=== PATIENT | female | born 1980 | race Hispanic/Latino ===

== ENCOUNTER 2021-07-25 05:12 | Emergency (ER) | payer BC, OTHER ==
[2021-07-25] MEDS ORDERED: NA CHLORIDE 0.9% 250 ML ONE (09:17)
[2021-07-25] MEDS ORDERED: CASIRIVIMAB/IMDEVIMAB 10 ML VIAL ONE (09:17)
[2021-07-25] MEDS ORDERED: ACETAMINOPHEN 500 MG TAB ONE (10:20)
[2021-07-25] MEDS ORDERED: DIPHENHYDRAMINE 50 MG/ML VIAL ONE (10:20)
--- NOTE | 2021-07-25 11:18 | EDPHYS ---
Physician Documentation [facility] Name: Bonny Overton Age: 41 yrs Sex: Female : 1980 Arrival Date: 07/25/2021 Time: 05:16 Bed 20 Private MD: ED Physician Chetan Ruiz HPI: 07/25 05:40 This 41 yrs old Female presents to ER via Ambulatory with complaints of Cough, ps1 Runny Nose, Congestion. 05:40 is known to be Covid positive. Living in the same domicile. Patient has got ps1 symptoms consistent with Covid. No hypoxia on evaluation today. Denies any leg swelling. Denies chest pain. Was reportedly seen by her PCP and was told that she had fluid behind her ears and that may be the cause of her dizziness. Symptoms have been going on for over a week. Was prescribed amoxicillin for reported otitis. Was not tested for Covid or other viral pathogens.. Historical: - Allergies: 05:29 No Known Allergies; sj1 - PMHx: 05:29 Hypertensive disorder; sj1 - PSHx: 05:29 section; Cholecystectomy; hysterectomy; sj1 - Immunization history:: Adult Immunizations up to date, Client reports having NOT received the Covid vaccine. - Social history:: Smoking status: Patient denies any tobacco usage or history of. Patient/guardian denies using alcohol, street drugs. ROS: 05:40 Eyes: Negative for injury, pain, redness, and discharge, Neck: Negative for injury, ps1 pain, and swelling, Cardiovascular: Negative for chest pain, palpitations, and edema, Abdomen/GI: Negative for abdominal pain, nausea, vomiting, diarrhea, and constipation, Skin: Negative for injury, rash, and discoloration, Neuro: Negative for headache, weakness, numbness, tingling, and seizure. 05:40 Constitutional: Positive for body aches, chills, fatigue, malaise. 05:40 ENT: Positive for ear pain, sinus congestion. 05:40 Respiratory: Positive for cough, with no reported sputum. Exam: 05:42 Constitutional: This is a well developed, well nourished patient who is awake, alert, ps1 and in no acute distress. Head/Face: Normocephalic, atraumatic. Eyes: Pupils equal round and reactive to light, extra-ocular motions intact. Lids and lashes normal. Conjunctiva and sclera are non-icteric and not injected. Chest/axilla: Normal chest wall appearance and motion. Nontender with no deformity. No lesions are appreciated. Cardiovascular: Regular rate and rhythm. No gallops, murmurs, or rubs. Normal PMI, no JVD. No pulse deficits. Respiratory: Lungs have equal breath sounds bilaterally, clear to auscultation and percussion. No rales, rhonchi or wheezes noted. No increased work of breathing, no retractions or nasal flaring. Abdomen/GI: Soft, non-tender, with normal bowel sounds. No distension or tympany. No guarding or rebound. No evidence of tenderness throughout. Skin: Warm, dry with normal turgor. Normal color with no rashes, no lesions, and no evidence of cellulitis. MS/ Extremity: Pulses equal, no cyanosis. Neurovascular intact. Full, normal range of motion. Neuro: Awake and alert, GCS 15, oriented to person, place, time, and situation. Cranial nerves II-XII grossly intact. Sensory grossly intact. Vital Signs: 05:24 BP 177 / 101; Pulse 96; Resp 18 S; Temp 98.3(TE); Pulse Ox 99% on R/A; Weight 108.86 kg [facility] (R); Height 5 ft. 2 in. (157.48 cm); Pain 2/10; 07:15 BP 162 / 81; Pulse 77; Resp 16; Pulse Ox 99% ; bp 08:30 BP 183 / 111; Pulse 80; Resp 16; Pulse Ox 100% ; bp 09:30 BP 181 / 106; Pulse 75; Resp 16; Pulse Ox 100% ; bp 10:40 BP 161 / 87; Pulse 66; Resp 17; Pulse Ox 100% ; bp 11:29 BP 142 / 88; Pulse 71; Resp 16; Pulse Ox 99% ; bp 12:27 BP 146 / 85; Pulse 75; Resp 17; Temp 98; Pulse Ox 100% ; bp 05:24 Body Mass Index 43.90 (108.86 kg, 157.48 cm) [facility] MDM: 05:28 Patient medically screened. ps1 11:16 Data reviewed: vital signs, nurses notes. Counseling: I had a detailed discussion with manan the patient and/or guardian regarding: the historical points, exam findings, and any diagnostic results supporting the discharge/admit diagnosis, lab results, radiology results, the need for outpatient follow up, to return to the emergency department if symptoms worsen or persist or if there are any questions or concerns that arise at home. 07/25 05:51 Order name: COVID-19 (Coronavirus) Document "Date of Onset" if Symptomatic cc4 07/25 05:51 Order name: Flu; Complete Time: 06:33 cc4 07/25 06:09 Order name: SARS-COV-2 RT PCR; Complete Time: 07:51 EDMS Administered Medications: 09:30 Drug: Casirivimab-Imdevimab Dose Pack 120 mg/mL-120 mg/mL (EUA) 1 application Route: bp IV; Rate: calculated rate; Site: right forearm; 12:35 Follow up: IV Status: Completed infusion; IV Intake: 250ml bp 10:00 Drug: Tylenol 1000 mg Route: PO; bp 11:31 Follow up: Response: No adverse reaction bp 10:00 Drug: Benadryl (diphenhydrAMINE) 25 mg Route: IVP; Site: right antecubital; bp 11:31 Follow up: Response: No adverse reaction; Pain is decreased bp Disposition Summary: 07/25/21 11:17 Discharge Ordered Location: Home [facility] Condition: Stable [facility] Diagnosis - Coronavirus infection, unspecified [facility] Followup: jm - With: Private Physician - When: 2 - 3 days - Reason: Recheck today's complaints, Continuance of care, Re-evaluation by your physician Discharge Instructions: - Discharge Summary Sheet [facility] - COVID-19 [facility] Forms: - Medication Reconciliation Form [facility] - Thank You Letter [facility] - Antibiotic Education [facility] - Prescription Opioid Use [facility] Signatures: Dispatcher [employer] EDMS Aldo Flores PA PA jmm Peltier, Brian, RN RN Chetan King MD MD ps1 Neida Cheng RN RN sj1 Corrections: (The following items were deleted from the chart) 05:31 05:29 Allergies: Aspirin; sj1 sj1
--- NOTE | 2021-07-25 11:18 | ER ---
Nurse's Notes [facility] Name: Bonny Overton Age: 41 yrs Sex: Female : 1980 Arrival Date: 07/25/2021 Time: 05:16 Bed 20 Private MD: Diagnosis: Coronavirus infection, unspecified Presentation: 07/25 05:24 Chief complaint: Patient states: SOB, body aches, congestion, diarrhea, headache, sj1 dizziness x 1 wk, covid + on 07/21/21. Coronavirus screen: Vaccine status: Patient reports being unvaccinated. congestion, diarrhea, fatigue, headache, muscle pain, shaking with chills, Client presents with at least one sign or symptom that may indicate coronavirus-19. Standard/surgical mask placed on the client. Provider contacted for isolation considerations. Ebola Screen: Patient negative for fever greater than or equal to 101.5 degrees Fahrenheit, and additional compatible Ebola Virus Disease symptoms Patient denies exposure to infectious person. Patient denies travel to an Ebola-affected area in the 21 days before illness onset. No symptoms or risks identified at this time. Initial Sepsis Screen: Does the patient meet any 2 criteria? No. Patient's initial sepsis screen is negative. Does the patient have a suspected source of infection? No. Patient's initial sepsis screen is negative. Risk Assessment: Do you want to hurt yourself or someone else? Patient reports no desire to harm self or others. Onset of symptoms was July 17, 2021. 05:24 Method Of Arrival: Ambulatory sj1 05:24 Acuity: [place]ST[place] 4 sj1 Triage Assessment: 05:29 General: Appears in no apparent distress. Behavior is calm, cooperative, appropriate sj1 for age. Pain: Complains of pain in gen body aches. EENT: No deficits noted. Neuro: No deficits noted. Cardiovascular: Reports chest pain. Respiratory: Reports shortness of breath. GI: Reports diarrhea. : No deficits noted. Derm: No deficits noted. Musculoskeletal: Reports body aches. Historical: - Allergies: 05:29 No Known Allergies; sj1 - PMHx: 05:29 Hypertensive disorder; sj1 - PSHx: 05:29 section; Cholecystectomy; hysterectomy; sj1 - Immunization history:: Adult Immunizations up to date, Client reports having NOT received the Covid vaccine. - Social history:: Smoking status: Patient denies any tobacco usage or history of. Patient/guardian denies using alcohol, street drugs. Screenin:32 Abuse screen: Denies threats or abuse. Denies injuries from another. Nutritional sj1 screening: No deficits noted. Tuberculosis screening: No symptoms or risk factors identified. Fall Risk None identified. Assessment: 05:32 Respiratory: Airway is patent Trachea midline Respiratory effort is even, unlabored, sj1 Respiratory pattern is regular, symmetrical. 05:55 Reassessment: No changes from previously documented assessment. General: Appears in no cc4 apparent distress. Occasional nonproductive cough noted; reports nasal congestion with "runny nose"; nasal drainage in back of throat with intermittent headache x 4 days; reports that was diagnosed with Covid earlier this week.. General: Swabbed for Covid-19 \\T\\ flu with both specimens taken to lab.. Pain: Complains of pain in head Pain currently is 3 out of 10 on a pain scale. Cardiovascular: Heart tones S1 S2. Respiratory: Airway is patent Breath sounds are clear bilaterally. GI: Abdomen is obese, Bowel sounds present X 4 quads. Reports intermittent loose stools. : No signs and/or symptoms were reported regarding the genitourinary system. EENT: Reports nasal congestion nasal discharge nasal drainage down back of throat.. Derm: No deficits noted. Skin is intact. Musculoskeletal: No deficits noted. Capillary refill < 3 seconds. 07:00 Reassessment: RECD REPORT FROM MARY RUBY. 41YO HF P/W URI S/S, KNOWN EXPOSURE TO bp COVID. COVID SWAB RESULTS PENDING. 08:55 Reassessment: No changes from previously documented assessment. Patient and/or family bp updated on plan of care and expected duration. Pain level reassessed. PER MD, PT +COVID. PT AGREES TO RECEIVE MONOCLONAL ANTIBODY REGEN-COV. Cardiovascular: Rhythm is sinus rhythm. 10:00 Reassessment: Patient appears in no apparent distress at this time. No changes from bp previously documented assessment. Patient and/or family updated on plan of care and expected duration. Pain level reassessed. 11:29 Reassessment: REGEN-COV COMPLETED. D/C ON HOLD FOR OBS TIME. bp 12:27 Reassessment: OBS PERIOD OVER, PT D/C HOME, DX WITH CORONAVIRUS. Cardiovascular: Rhythm bp is sinus rhythm. Respiratory: Breath sounds are clear. Vital Signs: 05:24 BP 177 / 101; Pulse 96; Resp 18 S; Temp 98.3(TE); Pulse Ox 99% on R/A; Weight 108.86 kg sj1 (R); Height 5 ft. 2 in. (157.48 cm); Pain 2/; 07:15 BP 162 / 81; Pulse 77; Resp 16; Pulse Ox 99% ; bp 08:30 BP 183 / 111; Pulse 80; Resp 16; Pulse Ox 100% ; bp 09:30 BP 181 / 106; Pulse 75; Resp 16; Pulse Ox 100% ; bp 10:40 BP 161 / 87; Pulse 66; Resp 17; Pulse Ox 100% ; bp 11:29 BP 142 / 88; Pulse 71; Resp 16; Pulse Ox 99% ; bp 12:27 BP 146 / 85; Pulse 75; Resp 17; Temp 98; Pulse Ox 100% ; bp 05:24 Body Mass Index 43.90 (108.86 kg, 157.48 cm) 1 ED Course: 05:16 Patient arrived in ED. bp1 05:23 Chetan Ruiz MD is Attending Physician. ps1 05:29 Triage completed. sj1 05:32 Patient has correct armband on for positive identification. sj1 05:32 Arm band placed on. sj1 05:32 No provider procedures requiring assistance completed. sj1 05:42 Mary Connor, RN is Primary Nurse. cc4 06:30 SARS-COV-2 RT PCR Sent. cc4 06:30 Flu Sent. cc4 06:30 COVID-19 (Coronavirus) Document "Date of Onset" if Symptomatic Sent. cc4 06:53 Aldo Flores PA [facility] 07:25 Primary Nurse role handed off by Mary Connor, RN bp 07:25 Beck Jauregui, FLORI is Primary Nurse. bp 12:33 IV discontinued, intact, bleeding controlled, No redness/swelling at site. Pressure bp dressing applied. Administered Medications: 09:30 Drug: Casirivimab-Imdevimab Dose Pack 120 mg/mL-120 mg/mL (EUA) 1 application Route: bp IV; Rate: calculated rate; Site: right forearm; 12:35 Follow up: IV Status: Completed infusion; IV Intake: 250ml bp 10:00 Drug: Tylenol 1000 mg Route: PO; bp 11:31 Follow up: Response: No adverse reaction bp 10:00 Drug: Benadryl (diphenhydrAMINE) 25 mg Route: IVP; Site: right antecubital; bp 11:31 Follow up: Response: No adverse reaction; Pain is decreased bp Intake: 12:35 IV: 250ml; Total: 250ml. bp Outcome: 11:17 Discharge ordered by . manan 12:34 Discharged to home ambulatory. bp 12:34 Condition: stable 12:34 Discharge instructions given to patient, Instructed on discharge instructions, follow up and referral plans. Demonstrated understanding of instructions, follow-up care. 12:37 Patient left the ED. bp Signatures: Aldo Flores PA PA jmm Peltier, Brian RN RN bp Chetan Ruiz MD MD ps1 Paniauga, Brittany bp1 Mary Connor RN RN cc4 Neida Cheng RN RN sj1 Corrections: (The following items were deleted from the chart) 05:31 05:29 Allergies: Aspirin; sj1 sj1
[2021-07-25 12:50] VITALS: BP 146/85; TEMP 98; O2SAT 100
== END 2021-07-25 12:37 | disposition home or self-care (01) ==
LOC: ER 05:12
DX: U07.1 COVID-19 (principal); I10 Essential (primary) hypertension
CPT/HCPCS: 96365; 87804 ×2; 96375; 99284; 96366; U0003; J1200; J7050

== ENCOUNTER 2021-09-02 11:59 | Emergency (ER) | payer OTHER ==
--- OUTSIDE RECORDS SUMMARY | 2021-09-02 12:07 | XMS REPORT | Continuity of Care Document ---
:1980 Author Organization [facility] t Address [address] [place] [address] [address] [place] [address] Care Team Providers Name Role Phone KYLE Attending Clinician Unavailable Tonya Barajas Attending Clinician Singer NG Attending Clinician Vahid Toussaint DO Attending Clinician Tara RUBY M Attending Clinician Unavailable Kyle FOSTER Attending Clinician Doctor Unassigned, Name Attending Clinician Unavailable Pob, Lab Main Attending Clinician Unavailable Lab, Fam Pob I Attending Clinician Unavailable Levar IRONMOLDER Attending Clinician LEVAR Attending Clinician Unavailable Nancy FOSTER Attending Clinician Mae MANZANARES Attending Clinician MAE Attending Clinician Unavailable KYLE Admitting Clinician Unavailable Kyle FOSTER Admitting Clinician Payers Payer Name Policy Type Policy Number Effective Date Expiration Date [facility] [id number] 2019 [facility] MEDICA[facility] 00:00:00 [id number] 2020 00:00:00 Problems Condition Condition Condition Status Onset Resolution Last Treating Co mments Source Name Details Category Date Date Treatment Clinician Date Abnormal Abnormal Disease Active 2019-10 Overview: Un yudi uterine uterine 1-30 Formattin ity o f bleeding bleeding 00:00: g of this Ole as (AUB) (AUB) 00 note Medical might be Branch different from the original. Added automatic ally from request for surgery [id number] Hyperchole Hyperchole Disease Active 2019-10 U nivers steremia steremia 0-15 ity of 00:00: [place] 00 Medical Branch Essential Essential Disease Active 2019-10 Uni vers hypertensi hypertensi 0-15 it y of on, benign on, benign 00:[place]: [place] [facility] Abnormal Abnormal Disease Active 2019-10 Unive rs blood blood 0-15 ity of sugar sugar 00:00: [place] 00 Medical Branch Iron Iron Disease Active 2019-10 Univers deficiency deficiency 0-15 it y of anemia, anemia, 00:00: [place] unspecifie unspecifie 00 Me dical d iron d iron Branch deficiency deficiency anemia anemia type type 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 severe 0-15 ity of obesity obesity 00:00: [place] with with 00 Medical serious serious Branch comorbidit comorbidit y and body y and body mass index mass index (BMI) of (BMI) of 45.0 to 45.0 to 49.9 in 49.9 in adult, adult, unspecifie unspecifie d obesity d obesity type type No known No known Disease Unive rs active active ity of problems problems [facility] Allergies, Adverse Reactions, Alerts Allergy Allergy Status Severity Reaction(s) Onset Inactive Treating Comm ents Source Name Type Date Date Clinician Joseph Propensi Active Swelling Univer s ty to 5-05 ity of adverse 00:00: [place] reaction 00 Medical s Branch JOSEPH DRUG Active Swelling Univers INGREDI 5-05 ity of 00:00: [place] 00 Medical Branch NO KNOWN Drug Active Univers ALLERGIE Class ity of S [facility] Social History Social Habit Start Date Stop Date Quantity Comments Source Exposure to Not sure [facility] SARS-CoV-2 [place] [facility] (event) Branch History of Cigarette Smoker Universi ty of tobacco use [facility] Tobacco use and 2020-10-29 2020-10-29 Never used Universit y of exposure 00:00:00 00:00:00 [facility] Alcohol intake 2020-10-29 2020-10-29 Ex-drinker [facility] 00:00:00 00:00:00 (finding) [facility] Sex Ass[birth year] At [birth year] Universit y of 00:00:00 00:00:00 [facility] Smoking Status Start Date Stop Date Source Former smoker 2020-10-29 00:00:00 2020-10-29 00:00:00 Universi ty of [facility] Never smoker University [facility] Medications Ordered Filled Start Stop Current Ordering Indication Dosage Frequency Signature Comments Components Source Medication Medication Date Date Medication? Clinician (SIG) Name Name NaCl 0.9% 2020- No 1000mL at 999 Uni vers (NS) bolus 03-19 mL/hr, ity of infusion 19:15: 07:14 1,000 mL, [place] 1,000 mL 00 :00 IV Medical Infusion, Branch ONCE, 1 dose, [place] 03/19/21 at 1415, STAT lisinopriL 2020- No 10mg 10 mg, Univ ers (PRINIVIL,Z 03-19 Oral, ity of ESTRIL) 19:15: 18:32 ONCE, 1 [place] tablet 10 00 :00 dose, [place] Medic al mg 03/19/21 at Branch 1415, Routine magnesium No 2g 2 g, IV Univ ers sulfate in 03-19 Piggyback, it y of water 2 19:15: 21:24 ONCE, 1 [place] gram/50 mL 00 :00 dose, [place] Medi luisa (4 %) 03/19/21 at Branch infusion 2 1415, g Routine ketorolac 2020- No 30mg 30 mg, Unive rs (TORADOL) 03-19 Slow IV ity of injection 19:15: 18:34 Push, [place] 30 mg 00 :00 ONCE, 1 Medical dose, [facility] Branch 03/19/21 at 1415, ZULEYMA
Fa culty member approving Restricted medication : Arden GREENBERG metoclopram No 10mg 10 mg, Uni vers brayden HCl 03-19 Slow IV ity of (REGLAN) 19:15: 18:36 Push, [place] injection 00 :00 ONCE, 1 Medical 10 mg dose, [place] Branch 03/19/21 at 1415, ZULEYMA diphenhydrA 2020- No 25mg 25 mg, Uni vers MINE 03-19 Slow IV ity of (BENADRYL) 19:15: 18:33 Push, [place] injection 00 :00 ONCE, 1 Medical 25 mg dose, [place] Branch 03/19/21 at 1415, STAT hydrOXYzine Yes [id number] 10mg Take 1 Univers 10 mg 5-05 tablet by ity of tablet 00:00: mouth [place] 00 every 6 Medical (six) Branch hours. methylPREDN 0 Yes [id number] Take by Univers ISolone 5-05 mouth ity of (MEDROL, 00:00: SEE-INSTRU Ole as KAVITHA,) 4 mg 00 CTIONS. Medica l tablets follow Branch package directions hydrOXYzine Yes [id number] 10mg Take 1 Univers 10 mg 5-05 tablet by ity of tablet 00:00: mouth [place] 00 every 6 Medical (six) Branch hours. methylPREDN 0 Yes [id number] Take by Univers ISolone 5-05 mouth ity of (MEDROL, 00:00: SEE-INSTRU [place] KAVITHA,) 4 mg 00 CTIONS. Medica l tablets follow Branch package directions fluconazole 2019-10 Yes TAKE ONE Un yudi 150 mg 2-07 (1) TABLET ity of tablet 00:00: BY MOUTH [place] 00 ONCE NOW Medical A Branch SINGLE DOSE. fluconazole 2019-10 Yes TAKE ONE Un y[facility] 150 mg 2-07 (1) TABLET ity of tablet 00:00: BY MOUTH [place] 00 ONCE NOW Medical A Branch SINGLE DOSE. fluconazole 2019-10 Yes TAKE ONE [facility] 150 mg 2-07 (1) TABLET ity of tablet 00:00: BY MOUTH [place] 00 ONCE NOW Medical A Branch SINGLE DOSE. norgestimat 2019-10 2020- No Take by U dominickers e-ethinyl 2-05 12-05 mouth. ity of estradiol 15:32: 00:00 [place] (ESTARYLLA 22 :00 Medical ORAL) Branch simethicone 2019-10 Yes 80mg 80 mg, Univ ers (GAS RELIEF 2-05 Oral, QID, it y of (SIMETHICON 15:15: First dose [place] E)) 00 on [facility] Medical chewable 09/13/20 at Branc h tablet 80 0915, mg Until Discontinu ed, Routine carvediloL 2019-10 Yes 6.25mg 6.25 mg, U nivers (COREG) 2-05 Oral, ity of tablet 6.25 15:00: DAILY, [place] mg 00 First dose Medical on Sat Branch 09/13/20 at 0900, Until Discontinu ed, Routine docusate 2019-10 Yes 240mg 240 mg, Unive rs calcium 2-05 Oral, ity of (SURFAK) 15:00: DAILY, [place] capsule 240 00 First dose Me dical mg on Sat Branch 09/13/20 at 0900, Until Discontinu ed, Routine ibuprofen 2019- Yes [id number] 600mg Take 1 Univers 600 mg 2-05 100 tablet by ity of tablet 00:00: mouth [place] 00 every 6 Medical (six) Branch hours as needed for Pain (scale 1-3). simethicone 2019- Yes [id number] 80mg Take 1 Univers 80 mg 2-05 100 tablet by ity of chewable 00:00: mouth [place] tablet 00 every 6 Medical (six) Branch hours as needed for Gas. docusate 2019-10 Yes [id number] 100mg Take 1 Univers 100 mg 2-05 100 capsule by ity of capsule 00:00: mouth 2 [place] 00 (two) Medical times Branch daily. ibuprofen 2019-10 Yes [id number] 600mg Take 1 Univers 600 mg 2-05 100 tablet by ity of tablet 00:00: mouth [place] 00 every 6 Medical (six) Branch hours as needed for Pain (scale 1-3). simethicone 2019- Yes [id number] 80mg Take 1 Univers 80 mg 2-05 100 tablet by ity of chewable 00:00: mouth [place] tablet 00 every 6 Medical (six) Branch hours as needed for Gas. docusate 2019-10 Yes [id number] 100mg Take 1 Univers 100 mg 2-05 100 capsule by ity of capsule 00:00: mouth 2 [place] 00 (two) Medical times Branch daily. ibuprofen 2019-10 Yes [id number] 600mg Take 1 Univers 600 mg 2-05 100 tablet by ity of tablet 00:00: mouth [place] 00 every 6 Medical (six) Branch hours as needed for Pain (scale 1-3). simethicone 2019- Yes [id number] 80mg Take 1 Univers 80 mg 2-05 100 tablet by ity of chewable 00:00: mouth [place] tablet 00 every 6 Medical (six) Branch hours as needed for Gas. docusate 2019- Yes [id number] 100mg Take 1 Univers 100 mg 2-05 100 capsule by ity of capsule 00:00: mouth 2 [place] 00 (two) Medical times Branch daily. ibuprofen 2019-10 Yes [id number] 600mg Take 1 Univers 600 mg 2-05 100 tablet by ity of tablet 00:00: mouth [place] 00 every 6 Medical (six) Branch hours as needed for Pain (scale 1-3). simethicone 2020-1 Yes [id number] 80mg Take 1 Univers 80 mg 2-05 100 tablet by ity of chewable 00:00: mouth [place] tablet 00 every 6 Medical (six) Branch hours as needed for Gas. docusate 2020-1 Yes [id number] 100mg Take 1 Univers 100 mg 2-05 100 capsule by ity of capsule 00:00: mouth 2 [place] 00 (two) Medical times Branch daily. ferrous 2020- Yes 324mg Take 324 Unive rs gluconate 2-05 mg by ity of 324 mg (38 00:00: mouth 2 [place] mg iron) 00 (two) Medical tablet times Branch daily. ibuprofen 2019- Yes [id number] 600mg Take 1 Univers 600 mg 2-05 100 tablet by ity of tablet 00:00: mouth [place] 00 every 6 Medical (six) Branch hours as needed for Pain (scale 1-3). simethicone 2020-1 Yes [id number] 80mg Take 1 Univers 80 mg 2-05 100 tablet by ity of chewable 00:00: mouth [place] tablet 00 every 6 Medical (six) Branch hours as needed for Gas. docusate 2019-1 Yes [id number] 100mg Take 1 Univers 100 mg 2-05 100 capsule by ity of capsule 00:00: mouth 2 [place] 00 (two) Medical times Branch daily. ferrous 2019-1 Yes 324mg Take 324 Unive rs gluconate 2-05 mg by ity of 324 mg (38 00:00: mouth 2 [place] mg iron) 00 (two) Medical tablet times Branch daily. ibuprofen 2019- Yes [id number] 600mg Take 1 Univers 600 mg 2-05 100 tablet by ity of tablet 00:00: mouth [place] 00 every 6 Medical (six) Branch hours as needed for Pain (scale 1-3). simethicone 2020-1 Yes [id number] 80mg Take 1 Univers 80 mg 2-05 100 tablet by ity of chewable 00:00: mouth [place] tablet 00 every 6 Medical (six) Branch hours as needed for Gas. docusate 2019- Yes [id number] 100mg Take 1 Univers 100 mg 2-05 100 capsule by ity of capsule 00:00: mouth 2 [place] 00 (two) Medical times Branch daily. ferrous 2019-10 Yes 324mg Take 324 Unive rs gluconate 2-05 mg by ity of 324 mg (38 00:00: mouth 2 [place] mg iron) 00 (two) Medical tablet times Branch daily. HYDROcodone 2019-10- No [id number] 1{tbl} Take 1 U nivers -acetaminop 11-1413 tablet by it y of hen 5-325 00:00: 05:59 mouth [place] mg tablet 00 :00 every 6 Medical (six) Branch hours as needed for Pain (scale 7-10) for up to 7 days. Indication s: acute pain HYDROcodone 2019-10- No 4647 1{tbl} Take 1 U nivers -acetaminop 2-13 tablet by it y of hen 5-325 00:00: 05:59 mouth [place] mg tablet 00 :00 every 6 Medical (six) Branch hours as needed for Pain (scale 7-10) for up to 7 days. Indication s: acute pain metoclopram 2019-10- No 10mg 10 mg, Uni vers brayden HCl 11-14 Slow IV ity of (REGLAN) 00:00: 05:29 [place], Q6H, [place] injection 00 :00 2 doses, Medica l 10 mg First dose Branch on Tue09/12/20 at 1800, Last dose on 09/13/20 at 0000, Routine ketorolac 2019-10- No 30mg 30 mg, Unive rs (TORADOL) 11-14 Slow IV ity of injection 00:00: 17:37 [place], Q6H, [place] 30 mg 00 :00 4 doses, Medical First dose Branch on Tue09/12/20 at 1800, Last dose on 09/13/20 at 1200, Routine
[place] tribunal member approving Restricted medication : FISH, BERT HYDROcodone 2019-10 Yes 2{tbl} 2 tablet, Univers -acetaminop 2-04 Oral, ity of hen (NORCO 21:53: Q6HPRN, [place] 5) 5-325 mg 24 Starting Medi luisa tablet 2 Tue Branch tablet 09/12/20 at 1553, Until Discontinu ed, Routine, Pain (scale 7-10) HYDROcodone 2020-1 Yes 1{tbl} 1 tablet, Univers -acetaminop 2-04 Oral, ity of hen (NORCO 21:53: Q6HPRN, [place] 5) 5-325 mg 09 Starting Medi luisa tablet 1 Tue Branch tablet 09/12/20 at 1553, Until Discontinu ed, Routine, Pain (scale 4-6) HYDROmorpho 2019-10 2020- No .2mg 0.2 mg, Un yudi ne -01 19- Slow IV ity of (DILAUDID) 19:52: 21:28 Push, [place] injection 59 :14 Q5MIN PRN, Medi luisa 0.2 mg 10 doses, Branch Starting Tue09/12/20 at 1352, Until Tue09/12/20 at 1528, Routine, Pain (scale 7-10), PACU
Us e approved by (Faculty): PACU USE -ANESTHESI A SERVICE-HY DROMORPHON E INJECTIONS lactated 2019-10 Yes 1000mL at 75 Univer s ringers IV 2-04 mL/hr, ity of infusion 19:30: 1,000 mL, [place] 1,000 mL 00 IV Medical Infusion, Branch CONTINUOUS , Starting Tue09/12/20 at 1330, Until Discontinu ed, Routine, PACU FENTanyl PF 2019-10 2020- No 25ug 25 mcg, Un yudi (SUBLIMAZE 11-13 Slow IV ity o f (PF)) 19:28: 19:48 Push, [place] injection 45 :00 Q5MIN PRN, Medi luisa 25 mcg 4 doses, Branch Starting Tue09/12/20 at 1328, Until Discontinu ed, Routine, Pain (scale 4-6), PACU lactated 2019-10 Yes 1000mL at 40 Univer s ringers IV 2-04 mL/hr, ity of infusion 19:15: 1,000 mL, [place] 1,000 mL 00 IV Medical Infusion, Branch CONTINUOUS , Starting Tue09/12/20 at 1315, Until Discontinu ed, Routine lactated 2019-10 2020- No 1000mL at 42 Unive rs ringers IV 2-04 12-04 mL/hr, ity of infusion 13:00: 13:25 1,000 mL, [place] 1,000 mL 00 :00 IV Medical Infusion, Branch ONCE, 1 dose, Tue09/12/20 at 0700, Routine, DSU Pre-op norgestimat 2019- Yes Take by [place] yudi e-ethinyl 2-01 mouth. ity of estradiol 22:23: [place] (ESTARYLLA 00 Medical ORAL) Branch norgestimat 2019-10 Yes Take by [place] e-ethinyl 2-01 mouth. ity of estradiol 22:23: [place] (ESTARYLLA 00 Medical ORAL) Branch norgestimat 2019-10 Yes Take by Un yudi e-ethinyl 1-24 mouth. ity of estradiol 16:21: [place] (ESTARYLLA 22 Medical ORAL) Branch norgestimat 2019-10 Yes Take by [place] e-ethinyl 1-24 mouth. ity of estradiol 16:21: [place] (ESTARYLLA 22 Medical ORAL) Branch norgestimat 2019-10 Yes Take by [place] e-ethinyl 1-24 mouth. ity of estradiol 16:21: [place] (ESTARYLLA 22 Medical ORAL) Branch norgestimat 2019-10 Yes Take by [place] e-ethinyl 1-24 mouth. ity of estradiol 16:21: [place] (ESTARYLLA 22 Medical ORAL) Branch medroxyPROG 2019-10 Yes 10mg Take 10 mg Univers ESTERone 10 1-24 by mouth 3 it y of mg tablet 00:00: (three) [place] 00 times Medical daily. Branch oxyCODONE 5 2019-10 Yes TAKE ONE Un yudi mg 1-24 (1) ity of immediate 00:00: TABLET(S) [place] release 00 BY MOUTH Medical tablet EVERY FOUR Branch HOURS NEEDED FOR PAIN FOR UP TO 5 DOSES. medroxyPROG 2019- Yes 10mg Take 10 mg Univers ESTERone 10 1-24 by mouth 3 it y of mg tablet 00:00: (three) [place] 00 times Medical daily. Branch oxyCODONE 5 2019-10 Yes TAKE ONE Un yudi mg 1-24 (1) ity of immediate 00:00: TABLET(S) [place] release 00 BY MOUTH Medical tablet EVERY FOUR Branch HOURS NEEDED FOR PAIN FOR UP TO 5 DOSES. medroxyPROG 2020- Yes 10mg Take 10 mg Univers ESTERone 10 1-24 by mouth 3 it y of mg tablet 00:00: (three) [place] 00 times Medical daily. Branch oxyCODONE 5 2019-10 Yes TAKE ONE Un yudi mg 1-24 (1) ity of immediate 00:00: TABLET(S) [place] release 00 BY MOUTH Medical tablet EVERY FOUR Branch HOURS NEEDED FOR PAIN FOR UP TO 5 DOSES. cephALEXin 2019-10 Yes TAKE ONE Uni vers 500 mg 1-20 (1) ity of capsule 00:00: [place]SULE(S) [place] 00 BY MOUTH Medical EVERY Branch TWELVE HOURS FOR 10 DAYS. cephALEXin 2019-10 Yes TAKE ONE Uni vers 500 mg 1-20 (1) ity of capsule 00:00: CAPSULE(S) [place] 00 BY MOUTH Medical EVERY Branch TWELVE HOURS FOR 10 DAYS. cephALEXin 2019-10 Yes TAKE ONE Uni vers 500 mg 1-20 (1) ity of capsule 00:00: CAPSULE(S) [place] 00 BY MOUTH Medical EVERY Branch TWELVE HOURS FOR 10 DAYS. cephALEXin 2019-10 Yes TAKE ONE Uni vers 500 mg 1-20 (1) ity of capsule 00:00: CAPSULE(S) [place] 00 BY MOUTH Medical EVERY Branch TWELVE HOURS FOR 10 DAYS. cephALEXin 2019-10 Yes TAKE ONE Uni vers 500 mg 1-20 (1) ity of capsule 00:00: CAPSULE(S) [place] 00 BY MOUTH Medical EVERY Branch TWELVE HOURS FOR 10 DAYS. cephALEXin 2019-10 Yes TAKE ONE Uni vers 500 mg 1-20 (1) ity of capsule 00:00: CAPSULE(S) [place] 00 BY MOUTH Medical EVERY Branch TWELVE HOURS FOR 10 DAYS. cephALEXin 2019-10 2020- No TAKE ONE Un yudi 500 mg 1-20 12-05 (1) ity of capsule 00:00: 00:00 CAPSULE(S) [place] 00 :00 BY MOUTH Medical EVERY Branch TWELVE HOURS FOR 10 DAYS. ferrous 2019-10 Yes [id number] 324mg Take 1 [place] yudi gluconate 1-13 tablet by ity o f 324 mg (38 00:00: mouth 2 [place] mg iron) 00 (two) Medical tablet times Branch daily. ascorbic 2019- Yes [id number] 500mg Take 1 U nivers acid, 1-13 tablet by ity of vitamin C, 00:00: mouth 2 [place] 500 mg 00 (two) Medical tablet times Branch daily. Take with iron to help with absorption of iron. ferrous 2019-10 Yes [id number] 324mg Take 1 [place] gluconate 1-13 tablet by ity o f 324 mg (38 00:00: mouth 2 [place] mg iron) 00 (two) Medical tablet times Branch daily. ascorbic 2019- Yes [id number] 500mg Take 1 U nivers acid, 1-13 tablet by ity of vitamin C, 00:00: mouth 2 [place] 500 mg 00 (two) Medical tablet times Branch daily. Take with iron to help with absorption of iron. ferrous 2019- Yes [id number] 324mg Take 1 [place] gluconate 1-13 tablet by ity o f 324 mg (38 00:00: mouth 2 [place] mg iron) 00 (two) Medical tablet times Branch daily. ascorbic 2019-10 Yes [id number] 500mg Take 1 U nivers acid, 1-13 tablet by ity of vitamin C, 00:00: mouth 2 [place] 500 mg 00 (two) Medical tablet times Branch daily. Take with iron to help with absorption of iron. ferrous 2019-10 Yes [id number] 324mg Take 1 [place]udi gluconate 1-13 tablet by ity o f 324 mg (38 00:00: mouth 2 [place] mg iron) 00 (two) Medical tablet times Branch daily. ascorbic 2019-10 Yes [id number] 500mg Take 1 U nivers acid, 1-13 tablet by ity of vitamin C, 00:00: mouth 2 [place] 500 mg 00 (two) Medical tablet times Branch daily. Take with iron to help with absorption of iron. ferrous 2019-10 Yes [id number] 324mg Take 1 [place]udi gluconate 1-13 tablet by ity o f 324 mg (38 00:00: mouth 2 [place] mg iron) 00 (two) Medical tablet times Branch daily. ascorbic 2019-10 Yes [id number] 500mg Take 1 U nivers acid, 1-13 tablet by ity of vitamin C, 00:00: mouth 2 [place] 500 mg 00 (two) Medical tablet times Branch daily. Take with iron to help with absorption of iron. ferrous 2019- Yes [id number] 324mg Take 1 [place] gluconate 1-13 tablet by ity o f 324 mg (38 00:00: mouth 2 [place] mg iron) 00 (two) Medical tablet times Branch daily. ascorbic 2019-1 Yes [id number] 500mg Take 1 U nivers acid, 1-13 tablet by ity of vitamin C, 00:00: mouth 2 [place] 500 mg 00 (two) Medical tablet times Branch daily. Take with iron to help with absorption of iron. ferrous 2019-10 Yes [id number] 324mg Take 1 [place]udi gluconate 1-13 tablet by ity o f 324 mg (38 00:00: mouth 2 [place] mg iron) 00 (two) Medical tablet times Branch daily. ascorbic 2019-10 Yes [id number] 500mg Take 1 U nivers acid, 1-13 tablet by ity of vitamin C, 00:00: mouth 2 [place] 500 mg 00 (two) Medical tablet times Branch daily. Take with iron to help with absorption of iron. ferrous 2019-10 Yes [id number] 324mg Take 1 [place] gluconate 1-13 tablet by ity o f 324 mg (38 00:00: mouth 2 [place] mg iron) 00 (two) Medical tablet times Branch daily. ascorbic 2019-10 Yes [id number] 500mg Take 1 U nivers acid, 1-13 tablet by ity of vitamin C, 00:00: mouth 2 [place] 500 mg 00 (two) Medical tablet times Branch daily. Take with iron to help with absorption of iron. ferrous 2019-10 Yes [id number] 324mg Take 1 [place] gluconate 1-13 tablet by ity o f 324 mg (38 00:00: mouth 2 [place] mg iron) 00 (two) Medical tablet times Branch daily. ascorbic 2019-10 Yes [id number] 500mg Take 1 U nivers acid, 1-13 tablet by ity of vitamin C, 00:00: mouth 2 [place] 500 mg 00 (two) Medical tablet times Branch daily. Take with iron to help with absorption of iron. ferrous 2019-10 Yes [id number] 324mg Take 1 [place] gluconate 1-13 tablet by ity o f 324 mg (38 00:00: mouth 2 [place] mg iron) 00 (two) Medical tablet times Branch daily. ascorbic 2019-10 Yes [id number] 500mg Take 1 U nivers acid, 1-13 tablet by ity of vitamin C, 00:00: mouth 2 [place] 500 mg 00 (two) Medical tablet times Branch daily. Take with iron to help with absorption of iron. ferrous 2019-10- No [id number] 324mg Take 1 U nivers gluconate 10-22 tablet by ity of 324 mg (38 00:00: 00:00 mouth 2 [place] mg iron) 00 :00 (two) Medical tablet times Branch daily. ascorbic 2019-10- No [id number] 500mg Take 1 Univers acid, 10-22 tablet by ity of vitamin C, 00:00: 00:00 mouth 2 [place] 500 mg 00 :00 (two) Medical tablet times Branch daily. Take with iron to help with absorption of iron. medroxyPROG 2019-10 Yes [id number] 10mg Take 1 Univers ESTERone 1-06 100 tablet by ity of (PROVERA) 00:00: mouth 3 [place] 10 mg 00 (three) Medical tablet times Branch daily. medroxyPROG 2019-10 Yes [id number] 10mg Take 1 Univers ESTERone 1-06 100 tablet by ity of (PROVERA) 00:00: mouth 3 [place] 10 mg 00 (three) Medical tablet times Branch daily. medroxyPROG 2019-10 Yes [id number] 10mg Take 1 Univers ESTERone 1-06 100 tablet by ity of (PROVERA) 00:00: mouth 3 [place] 10 mg 00 (three) Medical tablet times Branch daily. medroxyPROG 2019-10 Yes [id number] 10mg Take 1 Univers ESTERone 1-06 100 tablet by ity of (PROVERA) 00:00: mouth 3 [place] 10 mg 00 (three) Medical tablet times Branch daily. medroxyPROG 2019-10 Yes [id number] 10mg Take 1 Univers ESTERone 1-06 100 tablet by ity of (PROVERA) 00:00: mouth 3 [place] 10 mg 00 (three) Medical tablet times Branch daily. oxyCODONE 5 2019- Yes [id number] 5mg Take 5 mg U nivers mg TbOr 1-06 by mouth ity of 00:00: every 4 [place] 00 (four) Medical hours as Branch needed for Pain (scale 4-6) for up to 3 doses. Indication s: acute pain ibuprofen 2019-10 Yes [id number] 600mg Take 1 Univers 600 mg 1-06 100 tablet by ity of tablet 00:00: mouth [place] 00 every 6 Medical (six) Branch hours as needed for Pain (scale 4-6). medroxyPROG 2020- Yes [id number] 10mg Take 1 Univers ESTERone 1-06 100 tablet by ity of (PROVERA) 00:00: mouth 3 [place] 10 mg 00 (three) Medical tablet times Branch daily. medroxyPROG 2020- Yes [id number] 10mg Take 1 Univers ESTERone 1-06 100 tablet by ity of (PROVERA) 00:00: mouth 3 [place] 10 mg 00 (three) Medical tablet times Branch daily. ibuprofen 2019-10 Yes [id number] 600mg Take 1 Univers 600 mg 1-06 100 tablet by ity of tablet 00:00: mouth [place] 00 every 6 Medical (six) Branch hours as needed for Pain (scale 4-6). oxyCODONE 5 2019-10 Yes [id number] 5mg Take 1 Univ ers mg 1-06 tablet by ity of immediate 00:00: mouth [place] release 00 every 4 Medical tablet (four) Branch hours as needed for Pain (scale 4-6) for up to 5 doses. Indication s: acute pain medroxyPROG 2019- Yes [id number] 10mg Take 1 Univers ESTERone 1-06 100 tablet by ity of (PROVERA) 00:00: mouth 3 [place] 10 mg 00 (three) Medical tablet times Branch daily. ibuprofen 2019- Yes [id number] 600mg Take 1 Univers 600 mg 1-06 100 tablet by ity of tablet 00:00: mouth [place] 00 every 6 Medical (six) Branch hours as needed for Pain (scale 4-6). oxyCODONE 5 2019-10 Yes [id number] 5mg Take 1 Univ ers mg 1-06 tablet by ity of immediate 00:00: mouth [place] release 00 every 4 Medical tablet (four) Branch hours as needed for Pain (scale 4-6) for up to 5 doses. Indication s: acute pain medroxyPROG 2020- Yes [id number] 10mg Take 1 Univers ESTERone 1-06 100 tablet by ity of (PROVERA) 00:00: mouth 3 [place] 10 mg 00 (three) Medical tablet times Branch daily. ibuprofen 2019- Yes [id number] 600mg Take 1 Univers 600 mg 1-06 100 tablet by ity of tablet 00:00: mouth [place] 00 every 6 Medical (six) Branch hours as needed for Pain (scale 4-6). oxyCODONE 5 2019-10 Yes [id number] 5mg Take 1 Univ ers mg 1-06 tablet by ity of immediate 00:00: mouth [place] release 00 every 4 Medical tablet (four) Branch hours as needed for Pain (scale 4-6) for up to 5 doses. Indication s: acute pain medroxyPROG 2019- Yes [id number] 10mg Take 1 Univers ESTERone 1-06 100 tablet by ity of (PROVERA) 00:00: mouth 3 [place] 10 mg 00 (three) Medical tablet times Branch daily. ibuprofen 2019-10 Yes [id number] 600mg Take 1 [facility] 600 mg 1-06 100 tablet by ity of tablet 00:00: mouth [place] 00 every 6 Medical (six) Branch hours as needed for Pain (scale 4-6). oxyCODONE 5 2019-10 Yes [id number] 5mg Take 1 [facility] ers mg 1-06 tablet by ity of immediate 00:00: mouth [place] release 00 every 4 Medical tablet (four) Branch hours as needed for Pain (scale 4-6) for up to 5 doses. Indication s: acute pain medroxyPROG 2019-10 Yes [id number] 10mg Take 1 [facility] ESTERone 1-06 100 tablet by ity of (PROVERA) 00:00: mouth 3 [place] 10 mg 00 (three) Medical tablet times Branch daily. ibuprofen 2019-10 Yes [id number] 600mg Take 1 [facility] 600 mg 1-06 100 tablet by ity of tablet 00:00: mouth [place] 00 every 6 Medical (six) Branch hours as needed for Pain (scale 4-6). oxyCODONE 5 2019-10 Yes [id number] 5mg Take 1 [facility] ers mg 1-06 tablet by ity of immediate 00:00: mouth [place] release 00 every 4 Medical tablet (four) Branch hours as needed for Pain (scale 4-6) for up to 5 doses. Indication s: acute pain medroxyPROG 2019-10 Yes [id number] 10mg Take 1 [facility] ESTERone 1-06 100 tablet by ity of (PROVERA) 00:00: mouth 3 [place] 10 mg 00 (three) Medical tablet times Branch daily. ibuprofen 2019-10 Yes [id number] 600mg Take 1 [facility] 600 mg 1-06 100 tablet by ity of tablet 00:00: mouth [place] 00 every 6 Medical (six) Branch hours as needed for Pain (scale 4-6). oxyCODONE 5 2019-10 Yes [id number] 5mg Take 1 [facility] ers mg 1-06 tablet by ity of immediate 00:00: mouth [place] release 00 every 4 Medical tablet (four) Branch hours as needed for Pain (scale 4-6) for up to 5 doses. Indication s: acute pain medroxyPROG 2019- Yes [id number] 10mg Take 1 [facility] ESTERone 1-06 100 tablet by ity of (PROVERA) 00:00: mouth 3 [place] 10 mg 00 (three) Medical tablet times Branch daily. ibuprofen 2019-10 Yes [id number] 600mg Take 1 [facility] 600 mg 1-06 100 tablet by ity of tablet 00:00: mouth [place] 00 every 6 Medical (six) Branch hours as needed for Pain (scale 4-6). oxyCODONE 5 2019-10 Yes [id number] 5mg Take 1 [facility] ers mg 1-06 tablet by ity of immediate 00:00: mouth [place] release 00 every 4 Medical tablet (four) Branch hours as needed for Pain (scale 4-6) for up to 5 doses. Indication s: acute pain medroxyPROG 2019-10 Yes [id number] 10mg Take 1 [facility] ESTERone 1-06 100 tablet by ity of (PROVERA) 00:00: mouth 3 [place] 10 mg 00 (three) Medical tablet times Branch daily. ibuprofen 2019-10 Yes [id number] 600mg Take 1 [facility] 600 mg 1-06 100 tablet by ity of tablet 00:00: mouth [place] 00 every 6 Medical (six) Branch hours as needed for Pain (scale 4-6). oxyCODONE 5 2019-10 Yes [id number] 5mg Take 1 [facility] ers mg 1-06 tablet by ity of immediate 00:00: mouth [place] release 00 every 4 Medical tablet (four) Branch hours as needed for Pain (scale 4-6) for up to 5 doses. Indication s: acute pain ibuprofen 2019-10 Yes [id number] 600mg Take 1 [facility] 600 mg 1-06 100 tablet by ity of tablet 00:00: mouth [place] 00 every 6 Medical (six) Branch hours as needed for Pain (scale 4-6). ibuprofen 2019-10 Yes [id number] 600mg Take 1 [facility] 600 mg 1-06 100 tablet by ity of tablet 00:00: mouth [place] 00 every 6 Medical (six) Branch hours as needed for Pain (scale 4-6). ibuprofen 2019-10 Yes [id number] 600mg Take 1 [facility] 600 mg 1-06 100 tablet by ity of tablet 00:00: mouth [place] 00 every 6 Medical (six) Branch hours as needed for Pain (scale 4-6). ibuprofen 2019-10 Yes [id number] 600mg Take 1 [facility] 600 mg 1-06 100 tablet by ity of tablet 00:00: mouth [place] 00 every 6 Medical (six) Branch hours as needed for Pain (scale 4-6). ibuprofen 2019-10 Yes [id number] 600mg Take 1 [facility] 600 mg 1-06 100 tablet by ity of tablet 00:00: mouth [place] 00 every 6 Medical (six) Branch hours as needed for Pain (scale 4-6). ibuprofen 2019-10 Yes [id number] 600mg Take 1 [facility] 600 mg 1-06 100 tablet by ity of tablet 00:00: mouth [place] 00 every 6 Medical (six) Branch hours as needed for Pain (scale 4-6). ibuprofen 2019-10- No [id number] 600mg Take 1 [facility] 600 mg -06 12-05 100 tablet by ity of tablet 00:00: 00:00 mouth [place] 00 :00 every 6 Medical (six) Branch hours as needed for Pain (scale 4-6). medroxyPROG 2019- 2020- No [id number] 10mg Take 1 [facility] ESTERone 10-15- 100 tablet by ity o f (PROVERA) 00:00: 00:00 mouth 3 [place] 10 mg 00 :00 (three) Medical tablet times Branch daily. Take twice daily until you completely stop bleeding, then once per day medroxyPROG 2019-10 2020- No [id number] 10mg Take 1 [facility] ESTERone 10-15- 100 tablet by ity o f (PROVERA) 00:00: 00:00 mouth 3 [place] 10 mg 00 :00 (three) Medical tablet times Branch daily. Take twice daily until you completely stop bleeding, then once per day medroxyPROG 2019-10 2020- No [id number] 10mg Take 1 [facility] ESTERone 10-15- 100 tablet by ity o f (PROVERA) 00:00: 00:00 mouth 3 [place] 10 mg 00 :00 (three) Medical tablet times Branch daily. Take twice daily until you completely stop bleeding, then once per day medroxyPROG 2019-10- No [id number] 10mg Take 1 [facility] ESTERone 10-15 100 tablet by ity o f (PROVERA) 00:00: 00:00 mouth 3 [place] 10 mg 00 :00 (three) Medical tablet times Branch daily. Take twice daily until you completely stop bleeding, then once per day oxyCODONE 5 2019-10- No [id number] 5mg Take 5 mg [facility] mg TbOr 10-15 by mouth ity of 00:00: 00:00 every 4 [place] 00 :00 (four) Medical hours as Branch needed for Pain (scale 4-6) for up to 3 doses. Indication s: acute pain medroxyPROG 2019-10- No [id number] 10mg Take 1 [facility] ESTERone 10-11 100 tablet by ity o f (PROVERA) 00:00: 05:59 mouth 2 [place] 10 mg 00 :00 (two) Medical tablet times Branch daily for 60 doses. Take twice daily until you completely stop bleeding, then once per day docusate 2019-10- No [id number] 100mg Take 1 [facility] (COLACE) 10-11 100 capsule by ity of 100 mg 00:00: 05:59 mouth 2 [place] capsule 00 :00 (two) Medical times Branch daily for 30 days. This medication is used for constipati on Polyethylen 2019-10- No [id number] 1{packe Take 1 [facility] e Glycol 10-11 100 t} Packet by ity o f 3350 00:00: 05:59 mouth [place] (MIRALAX) 00 :00 every 24 Medica l 17 gram (twenty-fo Branch powder ur) hours as needed for Constipati on for up to 30 days. medroxyPROG 2019-10- No [id number] 10mg Take 1 [facility] ESTERone 10-11 100 tablet by ity o f (PROVERA) 00:00: 05:59 mouth 2 [place] 10 mg 00 :00 (two) Medical tablet times Branch daily for 60 doses. Take twice daily until you completely stop bleeding, then once per day docusate 2019-10- No [id number] 100mg Take 1 [facility] (COLACE) 1-02 12-03 100 capsule by ity of 100 mg 00:00: 05:59 mouth 2 [place] capsule 00 :00 (two) Medical times Branch daily for 30 days. This medication is used for constipati on Polyethylen 2019-10 No [id number] 1{packe Take 1 [facility] e Glycol 10-11 100 t} Packet by ity o f 3350 00:00: 05:59 mouth [place] (MIRALAX) 00 :00 every 24 Medica l 17 gram (twenty-fo Branch powder ur) hours as needed for Constipati on for up to 30 days. medroxyPROG 2019-10- No [id number] 10mg Take 1 [facility] ESTERone 10-11 100 tablet by ity o f (PROVERA) 00:00: 05:59 mouth 2 [place] 10 mg 00 :00 (two) Medical tablet times Branch daily for 60 doses. Take twice daily until you completely stop bleeding, then once per day docusate 2019-10- No [id number] 100mg Take 1 [facility] (COLACE) 10-11 100 capsule by ity of 100 mg 00:00: 05:59 mouth 2 [place] capsule 00 :00 (two) Medical times Branch daily for 30 days. This medication is used for constipati on Polyethylen 2019-10 No [id number] 1{packe Take 1 [facility] e Glycol 10-11 100 t} Packet by ity o f 3350 00:00: 05:59 mouth [place] (MIRALAX) 00 :00 every 24 Medica l 17 gram (twenty-fo Branch powder ur) hours as needed for Constipati on for up to 30 days. docusate 2019-10- No [id number] 100mg Take 1 [facility] (COLACE) 10-11 100 capsule by ity of 100 mg 00:00: 05:59 mouth 2 [place] capsule 00 :00 (two) Medical times Branch daily for 30 days. This medication is used for constipati on Polyethylen 2019-10 No [id number] 1{packe Take 1 [facility] e Glycol 10-11 100 t} Packet by ity o f 3350 00:00: 05:59 mouth [place] (MIRALAX) 00 :00 every 24 Medica l 17 gram (twenty-fo Branch powder ur) hours as needed for Constipati on for up to 30 days. docusate 2019-10- No [id number] 100mg Take 1 [facility] (COLACE) 10-11 100 capsule by ity of 100 mg 00:00: 05:59 mouth 2 [place] capsule 00 :00 (two) Medical times Branch daily for 30 days. This medication is used for constipati on Polyethylen 2019-10- No [id number] 1{packe Take 1 [facility] e Glycol 10-11 100 t} Packet by ity o f 3350 00:00: 05:59 mouth [place] (MIRALAX) 00 :00 every 24 Medica l 17 gram (twenty-fo Branch powder ur) hours as needed for Constipati on for up to 30 days. docusate 2019-10- No [id number] 100mg Take 1 [facility] (COLACE) 10-11 100 capsule by ity of 100 mg 00:00: 05:59 mouth 2 [place] capsule 00 :00 (two) Medical times Branch daily for 30 days. This medication is used for constipati on Polyethylen 2019-10- No [id number] 1{packe Take 1 [facility] e Glycol 10-11 100 t} Packet by ity o f 3350 00:00: 05:59 mouth [place] (MIRALAX) 00 :00 every 24 Medica l 17 gram (twenty-fo Branch powder ur) hours as needed for Constipati on for up to 30 days. docusate 2019-10- No [id number] 100mg Take 1 [facility] (COLACE) 10-11 100 capsule by ity of 100 mg 00:00: 05:59 mouth 2 [place] capsule 00 :00 (two) Medical times Branch daily for 30 days. This medication is used for constipati on Polyethylen 2019-10- No [id number] 1{packe Take 1 [facility] e Glycol 10-11 100 t} Packet by ity o f 3350 00:00: 05:59 mouth [place] (MIRALAX) 00 :00 every 24 Medica l 17 gram (twenty-fo Branch powder ur) hours as needed for Constipati on for up to 30 days. docusate 2019-10- No [id number] 100mg Take 1 [facility] (COLACE) 10-11 100 capsule by ity of 100 mg 00:00: 05:59 mouth 2 [place] capsule 00 :00 (two) Medical times Branch daily for 30 days. This medication is used for constipati on Polyethylen 2019-10- No [id number] 1{packe Take 1 [facility] e Glycol 10-11 100 t} Packet by ity o f 3350 00:00: 05:59 mouth [place] (MIRALAX) 00 :00 every 24 Medica l 17 gram (twenty-fo Branch powder ur) hours as needed for Constipati on for up to 30 days. docusate 2019-10- No [id number] 100mg Take 1 [facility] (COLACE) 10-11 100 capsule by ity of 100 mg 00:00: 05:59 mouth 2 [place] capsule 00 :00 (two) Medical times Branch daily for 30 days. This medication is used for constipati on Polyethylen 2019-10 No [id number] 1{packe Take 1 [facility] e Glycol 10-11 100 t} Packet by ity o f 3350 00:00: 05:59 mouth [place] (MIRALAX) 00 :00 every 24 Medica l 17 gram (twenty-fo Branch powder ur) hours as needed for Constipati on for up to 30 days. docusate 2019-10- No [id number] 100mg Take 1 [facility] (COLACE) 10-11 100 capsule by ity of 100 mg 00:00: 05:59 mouth 2 [place] capsule 00 :00 (two) Medical times Branch daily for 30 days. This medication is used for constipati on Polyethylen 2019-10- No [id number] 1{packe Take 1 [facility] e Glycol 10-11 100 t} Packet by ity o f 3350 00:00: 05:59 mouth [place] (MIRALAX) 00 :00 every 24 Medica l 17 gram (twenty-fo Branch powder ur) hours as needed for Constipati on for up to 30 days. docusate 2019-10- No [id number] 100mg Take 1 [facility] (COLACE) 10-11 100 capsule by ity of 100 mg 00:00: 05:59 mouth 2 [place] capsule 00 :00 (two) Medical times Branch daily for 30 days. This medication is used for constipati on Polyethylen 2019-10- No [id number] 1{packe Take 1 [facility] e Glycol -09-11 100 t} Packet by ity o f 3350 00:00: 05:59 mouth [place] (MIRALAX) 00 :00 every 24 Medica l 17 gram (twenty-fo Branch powder ur) hours as needed for Constipati on for up to 30 days. docusate 2019-10- No [id number] 100mg Take 1 [facility] (COLACE) 10-11 100 capsule by ity of 100 mg 00:00: 05:59 mouth 2 [place] capsule 00 :00 (two) Medical times Branch daily for 30 days. This medication is used for constipati on Polyethylen 2019-10 No [id number] 1{packe Take 1 [facility] e Glycol 10-11 100 t} Packet by ity o f 3350 00:00: 05:59 mouth [place] (MIRALAX) 00 :00 every 24 Medica l 17 gram (twenty-fo Branch powder ur) hours as needed for Constipati on for up to 30 days. docusate 2019-10- No [id number] 100mg Take 1 [facility] (COLACE) 10-11 100 capsule by ity of 100 mg 00:00: 05:59 mouth 2 [place] capsule 00 :00 (two) Medical times Branch daily for 30 days. This medication is used for constipati on Polyethylen 2019-10- No [id number] 1{packe Take 1 [facility] e Glycol 10-11 100 t} Packet by ity o f 3350 00:00: 05:59 mouth [place] (MIRALAX) 00 :00 every 24 Medica l 17 gram (twenty-fo Branch powder ur) hours as needed for Constipati on for up to 30 days. docusate 2019-10- No [id number] 100mg Take 1 [facility] (COLACE) 10-11 100 capsule by ity of 100 mg 00:00: 05:59 mouth 2 [place] capsule 00 :00 (two) Medical times Branch daily for 30 days. This medication is used for constipati on Polyethylen 2019-10- No [id number] 1{packe Take 1 [facility] e Glycol 10-11 100 t} Packet by ity o f 3350 00:00: 05:59 mouth [place] (MIRALAX) 00 :00 every 24 Medica l 17 gram (twenty-fo Branch powder ur) hours as needed for Constipati on for up to 30 days. docusate 2019-10- No [id number] 100mg Take 1 [facility] (COLACE) 10-11 100 capsule by ity of 100 mg 00:00: 05:59 mouth 2 [place] capsule 00 :00 (two) Medical times Branch daily for 30 days. This medication is used for constipati on Polyethylen 2019-10 No [id number] 1{packe Take 1 [facility] e Glycol 10-11 100 t} Packet by ity o f 3350 00:00: 05:59 mouth [place] (MIRALAX) 00 :00 every 24 Medica l 17 gram (twenty-fo Branch powder ur) hours as needed for Constipati on for up to 30 days. docusate 2019-10- No [id number] 100mg Take 1 [facility] (COLACE) 10-11 100 capsule by ity of 100 mg 00:00: 05:59 mouth 2 [place] capsule 00 :00 (two) Medical times Branch daily for 30 days. This medication is used for constipati on Polyethylen 2019-10 No [id number] 1{packe Take 1 [facility] e Glycol 10-11 100 t} Packet by ity o f 3350 00:00: 05:59 mouth [place] (MIRALAX) 00 :00 every 24 Medica l 17 gram (twenty-fo Branch powder ur) hours as needed for Constipati on for up to 30 days. docusate 2019-10- No [id number] 100mg Take 1 [facility] (COLACE) 10-11 100 capsule by ity of 100 mg 00:00: 05:59 mouth 2 [place] capsule 00 :00 (two) Medical times Branch daily for 30 days. This medication is used for constipati on Polyethylen 2019-10- No [id number] 1{packe Take 1 [facility] e Glycol 10-11 100 t} Packet by ity o f 3350 00:00: 05:59 mouth [place] (MIRALAX) 00 :00 every 24 Medica l 17 gram (twenty-fo Branch powder ur) hours as needed for Constipati on for up to 30 days. docusate 2019-10- No [id number] 100mg Take 1 [facility] (COLACE) 10-11 100 capsule by ity of 100 mg 00:00: 05:59 mouth 2 [place] capsule 00 :00 (two) Medical times Branch daily for 30 days. This medication is used for constipati on Polyethylen 2019-10 No [id number] 1{packe Take 1 [facility] e Glycol 10-11 100 t} Packet by ity o f 3350 00:00: 05:59 mouth [place] (MIRALAX) 00 :00 every 24 Medica l 17 gram (twenty-fo Branch powder ur) hours as needed for Constipati on for up to 30 days. docusate 2019-10- No [id number] 100mg Take 1 [facility] (COLACE) 10-11 100 capsule by ity of 100 mg 00:00: 05:59 mouth 2 [place] capsule 00 :00 (two) Medical times Branch daily for 30 days. This medication is used for constipati on Polyethylen 2019-10- No [id number] 1{packe Take 1 [facility] e Glycol 10-11 100 t} Packet by ity o f 3350 00:00: 05:59 mouth [place] (MIRALAX) 00 :00 every 24 Medica l 17 gram (twenty-fo Branch powder ur) hours as needed for Constipati on for up to 30 days. docusate 2019-10- No [id number] 100mg Take 1 [facility] (COLACE) 10-11 100 capsule by ity of 100 mg 00:00: 05:59 mouth 2 [place] capsule 00 :00 (two) Medical times Branch daily for 30 days. This medication is used for constipati on Polyethylen 2019-10- No [id number] 1{packe Take 1 [facility] e Glycol 10-11 100 t} Packet by ity o f 3350 00:00: 05:59 mouth [place] (MIRALAX) 00 :00 every 24 Medica l 17 gram (twenty-fo Branch powder ur) hours as needed for Constipati on for up to 30 days. docusate 2019-10- No [id number] 100mg Take 1 [facility] (COLACE) 10-11 100 capsule by ity of 100 mg 00:00: 05:59 mouth 2 [place] capsule 00 :00 (two) Medical times Branch daily for 30 days. This medication is used for constipati on Polyethylen 2019-10- No [id number] 1{packe Take 1 [facility] e Glycol 10-11 100 t} Packet by ity o f 3350 00:00: 05:59 mouth [place] (MIRALAX) 00 :00 every 24 Medica l 17 gram (twenty-fo Branch powder ur) hours as needed for Constipati on for up to 30 days. docusate 2019-10- No [id number] 100mg Take 1 [facility] (COLACE) 10-11 100 capsule by ity of 100 mg 00:00: 05:59 mouth 2 [place] capsule 00 :00 (two) Medical times Branch daily for 30 days. This medication is used for constipati on Polyethylen 2019-10 No [id number] 1{packe Take 1 [facility] e Glycol 10-11 100 t} Packet by ity o f 3350 00:00: 05:59 mouth [place] (MIRALAX) 00 :00 every 24 Medica l 17 gram (twenty-fo Branch powder ur) hours as needed for Constipati on for up to 30 days. docusate 2019-10- No [id number] 100mg Take 1 [facility] (COLACE) 10-11 100 capsule by ity of 100 mg 00:00: 05:59 mouth 2 [place] capsule 00 :00 (two) Medical times Branch daily for 30 days. This medication is used for constipati on Polyethylen 2019-10 No [id number] 1{packe Take 1 [facility] e Glycol 10-11 100 t} Packet by ity o f 3350 00:00: 05:59 mouth [place] (MIRALAX) 00 :00 every 24 Medica l 17 gram (twenty-fo Branch powder ur) hours as needed for Constipati on for up to 30 days. docusate 2019-10- No [id number] 100mg Take 1 [facility] (COLACE) 10-11 100 capsule by ity of 100 mg 00:00: 05:59 mouth 2 [place] capsule 00 :00 (two) Medical times Branch daily for 30 days. This medication is used for constipati on Polyethylen 2019-10 No [id number] 1{packe Take 1 [facility] e Glycol 10-11 100 t} Packet by [employer] o f 3350 00:00: 05:59 mouth [place] (MIRALAX) 00 :00 every 24 Medica l 17 gram (twenty-fo Branch powder ur) hours as needed for Constipati on for up to 30 days. medroxyPROG 2019-10- No [id number] 10mg Take 1 [facility] ESTERone 10-11 100 tablet by ity o f (PROVERA) 00:00: 00:00 mouth 2 [place] 10 mg 00 :00 (two) Medical tablet times Branch daily for 60 doses. Take twice daily until you completely stop bleeding, then once per day medroxyPROG 2019-10- No [id number] 10mg Take 1 [facility] ESTERone 10-11 100 tablet by ity o f (PROVERA) 00:00: 00:00 mouth 2 [place] 10 mg 00 :00 (two) Medical tablet times Branch daily for 60 doses. Take twice daily until you completely stop bleeding, then once per day medroxyPROG 2019-10- No [id number] 10mg Take 1 [facility] ESTERone 10-11 100 tablet by ity o f (PROVERA) 00:00: 00:00 mouth 2 [place] 10 mg 00 :00 (two) Medical tablet times Branch daily for 60 doses. Take twice daily until you completely stop bleeding, then once per day medroxyPROG 2019-10- No [id number] 10mg Take 1 [facility] ESTERone 10-11 100 tablet by ity o f (PROVERA) 00:00: 00:00 mouth 2 [place] 10 mg 00 :00 (two) Medical tablet times Branch daily for 60 doses. Take twice daily until you completely stop bleeding, then once per day miSOPROStoL 2019-10- No [id number] 200ug Take 1 [facility] 200 mcg 0-16 10-18 tablet by ity of tablet 00:00: 04:59 mouth 2 [place] 00 :00 (two) Medical times Branch daily for 1 day. miSOPROStoL 2019-10- No [id number] 200ug Take 1 [facility] 200 mcg 0-16 10-18 tablet by ity of tablet 00:00: 04:59 mouth 2 [place] 00 :00 (two) Medical times Branch daily for 1 day. ferrous 2020-1 Yes 324mg Take 324 Unive rs gluconate 0-15 mg by ity of 324 mg (38 00:00: mouth [place] mg iron) 00 daily. Medical tablet Branch ferrous 2020- Yes 324mg Take 324 Unive rs gluconate 0-15 mg by ity of 324 mg (38 00:00: mouth [place] mg iron) 00 daily. Medical tablet Branch ferrous 2020- Yes 324mg Take 324 Unive rs gluconate 0-15 mg by ity of 324 mg (38 00:00: mouth [place] mg iron) 00 daily. Medical tablet Branch ferrous 2020- Yes 324mg Take 324 Unive rs gluconate 0-15 mg by ity of 324 mg (38 00:00: mouth [place] mg iron) 00 daily. Medical tablet Branch ferrous 2020- Yes 324mg Take 324 Unive rs gluconate 0-15 mg by ity of 324 mg (38 00:00: mouth [place] mg iron) 00 daily. Medical tablet Branch ferrous 2020- Yes 324mg Take 324 Unive rs gluconate 0-15 mg by ity of 324 mg (38 00:00: mouth [place] mg iron) 00 daily. Medical tablet Branch ferrous 2020 Yes 324mg Take 324 Unive rs gluconate 0-15 mg by ity of 324 mg (38 00:00: mouth [place] mg iron) 00 daily. Medical tablet Branch ferrous 2020- Yes 324mg Take 324 Unive rs gluconate 0-15 mg by ity of 324 mg (38 00:00: mouth [place] mg iron) 00 daily. Medical tablet Branch ferrous 2020- Yes 324mg Take 324 Unive rs gluconate 0-15 mg by ity of 324 mg (38 00:00: mouth [place] mg iron) 00 daily. Medical tablet Branch ferrous 2020- Yes 324mg Take 324 Unive rs gluconate 0-15 mg by ity of 324 mg (38 00:00: mouth [place] mg iron) 00 daily. Medical tablet Branch ferrous 2020-1 Yes 324mg Take 324 Unive rs gluconate 0-15 mg by ity of 324 mg (38 00:00: mouth [place] mg iron) 00 daily. Medical tablet Branch ferrous 2020- Yes 324mg Take 324 Unive rs gluconate 0-15 mg by ity of 324 mg (38 00:00: mouth [place] mg iron) 00 daily. Medical tablet Branch ferrous 2020- Yes 324mg Take 324 Unive rs gluconate 0-15 mg by ity of 324 mg (38 00:00: mouth [place] mg iron) 00 daily. Medical tablet Branch ferrous 2019-10 2020- No 324mg Take 324 Univ ers gluconate 0-15 11-13 mg by ity of 324 mg (38 00:00: 00:00 mouth [place] mg iron) 00 :00 daily. Medical tablet Branch carvediloL 2019-10 Yes 6.25mg Take 6.25 Univers 6.25 mg 0-08 mg by ity of tablet 00:00: mouth 2 [place] 00 (two) Medical times Branch daily. loratadine 2019-10 Yes 10mg Take 10 mg U nivers 10 mg 0-08 by mouth ity of tablet 00:00: daily. [place] [facility] Branch fluticasone 2019-10 Yes INSTILL Uni vers propionate 0-08 ONE (1) ity of 50 00:00: SPRAY(S) [place] mcg/actuati 00 INTO EACH Med ical on nasal NOSTRIL Branch spray TWICE A DAY. lamoTRIgine 2019-10 Yes TAKE ONE Un yudi 25 mg 0-08 (1) ity of tablet 00:00: TABLET(S) 00 BY MOUTH Medical ONCE A DAY Branch FOR 14 DAYS, THEN TAKE TWO (2) TABLETS FOR 14 DAYS, THEN FOUR (4) TABLETS FOR 14 DAYS. carvediloL 2019-10 Yes 6.25mg Take 6.25 Univers 6.25 mg 0-08 mg by ity of tablet 00:00: mouth 2 (two) Medical times Branch daily. loratadine 2019-10 Yes 10mg Take 10 mg U nivers 10 mg 0-08 by mouth ity of tablet 00:00: daily. [place] [facility] fluticasone 2019-10 Yes INSTILL Uni vers propionate 0-08 ONE (1) ity of 50 00:00: SPRAY(S) [place] mcg/actuati 00 INTO EACH Med ical on nasal NOSTRIL Branch spray TWICE A DAY. lamoTRIgine 2019-10 Yes TAKE ONE Un [facility] 25 mg 0-08 (1) ity of tablet 00:00: TABLET(S) [place] 00 BY MOUTH Medical ONCE A DAY Branch FOR 14 DAYS, THEN TAKE TWO (2) TABLETS FOR 14 DAYS, THEN FOUR (4) TABLETS FOR 14 DAYS. carvediloL 2019-10 Yes 6.25mg Take 6.25 Univers 6.25 mg 0-08 mg by ity of tablet 00:00: mouth 2 [place] (two) Medical times [place] daily. loratadine 2020- Yes 10mg Take 10 mg U nivers 10 mg 0-08 by mouth ity of tablet 00:00: daily. [address] fluticasone 2019- Yes INSTILL Uni vers propionate 0-08 ONE (1) ity of 50 00:00: SPRAY(S) [place] mcg/actuati 00 INTO EACH Med ical on nasal NOSTRIL Branch spray TWICE A DAY. lamoTRIgine 2019-10 Yes TAKE ONE Un [place] 25 mg 0-08 (1) ity of tablet 00:00: TABLET(S) BY MOUTH Medical ONCE A DAY Branch FOR 14 DAYS, THEN TAKE TWO (2) TABLETS FOR 14 DAYS, THEN FOUR (4) TABLETS FOR 14 DAYS. carvediloL 2019- Yes 6.25mg Take 6.25 Univers 6.25 mg 0-08 mg by ity of tablet 00:00: mouth 2 [place] ([facility]) Medical times [place] daily. loratadine 2019- Yes 10mg Take 10 mg U nivers 10 mg 0-08 by mouth ity of tablet 00:00: daily. [address] fluticasone 2019-10 Yes INSTILL Uni vers propionate 0-08 ONE (1) ity of 50 00:00: SPRAY(S) [place] mcg/actuati 00 INTO EACH Med ical on nasal NOSTRIL Branch spray TWICE A DAY. lamoTRIgine 2019-10 Yes TAKE ONE Un [facility]udi 25 mg 0-08 (1) ity of tablet 00:00: TABLET(S) [place] 00 BY MOUTH Medical ONCE A DAY Branch FOR 14 DAYS, THEN TAKE TWO (2) TABLETS FOR 14 DAYS, THEN FOUR (4) TABLETS FOR 14 DAYS. carvediloL 2019- Yes 6.25mg Take 6.25 Univers 6.25 mg 0-08 mg by ity of tablet 00:00: mouth 2 [place] (two) Medical times [place] daily. loratadine 2019- Yes 10mg Take 10 mg U nivers 10 mg 0-08 by mouth ity of tablet 00:00: daily. [address] [address] fluticasone 2019- Yes INSTILL [facility] vers propionate 0-08 ONE (1) ity of 50 00:00: SPRAY(S) [place] mcg/actuati 00 INTO EACH Med ical on nasal NOSTRIL Branch spray TWICE A DAY. lamoTRIgine 2020- Yes TAKE ONE Un y[place] 25 mg 0-08 (1) ity of tablet 00:00: TABLET(S) [place] 00 BY MOUTH Medical ONCE A DAY Branch FOR 14 DAYS, THEN TAKE TWO (2) TABLETS FOR 14 DAYS, THEN FOUR (4) TABLETS FOR 14 DAYS. carvediloL 2020- Yes 6.25mg Take 6.25 [facility] 6.25 mg 0-08 mg by ity of tablet 00:00: mouth 2 [place] 00 (two) Medical times Branch daily. loratadine 2020- Yes 10mg Take 10 mg U nivers 10 mg 0-08 by mouth ity of tablet 00:00: daily. [address] fluticasone 2020- Yes INSTILL Uni vers propionate 0-08 ONE (1) ity of 50 00:00: SPRAY(S) [place] mcg/actuati 00 INTO EACH Med ical on nasal NOSTRIL Branch spray TWICE A DAY. lamoTRIgine 2019- Yes TAKE ONE [place] 25 mg 0-08 (1) ity of tablet 00:00: TABLET(S) [place] 00 BY MOUTH Medical ONCE A DAY Branch FOR 14 DAYS, THEN TAKE TWO (2) TABLETS FOR 14 DAYS, THEN FOUR (4) TABLETS FOR 14 DAYS. carvediloL 2020- Yes 6.25mg Take 6.25 [facility] 6.25 mg 0-08 mg by ity of tablet 00:00: mouth 2 00 (two) Medical times Branch daily. loratadine 2020- Yes 10mg Take 10 mg U nivers 10 mg 0-08 by mouth ity of tablet 00:00: daily. [address] fluticasone 2019- Yes INSTILL Uni vers propionate 0-08 ONE (1) ity of 50 00:00: SPRAY(S) [place] mcg/actuati 00 INTO EACH Med ical on nasal NOSTRIL Branch spray TWICE A DAY. lamoTRIgine 2020- Yes TAKE ONE [place] 25 mg 0-08 (1) ity of tablet 00:00: TABLET(S) [place] 00 BY MOUTH Medical ONCE A DAY Branch FOR 14 DAYS, THEN TAKE TWO (2) TABLETS FOR 14 DAYS, THEN FOUR (4) TABLETS FOR 14 DAYS. carvediloL 2020- Yes 6.25mg Take 6.25 [facility] 6.25 mg 0-08 mg by ity of tablet 00:00: mouth 2 [place] (two) Medical times [place] daily. loratadine 2020- Yes 10mg Take 10 mg U nivers 10 mg 0-08 by mouth ity of tablet 00:00: daily. [address] fluticasone 2019- Yes INSTILL [facility] vers propionate 0-08 ONE (1) ity of 50 00:00: SPRAY(S) [place] mcg/actuati 00 INTO EACH Med ical on nasal NOSTRIL Branch spray TWICE A DAY. lamoTRIgine 2019- Yes TAKE ONE [place] 25 mg 0-08 (1) ity of tablet 00:00: TABLET(S) 00 BY MOUTH Medical ONCE A DAY Branch FOR 14 DAYS, THEN TAKE TWO (2) TABLETS FOR 14 DAYS, THEN FOUR (4) TABLETS FOR 14 DAYS. carvediloL 2019- Yes 6.25mg Take 6.25 [facility] 6.25 mg 0-08 mg by ity of tablet 00:00: mouth 2 [place] ([facility]) Medical times [place] daily. loratadine 2019- Yes 10mg Take 10 mg U nivers 10 mg 0-08 by mouth ity of tablet 00:00: daily. [address] fluticasone 2019- Yes INSTILL Uni vers propionate 0-08 ONE (1) ity of 50 00:00: SPRAY(S) [place] mcg/actuati 00 INTO EACH Med ical on nasal NOSTRIL Branch spray TWICE A DAY. lamoTRIgine 2019- Yes TAKE ONE [place] 25 mg 0-08 (1) ity of tablet 00:00: TABLET(S) [place] 00 BY MOUTH Medical ONCE A DAY Branch FOR 14 DAYS, THEN TAKE TWO (2) TABLETS FOR 14 DAYS, THEN FOUR (4) TABLETS FOR 14 DAYS. carvediloL 2019- Yes 6.25mg Take 6.25 [facility] 6.25 mg 0-08 mg by ity of tablet 00:00: mouth 2 [place] [address] (two) Medical times [place] daily. loratadine 2020- Yes 10mg Take 10 mg U nivers 10 mg 0-08 by mouth ity of tablet 00:00: daily. [address] fluticasone 2019-1 Yes INSTILL [facility] vers propionate 0-08 ONE (1) ity of 50 00:00: SPRAY(S) [place] mcg/actuati 00 INTO EACH Med ical on nasal NOSTRIL Branch spray TWICE A DAY. lamoTRIgine 2020- Yes TAKE ONE [place] 25 mg 0-08 (1) ity of tablet 00:00: TABLET(S) [place] 00 BY MOUTH Medical ONCE A DAY Branch FOR 14 DAYS, THEN TAKE TWO (2) TABLETS FOR 14 DAYS, THEN FOUR (4) TABLETS FOR 14 DAYS. carvediloL 2020- Yes 6.25mg Take 6.25 [facility] 6.25 mg 0-08 mg by ity of tablet 00:00: mouth 2 [place] 00 (two) Medical times Branch daily. loratadine 2020- Yes 10mg Take 10 mg U nivers 10 mg 0-08 by mouth ity of tablet 00:00: daily. [address] fluticasone 2019- Yes INSTILL [facility] vers propionate 0-08 ONE (1) ity of 50 00:00: SPRAY(S) [place] mcg/actuati 00 INTO EACH Med ical on nasal NOSTRIL Branch spray TWICE A DAY. lamoTRIgine 2019- Yes TAKE ONE [place] 25 mg 0-08 (1) ity of tablet 00:00: TABLET(S) [place] 00 BY MOUTH Medical ONCE A DAY Branch FOR 14 DAYS, THEN TAKE TWO (2) TABLETS FOR 14 DAYS, THEN FOUR (4) TABLETS FOR 14 DAYS. carvediloL 2019- Yes 6.25mg Take 6.25 [facility] 6.25 mg 0-08 mg by ity of tablet 00:00: mouth 2 [place] (two) Medical times Branch daily. loratadine 2020- Yes 10mg Take 10 mg U nivers 10 mg 0-08 by mouth ity of tablet 00:00: daily. [address] Branch fluticasone 2019- Yes INSTILL Uni vers propionate 0-08 ONE (1) ity of 50 00:00: SPRAY(S) [place] mcg/actuati 00 INTO EACH Med ical on nasal NOSTRIL Branch spray TWICE A DAY. lamoTRIgine 2019- Yes TAKE ONE [place] 25 mg 0-08 (1) ity of tablet 00:00: TABLET(S) [place] 00 BY MOUTH Medical ONCE A DAY Branch FOR 14 DAYS, THEN TAKE TWO (2) TABLETS FOR 14 DAYS, THEN FOUR (4) TABLETS FOR 14 DAYS. carvediloL 2020- Yes 6.25mg Take 6.25 [facility] 6.25 mg 0-08 mg by ity of tablet 00:00: mouth 2 [place] (two) Medical times Branch daily. loratadine 2020- Yes 10mg Take 10 mg U nivers 10 mg 0-08 by mouth ity of tablet 00:00: daily. [address] fluticasone 2020- Yes INSTILL Uni vers propionate 0-08 ONE (1) ity of 50 00:00: SPRAY(S) [place] mcg/actuati 00 INTO EACH Med ical on nasal NOSTRIL Branch spray TWICE A DAY. lamoTRIgine 2019- Yes TAKE ONE [place] 25 mg 0-08 (1) ity of tablet 00:00: TABLET(S) [place] 00 BY MOUTH Medical ONCE A DAY Branch FOR 14 DAYS, THEN TAKE TWO (2) TABLETS FOR 14 DAYS, THEN FOUR (4) TABLETS FOR 14 DAYS. carvediloL 2019- Yes 6.25mg Take 6.25 [facility] 6.25 mg 0-08 mg by ity of tablet 00:00: mouth 2 [place] (two) Medical times [place] daily. loratadine 2020- Yes 10mg Take 10 mg U nivers 10 mg 0-08 by mouth ity of tablet 00:00: daily. [address] fluticasone 2019- Yes INSTILL Uni vers propionate 0-08 ONE (1) ity of 50 00:00: SPRAY(S) [place] mcg/actuati 00 INTO EACH Med ical on nasal NOSTRIL Branch spray TWICE A DAY. lamoTRIgine 2019- Yes TAKE ONE [place] 25 mg 0-08 (1) ity of tablet 00:00: TABLET(S) [place] 00 BY MOUTH Medical ONCE A DAY Branch FOR 14 DAYS, THEN TAKE TWO (2) TABLETS FOR 14 DAYS, THEN FOUR (4) TABLETS FOR 14 DAYS. carvediloL 2020- Yes 6.25mg Take 6.25 [facility] 6.25 mg 0-08 mg by ity of tablet 00:00: mouth 2 [place] (two) Medical times Branch daily. loratadine 2020- Yes 10mg Take 10 mg U nivers 10 mg 0-08 by mouth ity of tablet 00:00: daily. [address] fluticasone 2020- Yes INSTILL Uni vers propionate 0-08 ONE (1) ity of 50 00:00: SPRAY(S) [place] mcg/actuati 00 INTO EACH Med ical on nasal NOSTRIL Branch spray TWICE A DAY. lamoTRIgine 2020- Yes TAKE ONE [place] 25 mg 0-08 (1) ity of tablet 00:00: TABLET(S) [place] 00 BY MOUTH Medical ONCE A DAY Branch FOR 14 DAYS, THEN TAKE TWO (2) TABLETS FOR 14 DAYS, THEN FOUR (4) TABLETS FOR 14 DAYS. carvediloL 2020- Yes 6.25mg Take 6.25 [facility] 6.25 mg 0-08 mg by ity of tablet 00:00: mouth 2 (two) Medical times Branch daily. loratadine 2020- Yes 10mg Take 10 mg U nivers 10 mg 0-08 by mouth ity of tablet 00:00: daily. [address] fluticasone 2019- Yes INSTILL [facility] vers propionate 0-08 ONE (1) ity of 50 00:00: SPRAY(S) [place] mcg/actuati 00 INTO EACH Med ical on nasal NOSTRIL Branch spray TWICE A DAY. lamoTRIgine 2019- Yes TAKE ONE [place] 25 mg 0-08 (1) ity of tablet 00:00: TABLET(S) BY MOUTH Medical ONCE A DAY Branch FOR 14 DAYS, THEN TAKE TWO (2) TABLETS FOR 14 DAYS, THEN FOUR (4) TABLETS FOR 14 DAYS. carvediloL 2020- Yes 6.25mg Take 6.25 Univers 6.25 mg 0-08 mg by ity of tablet 00:00: mouth 2 (two) Medical times Branch daily. loratadine 2020- Yes 10mg Take 10 mg U nivers 10 mg 0-08 by mouth ity of tablet 00:00: daily. [address] fluticasone 2019- Yes INSTILL Uni vers propionate 0-08 ONE (1) ity of 50 00:00: SPRAY(S) [place] mcg/actuati 00 INTO EACH Med ical on nasal NOSTRIL Branch spray TWICE A DAY. lamoTRIgine 2019- Yes TAKE ONE [place] 25 mg 0-08 (1) ity of tablet 00:00: TABLET(S) [place] 00 BY MOUTH Medical ONCE A DAY Branch FOR 14 DAYS, THEN TAKE TWO (2) TABLETS FOR 14 DAYS, THEN FOUR (4) TABLETS FOR 14 DAYS. carvediloL 2020- Yes 6.25mg Take 6.25 Univers 6.25 mg 0-08 mg by ity of tablet 00:00: mouth 2 [place] 00 (two) Medical times Branch daily. loratadine 2019- Yes 10mg Take 10 mg U nivers 10 mg 0-08 by mouth ity of tablet 00:00: daily. [address] Branch fluticasone 2019- Yes INSTILL Uni vers propionate 0-08 ONE (1) ity of 50 00:00: SPRAY(S) [place] mcg/actuati 00 INTO EACH Med ical on nasal NOSTRIL Branch spray TWICE A DAY. lamoTRIgine 2019- Yes TAKE ONE [place] 25 mg 0-08 (1) ity of tablet 00:00: TABLET(S) [place] 00 BY MOUTH Medical ONCE A DAY Branch FOR 14 DAYS, THEN TAKE TWO (2) TABLETS FOR 14 DAYS, THEN FOUR (4) TABLETS FOR 14 DAYS. carvediloL 2019- Yes 6.25mg Take 6.25 [facility] 6.25 mg 0-08 mg by ity of tablet 00:00: mouth 2 [place] (two) Medical times Branch daily. loratadine 2019- Yes 10mg Take 10 mg U nivers 10 mg 0-08 by mouth ity of tablet 00:00: daily. [address] fluticasone 2019- Yes INSTILL Uni vers propionate 0-08 ONE (1) ity of 50 00:00: SPRAY(S) [place] mcg/actuati 00 INTO EACH Med ical on nasal NOSTRIL Branch spray TWICE A DAY. lamoTRIgine 2019- Yes TAKE ONE [place] 25 mg 0-08 (1) ity of tablet 00:00: TABLET(S) [place] 00 BY MOUTH Medical ONCE A DAY Branch FOR 14 DAYS, THEN TAKE TWO (2) TABLETS FOR 14 DAYS, THEN FOUR (4) TABLETS FOR 14 DAYS. carvediloL 2019- Yes 6.25mg Take 6.25 Univers 6.25 mg 0-08 mg by ity of tablet 00:00: mouth 2 [place] 00 (two) Medical times Branch daily. loratadine 2020- Yes 10mg Take 10 mg U nivers 10 mg 0-08 by mouth ity of tablet 00:00: daily. [address] fluticasone 2020- Yes INSTILL Uni vers propionate 0-08 ONE (1) ity of 50 00:00: SPRAY(S) [place] mcg/actuati 00 INTO EACH Med ical on nasal NOSTRIL Branch spray TWICE A DAY. lamoTRIgine 2019- Yes TAKE ONE [place] 25 mg 0-08 (1) ity of tablet 00:00: TABLET(S) [place] 00 BY MOUTH Medical ONCE A DAY Branch FOR 14 DAYS, THEN TAKE TWO (2) TABLETS FOR 14 DAYS, THEN FOUR (4) TABLETS FOR 14 DAYS. carvediloL 2019- Yes 6.25mg Take 6.25 Univers 6.25 mg 0-08 mg by ity of tablet 00:00: mouth 2 [place] (two) Medical times Branch daily. loratadine 2019- Yes 10mg Take 10 mg U nivers 10 mg 0-08 by mouth ity of tablet 00:00: daily. [address] fluticasone 2019- Yes INSTILL Uni vers propionate 0-08 ONE (1) ity of 50 00:00: SPRAY(S) [place] mcg/actuati 00 INTO EACH Med ical on nasal NOSTRIL Branch spray TWICE A DAY. lamoTRIgine 2019- Yes TAKE ONE [place] 25 mg 0-08 (1) ity of tablet 00:00: TABLET(S) [place] 00 BY MOUTH Medical ONCE A DAY Branch FOR 14 DAYS, THEN TAKE TWO (2) TABLETS FOR 14 DAYS, THEN FOUR (4) TABLETS FOR 14 DAYS. carvediloL 2019- Yes 6.25mg Take 6.25 Univers 6.25 mg 0-08 mg by ity of tablet 00:00: mouth 2 [place] 00 (two) Medical times Branch daily. loratadine 2020- Yes 10mg Take 10 mg U nivers 10 mg 0-08 by mouth ity of tablet 00:00: daily. [address] fluticasone 2019- Yes INSTILL Uni vers propionate 0-08 ONE (1) ity of 50 00:00: SPRAY(S) [place] mcg/actuati 00 INTO EACH Med ical on nasal NOSTRIL Branch spray TWICE A DAY. lamoTRIgine 2019- Yes TAKE ONE [place] 25 mg 0-08 (1) ity of tablet 00:00: TABLET(S) [place] 00 BY MOUTH Medical ONCE A DAY Branch FOR 14 DAYS, THEN TAKE TWO (2) TABLETS FOR 14 DAYS, THEN FOUR (4) TABLETS FOR 14 DAYS. carvediloL 2020-1 Yes 6.25mg Take 6.25 Univers 6.25 mg 0-08 mg by ity of tablet 00:00: mouth 2 (two) Medical times Branch daily. loratadine 2020-1 Yes 10mg Take 10 mg U nivers 10 mg 0-08 by mouth ity of tablet 00:00: daily. [address] Branch fluticasone 2020- Yes INSTILL Uni vers propionate 0-08 ONE (1) ity of 50 00:00: SPRAY(S) [place] mcg/actuati 00 INTO EACH Med ical on nasal NOSTRIL Branch spray TWICE A DAY. lamoTRIgine 2020- Yes TAKE ONE [place] 25 mg 0-08 (1) ity of tablet 00:00: TABLET(S) [place] 00 BY MOUTH Medical ONCE A DAY Branch FOR 14 DAYS, THEN TAKE TWO (2) TABLETS FOR 14 DAYS, THEN FOUR (4) TABLETS FOR 14 DAYS. carvediloL 2020-1 Yes 6.25mg Take 6.25 Univers 6.25 mg 0-08 mg by ity of tablet 00:00: mouth 2 [place] (two) Medical times [place] daily. loratadine 2020-1 Yes 10mg Take 10 mg U nivers 10 mg 0-08 by mouth ity of tablet 00:00: daily. [address] fluticasone 2020- Yes INSTILL Uni vers propionate 0-08 ONE (1) ity of 50 00:00: SPRAY(S) [place] mcg/actuati 00 INTO EACH Med ical on nasal NOSTRIL Branch spray TWICE A DAY. lamoTRIgine 2020- Yes TAKE ONE [place] 25 mg 0-08 (1) ity of tablet 00:00: TABLET(S) [place] 00 BY MOUTH Medical ONCE A DAY Branch FOR 14 DAYS, THEN TAKE TWO (2) TABLETS FOR 14 DAYS, THEN FOUR (4) TABLETS FOR 14 DAYS. carvediloL 2020-1 Yes 6.25mg Take 6.25 Univers 6.25 mg 0-08 mg by ity of tablet 00:00: mouth 2 [place] (two) Medical times Branch daily. loratadine 2020-1 Yes 10mg Take 10 mg U nivers 10 mg 0-08 by mouth ity of tablet 00:00: daily. [address] fluticasone 2020- Yes INSTILL Uni vers propionate 0-08 ONE (1) ity of 50 00:00: SPRAY(S) [place] mcg/actuati 00 INTO EACH Med ical on nasal NOSTRIL Branch spray TWICE A DAY. lamoTRIgine 2019-10 Yes TAKE ONE [place] 25 mg 0-08 (1) ity of tablet 00:00: TABLET(S) [place] 00 BY MOUTH Medical ONCE A DAY Branch FOR 14 DAYS, THEN TAKE TWO (2) TABLETS FOR 14 DAYS, THEN FOUR (4) TABLETS FOR 14 DAYS. carvediloL 2019- Yes 6.25mg Take 6.25 Univers 6.25 mg 0-08 mg by ity of tablet 00:00: mouth 2 [place] (two) Medical times [place] daily. loratadine 2019- Yes 10mg Take 10 mg U nivers 10 mg 0-08 by mouth ity of tablet 00:00: daily. [address] fluticasone 2019- Yes INSTILL Uni vers propionate 0-08 ONE (1) ity of 50 00:00: SPRAY(S) [place] mcg/actuati 00 INTO EACH Med ical on nasal NOSTRIL Branch spray TWICE A DAY. lamoTRIgine 2019-10 Yes TAKE ONE [place] 25 mg 0-08 (1) ity of tablet 00:00: TABLET(S) [place] 00 BY MOUTH Medical ONCE A DAY Branch FOR 14 DAYS, THEN TAKE TWO (2) TABLETS FOR 14 DAYS, THEN FOUR (4) TABLETS FOR 14 DAYS. carvediloL 2019- Yes 6.25mg Take 6.25 Univers 6.25 mg 0-08 mg by ity of tablet 00:00: mouth 2 (two) Medical times Branch daily. loratadine 2019- Yes 10mg Take 10 mg U nivers 10 mg 0-08 by mouth ity of tablet 00:00: daily. [address] fluticasone 2019- Yes INSTILL Uni vers propionate 0-08 ONE (1) ity of 50 00:00: SPRAY(S) [place] mcg/actuati 00 INTO EACH Med ical on nasal NOSTRIL Branch spray TWICE A DAY. lamoTRIgine 2019- Yes TAKE ONE [place] 25 mg 0-08 (1) ity of tablet 00:00: TABLET(S) [place] 00 BY MOUTH Medical ONCE A DAY Branch FOR 14 DAYS, THEN TAKE TWO (2) TABLETS FOR 14 DAYS, THEN FOUR (4) TABLETS FOR 14 DAYS. carvediloL 2020- Yes 6.25mg Take 6.25 Univers 6.25 mg 0-08 mg by ity of tablet 00:00: mouth 2 (two) Medical times Branch daily. loratadine 2020- Yes 10mg Take 10 mg U nivers 10 mg 0-08 by mouth ity of tablet 00:00: daily. [address] fluticasone 2019- Yes INSTILL Uni vers propionate 0-08 ONE (1) ity of 50 00:00: SPRAY(S) [place] mcg/actuati 00 INTO EACH Med ical on nasal NOSTRIL Branch spray TWICE A DAY. lamoTRIgine 2020- Yes TAKE ONE [place] 25 mg 0-08 (1) ity of tablet 00:00: TABLET(S) BY MOUTH Medical ONCE A DAY Branch FOR 14 DAYS, THEN TAKE TWO (2) TABLETS FOR 14 DAYS, THEN FOUR (4) TABLETS FOR 14 DAYS. carvediloL 2020- Yes 6.25mg Take 6.25 Univers 6.25 mg 0-08 mg by ity of tablet 00:00: mouth 2 (two) Medical times Branch daily. loratadine 2020- Yes 10mg Take 10 mg U nivers 10 mg 0-08 by mouth ity of tablet 00:00: daily. [address] fluticasone 2020- Yes INSTILL Uni vers propionate 0-08 ONE (1) ity of 50 00:00: SPRAY(S) [place] mcg/actuati 00 INTO EACH Med ical on nasal NOSTRIL Branch spray TWICE A DAY. lamoTRIgine 2020- Yes TAKE ONE [place] 25 mg 0-08 (1) ity of tablet 00:00: TABLET(S) 00 BY MOUTH Medical ONCE A DAY Branch FOR 14 DAYS, THEN TAKE TWO (2) TABLETS FOR 14 DAYS, THEN FOUR (4) TABLETS FOR 14 DAYS. carvediloL 2020- Yes 6.25mg Take 6.25 Univers 6.25 mg 0-08 mg by ity of tablet 00:00: mouth 2 [place] 00 (two) Medical times Branch daily. loratadine 2020- Yes 10mg Take 10 mg U nivers 10 mg 0-08 by mouth ity of tablet 00:00: daily. Medical Branch fluticasone 2020- Yes INSTILL Uni vers propionate 0-08 ONE (1) ity of 50 00:00: SPRAY(S) [place] mcg/actuati 00 INTO EACH Med ical on nasal NOSTRIL Branch spray TWICE A DAY. carvediloL 2020- Yes 6.25mg Take 6.25 [facility] 6.25 mg 0-08 mg by ity of tablet 00:00: mouth 2 [place] (two) Medical times Branch daily. loratadine 2020- Yes 10mg Take 10 mg U nivers 10 mg 0-08 by mouth ity of tablet 00:00: daily. [place] [facility] fluticasone 2019- Yes INSTILL Uni vers propionate 0-08 ONE (1) ity of 50 00:00: SPRAY(S) [place] mcg/actuati 00 INTO EACH Med ical on nasal NOSTRIL Branch spray TWICE A DAY. carvediloL 2020- Yes 6.25mg Take 6.25 [facility] 6.25 mg 0-08 mg by ity of tablet 00:00: mouth 2 [place] (two) Medical times Branch daily. loratadine 2020- Yes 10mg Take 10 mg U nivers 10 mg 0-08 by mouth ity of tablet 00:00: daily. [place] [facility] fluticasone 2020- Yes INSTILL Uni vers propionate 0-08 ONE (1) ity of 50 00:00: SPRAY(S) [place] mcg/actuati 00 INTO EACH Med ical on nasal NOSTRIL Branch spray TWICE A DAY. carvediloL 2020- Yes 6.25mg Take 6.25 [facility] 6.25 mg 0-08 mg by ity of tablet 00:00: mouth 2 [place] (two) Medical times Branch daily. loratadine 2020- Yes 10mg Take 10 mg U nivers 10 mg 0-08 by mouth ity of tablet 00:00: daily. [place] [address] Medical Branch fluticasone 2020- Yes INSTILL Uni vers propionate 0-08 ONE (1) ity of 50 00:00: SPRAY(S) [place] mcg/actuati 00 INTO EACH Med ical on nasal NOSTRIL Branch spray TWICE A DAY. carvediloL 2020- Yes 6.25mg Take 6.25 Univers 6.25 mg 0-08 mg by ity of tablet 00:00: mouth 2 [place] (two) Medical times Branch daily. loratadine 2019- Yes 10mg Take 10 mg U nivers 10 mg 0-08 by mouth ity of tablet 00:00: daily. [place] [facility] Branch fluticasone 2019- Yes INSTILL Uni vers propionate 0-08 ONE (1) ity of 50 00:00: SPRAY(S) [place] mcg/actuati 00 INTO EACH Med ical on nasal NOSTRIL Branch spray TWICE A DAY. carvediloL 2019- Yes 6.25mg Take 6.25 [facility] 6.25 mg 0-08 mg by ity of tablet 00:00: mouth 2 [place] (two) Medical times [place] daily. loratadine 2019- Yes 10mg Take 10 mg U nivers 10 mg 0-08 by mouth ity of tablet 00:00: daily. [place] [facility] Branch fluticasone 2019- Yes INSTILL Uni vers propionate 0-08 ONE (1) ity of 50 00:00: SPRAY(S) [place] mcg/actuati 00 INTO EACH Med ical on nasal NOSTRIL Branch spray TWICE A DAY. carvediloL 2019- Yes 6.25mg Take 6.25 [facility] 6.25 mg 0-08 mg by ity of tablet 00:00: mouth 2 [place] (two) Medical times [place] daily. loratadine 2019- Yes 10mg Take 10 mg U nivers 10 mg 0-08 by mouth ity of tablet 00:00: daily. [place] [facility] fluticasone 2019- Yes INSTILL Uni vers propionate 0-08 ONE (1) ity of 50 00:00: SPRAY(S) [place] mcg/actuati 00 INTO EACH Med ical on nasal NOSTRIL Branch spray TWICE A DAY. lamoTRIgine 2019- Yes TAKE ONE [place] 25 mg 0-08 (1) ity of tablet 00:00: TABLET(S) [place] 00 BY MOUTH Medical ONCE A DAY Branch FOR 14 DAYS, THEN TAKE TWO (2) TABLETS FOR 14 DAYS, THEN FOUR (4) TABLETS FOR 14 DAYS. lamoTRIgine 2019-10 2020- No TAKE ONE U nivers 25 mg 0-08 12- (1) ity of tablet 00:00: 00:00 TABLET(S) [place] 00 :00 BY MOUTH Medical ONCE A DAY Branch FOR 14 DAYS, THEN TAKE TWO (2) TABLETS FOR 14 DAYS, THEN FOUR (4) TABLETS FOR 14 DAYS. ketorolac 2019- No 30mg 30 mg, Unive rs (TORADOL) 07-05 Intramuscu ity of injection 21:45: 21:20 [place], ONCE, [place] 30 mg 00 :00 1 dose, Medical Sat Branch 07/05/20 at 1645, Routine
[place] tribunal member approving Restricted medication : CHUCKIE KARLA diphenhydrA 2019- No 25mg 25 mg, Uni vers MINE 07-05 Oral, ity of (BENADRYL) 21:45: 21:19 ONCE, 1 [place] tablet 25 00 :00 dose, Sat Medic al mg 07/05/20 at Branch 1645, ZULEYMA butalbital- 2020- No 2{tbl} 2 tablet, Univers acetaminoph 07-05 Oral, ity of en-caff 20:45: 21:19 ONCE, 1 [place] (ESGIC) 00 :00 dose, Sat Medical 50-325-40 07/05/20 at Bran ch mg tablet 2 1545, tablet Routine butalbital- Yes [id number] 1{tbl} Take 1 [facility] acetaminoph 9-26 tablet by ity of en-caff 00:00: mouth [place] 50-325-40 00 every 4 Medical mg tablet (four) Branch hours as needed for Pain (scale 7-10). butalbital- Yes [id number] 1{tbl} Take 1 [facility] acetaminoph 9-26 tablet by ity of en-caff 00:00: mouth [place] 50-325-40 00 every 4 Medical mg tablet (four) Branch hours as needed for Pain (scale 7-10). butalbital- Yes [id number] 1{tbl} Take 1 [facility] acetaminoph 9-26 tablet by ity of en-caff 00:00: mouth [place] 50-325-40 00 every 4 Medical mg tablet (four) Branch hours as needed for Pain (scale 7-10). butalbital- 2020-0 Yes [id number] 1{tbl} Take 1 [facility] acetaminoph 9-26 tablet by ity of en-caff 00:00: mouth [place] 50-325-40 00 every 4 Medical mg tablet (four) Branch hours as needed for Pain (scale 7-10). butalbital- 2020-0 Yes [id number] 1{tbl} Take 1 [facility] acetaminoph 9-26 tablet by ity of en-caff 00:00: mouth [place] 50-325-40 00 every 4 Medical mg tablet (four) Branch hours as needed for Pain (scale 7-10). butalbital- 2020-0 Yes [id number] 1{tbl} Take 1 [facility] acetaminoph 9-26 tablet by ity of en-caff 00:00: mouth [place] 50-325-40 00 every 4 Medical mg tablet (four) Branch hours as needed for Pain (scale 7-10). butalbital- 2020-0 Yes [id number] 1{tbl} Take 1 [facility] acetaminoph 9-26 tablet by ity of en-caff 00:00: mouth [place] 50-325-40 00 every 4 Medical mg tablet (four) Branch hours as needed for Pain (scale 7-10). butalbital- 2020-0 Yes [id number] 1{tbl} Take 1 [facility] acetaminoph 9-26 tablet by ity of en-caff 00:00: mouth [place] 50-325-40 00 every 4 Medical mg tablet (four) Branch hours as needed for Pain (scale 7-10). butalbital- 2020-0 Yes [id number] 1{tbl} Take 1 [facility] acetaminoph 9-26 tablet by ity of en-caff 00:00: mouth [place] 50-325-40 00 every 4 Medical mg tablet (four) Branch hours as needed for Pain (scale 7-10). butalbital- 2020-0 Yes [id number] 1{tbl} Take 1 [facility] acetaminoph 9-26 tablet by ity of en-caff 00:00: mouth [place] 50-325-40 00 every 4 Medical mg tablet (four) Branch hours as needed for Pain (scale 7-10). butalbital- 2020-0 Yes [id number] 1{tbl} Take 1 Univers acetaminoph 9-26 tablet by ity of en-caff 00:00: mouth [place] 50-325-40 00 every 4 Medical mg tablet (four) Branch hours as needed for Pain (scale 7-10). butalbital- 2020- Yes [id number] 1{tbl} Take 1 [facility] acetaminoph 9-26 tablet by ity of en-caff 00:00: mouth [place] 50-325-40 00 every 4 Medical mg tablet (four) Branch hours as needed for Pain (scale 7-10). butalbital- 2019- Yes [id number] 1{tbl} Take 1 [facility] acetaminoph 9-26 tablet by ity of en-caff 00:00: mouth [place] 50-325-40 00 every 4 Medical mg tablet (four) Branch hours as needed for Pain (scale 7-10). butalbital- 2019- Yes [id number] 1{tbl} Take 1 [facility] acetaminoph 9-26 tablet by ity of en-caff 00:00: mouth [place] 50-325-40 00 every 4 Medical mg tablet (four) Branch hours as needed for Pain (scale 7-10). butalbital- 2019- Yes [id number] 1{tbl} Take 1 [facility] acetaminoph 9-26 tablet by ity of en-caff 00:00: mouth [place] 50-325-40 00 every 4 Medical mg tablet (four) Branch hours as needed for Pain (scale 7-10). butalbital- 2019- Yes [id number] 1{tbl} Take 1 [facility] acetaminoph 9-26 tablet by ity of en-caff 00:00: mouth [place] 50-325-40 00 every 4 Medical mg tablet (four) Branch hours as needed for Pain (scale 7-10). butalbital- 2020- Yes [id number] 1{tbl} Take 1 [facility] acetaminoph 9-26 tablet by ity of en-caff 00:00: mouth [place] 50-325-40 00 every 4 Medical mg tablet (four) Branch hours as needed for Pain (scale 7-10). butalbital- 2019- Yes [id number] 1{tbl} Take 1 [facility] acetaminoph 9-26 tablet by ity of en-caff 00:00: mouth [place] 50-325-40 00 every 4 Medical mg tablet (four) Branch hours as needed for Pain (scale 7-10). butalbital- 2020-0 Yes [id number] 1{tbl} Take 1 [facility] acetaminoph 9-26 tablet by ity of en-caff 00:00: mouth [place] 50-325-40 00 every 4 Medical mg tablet (four) Branch hours as needed for Pain (scale 7-10). butalbital- 2020-0 Yes [id number] 1{tbl} Take 1 [facility] acetaminoph 9-26 tablet by ity of en-caff 00:00: mouth [place] 50-325-40 00 every 4 Medical mg tablet (four) Branch hours as needed for Pain (scale 7-10). butalbital- 2020-0 Yes [id number] 1{tbl} Take 1 [facility] acetaminoph 9-26 tablet by ity of en-caff 00:00: mouth [place] 50-325-40 00 every 4 Medical mg tablet (four) Branch hours as needed for Pain (scale 7-10). butalbital- 2020-0 Yes [id number] 1{tbl} Take 1 Univers acetaminoph 9-26 tablet by ity of en-caff 00:00: mouth [place] 50-325-40 00 every 4 Medical mg tablet (four) Branch hours as needed for Pain (scale 7-10). butalbital- 2020-0 Yes [id number] 1{tbl} Take 1 Univers acetaminoph 9-26 tablet by ity of en-caff 00:00: mouth [place] 50-325-40 00 every 4 Medical mg tablet (four) Branch hours as needed for Pain (scale 7-10). butalbital- 2020-0 Yes [id number] 1{tbl} Take 1 Univers acetaminoph 9-26 tablet by ity of en-caff 00:00: mouth [place] 50-325-40 00 every 4 Medical mg tablet (four) Branch hours as needed for Pain (scale 7-10). butalbital- 2020-0 Yes [id number] 1{tbl} Take 1 Univers acetaminoph 9-26 tablet by ity of en-caff 00:00: mouth [place] 50-325-40 00 every 4 Medical mg tablet (four) Branch hours as needed for Pain (scale 7-10). butalbital- 2020-0 Yes [id number] 1{tbl} Take 1 Univers acetaminoph 9-26 tablet by ity of en-caff 00:00: mouth [place] 50-325-40 00 every 4 Medical mg tablet (four) Branch hours as needed for Pain (scale 7-10). butalbital- 2020-0 Yes [id number] 1{tbl} Take 1 Univers acetaminoph 9-26 tablet by ity of en-caff 00:00: mouth [place] 50-325-40 00 every 4 Medical mg tablet (four) Branch hours as needed for Pain (scale 7-10). butalbital- 2020-0 Yes [id number] 1{tbl} Take 1 Univers acetaminoph 9-26 tablet by ity of en-caff 00:00: mouth [place] 50-325-40 00 every 4 Medical mg tablet (four) Branch hours as needed for Pain (scale 7-10). butalbital- 2020-0 Yes [id number] 1{tbl} Take 1 Univers acetaminoph 9-26 tablet by ity of en-caff 00:00: mouth [place] 50-325-40 00 every 4 Medical mg tablet (four) Branch hours as needed for Pain (scale 7-10). butalbital- 2020-0 Yes [id number] 1{tbl} Take 1 Univers acetaminoph 9-26 tablet by ity of en-caff 00:00: mouth [place] 50-325-40 00 every 4 Medical mg tablet (four) Branch hours as needed for Pain (scale 7-10). butalbital- 2020-0 Yes [id number] 1{tbl} Take 1 Univers acetaminoph 9-26 tablet by ity of en-caff 00:00: mouth [place] 50-325-40 00 every 4 Medical mg tablet (four) Branch hours as needed for Pain (scale 7-10). butalbital- 2020-0 Yes [id number] 1{tbl} Take 1 Univers acetaminoph 9-26 tablet by ity of en-caff 00:00: mouth [place] 50-325-40 00 every 4 Medical mg tablet (four) Branch hours as needed for Pain (scale 7-10). butalbital- 2020-0 Yes [id number] 1{tbl} Take 1 Univers acetaminoph 9-26 tablet by ity of en-caff 00:00: mouth [place] 50-325-40 00 every 4 Medical mg tablet (four) Branch hours as needed for Pain (scale 7-10). butalbital- 2020-0 Yes [id number] 1{tbl} Take 1 Univers acetaminoph 9-26 tablet by ity of en-caff 00:00: mouth [place] 50-325-40 00 every 4 Medical mg tablet (four) Branch hours as needed for Pain (scale 7-10). butalbital- 2020-0 Yes [id number] 1{tbl} Take 1 Univers acetaminoph 9-26 tablet by ity of en-caff 00:00: mouth [place] 50-325-40 00 every 4 Medical mg tablet (four) Branch hours as needed for Pain (scale 7-10). butalbital- 2020-0 Yes [id number] 1{tbl} Take 1 Univers acetaminoph 9-26 tablet by ity of en-caff 00:00: mouth [place] 50-325-40 00 every 4 Medical mg tablet (four) Branch hours as needed for Pain (scale 7-10). butalbital- 2020-0 Yes [id number] 1{tbl} Take 1 Univers acetaminoph 9-26 tablet by ity of en-caff 00:00: mouth [place] 50-325-40 00 every 4 Medical mg tablet (four) Branch hours as needed for Pain (scale 7-10). butalbital- 2020-0 Yes [id number] 1{tbl} Take 1 Univers acetaminoph 9-26 tablet by ity of en-caff 00:00: mouth [place] 50-325-40 00 every 4 Medical mg tablet (four) Branch hours as needed for Pain (scale 7-10). butalbital- 2020-0 Yes [id number] 1{tbl} Take 1 Univers acetaminoph 9-26 tablet by ity of en-caff 00:00: mouth [place] 50-325-40 00 every 4 Medical mg tablet (four) Branch hours as needed for Pain (scale 7-10). butalbital- 2020-0 Yes [id number] 1{tbl} Take 1 Univers acetaminoph 9-26 tablet by ityoli of en-caf 00:00: mouth [place] 50-325-40 00 every 4 Medical mg tablet (four) Branch hours as needed for Pain (scale 7-10). Vital Signs Vital Name Observation Time Observation Value Comments Source Systolic blood 2021-03-19 20:00:00 138 mm[Hg] Univer sity of pressure [facility] Diastolic blood 2021-03-19 20:00:00 80 mm[Hg] Unive rsity of [facility] Heart rate 2021-03-19 20:00:00 72 /min Universi ty of [facility] Respiratory rate 2021-03-19 20:00:00 19 /min Univ ersity of [facility] Oxygen saturation in 2021-03-19 20:00:00 98 /min University of Arterial blood by [place] [facility] [place] luisa Pulse oximetry Branch Body temperature 2021-03-19 17:15:00 37.11 Mely Univ ersity of [facility] Body weight 2021-03-19 17:15:[address] [facility] BMI 2021-03-19 17:15:00 44.92 kg/m2 Universi ty [facility] Systolic blood 2021-02-12 00:55:00 173 mm[Hg] Univer sity of [facility] Diastolic blood 2021-02-12 00:55:00 82 mm[Hg] Unive rsity of [facility] Heart rate 2021-02-12 00:55:00 75 /min Universi ty of [facility] Respiratory rate 2021-02-12 00:55:00 18 /min Univ ersity of [place] [facility] Oxygen saturation in 2021-02-12 00:55:00 100 /min University of Arterial blood by [facility] luisa Pulse oximetry Branch Body temperature 2021-02-12 00:30:45 37.06 Mely Univ ersity of [facility] Body height 2021-02-11 23:35:00 152.4 cm Universi ty of [place] [facility] Body weight 2021-02-11 23:35:00 106.595 kg Universi ty of [facility] BMI 2021-02-11 23:35:00 45.90 kg/m2 Universi ty [facility] Systolic blood 2020-09-13 17:36:00 108 mm[Hg] Univer sity of pressure [place] [facility] Diastolic blood 2020-09-13 17:36:00 62 mm[Hg] Unive rsity of pressure [facility] Body temperature 2020-09-13 17:36:00 36.94 Mely Univ ersity of [facility] Respiratory rate 2020-09-13 17:36:00 18 /min Univ ersity of [facility] Heart rate 2020-09-13 15:02:00 74 /min Universi ty of [facility] Oxygen saturation in 2020-09-13 10:00:00 98 /min University Arterial blood by [facility] Pulse oximetry Branch Body height 2020-09-10 19:37:00 152.4 cm Universi ty of [facility] Body weight 2020-09-10 19:37:00 106.6 kg Universi ty of [place] [facility] BMI 2020-09-10 19:37:00 45.90 kg/m2 Universi ty of [facility] Systolic blood 2020-08-15 15:53:00 144 mm[Hg] Univer sity of pressure [facility] Diastolic blood 2020-08-15 15:53:00 84 mm[Hg] Unive rsity of pressure [facility] Heart rate 2020-08-15 15:47:00 70 /min Universi ty of [facility] Body temperature 2020-08-15 15:47:00 37.11 Mely Univ ersity of [facility] Respiratory rate 2020-08-15 15:47:00 20 /min Univ ersity of [facility] Body height 2020-08-15 15:47:00 152.4 cm Universi ty of [place] [facility] Body weight 2020-08-15 15:47:00 105.008 kg Universi ty of [place] [facility] BMI 2020-08-15 15:47:00 45.21 kg/m2 Universi ty [facility] [place] [facility] Systolic blood 2020-07-25 18:24:00 164 mm[Hg] Univer sity of pressure [facility] Branch Diastolic blood 2020-07-25 18:24:00 86 mm[Hg] Unive rsity of pressure [facility] Body height 2020-07-25 18:21:00 152.4 cm Universi ty of [place] [facility] Body weight 2020-07-25 18:21:00 105.688 kg Universi ty of [place] [facility] BMI 2020-07-25 18:21:00 45.50 kg/m2 Universi ty [facility] Heart rate 2020-07-25 18:21:00 76 [facility] Body temperature 2020-07-25 18:21:00 37.06 Mely [facility] Res[facility] rate 2020-07-25 18:21:00 20 /min [facility] Body temperature 2020-07-05 20:24:00 36.72 Mely [facility] Systolic blood 2020-07-05 20:21:00 159 mm[Hg] Univer sity of pressure [facility] Diastolic blood 2020-07-05 20:21:00 100 mm[Hg] [facility] Heart rate 2020-07-05 20:21:00 76 /min [facility] Respiratory rate 2020-07-05 20:21:00 18 /min [facility] Body height 2020-07-05 20:21:00 152.4 cm [facility] Body weight 2020-07-05 20:21:00 104.327 kg [facility] BMI 2020-07-05 20:21:00 44.92 kg/m2 [facility] Oxygen saturation in 2020-07-05 20:21:00 100 /min [facility] Arterial blood by [facility] Pulse oximetry Branch Procedures Procedure Date / Time Performing Clinician Source Performed URINALYSIS 2021-03-19 19:50:00 Arden Greenberg [facility] TROPONIN I 2021-03-19 18:21:00 Arden Greenberg [facility] COMP. METABOLIC PANEL 2021-03-19 18:21:00 Arden Greenberg [facility] ([id number]) [facility] CBC WITH DIFF 2021-03-19 18:21:00 Arden Greenberg [facility] NOTICE OF PRIVACY 2021-03-19 16:59:38 Doctor Unassigned, [facility] PRACTICES [facility] CONSENT/REFUSAL FOR 2021-03-19 16:59:21 Doctor Unassigned, [facility] DIAGNOSIS AND TREATMENT [facility] [facility] NOTICE OF PRIVACY 2021-02-11 23:27:37 Doctor Unasskellie, [facility] PRACTICES [facility] CONSENT/REFUSAL FOR 2021-02-11 23:26:02 Doctor Jordana, [facility] DIAGNOSIS AND TREATMENT [facility] BASIC METABOLIC PANEL 2020-09-13 09:48:00 Bert Wright [facility] (NA, K, CL, CO2, GLUCOSE, Medica l Branch BUN, CREATININE, CA) CBC WITH DIFF 2020-09-13 09:48:00 Kyle [facility] HB ABO GROUPING 2020-09-12 13:09:00 Kyle [facility] POCT TEST 2020-09-12 12:35:00 Olvin Tello [facility] Medical Barrett DAY SURGERY - ADC 2020-09-12 06:01:00 Doctor Jordana [facility] INSURANCE CORRESPONDENCE 2020-09-10 06:01:00 Doctor Jordana, [facility] CONSENT/REFUSAL FOR 2020-09-08 19:49:10 Doctor Jordana, [facility] DIAGNOSIS AND TREATMENT [facility] ASSIGNMENT OF BENEFITS 2020-09-08 19:48:57 Doctor Unasskellie, [facility] CONSENT/REFUSAL FOR 2020-09-08 19:48:11 Doctor Jordana, [facility] DIAGNOSIS AND TREATMENT [facility] ASSIGNMENT OF BENEFITS 2020-09-08 19:47:57 Doctor [facility] DISCLOSURE AND CONSENT 2020-09-02 06:01:00 Doctor [facility], [facility] MEDICAL & SURGICAL [place] [facility]ED[facility] - HYSTEY BI ULTRASOUND BREAST 2020-08-29 21:09:13 Bert Wright [facility] LIMITED RIGHT Medical Branch BI DIAGNOSTIC 2020-08-29 20:32:18 Kyle [facility] TOMOSYNTHESIS RIGHT Medical Bran ch DISCLOSURE AND CONSENT, 2020-08-15 06:01:00 [facility] [facility] PROCEDURES POCT TEST 2020-08-15 00:00:00 Bert Wright [facility] Medical Branch ASSIGNMENT OF BENEFITS 2020-08-11 20:05:02 Doctor Unasskellie [facility] US PELVIS COMPLETE WITH 2020-08-08 16:22:02 Bert Wright [facility] TRANSVAGINAL Medical Barrett EXTERNAL PROVIDER RECORDS 2020-08-06 05:01:00 Doctor Jordana [facility] POCT TEST 2020-07-25 00:00:00 [facility] REFERRAL- 2020-07-22 05:01:00 Doctor Jordana [facility] REQUEST/RESPONSE [facility] NOTICE OF PRIVACY 2020-07-05 20:13:18 Doctor Jordana [facility] PRACTICES [facility] Encounters Start End Encounter Admission Attending Care Care Encounter Source Date/Time Date/Time Type Type Clinicians Facility Department ID 2021-08-10 Emergency [facility] [id number] Univers 00:25:[address] [facility] 2021-08-09 Emergency [facility] [id number] Univers 17:23:[address] [facility] 2021-08-08 Outpatient R KYLEARRONN [facility] LEONEL [id number] Univers 08:34:29 ity of [facility] 2021-09-21 2021-09-21 Outpatient Warner WRIGHT BERT [facility] [id number] Univers 09:00:00 09:00:00 [id number] ity of [facility] 2021-09-21 2021-09-21 Outpatient Warner KYLE BERT [facility] [id number] Univers 09:00:00 09:00:[address] [facility] 2021-03-19 2021-03-19 Emergency Melody, Arden [facility] 1.2.840.114 [id number] Univers 12:16:00 16:23:00 Tonya Lakhani [id number] i ty of [place] [id number] [facility] [id number] [facility] 084 Branch 2021-02-11 2021-02-11 Emergency , [facility] [id number] Univers 18:40:00 19:58:00 Chetan Lakhani [id number] i ty of [place] [id number] [facility] [id number] [facility] 084 Branch 2020-12-25 2020-12-25 Patient Norbert [facility] [id number] Univers 00:00:00 00:00:00 Outreach Sander PRIMARY [id number] i ty of [facility] [id number] [facility] [id number] [place] dical 388 Branch 2020-12-16 2020-12-16 Outpatient BERT WRIGHT [facility] [id number] Univers 11:00:00 11:00:[id number] [facility] 2020-12-16 2020-12-16 Outpatient R BERT WRIGHT [facility] [id number] Univers 00:00:00 00:00:[address] [facility] 2020-10-29 2020-10-29 Outpatient R BERT WRIGHT [facility] [id number] Univers 15:30:00 15:30:[id number] [facility] 2020-10-29 2020-10-29 Outpatient R BERT WRIGHT [facility] [id number] Univers 15:30:00 15:30:[address] [facility] 2020-10-13 2020-10-13 Outpatient R BERT WRIGHT [facility] [id number] Univers 15:30:00 15:30:[id number] [facility] 2020-10-13 2020-10-13 Outpatient R BERT WRIGHT [facility] [id number] Univers 15:30:00 15:30:[address] [facility] 2020-09-29 2020-09-29 Outpatient R BERT WRIGHT [facility] [id number] Univers 15:00:00 15:00:[id number] [facility] 2020-09-29 2020-09-29 Outpatient R BERT WRIGHT [facility] [id number] Univers 15:00:00 15:00:[address] [facility] 2020-09-18 2020-09-18 Nurse Megan Pacheco 1.2.840.114 [id number] Univers 00:00:00 00:00:00 Triage HARSHA [id number] it y of HOSPITAL [id number] Ole as [id number] [facility] 019 Barrett 2020-09-12 2020-09-13 Hospital Bert Wright [facility] 1.2.840.114 [id number] Univers 06:45:00 13:10:00 Encounter aKr [id number] ity [id number] [id number] [facility] 083 Barrett 2020-09-12 2020-09-12 Orders Doctor VANESA 1.2.840.114 [id number] Univers 00:00:00 00:00:00 Only Unassigned, HARSHA [id number] ity of [place] [facility] [id number] Ole as [id number] [address] 2020-09-11 2020-09-11 Outpatient R [facility] [id number] Univers 10:30:00 10:30:[id number] 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 Erik, Katt Lab Main [facility] 1.2.8 40.114 [id number] Univers 10:03:06 10:18:06 Visit Bert Wright [id number] ity [id number] [facility] [id number] [place] dical [address] 2020-09-10 2020-09-10 Outpatient R [facility] [id number] Univers 10:00:00 10:00:00 ity of [facility] 2020-09-10 2020-09-10 Outpatient R BERT WRIGHT [facility] [id number] Univers 10:00:00 10:00:00 ity of [facility] 2020-09-10 2020-09-10 Orders Doctor VANESA 1.2.840.114 [id number] Univers 00:00:00 00:00:00 Only Unassigned, HARSHA [id number] ity of [place] [facility] [id number] Ole as [phone] [address] 2020-09-09 2020-09-09 Outpatient R BERT WRIGHT [facility] [id number] Univers 15:30:00 15:30:00 ity of [facility] 2020-09-08 2020-09-08 Laboratory Lab, Adc Fam Pob I [facility] 1.2. 840.114 [id number] Univers 13:17:01 13:42:36 Only Nikki Cristobal [id number] ity of [place] 4.2.7.2.686 Ole as Profmoizio [phone] [facility] 044 Barrett Office [address] One 2020-09-08 2020-09-08 Outpatient R [facility] [id number] Univers 13:20:00 13:20:00 ity of [facility] 2020-09-08 2020-09-08 Outpatient R LEVAR [facility] [id number] Univers 13:20:00 13:20:00 NIKKI ity of [facility] 2020-09-08 2020-09-08 Letter Doctor VANESA 1.2.840.114 [id number] Univers 00:00:00 00:00:00 (Out) Unassigned, HARSHA [id number] ity of [place] [facility] 4.2.7.2.686 Ole as [id number] [facility] 044 Barrett 2020-09-02 2020-09-02 Outpatient BERT WRIGHT [facility] [id number] Univers 10:00:00 10:00:00 [id number] ity of [facility] 2020-09-02 2020-09-02 Outpatient R BERT WRIGHT [facility] [id number] Univers 10:00:00 10:00:00 ity of [facility] 2020-09-02 2020-09-02 Orders Doctor VANESA 1.2.840.114 [id number] Univers 00:00:00 00:00:00 Only Unassigned, HARSHA [id number] ity of [place] [facility] 4.2.7.2.686 Ole as [id number] [facility] 009 Barrett 2020-08-31 2020-08-31 Case Bert Wright [facility] 1.2.840.114 [id number] Univers 00:00:00 00:00:00 Management [place] [id number] ity [place]2.[place] [phone] [place] trevor [address] 2020-08-29 2020-08-29 Hospital Bert Wright [facility] 1.2.840.114 [id number] Univers 14:02:56 23:59:00 Encounter SPECIALTY [id number] ity of [id number] [id number] [place] trevor EVANS 800 [facility] 2020-08-29 2020-08-29 Outpatient R BERT WRIGHT [facility] [id number] Univers 14:30:00 14:30:00 ity of [facility] 2020-08-29 2020-08-29 [facility] Bert Wright [facility] 1.2.840.114 [id number] Univers 14:01:51 14:01:51 Encounter SPECIALTY [id number] ity of [id number] [phone] [place] trevor EVANS [address] [place] [address] 2020-08-29 2020-08-29 Outpatient R BERT WRIGHT [facility] [id number] Univers 00:00:00 00:00:00 ity of [facility] 2020-08-22 2020-08-22 [place] Bert Wright [facility] 1.2.840.114 [id number] Univers 00:00:00 00:00:00 [place] 350.1.13.10 i ty [place] 4[place].2.[place] [phone] [address] 2020-08-20 2020-08-20 Telephone Bert Wright [facility] 1.2.840.114 [id number] Univers 00:00:00 00:00:00 [place] 350.1.13.10 i ty of [place] 4[place]2.7.2.[place] [phone] [address] 2020-08-15 2020-08-15 Office Bert Wright [facility] 1.2.840.114 [id number] Univers 09:25:49 10:17:03 Visit [place] 350.1.13.10 i ty of [place] 4[place]2.7.2.[place] [phone] [place] dical nal 134 [facility] 2020-08-15 2020-08-15 Outpatient R BERT WRIGHT [facility] [id number] Univers 09:30:00 09:30:00 ity of [facility] 2020-08-15 2020-08-15 Outpatient R BERT WRIGHT [facility] [id number] Univers 09:30:00 09:30:00 ity of [facility] 2020-08-15 2020-08-15 Telephone Nancy [facility] 1.2.840.114 [id number] Univers 00:00:00 00:00:00 Stefania Lakhani [id number] ity of [id number] [phone] [facility] [facility] 134 [facility] 2020-08-15 2020-08-15 Telephone Bert Wright [facility] 1.2.840.114 [id number] Univers 00:00:00 00:00:00 Kar 350.1.13.10 i ty of [place] 4[place].2.[place] [phone] [place] [facility] 134 [facility] 2020-08-15 2020-08-15 Orders Doctor VANESA 1.2.840.114 [id number] Univers 00:00:00 00:00:00 Only Unassigned, HARSHA 350.1.13.10 ity of [place] [facility] 4.2.7.2.686 Ole as [phone] [address] 2020-08-11 2020-08-11 Police Patrol Lieutenant Katt [place] Lab Main [facility] 1.2.8 40.114 [id number] Univers 14:09:38 14:24:38 Visit Bert [place] 350.1.13.10 ity [place].2.[place] [phone] [facility] 353 [facility] 2020-08-11 2020-08-11 Outpatient R [facility] [id number] Univers 13:45:00 13:45:[address] [facility] 2020-08-11 2020-08-11 Outpatient R BERT WRIGHT [facility] [id number] Univers 13:45:00 13:45:00 ity of [facility] 2020-08-11 2020-08-11 Telephone Bert Wright [facility] 1.2.840.114 [id number] Univers 00:00:00 00:00:00 [place] 350.1.13.10 i ty of [place] 4[place]2.7.2.[place] [phone] [place] dical nal 134 [facility] 2020-08-11 2020-08-11 Orders Doctor VANESA 1.2.840.114 [id number] Univers 00:00:00 00:00:00 Only Unassigned, HARSHA 350.1.13.10 ity of [place] [facility] 4.2.7.2.686 Ole as [phone] [facility] 009 Barrett 2020-08-08 2020-08-08 Hospital Bert Wright [facility] 1.2.840.114 [id number] Univers 10:00:00 23:59:00 Encounter [place] [id number] ity of [place] 4[place].2.[place] [id number] [facility] 806 Barrett 2020-08-08 2020-08-08 Outpatient R BERT WRIGHT [facility] [id number] Univers 00:00:00 00:00:00 [id number] ity of [facility] 2020-08-08 2020-08-08 Outpatient R BERT WRIGHT [facility] [id number] Univers 00:00:00 00:00:00 ity of [facility] 2020-08-08 2020-08-08 Case Bert Wright [facility] 1.2.840.114 [id number] Univers 00:00:00 00:00:00 Management [place] [id number] ity of [place] 4[place]7.2.[place] [id number] [facility] 083 Barrett 2020-08-07 2020-08-07 [facility] Bert Wright [facility] 1.2.840.114 [id number] Univers 12:25:11 23:59:00 Encounter [place] [id number] ity of [place] 4[place]2.7.2.[place] [id number] [facility] 800 Branch 2020-08-07 2020-08-07 Outpatient R BERT WRIGHT [facility] [id number] Univers 12:40:00 12:40:00 ity of [facility] 2020-08-07 2020-08-07 Outpatient R BERT WRIGHT [facility] [id number] Univers 00:00:00 00:00:00 [id number] ity of [facility] 2020-08-06 2020-08-06 Orders Doctor VANESA 1.2.840.114 [id number] Univers 00:00:00 00:00:00 Only Unassigned, HARSHA 350.1.13.10 ity of [place] [facility] 4.2.7.2.686 Ole as [phone] [facility] [address] 2020-08-01 2020-08-01 Outpatient R BERT WRIGHT [facility] [id number] Univers 10:30:00 10:30:00 [id number] ity of [facility] 2020-08-01 2020-08-01 Outpatient R [facility]ERT [facility] [id number] Univers 10:30:00 10:30:00 ity of [facility] 2020-07-25 2020-07-25 Office Bert Wright [facility] 1.2.840.114 [id number] Univers 13:06:08 13:52:32 Visit [place] [id number] i [place] [phone] [place] [address] [place] [address] 2020-07-25 2020-07-25 Outpatient R BERT [facility]IGHT [facility] [id number] Univers 13:00:00 13:00:00 [id number] ity of [facility] 2020-07-25 2020-07-25 Outpatient R BERT [facility]IGHT [facility] [id number] Univers 13:00:00 13:00:00 ity of [facility] 2020-07-25 2020-07-25 Telephone Bert Wright [facility] 1.2.840.114 [id number] Univers 00:00:00 00:00:00 [place] [id number] [place] [phone] [place] [address] [place] [address] 2020-07-23 2020-07-23 Outpatient R BERT [facility]IGHT [facility] [id number] Univers 13:30:00 13:30:00 [id number] ity of [facility] 2020-07-23 2020-07-23 Outpatient R [facility] [id number] Univers 13:30:00 13:30:00 ity of [facility] 2020-07-22 2020-07-22 Orders Doctor VANESA 1.2.840.114 [id number] Univers 00:00:00 00:00:00 Only Unassigned, HARSHA 350.1.13.10 ity of [place] [facility] 4.2.7.2.686 Ole as [phone] [facility] [address] 2020-07-14 2020-07-14 Outpatient R [facility]AR [facility] [id number] Univers 09:00:00 09:00:[address] [facility] 2020-07-14 2020-07-14 Laboratory Lab, Adc Fam Pob I [facility] 1.2. 840.114 [id number] Univers 08:38:49 08:58:49 Only Nikik Cristobal [facility] [id number] ity of [place] 4.2.7.2.686 [place] Profess[place] [phone] [place] dical [address] Office Building One 2020-07-14 2020-07-14 Letter Doctor VANESA 1.2.840.114 [id number] Univers 00:00:00 00:00:00 (Out) Unassigned, HARSHA 350.1.13.10 ity of [place] [facility] 4.2.7.2.686 Ole as [phone] [facility] [address] 2020-07-05 2020-07-05 [facility] 1.2.840.114 [id number] Univers 15:24:00 17:07:00 Mahad Lakhani 350.1.13.10 i [place] [phone] [facility] [address] 2020-07-05 2020-07-05 [facility] [id number] Univers 15:24:00 15:24:[address] [facility] Results Test Description Test Time Test Comments Results Result Comments Source URINALYSIS 2021-03-19 20:29:51 Test Item Value Reference Range Interpretation Comme nts APPEARANCE (test code = Hazy Clear A 3369948898) COLOR (test code = 9427307984) Yellow Yellow PH (test code = 7777266718) 4.8-8.0 SP GRAVITY (test code = 1.003-1.030 1699250911) GLU U QUAL (test code = Normal Normal 7530611686) BLOOD (test code = 2455454488) Negative Negative KETONES (test code = 1675364184) Negative Negative PROTEIN (test code = 2887-8) Negative Negative UROBILIN (test code = Normal Normal 5197803028) BILIRUBIN (test code = Negative Negative 0483972402) NITRITE (test code = 9454906036) Negative Negative LEUK LON (test code = Negative Negative 7773157518) RBC/HPF (test code = 9861889571) See_Comment [Automated message] The system which ge nerated this result transmit adolfo reference range: 0 - 3 HP F. The reference range was not used to interpret th is result as normal/abnormal . WBC/HPF (test code = 9544686598) <1 See_Comment [Automated message] The system which ge nerated this result transmit adolfo reference range: 0 - 5 HP F. The reference range was not used to interpret th is result as normal/abnormal . BACTERIA (test code = Negative Negative 2072498888) MUCOUS (test code = 4588687184) Slight Negative LPF A SQ EPITH (test code = HPF 3882539561) Lab Interpretation (test code = Abnormal 81811-1) [id number] 19:15:54 Test Item Value Reference Range Interpretation Comments TROPONIN I (test 0.000 ng/mL See_Comment [Automated code = 0801073948) message] The system which generated this result transmitted reference range : <=0.034. The reference range was not used to interpret this result as normal/abnormal . GLEN (test code = Equal or Less than GLEN) 0.034 ng/ml---Normal ?Note: Cardiac troponin begins to rise 3-4 hours after the onset of ischemia. Repeat in 4-6 hours if the sample was drawn within 3-4 hours of the onset of the symptom and found normal. Between 0.035 and 0.120 ng/mL--- Borderline. Questionable myocardial injury or necrosis ? ?Note: Serial measurement may be necessary to confirm or exclude the diagnosis of myocardial injury or necrosis; Clinical correlation (symptoms, EKGs, imaging studies, and others) required; Repeat in 4-6 hours if clinically indicated. ? Equal or Higher than 0.121 ng/mL---Abnormal. Myocardial Injury or Necrosis Likely ? Biotin has been reported to cause a negative bias, interpret results relative to patient's use of biotin. ? Lab Interpretation Normal (test code = 04011-6) [facility] METABOLIC PANEL (74532)2021-03-19 19:04:49 Test Item Value Reference Range Interpretation Comments NA (test code = 138 mmol/L 135-145 5861296577) K (test code = 3.8 mmol/L 3.5-5.0 2304104978) CL (test code = 103 mmol/L 98-108 1347509257) CO2 TOTAL (test code = 27 mmol/L 23-31 5134614220) AGAP (test code = 2-16 2273834373) BUN (test code = 15 mg/dL 7-23 0246191976) GLUCOSE (test code = 139 mg/dL 70-110 H 2984151884) CREATININE (test code = 0.45 mg/dL 0.50-1.04 L 4911484714) TOTAL BILI (test code = 0.4 mg/dL 0.1-1.1 2061069243) CALCIUM (test code = 9.3 mg/dL 8.6-10.6 0273604236) T PROTEIN (test code = 8.3 g/dL 6.3-8.2 H 3865118666) ALBUMIN (test code = 4.4 g/dL 3.5-5.0 5950396851) ALK PHOS (test code = 129 U/L 34-122 H 2409241785) ALTv (test code = 75 U/L 5-35 H 1742-6) AST(SGOT) (test code = 71 U/L 13-40 H 4700659690) eGFR (test code = mL/min/1.73m2 5138140433) GLEN (test code = GLEN) Association of Glomerular Filtration Rate (GFR) and Staging of Kidney Disease* + --+ --+ ------+| GFR (mL/min/1.73 m2) ?| With Kidney Damage ?| ?Without Kidney Damage+ --------+ --------+ +| ?>90 ?| ?Stage one ?| ? Normal ?+ ---+ ---+ -------+| ?60-89 ?| ?Stage two ?| ? Decreased GFR ? + --+ --+ ------+| ?30-59 ?| ?Stage three ?| ? Stage three ? + --+ --+ ------+| ?15-29 ?| ?Stage four ? | ? Stage four ?+ ---+ ---+ -------+| ?<15 (or dialysis) ? ?| ?Stage five ? | ? Stage five ?+ ---+ ---+ -------+ *Each stage assumes the associated GFR level has been in effect for at least three months. ?Stages 1 to 5, with or without kidney disease, indicate chronic kidney disease. Notes: Determination of stages one and two (with eGFR >59mL/min/1.73 m2) requires estimation of kidney damage for at least three months as defined by structural or functional abnormalities of the kidney, manifested by either:Pathological abnormalities or Markers of kidney damage (including abnormalities in the composition of the blood or urine or abnormalities in imaging tests). Lab Interpretation Abnormal (test code = 87289-1) [facility] WITH [id number] 18:56:45 Test Item Value Reference Range Interpretation Comments WBC (test code = See_Comment [Automated 1217-2) message] The sy stem which generated this result transmitted reference range : 4.30 - 11.10 10*3/?L. The reference range was not used to interpret this result as normal/abnormal . RBC (test code = See_Comment [Automated 100-8) message] The sy stem which generated this result transmitted reference range : 3.93 - 5.25 10*6/?L. The reference range was not used to interpret this result as normal/abnormal . HGB (test code = 10.4 g/dL 11.6-15.0 L 718-7) HCT (test code = 35.3 % 35.7-45.2 L 4544-3) MCV (test code = 70.3 fL 80.6-95.5 L 787-2) MCH (test code = 20.7 pg 25.9-32.8 L 785-6) MCHC (test code = 29.5 g/dL 31.6-35.1 L 786-4) RDW-SD (test code = 44.1 fL 39.0-49.9 31476-5) RDW-CV (test code = 17.6 % 12.0-15.5 H 788-0) PLT (test code = See_Comment H [Automated 777-3) message] The sy stem which generated this result transmitted reference range : 166 - 358 10*3/ ?L. The reference r adela was not used to interpret this result as normal/abnormal . MPV (test code = 10.1 fL 9.5-12.9 06218-0) NRBC/100 WBC (test See_Comment [Automat ed code = 7001052509) message] The system which generated this result transmitted reference range : 0.0 - 10.0 /100 WBCs. The refer ence range was not u sed to interpret th is result as normal/abnormal . NRBC x10^3 (test code <0.01 See_Comment [Auto mated = 5199792019) message] The s ystem which generated this result transmitted reference range : 10*3/?L. The reference range was not used to interpret this result as normal/abnormal . GRAN MAT (NEUT) % 73.8 % (test code = 770-8) IMM GRAN % (test code 0.50 % = 0678929291) LYMPH % (test code = 18.9 % 736-9) MONO % (test code = 4.6 % 5905-5) EOS % (test code = 1.6 % 713-8) BASO % (test code = 0.6 % 706-2) GRAN MAT x10^3(ANC) 6.56 10*3/uL 1.88-7.09 (test code = 2457014842) IMM GRAN x10^3 (test 0.04 10*3/uL 0.00-0.06 code = 1515566941) LYMPH x10^3 (test code 1.68 10*3/uL 1.32-3.29 = 731-0) MONO x10^3 (test code 0.41 10*3/uL 0.33-0.92 = 742-7) EOS x10^3 (test code = 0.14 10*3/uL 0.03-0.39 711-2) BASO x10^3 (test code 0.05 10*3/uL 0.01-0.07 = 704-7) Lab Interpretation Abnormal (test code = 34943-4) [facility] Metabolic Panel (NA, K, CL, CO2, Glucose, BUN, Creatinine, CA)2020-09-13 10:46:00 Test Item Value Reference Range Interpretation Comments NA (test code = 137 mmol/L 135-145 1100485889) K (test code = 3.6 mmol/L 3.5-5 9227957126) CL (test code = 106 mmol/L 98-108 6921030299) CO2 TOTAL (test code = 25 mmol/L 23-31 2848086927) AGAP (test code = 2-16 9848357172) BUN (test code = 18 mg/dL 7-23 1710621535) GLUCOSE (test code = 130 mg/dL 70-110 H 2277527744) CREATININE (test code = 0.84 mg/dL 0.5-1.04 8834673293) CALCIUM (test code = 8.5 mg/dL 8.6-10.6 L 6112712499) eGFR Calculation mL/min/1.73m2 (Non-) (test code = 5208025596) eGFR Calculation mL/min/1.73m2 () (test code = 4543231497) GLEN (test code = GLEN) Association of Glomerular Filtration Rate (GFR) and Staging of Kidney Disease* + --+ --+ ------+| GFR (mL/min/1.73 m2) ?| With Kidney Damage ?| ?Without Kidney Damage+ --------+ --------+ +| ?>90 ?| ?Stage one ?| ? Normal ?+ ---+ ---+ -------+| ?60-89 ?| ?Stage two ?| ? Decreased GFR ? + --+ --+ ------+| ?30-59 ?| ?Stage three ?| ? Stage three ? + --+ --+ ------+| ?15-29 ?| ?Stage four ? | ? Stage four ?+ ---+ ---+ -------+| ?<15 (or dialysis) ? ?| ?Stage five ? | ? Stage five ?+ ---+ ---+ -------+ *Each stage assumes the associated GFR level has been in effect for at least three months. ?Stages 1 to 5, with or without kidney disease, indicate chronic kidney disease. Notes: Determination of stages one and two (with eGFR >59mL/min/1.73 m2) requires estimation of kidney damage for at least three months as defined by structural or functional abnormalities of the kidney, manifested by either:Pathological abnormalities or Markers of kidney damage (including abnormalities in the composition of the blood or urine or abnormalities in imaging tests). Lab Interpretation Abnormal (test code = 78313-5) [facility] with [id number] 10:24:00 Test Item Value Reference Range Interpretation Comments WBC (test code = See_Comment [Automated 3590-2) message] The sy stem which generated this result transmitted reference range : 4.30 - 11.10 10*3/?L. The reference range was not used to interpret this result as normal/abnormal . RBC (test code = See_Comment L [Automated 799-8) message] The sy stem which generated this result transmitted reference range : 3.93 - 5.25 10*6/?L. The reference range was not used to interpret this result as normal/abnormal . HGB (test code = 7.6 g/dL 11.6-15 L 718-7) HCT (test code = 25.8 % 35.7-45.2 L 4544-3) MCV (test code = 76.1 fL 80.6-95.5 L 787-2) MCH (test code = 22.4 pg 25.9-32.8 L 785-6) MCHC (test code = 29.5 g/dL 31.6-35.1 L 786-4) RDW-SD (test code = 55.9 fL 39-49.9 H 85774-3) RDW-CV (test code = 20.4 % 12-15.5 H 788-0) PLT (test code = See_Comment [Automated 777-3) message] The sy stem which generated this result transmitted reference range : 166 - 358 10*3/ ?L. The reference r adela was not used to interpret this result as normal/abnormal . MPV (test code = 9.8 fL 9.5-12.9 78883-2) NRBC/100 WBC (test See_Comment [Automat ed code = 7511109376) message] The system which generated this result transmitted reference range : 0.0 - 10.0 /100 WBCs. The refer ence range was not u sed to interpret th is result as normal/abnormal . NRBC x10^3 (test code <0.01 See_Comment [Auto mated = 0575524275) message] The s ystem which generated this result transmitted reference range : 10*3/?L. The reference range was not used to interpret this result as normal/abnormal . GRAN MAT (NEUT) % 70.4 % (test code = 770-8) IMM GRAN % (test code 0.20 % = 5612202082) LYMPH % (test code = 20.9 % 736-9) MONO % (test code = 7.8 % 5905-5) EOS % (test code = 0.4 % 713-8) BASO % (test code = 0.3 % 706-2) GRAN MAT x10^3(ANC) 6.35 10*3/uL 1.88-7.09 (test code = 6848669990) IMM GRAN x10^3 (test <0.03 0-0.06 code = 9870767598) LYMPH x10^3 (test code 1.89 10*3/uL 1.32-3.29 = 731-0) MONO x10^3 (test code 0.70 10*3/uL 0.33-0.92 = 742-7) EOS x10^3 (test code = 0.04 10*3/uL 0.03-0.39 711-2) BASO x10^3 (test code 0.03 10*3/uL 0.01-0.07 = 704-7) Lab Interpretation Abnormal (test code = 27771-0) [facility] - The Type and Screen expires at midnight on the 3rd day after it was drawn. A current Type and Screen is required when RBCs are requested. For all other blood products, a Type and Scre en performed during the current hospitalizati...2020-09-12 13:57:33 Test Item Value Reference Range Interpretation Comments ABO & RH (test code O Positive Performe d at [facility] = 20) Laboratory Serv [facility] [place] [address] Free: [phone] A No. [id number] IAT (test code = Negative Performed a t [facility] 1185) Laboratory Serv [facility] [place], [place] [address]Toll Free: [phone] A No. [id number] [facility] [id number] 12:35:00 Test Item Value Reference Range Interpretation Comments POCT PREG (test code = 1605) Negative On board controls acceptable with Yes C Line (test code = 3574) POCT PREG LOT # (test code = 3575) [id number] POCT PREG TEST DATE (test 2021-08-09 code = 3576) Lab Interpretation (test code = Normal 25005-3) [facility] BRE[facility] [id number] 23:49:55Examination:BI DIAGNOSTIC TOMOSYNTHESIS RIGHTBI ULTRASOUND BREAST LIMITED RIGHT History:Patient is 40 year old and is seen for: ?Abnormal mammogram. ? Comparisons: 08/07/2020 BI SCREENING MAMMOGRAM BILATERAL Findings:BI DIAGNOSTIC TOMOSYNTHESIS RIGHTThe right breast is almost entirely fatty. There is a mass seen in the right breast at 9 o'clock in the middle depth, 7 cm from the nipple. This is best seen on RSCC 15 of 57, RSMLO 18 of 65, and RLM 46 of 82. BI ULTRASOUND BREAST LIMITED RIGHTTargeted right breast ultrasound was performed. There is a 7 mm x 3 mm x 7 mm mass seen in the right breast at9 o'clock in the middle depth, 7 cm from the nipple. This is favored to correlate with the mammographic findings. Normal-appearing axillary lymph nodes are identified. Impression: Right: There is a 7 mm mass in the right breast at 9:00, middle depth, 7 cm from the nipple, and this is favored to correlate with the mammographic findings best seen on RSCC 15 of 57, RSMLO 18 of 65, and RLM 46 of 82. ? Short interval follow-up mammogram and ultrasound is recommended to document stability. BI-RADS 3. Recommendation:Short interval follow-up ultrasound 6 months - RightShort interval follow-up 3D mammogram 6 months - Right ? BI-RADS Category: Right 3 - [facility] [id number] 23:49:54Examination: DIAGNOSTIC TOMOSYNTHESIS RIGHTBI ULTRASOUND BREAST LIMITED RIGHT History:Patient is 40 year old and is seen for: ?Abnormal mammogram. ? Comparisons: 08/07/2020 BI SCREENING MAMMOGRAM BILATERAL Findings:BI DIAGNOSTIC TOMOSYNTHESIS RIGHTThe right breast is almost entirely fatty. There is a mass seen in the right breast at 9 o'clock in the middle depth, 7 cm from the nipple. This is best seen on RSCC 15 of 57, RSMLO 18 of 65, and RLM 46 of 82. BI ULTRASOUND BREAST LIMITED RIGHTTargeted right breast ultrasound was performed. There is a 7 mm x 3 mm x 7 mm mass seen in the right breast at9 o'clock in the middle depth, 7 cm from the nipple. This is favored to correlate with the mammographic findings. Normal- appearing axillary lymph nodes are identified. Impression: Right: There is a 7 mm mass in the right breast at 9:00, middle depth, 7 cm from the nipple, and this is favored to correlate with the mammographic findings best seen on RSCC 15 of 57, RSMLO 18 of 65, and RLM 46 of 82. ? Short interval follow-up mammogram and ultrasound is recommended to document stability. BI-RADS 3. Recom mendation:Short interval follow-up ultrasound 6 months - RightShort interval follow-up 3D mammogram 6 months - Right ? BI-RADS Category: Right 3 - Probably [facility]PO[facility] [id number] 15:51:00 Test Item Value Reference Range Interpretation Comments POCT PREG (test code = 1605) Negative On board controls acceptable with C Yes Line (test code = 3574) POCT PREG LOT # (test code = 3575) POCT PREG TEST DATE (test code = 3576) [facility] [id number] 15:51:00 Test Item Value Reference Range Interpretation Comments POCT PREG (test code = 1605) Negative On board controls acceptable with C Yes Line (test code = 3574) POCT PREG LOT # (test code = 3575) POCT PREG TEST DATE (test code = 3576) [facility] [id number] 15:51:00 Test Item Value Reference Range Interpretation Comments POCT PREG (test code = 1605) Negative On board controls acceptable with C Yes Line (test code = 3574) POCT PREG LOT # (test code = 3575) POCT PREG TEST DATE (test code = 3576) [facility] [id number] 15:51:00 Test Item Value Reference Range Interpretation Comments POCT PREG (test code = 1605) Negative On board controls acceptable with C Yes Line (test code = 3574) POCT PREG LOT # (test code = 3575) POCT PREG TEST DATE (test code = 3576) [facility]US PELVIS COMPLETE WITH [id number] 18:39:20 No discernible abnormality to explain patient's symptoms. Limited evaluation of endometrium due toshadowing. Measured endometrialthickness is within normal limits for patient's age. Mullerian duct anomalycannot be completely excluded. Consider MRI pelvis to further characterizeif clinically warranted. Hypoattenuating appearance of the uterine body endometrial cavity mayrepresent blood products. Right ovarian cyst. PELVIC ULTRASOUND (TRANSVAGINAL AND LIMITED TRANSABDOMINAL) TECHNIQUE: Transvaginal and limited transabdominal sonography of the pelviswas performed ?with 3-D reconstructions of the uterus in the coronal plane. INDICATION: evaluate for uterine anomaly COMPARISON: Not available FINDINGS: Anteflexed uterus measures 9.8 x 4.8 x 5.5 cm and contains lower uterinesegment scar.Endometrial echo complex measures 0.8 cm but isdifficult to measure due to shadowing. Small amount of hyperattenuatingmaterial within the lower uterine segment endometrial cavity probablyrepresents blood products given reported bleeding. Cervix contains multiplenabothian cysts. Ovaries are normal in size and configuration. The right ovary measures 1.7x 2.0 x 3.0 cm and contains a 1.1 cm cyst. The left ovary measures 2.0 x1.2 x 1.5 cm. Subjectively, there is normal vascular flow to both ovaries on colorDoppler. There is no evidence of intraperitoneal fluid. [facility], Radiant Results Inft User - 08/08/2020 1:40 PM CDTPELVIC ULTRASOUND (TRANSVAGINAL AND LIMITED TRANSABDOMINAL)TECHNIQUE: Transvaginal andlimited transabdominal sonography of the pelviswas performed with 3-D reconstructions of the uterusin the coronal plane.INDICATION: evaluate for uterine anomaly COMPARISON: Not availableFINDINGS:Anteflexed uterus measures 9.8 x 4.8 x 5.5 cm and contains lower uterinesegment scar. Endometrial echo complex measures 0.8 cm but isdifficult to measure due to shadowing. Small amount of hyperattenuatingmaterial within the lower uterine segment endometrial cavity probablyrepresents blood products given reported bleeding. Cervix contains multiplenabothian cysts.Ovaries are normal in size and configuration. The right ovary measures 1.7x 2.0 x 3.0 cm and contains a 1.1 cm cyst. The left ovary areli ures 2.0 x1.2 x 1.5 cm.Subjectively, there is normal vascular flow to both ovaries on colorDoppler.There is no evidence of intraperitoneal fluid.IMPRESSIONNo discernible abnormality to explain patient's symptoms. Limited evaluation of endometrium due to shadowing. Measured endometrialthickness is within normal limits for patient's age. Mullerian duct anomalycannot be completely excluded. Consider MRIpelvis to further characterizeif clinically warranted.Hypoattenuating appearance of the uterine bodyendometrial cavity mayrepresent blood products. Right ovarian cyst. [facility] [id number] 18:24:00 Test Item Value Reference Range Interpretation Comments POCT PREG (test code = 1605) Negative On board controls acceptable with C Yes Line (test code = 3574) POCT PREG LOT # (test code = 3575) POCT PREG TEST DATE (test code = 3576) [facility] [id number] 18:24:00 Test Item Value Reference Range Interpretation Comments POCT PREG (test code = 1605) Negative On board controls acceptable with C Yes Line (test code = 3574) POCT PREG LOT # (test code = 3575) POCT PREG TEST DATE (test code = 3576) [facility]"
[2021-09-02] MEDS ORDERED: DIPHENHYDRAMINE 50 MG/ML VIAL ONE (12:32)
[2021-09-02] MEDS ORDERED: METOCLOPRAMIDE 10 MG/2mL INJ ONE (12:32)
[2021-09-02] MEDS ORDERED: NA CHLORIDE 0.9% 500 ML ONE (12:32)
--- NOTE | 2021-09-02 13:59 | ER ---
Nurse's Notes [facility] Name: Bonny Overton Age: 41 yrs Sex: Female : 1980 Arrival Date: 09/02/2021 Time: 12:03 Bed 18 Private MD: Diagnosis: Migraine, unspecified, not intractable, without status migrainosus Presentation: 09/02 12:08 Chief complaint: Patient states: Migraine and nausea X 2 days. Coronavirus screen: At ld1 this time, the client does not indicate any symptoms associated with coronavirus-19. Ebola Screen: No symptoms or risks identified at this time. Initial Sepsis Screen: Does the patient meet any 2 criteria? No. Patient's initial sepsis screen is negative. Does the patient have a suspected source of infection? No. Patient's initial sepsis screen is negative. Risk Assessment: Do you want to hurt yourself or someone else? Patient reports no desire to harm self or others. Onset of symptoms was September 02, 2021. 12:08 Method Of Arrival: Ambulatory ld1 12:08 Acuity: ARISTIDES 4 ld1 Triage Assessment: 12:09 Headache History: The patient has had previous headaches and this one is similar to ld1 previous episodes. General: Appears in no apparent distress. comfortable, Behavior is calm, cooperative, appropriate for age. Pain: Complains of pain in top of head and forehead Pain does not radiate. Pain currently is 8 out of 10 on a pain scale. at worst was 10 out of 10 on a pain scale. Quality of pain is described as pressure, throbbing, Pain began 2-3 days ago. Is continuous, Also complains of nausea. EENT: No signs and/or symptoms were reported regarding the EENT system. Neuro: Level of Consciousness is awake, alert, obeys commands, Oriented to person, place, time, situation, Appropriate for age. Cardiovascular: Capillary refill < 3 seconds Patient's skin is warm and dry. Respiratory: Airway is patent Respiratory effort is even, unlabored, Respiratory pattern is regular, symmetrical. GI: Abdomen is round non-distended. : No signs and/or symptoms were reported regarding the genitourinary system. Derm: Reports feeling hot, not sure if it is due to the nausea or headache. Musculoskeletal: No signs and/or symptoms reported regarding the musculoskeletal system. MANAGER JAVA: 12:09 LMP N/A - Hysterectomy ld1 Historical: - Allergies: 12:09 No Known Allergies; ld1 - Home Meds: 12:09 carvedilol Oral [Active]; loratadine Oral [Active]; ld1 - PMHx: 12:09 diabetes mellitus; Hypertensive disorder; ld1 - PSHx: 12:09 section; Cholecystectomy; hysterectomy; ld1 - Immunization history:: Adult Immunizations up to date, Client reports having NOT received the Covid vaccine. - Social history:: Smoking status: Patient denies any tobacco usage or history of. Patient/guardian denies using alcohol, street drugs. Screenin:00 Abuse screen: Denies threats or abuse. Denies injuries from another. Nutritional sl2 screening: No deficits noted. Tuberculosis screening: No symptoms or risk factors identified. Fall Risk None identified. No secondary diagnosis (0 pts). IV access (20 points). Ambulatory Aid- None/Bed Rest/Nurse Assist (0 pts). Gait- Normal/Bed Rest/Wheelchair (0 pts) Mental Status- Overestimates/Forgets Limitations (15 pts.). Total Moralez Fall Scale indicates No Risk (0-24 pts). Assessment: 12:15 General: Appears uncomfortable, obese, well groomed, well developed, Reports headache. sl2 12:15 Pain: Complains of pain in face and forehead and top of head Pain does not radiate. sl2 Pain currently is 9 out of 10 on a pain scale. at worst was 10 out of 10 on a pain scale. level that patient reports is acceptable is 2 out of 10 on a pain scale. Quality of pain is described as aching. Neuro: No deficits noted. Level of Consciousness is awake, alert, obeys commands, Oriented to person, place, time, situation, Appropriate for age Plaster Mixer are equal bilaterally Moves all extremities. Full function Gait is steady, Speech is normal, Facial symmetry appears normal, Reports Denies weakness blurred vision difficulty swallowing, numbness. Neuro: Reports headache photophobia in face and forehead and top of head. Cardiovascular: No deficits noted. Respiratory: No deficits noted. Reports. GI: No deficits noted. No signs and/or symptoms were reported involving the gastrointestinal system. : No deficits noted. No signs and/or symptoms were reported regarding the genitourinary system. EENT: No deficits noted. No signs and/or symptoms were reported regarding the EENT system. Derm: No deficits noted. No signs and/or symptoms reported regarding the dermatologic system. Musculoskeletal: No deficits noted. Reports pain in face and forehead and top of head. 13:30 Pain: Pain currently is 3 out of 10 on a pain scale. at worst was 10 out of 10 on a sl2 pain scale. level that patient reports is acceptable is 3 out of 10 on a pain scale. 13:58 Reassessment: Patient verbalized decreased head-ache, now 3 of 10, denies nausea, sl2 dizziness or other untoward symptoms. Patient sitting upright in bed, encouraged to lay down and get some rest. Vital Signs: 12:08 BP 135 / 85; Pulse 76; Resp 18; Temp 97.9(O); Pulse Ox 97% on R/A; Weight 111.13 kg; ld1 Height 5 ft. 0 in. (152.40 cm); Pain 8/10; 12:30 BP 124 / 60; Pulse 66; Resp 18; Temp 97.8; Pulse Ox 100% on R/A; sl2 13:04 BP 121 / 61; Pulse 68; Resp 18; Pulse Ox 99% ; sl2 12:08 Body Mass Index 47.85 (111.13 kg, 152.40 cm) ld1 ED Course: 12:03 Patient arrived in ED. mr 12:09 Triage completed. ld1 12:09 Arm band placed on right wrist. ld1 12:13 Aldo Flores PA is PHCP. [facility] 12:13 Otoniel Monsalve MD is Attending Physician. [facility] 12:22 Inserted saline lock: 20 gauge in right antecubital area, using aseptic technique. ld1 Blood collected. 12:29 Rosemary James, FLORI is Primary Nurse. sl2 13:00 Patient has correct armband on for positive identification. Bed in low position. Call sl2 light in reach. Side rails up X 1. 13:00 No provider procedures requiring assistance completed. sl2 14:24 IV discontinued, Pressure dressing applied. 5 Administered Medications: 12:34 Drug: NS 0.9% 500 ml Route: IV; Rate: bolus; Site: right antecubital; sl2 13:58 Follow up: Response: No adverse reaction; IV Status: Completed infusion; IV Intake: sl2 500ml 12:34 Drug: diphenhydrAMINE 25 mg Route: IVP; Site: right antecubital; sl2 13:57 Follow up: Response: No adverse reaction; Pain is decreased sl2 12:50 Drug: Reglan (metoCLOPramide) 20 mg Route: IVP; Site: right antecubital; sl2 13:58 Follow up: Response: No adverse reaction; Pain is decreased sl2 Intake: 13:58 IV: 500ml; Total: 500ml. sl2 Outcome: 13:58 Discharge ordered by MD. hinkle 14:40 Patient left the ED. ll1 Signatures: Aldo Flores PA PA jmm Rivera, Mary Yennifer Lynn 5 Kathy Fried RN RN ll1 Joselin Muro RN RN ld1 Rosemary James RN RN sl2
--- NOTE | 2021-09-02 13:59 | EDPHYS ---
Physician Documentation [facility] Name: Bonny Overton Age: 41 yrs Sex: Female : 1980 Arrival Date: 09/02/2021 Time: 12:03 Bed 18 Private MD: ED Physician Otoniel Monsalve HPI: 09/02 12:23 This 41 yrs old Female presents to ER via Ambulatory with complaints of jmm Headache, Nausea. 12:23 Onset: The symptoms/episode began/occurred gradually, 2 day(s) ago. Associated signs jmm and symptoms: Pertinent positives: nausea, Photophobia. Severity of symptoms: At its worst the pain was severe, "similar to past headaches". Headache History: The patient has had previous headaches and this one is similar to previous episodes. The symptoms are alleviated by nothing. the symptoms are aggravated by nothing. The patient has experienced similar episodes in the past, several times. 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 - Social history:: Smoking status: Patient denies any tobacco usage or history of. Patient/guardian denies using alcohol, street drugs. ROS: 12:23 Constitutional: Negative for fever, chills, and weight loss, Cardiovascular: Negative jmm for chest pain, palpitations, and edema, Respiratory: Negative for shortness of breath, cough, wheezing, and pleuritic chest pain. 12:23 Neuro: Positive for headache. 12:23 All other systems are negative. Exam: 12:23 Constitutional: This is a well developed, well nourished patient who is awake, alert, jmm and in no acute distress. Head/Face: atraumatic. Eyes: EOMI, no conjunctival erythema appreciated ENT: Moist Mucus Membranes Neck: Trachea midline, Supple Chest/axilla: Normal chest wall appearance and motion. Cardiovascular: Regular rate and rhythm. No edema appreciated Respiratory: Normal respirations, no respiratory distress appreciated Abdomen/GI: Non distended, soft Back: Normal ROM Skin: General appearance color normal MS/ Extremity: Moves all extremities, no obvious deformities appreciated, no edema noted to the lower extremities Neuro: Awake and alert, normal gait Psych: Behavior is normal, Mood is normal, Patient is cooperative and pleasant Vital Signs: 12:08 BP 135 / 85; Pulse 76; Resp 18; Temp 97.9(O); Pulse Ox 97% on R/A; Weight 111.13 kg; ld1 Height 5 ft. 0 in. (152.40 cm); Pain 8/10; 12:30 BP 124 / 60; Pulse 66; Resp 18; Temp 97.8; Pulse Ox 100% on R/A; sl2 13:04 BP 121 / 61; Pulse 68; Resp 18; Pulse Ox 99% ; sl2 12:08 Body Mass Index 47.85 (111.13 kg, 152.40 cm) ld1 MDM: 12:23 Patient medically screened. [facility] 13:57 Data reviewed: vital signs, nurses notes. Counseling: I had a detailed discussion with manan the patient and/or guardian regarding: the historical points, exam findings, and any diagnostic results supporting the discharge/admit diagnosis, the need for outpatient follow up, to return to the emergency department if symptoms worsen or persist or if there are any questions or concerns that arise at home. 09/02 12:25 Order name: Saline Lock; Complete Time: 12:50 [facility] Administered Medications: 12:34 Drug: NS 0.9% 500 ml Route: IV; Rate: bolus; Site: right antecubital; sl2 13:58 Follow up: Response: No adverse reaction; IV Status: Completed infusion; IV Intake: sl2 500ml 12:34 Drug: diphenhydrAMINE 25 mg Route: IVP; Site: right antecubital; sl2 13:57 Follow up: Response: No adverse reaction; Pain is decreased sl2 12:50 Drug: Reglan (metoCLOPramide) 20 mg Route: IVP; Site: right antecubital; sl2 13:58 Follow up: Response: No adverse reaction; Pain is decreased sl2 Disposition: 17:33 Co-signature as Attending Physician, Otoniel Monsalve MD I agree with the assessment and rn plan of care. Attestation: The patient's history, exam findings, diagnostics, and a summary of any interventions or procedures was reviewed in detail with Aldo HANNA. Disposition Summary: 09/02/21 13:58 Discharge Ordered Location: Home [facility] Condition: Stable jmm Diagnosis - Migraine, unspecified, not intractable, without status migrainosus jmm Followup: jmm - With: Private Physician - When: 2 - 3 days - Reason: Recheck today's complaints, Continuance of care, Re-evaluation by your physician Discharge Instructions: - Discharge Summary Sheet jm - Migraine Headache jm Forms: - Medication Reconciliation Form [facility] - Thank You Letter jmm - Antibiotic Education jmm - Prescription Opioid Use jm Signatures: Aldo Flores PA PA jm Otoniel Monsalve MD MD rn Dibbern, Lauren RN RN ld1 Rosemary James RN RN sl2
[2021-09-02 15:10] VITALS: TEMP 97.8
[2021-09-02 15:12] VITALS: BP 121/61; O2SAT 99
== END 2021-09-02 14:40 | disposition home or self-care (01) ==
LOC: ER 11:59
DX: G43.009 Migraine without aura, not intractable, without status migrainosus (principal); I10 Essential (primary) hypertension; E11.9 Type 2 diabetes mellitus without complications
CPT/HCPCS: 96361; 96375; 96374; 99283; J2765; J1200; J7040

== ENCOUNTER 2021-12-12 21:53 | Emergency (ER) | payer OTHER ==
--- OUTSIDE RECORDS SUMMARY | 2021-12-12 21:59 | XMS REPORT | Continuity of Care Document ---
:1980 Author Organization [facility] t Address [address] [place] [address] Care Team Providers Name Role Phone Agnes MAC Primary Care Physician Unavailable KYLE Attending Clinician Unavailable Shana HUFFMAN Attending Clinician Unavailable Leni Barajas Attending Clinician Singer NG Attending Clinician Vahid Toussaint DO Attending Clinician Tara RN, M Attending Clinician Unavailable Kyle FOSTER Attending Clinician Doctor Unassigned, Name Attending Clinician Unavailable Pob, Lab Main Attending Clinician Unavailable Lab, Fam Pob I Attending Clinician Unavailable Levar MANZANARES Attending Clinician LEVAR Attending Clinician Unavailable Nancy FOSTER Attending Clinician Mae MANZANARES Attending Clinician MAE Attending Clinician Unavailable KYLE Admitting Clinician Unavailable Kyle FOSTER Admitting Clinician Payers Payer Name Policy Type Policy Number Effective Date Expiration Date [facility] [id number] 2019 CHOICE MEDICAID 00:00:00 [employer]ET[employer] O [id number] 2020 00:00:00 Problems Condition Condition Condition Status Onset Resolution Last Treating Co mments Source Name Details Category Date Date Treatment Clinician Date Abnormal Abnormal Disease Active 2019-10 Overview: Un yudi uterine uterine 30 Formattin ity o f bleeding bleeding 00:00: g of this Ole as (AUB) (AUB) 00 note Medical might be Branch different from the original. Added automatic ally from request for surgery [id number] Hyperchole Hyperchole Disease Active 2019-10 U nivers [...] rs active active ity of problems problems [facility] [place] [facility] Allergies, Adverse Reactions, Alerts Allergy Allergy Status Severity Reaction(s) Onset Inactive Treating Comm ents Source Name Type Date Date Clinician Hatley Propensi Active Swelling Univer s ty to 5-05 ity of adverse 00:00: [place] reaction 00 Medical s Branch JOSEPH DRUG Active Swelling Univers INGREDI 5-05 ity of 00:00: [place] 00 Medical Branch NO KNOWN Drug Active Univers ALLERGIE Class ity of S [facility] Social History Social Habit Start Date Stop Date Quantity Comments Source Exposure to Not sure [facility] SARS-CoV-2 [facility] (event) Branch History of Cigarette Smoker Universi ty of tobacco use [facility] Alcohol intake 2020-10-29 2020-10-29 Ex-drinker [facility] 00:00:00 00:00:00 (finding) [facility] Tobacco use and 2020-07-23 2020-07-23 Never used Universit y of exposure 00:00:00 00:00:00 [facility] Sex Ass[birth year] At [birth year] Universit y of 00:00:00 00:00:00 [facility] Smoking Status Start Date Stop Date Source Former smoker 2020-07-23 00:00:00 2020-07-23 00:00:00 [facility] Never smoker [facility] Medications Ordered Filled Start Stop Current Ordering Indication Dosage Frequency Signature Comments Components Source Medication Medication Date Date Medication? Clinician (SIG) Name Name NaCl 0.9% 2020- No 1000mL at 999 Uni vers (NS) bolus 03-19 mL/hr, ity of infusion 19:15: 07:14 1,000 mL, [place] as 1,000 mL 00 :00 IV Medical Infusion, [place] ONCE, 1 dose, [place] 03/19/21 at 1415, STAT lisinopriL 2020- No 10mg 10 mg, Univ ers (PRINIVIL,Z 03-19 Oral, ity of ESTRIL) 19:15: 18:32 ONCE, 1 [place] tablet 10 00 :00 dose, [place] Medic al mg 03/19/21 at Branch 1415, Routine magnesium 2020- No 2g 2 g, IV Univ ers sulfate in 03-19 Piggyback, it y of water 2 19:15: 21:24 ONCE, 1 [place] gram/50 mL 00 :00 dose, [place] Medi luisa (4 %) 03/19/21 at [place] infusion 2 1415, g Routine ketorolac 2020- No 30mg 30 mg, Unive rs (TORADOL) 03-19 Slow IV ity of injection 19:15: 18:34 Push, [place] 30 mg 00 :00 ONCE, 1 Medical dose, [facility] Branch 03/19/21 at 1415, ZULEYMA
Fa culty member approving Restricted medication : Arden GREENBERG LENI metoclopram 2020- No 10mg 10 mg, Uni vers brayden HCl 03-19 Slow IV ity of (REGLAN) 19:15: 18:36 Push, [place] injection 00 :00 ONCE, 1 Medical 10 mg dose, [facility] Branch 03/19/21 at 1415, ZULEYMA diphenhydrA 2020- No 25mg 25 mg, Uni vers MINE 03-19 Slow IV ity of (BENADRYL) 19:15: 18:33 Push, [place] injection 00 :00 ONCE, 1 Medical 25 mg dose, [place] Branch 03/19/21 at 1415, STAT hydrOXYzine 1-0 Yes [id number] 10mg Take 1 Univers 10 mg 5-05 tablet by ity of tablet 00:00: mouth [place] 00 every 6 Medical (six) Branch hours. methylPREDN 2021-0 Yes [id number] Take by Univers ISolone 5-05 mouth ity of (MEDROL, 00:00: SEE-INSTRU Ole as KAVITHA,) 4 mg 00 CTIONS. Medica l tablets follow Branch package directions hydrOXYzine 2020-0 Yes [id number] 10mg Take 1 Univers 10 mg 5-05 tablet by ity of tablet 00:00: mouth [place] 00 every 6 Medical (six) Branch hours. methylPREDN 2021-0 Yes [id number] Take by Univers ISolone 5-05 mouth ity of (MEDROL, 00:00: SEE-INSTRU [place] KAVITHA,) 4 mg 00 CTIONS. Medica l tablets follow Branch package directions hydrOXYzine 2020-0 Yes [id number] 10mg Take 1 Univers 10 mg 5-05 tablet by ity of tablet 00:00: mouth [place] 00 every 6 Medical (six) Branch hours. methylPREDN 2021-0 Yes [id number] Take by Univers ISolone 5-05 mouth ity of (MEDROL, 00:00: SEE-INSTRU [place] KAVITHA,) 4 mg 00 CTIONS. Medica l tablets follow Branch package directions fluconazole 2019- Yes TAKE ONE Un yudi 150 mg 2-07 (1) TABLET ity of tablet 00:00: BY MOUTH [place] 00 ONCE NOW Medical A Branch SINGLE DOSE. fluconazole 2020- Yes TAKE ONE Un yudi 150 mg 2-07 (1) TABLET ity of tablet 00:00: BY MOUTH [place] 00 ONCE NOW Medical A Branch SINGLE DOSE. fluconazole 2020-1 Yes TAKE ONE Un yudi 150 mg 2-07 (1) TABLET ity of tablet 00:00: BY MOUTH [place] 00 ONCE NOW Medical A Branch SINGLE DOSE. fluconazole 2019- Yes TAKE ONE Un yudi 150 mg 2-07 (1) TABLET ity of tablet 00:00: BY MOUTH [place] 00 ONCE NOW Medical A Branch SINGLE DOSE. norgestimat 2019- 2020- No Take by U nivers e-ethinyl 2-05 12-05 mouth. ity of estradiol 15:32: 00:00 [place] (ESTARYLLA 22 :00 Medical ORAL) Branch simethicone 2019-10 Yes 80mg 80 mg, Univ ers (GAS RELIEF 2-05 Oral, QID, it y of (SIMETHICON 15:15: First dose [place] E)) 00 on [facility] Medical chewable 09/13/20 at [facility] h tablet 80 0915, mg Until Discontinu ed, Routine carvediloL 2019-10 Yes 6.25mg 6.25 mg, U nivers (COREG) 2-05 Oral, ity of tablet 6.25 15:00: DAILY, [place] mg 00 First dose Medical on [facility] Branch 09/13/20 at 0900, Until Discontinu ed, Routine docusate 2019-10 Yes 240mg 240 mg, Unive rs calcium 2-05 Oral, ity of (SURFAK) 15:00: DAILY, [place] capsule 240 00 First dose Me dical mg on [facility] Branch 09/13/20 at 0900, Until Discontinu ed, Routine ibuprofen 2019-10 Yes [id number] 600mg Take 1 Univers 600 mg 2-05 100 tablet by ity of tablet 00:00: mouth [place] 00 every 6 Medical (six) Branch hours as needed for Pain (scale 1-3). simethicone 2019-10 Yes [id number] 80mg Take 1 Univers 80 mg 2-05 100 tablet by ity of chewable 00:00: mouth [place] tablet 00 every 6 Medical (six) Branch hours as needed for Gas. docusate 2019-10 Yes [id number] 100mg Take 1 Univers 100 mg 2-05 100 capsule by ity of capsule 00:00: mouth 2 [place] 00 (two) Medical times Branch daily. ibuprofen 2019-10 Yes [id number] 600mg Take 1 Univers 600 mg 2-05 100 tablet by ity of tablet 00:00: mouth [place] 00 every 6 Medical (six) Branch hours as needed for Pain (scale 1-3). simethicone 2019-10 Yes [id number] 80mg Take 1 Univers 80 mg 2-05 100 tablet by ity of chewable 00:00: mouth [place] tablet 00 every 6 Medical (six) Branch hours as needed for Gas. docusate 2019-10 Yes [id number] 100mg Take 1 Univers 100 mg 2-05 100 capsule by ity of capsule 00:00: mouth 2 [place] 00 (two) Medical times Branch daily. ibuprofen 2019- Yes [id number] 600mg Take 1 Univers 600 mg 2-05 100 tablet by ity of tablet 00:00: mouth [place] 00 every 6 Medical (six) Branch hours as needed for Pain (scale 1-3). simethicone 2020-1 Yes [id number] 80mg Take 1 Univers 80 mg 2-05 100 tablet by ity of chewable 00:00: mouth [place] tablet 00 every 6 Medical (six) Branch hours as needed for Gas. docusate 2019- Yes [id number] 100mg Take 1 Univers 100 mg 2-05 100 capsule by ity of capsule 00:00: mouth 2 [place] 00 (two) Medical times Branch daily. ibuprofen 2019- Yes [id number] 600mg Take 1 Univers 600 mg 2-05 100 tablet by ity of tablet 00:00: mouth [place] 00 every 6 Medical (six) Branch hours as needed for Pain (scale 1-3). simethicone 2019-1 Yes [id number] 80mg Take 1 Univers 80 mg 2-05 100 tablet by ity of chewable 00:00: mouth [place] tablet 00 every 6 Medical (six) Branch hours as needed for Gas. docusate 2019-1 Yes [id number] 100mg Take 1 Univers 100 mg 2-05 100 capsule by ity of capsule 00:00: mouth 2 [place] 00 (two) Medical times Branch daily. ferrous 2019- Yes 324mg Take 324 Unive rs gluconate 2-05 mg by ity of 324 mg (38 00:00: mouth 2 [place] mg iron) 00 (two) Medical tablet times Branch daily. ibuprofen 2019- Yes [id number] 600mg Take 1 Univers 600 mg 2-05 100 tablet by ity of tablet 00:00: mouth [place] 00 every 6 Medical (six) Branch hours as needed for Pain (scale 1-3). simethicone 2020-1 Yes [id number] 80mg Take 1 Univers 80 mg 2-05 100 tablet by ity of chewable 00:00: mouth [place] tablet 00 every 6 Medical (six) Branch hours as needed for Gas. docusate 2019-1 Yes [id number] 100mg Take 1 Univers 100 mg 2-05 100 capsule by ity of capsule 00:00: mouth 2 [place] 00 (two) Medical times Branch daily. ferrous 2019-10 Yes 324mg Take 324 Unive rs gluconate 2-05 mg by ity of 324 mg (38 00:00: mouth 2 [place] mg iron) 00 (two) Medical tablet times Branch daily. ibuprofen 2019-10 Yes [id number] 600mg Take 1 Univers 600 mg 2-05 100 tablet by ity of tablet 00:00: mouth [place] 00 every 6 Medical (six) Branch hours as needed for Pain (scale 1-3). simethicone 2019-10 Yes [id number] 80mg Take 1 Univers 80 mg 2-05 100 tablet by ity of chewable 00:00: mouth [place] tablet 00 every 6 Medical (six) Branch hours as needed for Gas. docusate 2019-10 Yes [id number] 100mg Take 1 Univers 100 mg 2-05 100 capsule by ity of capsule 00:00: mouth 2 [place] 00 (two) Medical times Branch daily. ferrous 2019-10 Yes 324mg Take 324 Unive rs gluconate 2-05 mg by ity of 324 mg (38 00:00: mouth 2 [place] mg iron) 00 (two) Medical tablet times Branch daily. ibuprofen 2019-10 Yes [id number] 600mg Take 1 Univers 600 mg 2-05 100 tablet by ity of tablet 00:00: mouth [place] 00 every 6 Medical (six) Branch hours as needed for Pain (scale 1-3). simethicone 2019-10 Yes [id number] 80mg Take 1 Univers 80 mg 2-05 100 tablet by ity of chewable 00:00: mouth [place] tablet 00 every 6 Medical (six) Branch hours as needed for Gas. docusate 2019-10 Yes [id number] 100mg Take 1 Univers 100 mg 2-05 100 capsule by ity of capsule 00:00: mouth 2 [place] 00 (two) Medical times Branch daily. ferrous 2019-10 Yes 324mg Take 324 Unive rs gluconate 2-05 mg by ity of 324 mg (38 00:00: mouth 2 [place] mg iron) 00 (two) Medical tablet times Branch daily. HYDROcodone 2019-10 2020- No [id number] 1{tbl} Take 1 U nivers -acetaminop 2-05 12-13 tablet by it y of hen 5-325 00:00: 05:59 mouth [place] mg tablet 00 :00 every 6 Medical (six) Branch hours as needed for Pain (scale 7-10) for up to 7 days. Indication s: acute pain HYDROcodone 2019-10 2020- No [id number] 1{tbl} Take 1 U nivers -acetaminop 11-14 tablet by it y of hen 5-325 [...] on Tue09/12/20 at 1800, Last dose on Tue09/13/20 at 1200, Routine
membership sales manager approving Restricted medication : BERT WRIGHT HYDROcodone 2019-10 Yes 2{tbl} 2 tablet, Univers -acetaminop 2-04 Oral, ity of hen (NORCO 21:53: Q6HPRN, [place] 5) 5-325 mg 24 Starting Medi luisa tablet 2 Fri Branch tablet 09/12/20 at 1553, Until Discontinu ed, Routine, Pain (scale 7-10) HYDROcodone 2019-10 Yes 1{tbl} 1 tablet, Univers -acetaminop 2-04 Oral, ity of hen (NORCO 21:53: Q6HPRN, [place] 5) 5-325 mg 09 Starting Medi luisa tablet 1 Fri Branch tablet 09/12/20 at 1553, Until Discontinu ed, Routine, Pain (scale 4-6) HYDROmorpho 2019-10- No .2mg 0.2 mg, Un yudi ne 11-13 Slow IV ity of (DILAUDID) 19:52: 21:28 [...] No 25ug 25 mcg, Un yudi (SUBLIMAZE 2- 12-04 Slow IV ity o f (PF)) 19:28: [...] Tue09/12/20 at 0700, Routine, [facility] Pre-op norgestimat 2019-10 Yes Take by Un yudi e-ethinyl 2-01 mouth. ity of estradiol 22:23: [place] (ESTARYLLA 00 Medical ORAL) Branch norgestimat 2019-10 Yes Take by Un yudi e-ethinyl 2-01 mouth. ity of estradiol 22:23: [place] (ESTARYLLA 00 Medical ORAL) Branch norgestimat 2019-10 Yes Take by Un yudi e-ethinyl 1-24 mouth. ity of estradiol 16:21: [place] (ESTARYLLA 22 Medical ORAL) Branch norgestimat 2019- Yes Take by Un yudi e-ethinyl 1-24 mouth. ity of estradiol 16:21: [place] (ESTARYLLA 22 Medical ORAL) Branch norgestimat 2019-10 Yes Take by Un yudi e-ethinyl 1-24 mouth. ity of estradiol 16:21: [place] (ESTARYLLA 22 Medical ORAL) Branch norgestimat 2019-10 Yes Take by Un yudi e-ethinyl 1-24 mouth. ity of estradiol 16:21: [place] (ESTARYLLA 22 Medical ORAL) Branch medroxyPROG 2019-10 Yes 10mg Take 10 mg Univers ESTERone 10 1-24 by mouth 3 it y of mg tablet 00:00: (three) [place] 00 times Medical daily. Branch oxyCODONE 5 2019-10 Yes TAKE ONE Un yudi mg 1-24 (1) ity of immediate 00:00: TABLET(S) [place] release 00 BY MOUTH Medical tablet EVERY FOUR Branch HOURS NEEDED FOR PAIN FOR UP TO 5 DOSES. medroxyPROG 2019-10 Yes 10mg Take 10 mg Univers ESTERone 10 1-24 by mouth 3 it y of mg tablet 00:00: (three) [place] 00 times Medical daily. Branch oxyCODONE 5 [...] it y of mg tablet 00:00: (three) [place] 00 times Medical daily. Branch oxyCODONE 5 [...] Branch TWELVE HOURS FOR 10 DAYS. ferrous 2019- Yes [id number] 324mg Take 1 Un yudi gluconate 1-13 tablet by ity o f 324 mg (38 00:00: mouth 2 [place] mg iron) 00 (two) Medical tablet times Branch daily. ascorbic 2019- Yes [id number] 500mg Take 1 U nivers acid, 1-13 tablet by ity of vitamin C, 00:00: mouth 2 [place] 500 mg 00 (two) Medical tablet times Branch daily. Take with iron to help with absorption of iron. ferrous 2019- Yes [id number] 324mg Take 1 Un yudi gluconate 1-13 tablet by ity o f 324 mg (38 00:00: mouth 2 [place] mg iron) 00 (two) Medical tablet times Branch daily. ascorbic 2019-10 Yes [id number] 500mg Take 1 U nivers acid, 1-13 tablet by ity of vitamin C, 00:00: mouth 2 [place] 500 mg 00 (two) Medical tablet times Branch daily. Take with iron to help with absorption of iron. ferrous 2019-10 Yes [id number] 324mg Take 1 Un yudi gluconate 1-13 tablet by ity o f 324 mg (38 00:00: mouth 2 [place] mg iron) 00 (two) Medical tablet times Branch daily. ascorbic 2019-10 Yes [id number] 500mg Take 1 U nivers acid, 1-13 tablet by ity of vitamin C, 00:00: mouth 2 [place] 500 mg 00 (two) Medical tablet times Branch daily. Take with iron to help with absorption of iron. ferrous 2019-10 Yes [id number] 324mg Take 1 Un yudi gluconate 1-13 tablet by ity o f 324 mg (38 00:00: mouth 2 [place] mg iron) 00 (two) Medical tablet times Branch daily. ascorbic 2019-10 Yes [id number] 500mg Take 1 U nivers acid, 1-13 tablet by ity of vitamin C, 00:00: mouth 2 [place] 500 mg 00 (two) Medical tablet times Branch daily. Take with iron to help with absorption of iron. ferrous 2019-10 Yes [id number] 324mg Take 1 Un yudi gluconate 1-13 tablet by ity o f 324 mg (38 00:00: mouth 2 [place] mg iron) 00 (two) Medical tablet times Branch daily. ascorbic 2019-10 Yes [id number] 500mg Take 1 U nivers acid, 1-13 tablet by ity of vitamin C, 00:00: mouth 2 [place] 500 mg 00 (two) Medical tablet times Branch daily. Take with iron to help with absorption of iron. ferrous 2019- Yes [id number] 324mg Take 1 Un yudi gluconate 1-13 tablet by ity o f 324 mg (38 00:00: mouth 2 [place] mg iron) 00 (two) Medical tablet times Branch daily. ascorbic 2019- Yes [id number] 500mg Take 1 U nivers acid, 1-13 tablet by ity of vitamin C, 00:00: mouth 2 [place] 500 mg 00 (two) Medical tablet times Branch daily. Take with iron to help with absorption of iron. ferrous 2019-10 Yes [id number] 324mg Take 1 Un yudi gluconate 1-13 tablet by ity o f 324 mg (38 00:00: mouth 2 [place] mg iron) 00 (two) Medical tablet times Branch daily. ascorbic 2019-10 Yes [id number] 500mg Take 1 U nivers acid, 1-13 tablet by ity of vitamin C, 00:00: mouth 2 [place] 500 mg 00 (two) Medical tablet times Branch daily. Take with iron to help with absorption of iron. ferrous 2019-10 Yes [id number] 324mg Take 1 Un yudi gluconate 1-13 tablet by ity o f 324 mg (38 00:00: mouth 2 [place] mg iron) 00 (two) Medical tablet times Branch daily. ascorbic 2019-10 Yes [id number] 500mg Take 1 U nivers acid, 1-13 tablet by ity of vitamin C, 00:00: mouth 2 [place] 500 mg 00 (two) Medical tablet times Branch daily. Take with iron to help with absorption of iron. ferrous 2019-10 Yes [id number] 324mg Take 1 Un yudi gluconate 1-13 tablet by ity o f 324 mg (38 00:00: mouth 2 [place] mg iron) 00 (two) Medical tablet times Branch daily. ascorbic 2019-10 Yes [id number] 500mg Take 1 U nivers acid, 1-13 tablet by ity of vitamin C, 00:00: mouth 2 [place] 500 mg 00 (two) Medical tablet times Branch daily. Take with iron to help with absorption of iron. ferrous 2019-10 Yes [id number] 324mg Take 1 Un yudi gluconate 1-13 tablet by ity o f 324 mg (38 00:00: mouth 2 [place] mg iron) 00 (two) Medical tablet times Branch daily. ascorbic 2019-10 Yes [id number] 500mg Take 1 U nivers acid, 1-13 tablet by ity of vitamin C, 00:00: mouth 2 [place] 500 mg 00 (two) Medical tablet times Branch daily. Take with iron to help with absorption of iron. ferrous 2019-10- No [id number] 324mg Take 1 U nivers gluconate 10-22 tablet by ity of 324 mg (38 00:00: 00:00 mouth 2 [place] mg iron) 00 :00 (two) Medical tablet times Branch daily. ascorbic 2019-10- No [id number] 500mg Take 1 Univers acid, 10-22 tablet by ity of vitamin C, 00:00: 00:00 mouth 2 [place] 500 mg 00 :00 (two) Medical tablet times Branch daily. Take with iron to help with absorption of iron. medroxyPROG 2019-10 Yes [id number] 10mg Take 1 Univers ESTERone 1-06 100 tablet by ity of (PROVERA) 00:00: mouth 3 [place] 10 mg 00 (three) Medical tablet times Branch daily. medroxyPROG 2019-10 Yes [id number] 10mg Take 1 Univers ESTERone 1-06 100 tablet by ity of (PROVERA) 00:00: mouth 3 [place] 10 mg 00 (three) Medical tablet times Branch daily. medroxyPROG 2019-10 Yes [id number] 10mg Take 1 Univers ESTERone 1-06 100 tablet by ity of (PROVERA) 00:00: mouth 3 [place] 10 mg 00 (three) Medical tablet times Branch daily. medroxyPROG 2019-10 Yes [id number] 10mg Take 1 Univers ESTERone 1-06 100 tablet by ity of (PROVERA) 00:00: mouth 3 [place] 10 mg 00 (three) Medical tablet times Branch daily. medroxyPROG 2019-10 Yes [id number] 10mg Take 1 Univers ESTERone 1-06 100 tablet by ity of (PROVERA) 00:00: mouth 3 [place] 10 mg 00 (three) Medical tablet times Branch daily. oxyCODONE 5 2019-10 Yes [id number] 5mg Take 5 mg U nivers mg TbOr -06 by mouth ity of 00:00: every 4 [place] 00 (four) Medical hours as Branch needed for Pain (scale 4-6) for up to 3 doses. Indication s: acute pain ibuprofen 2019-10 Yes [id number] 600mg Take 1 Univers 600 mg 1-06 100 tablet by ity of tablet 00:00: mouth [place] 00 every 6 Medical (six) Branch hours as needed for Pain (scale 4-6). medroxyPROG 2019-10 Yes [id number] 10mg Take 1 Univers ESTERone 1-06 100 tablet by ity of (PROVERA) 00:00: mouth 3 [place] 10 mg 00 (three) Medical tablet times Branch daily. medroxyPROG 2020-1 Yes [id number] 10mg Take 1 Univers ESTERone 1-06 100 tablet by ity of (PROVERA) 00:00: mouth 3 [place] 10 mg 00 (three) Medical tablet times Branch daily. ibuprofen 2020- Yes [id number] 600mg Take 1 Univers 600 mg 1-06 100 tablet by ity of tablet 00:00: mouth [place] 00 every 6 Medical (six) Branch hours as needed for Pain (scale 4-6). oxyCODONE 5 2019- Yes [id number] 5mg Take 1 Univ ers mg 1-06 tablet by ity of immediate 00:00: mouth [place] release 00 every 4 Medical tablet (four) Branch hours as needed for Pain (scale 4-6) for up to 5 doses. Indication s: acute pain medroxyPROG 2020- Yes [id number] 10mg Take 1 Univers ESTERone 1-06 100 tablet by ity of (PROVERA) 00:00: mouth 3 [place] 10 mg 00 (three) Medical tablet times Branch daily. ibuprofen 2019- Yes [id number] 600mg Take 1 Univers 600 mg 1-06 100 tablet by ity of tablet 00:00: mouth [place] 00 every 6 Medical (six) Branch hours as needed for Pain (scale 4-6). oxyCODONE 5 2019- Yes [id number] 5mg Take 1 Univ ers mg 1-06 tablet by ity of immediate 00:00: mouth [place] release 00 every 4 Medical tablet (four) Branch hours as needed for Pain (scale 4-6) for up to 5 doses. Indication s: acute pain medroxyPROG 2020- Yes [id number] 10mg Take 1 Univers ESTERone 1-06 100 tablet by ity of (PROVERA) 00:00: mouth 3 [place] 10 mg 00 (three) Medical tablet times Branch daily. ibuprofen 2020- Yes [id number] 600mg Take 1 Univers 600 mg 1-06 100 tablet by ity of tablet 00:00: mouth [place] 00 every 6 Medical (six) Branch hours as needed for Pain (scale 4-6). oxyCODONE 5 2019- Yes [id number] 5mg Take 1 Univ ers mg 1-06 tablet by ity of immediate 00:00: mouth [place] release 00 every 4 Medical tablet (four) Branch hours as needed for Pain (scale 4-6) for up to 5 doses. Indication s: acute pain medroxyPROG 2020- Yes [id number] 10mg Take 1 Univers ESTERone 1-06 100 tablet by ity of (PROVERA) 00:00: mouth 3 [place] 10 mg 00 (three) Medical tablet times Branch daily. ibuprofen 2019-10 Yes [id number] 600mg Take 1 Univers 600 mg 1-06 [...] Indication s: acute pain medroxyPROG 2019-10 Yes [id number] 10mg Take 1 Univers ESTERone 1-06 100 tablet by ity of (PROVERA) 00:00: mouth 3 [place] 10 mg 00 (three) Medical tablet times Branch daily. ibuprofen 2019-10 Yes [id number] 600mg Take 1 Univers 600 mg 1-06 [...] Indication s: acute pain medroxyPROG 2019- Yes [id number] 10mg Take 1 Univers ESTERone 1-06 100 tablet by ity of (PROVERA) 00:00: mouth 3 [place] 10 mg 00 (three) Medical tablet times Branch daily. ibuprofen 2019- Yes [id number] 600mg Take 1 Univers 600 mg 1-06 100 tablet by ity of tablet 00:00: mouth [place] 00 every 6 Medical (six) Branch hours as needed for Pain (scale 4-6). oxyCODONE 5 2020-1 Yes [id number] 5mg Take 1 Univ ers mg 1-06 tablet by ity of immediate 00:00: mouth [place] release 00 every 4 Medical tablet (four) Branch hours as needed for Pain (scale 4-6) for up to 5 doses. Indication s: acute pain medroxyPROG 2020- Yes [id number] 10mg Take 1 Univers ESTERone 1-06 100 tablet by ity of (PROVERA) 00:00: mouth 3 [place] 10 mg 00 (three) Medical tablet times Branch daily. ibuprofen 2019- Yes [id number] 600mg Take 1 Univers 600 mg 1-06 100 tablet by ity of tablet 00:00: mouth [place] 00 every 6 Medical (six) Branch hours as needed for Pain (scale 4-6). oxyCODONE 5 2019- Yes [id number] 5mg Take 1 Univ ers mg 1-06 tablet by ity of immediate 00:00: mouth [place] release 00 every 4 Medical tablet (four) Branch hours as needed for Pain (scale 4-6) for up to 5 doses. Indication s: acute pain medroxyPROG 2019- Yes [id number] 10mg Take 1 Univers ESTERone 1-06 100 tablet by ity of (PROVERA) 00:00: mouth 3 [place] 10 mg 00 (three) Medical tablet times Branch daily. ibuprofen 2019-10 Yes [id number] 600mg Take 1 Univers 600 mg 1-06 100 tablet by ity of tablet 00:00: mouth [place] 00 every 6 Medical (six) Branch hours as needed for Pain (scale 4-6). oxyCODONE 5 2019- Yes [id number] 5mg Take 1 Univ ers mg 1-06 tablet by ity of immediate 00:00: mouth [place] release 00 every 4 Medical tablet (four) Branch hours as needed for Pain (scale 4-6) for up to 5 doses. Indication s: acute pain ibuprofen 2019- Yes [id number] 600mg Take 1 Univers 600 mg 1-06 100 tablet by ity of tablet 00:00: mouth [place] 00 every 6 Medical (six) Branch hours as needed for Pain (scale 4-6). ibuprofen 2019- Yes [id number] 600mg Take 1 Univers 600 mg 1-06 100 tablet by ity of tablet 00:00: mouth [place] 00 every 6 Medical (six) Branch hours as needed for Pain (scale 4-6). ibuprofen 2019- Yes [id number] 600mg Take 1 Univers 600 mg 1-06 100 tablet by ity of tablet 00:00: mouth [place] 00 every 6 Medical (six) Branch hours as needed for Pain (scale 4-6). ibuprofen 2019-10 Yes [id number] 600mg Take 1 Univers 600 mg 1-06 100 tablet by [facility] of tablet 00:00: mouth [place] 00 every 6 Medical (six) Branch hours as needed for Pain (scale 4-6). ibuprofen 2019-10 Yes [id number] 600mg Take 1 [facility] 600 mg 1-06 100 tablet by it[facility] of tablet 00:00: mouth [place] 00 every 6 Medical (six) Branch hours as needed for Pain (scale 4-6). ibuprofen 2019-10 Yes [id number] 600mg Take 1 [facility] 600 mg 1-06 100 tablet by ity of tablet 00:00: mouth [place] 00 every 6 Medical (six) Branch hours as needed for Pain (scale 4-6). ibuprofen 2019-10- No [id number] 600mg Take 1 [facility] 600 mg 1-06 12-05 100 tablet by ity of tablet 00:00: 00:00 mouth [place] 00 :00 every 6 Medical (six) Branch hours as needed for Pain (scale 4-6). medroxyPROG 2019-10- No [id number] 10mg Take 1 [facility] ESTERone 10-15- 100 tablet by ity o f (PROVERA) 00:00: 00:00 mouth 3 [place] 10 mg 00 :00 (three) Medical tablet times Branch daily. Take twice daily until you completely stop bleeding, then once per day medroxyPROG 2019-10- No [id number] 10mg Take 1 [facility] ESTERone 10-15- 100 tablet by ity o f (PROVERA) 00:00: 00:00 mouth 3 [place] 10 mg 00 :00 (three) Medical tablet times Branch daily. Take twice daily until you completely stop bleeding, then once per day medroxyPROG 2019-10- No [id number] 10mg Take 1 [facility] ESTERone 10-15- 100 tablet by ity o f (PROVERA) 00:00: 00:00 mouth 3 [place] 10 mg 00 :00 (three) Medical tablet times Branch daily. Take twice daily until you completely stop bleeding, then once per day medroxyPROG 2019-10- No [id number] 10mg Take 1 [facility] ESTERone 10-15 100 [...] Indication s: acute pain medroxyPROG 2019-10- No [id number] 10mg Take 1 [facility] ESTERone 10-11 100 tablet by ity o f (PROVERA) 00:00: 05:59 mouth 2 [place] 10 mg 00 :00 (two) Medical tablet times Branch daily for 60 doses. Take twice daily until you completely stop bleeding, then once per day docusate 2019-10- No [id number] 100mg Take 1 [facility] (COLACE) 10-11 100 capsule by ity of 100 mg 00:00: 05:59 mouth 2 [place] capsule 00 :00 (two) Medical times Branch daily for 30 days. This medication is used for constipati on Polyethylen 2019-10- No [id number] 1{packe Take 1 [facility] e Glycol 10-11 100 t} Packet by ity o f 3350 00:00: 05:59 mouth [place] (MIRALAX) 00 :00 every 24 Medica l 17 gram (twenty-fo Branch powder ur) hours as needed for Constipati on for up to 30 days. medroxyPROG 2019-10- No [id number] 10mg Take 1 [facility] ESTERone 10-11 100 tablet by ity o f (PROVERA) 00:00: 05:59 mouth 2 [place] 10 mg 00 :00 (two) Medical tablet times Branch daily for 60 doses. Take twice daily until you completely stop bleeding, then once per day docusate 2019-10- No [id number] 100mg Take 1 [facility] (COLACE) 10-11 100 capsule by ity of 100 mg 00:00: 05:59 mouth 2 [place] capsule 00 :00 (two) Medical times Branch daily for 30 days. This medication is used for constipati on Polyethylen 2019-10- No [id number] 1{packe Take 1 [facility] e Glycol 10-11 100 t} Packet by ity o f 3350 00:00: 05:59 mouth [place] (MIRALAX) 00 :00 every 24 Medica l 17 gram (twenty-fo Branch powder ur) hours as needed for Constipati on for up to 30 days. medroxyPROG 2019-10- No [id number] 10mg Take 1 [facility] ESTERone 10-11 100 tablet by ity o f (PROVERA) 00:00: 05:59 mouth 2 [place] 10 mg 00 :00 (two) Medical tablet times Branch daily for 60 doses. Take twice daily until you completely stop bleeding, then once per day docusate 2019-10- No [id number] 100mg Take 1 [facility] (COLACE) 10-11 100 capsule by ity of 100 mg 00:00: 05:59 mouth 2 [place] capsule 00 :00 (two) Medical times Branch daily for 30 days. This medication is used for constipati on Polyethylen 2019-10 No [id number] 1{packe Take 1 [facility] e Glycol 10-11 100 t} Packet by ity o f 3350 00:00: 05:59 mouth [place] (MIRALAX) 00 :00 every 24 Medica l 17 gram (twenty-fo Branch powder ur) hours as needed for Constipati on for up to 30 days. docusate 2019-10- No [id number] 100mg Take 1 [facility] (COLACE) 10-11 100 capsule by ity of 100 mg 00:00: 05:59 mouth 2 [place] capsule 00 :00 (two) Medical times Branch daily for 30 days. This medication is used for constipati on Polyethylen 2019-10- No [id number] 1{packe Take 1 [facility] e Glycol 10-11 100 t} Packet by ity o f 3350 00:00: 05:59 mouth [place] (MIRALAX) 00 :00 every 24 Medica l 17 gram (twenty-fo Branch powder ur) hours as needed for Constipati on for up to 30 days. docusate 2019-10 No [id number] 100mg Take 1 [facility] (COLACE) 10-11 100 capsule by ity of 100 mg 00:00: 05:59 mouth 2 [place] capsule 00 :00 (two) Medical times Branch daily for 30 days. This medication is used for constipati on Polyethylen 2019-10 No [id number] 1{packe Take 1 [facility] e Glycol 10-11 100 t} Packet by ity o f 3350 00:00: 05:59 mouth [place] (MIRALAX) 00 :00 every 24 Medica l 17 gram (twenty-fo Branch powder ur) hours as needed for Constipati on for up to 30 days. docusate 2019-10- No [id number] 100mg Take 1 [facility] (COLACE) 10-11 100 capsule by ity of 100 mg 00:00: 05:59 mouth 2 [place] capsule 00 :00 (two) Medical times Branch daily for 30 days. This medication is used for constipati on Polyethylen 2019-10- No [id number] 1{packe Take 1 [facility] e Glycol 10-11 100 t} Packet by ity o f 3350 00:00: 05:59 mouth [place] (MIRALAX) 00 :00 every 24 Medica l 17 gram (twenty-fo Branch powder ur) hours as needed for Constipati on for up to 30 days. docusate 2019-10- No [id number] 100mg Take 1 [facility] (COLACE) 10-11 100 capsule by ity of 100 mg 00:00: 05:59 mouth 2 [place] capsule 00 :00 (two) Medical times Branch daily for 30 days. This medication is used for constipati on Polyethylen 2019-10- No [id number] 1{packe Take 1 [facility] e Glycol 10-11 100 t} Packet by ity o f 3350 00:00: 05:59 mouth [place] (MIRALAX) 00 :00 every 24 Medica l 17 gram (twenty-fo Branch powder ur) hours as needed for Constipati on for up to 30 days. docusate 2019-10- No [id number] 100mg Take 1 [facility] (COLACE) 10-11 100 capsule by ity of 100 mg 00:00: 05:59 mouth 2 [place] capsule 00 :00 (two) Medical times Branch daily for 30 days. This medication is used for constipati on Polyethylen 2019-10- No [id number] 1{packe Take 1 [facility] e Glycol 10-11 100 t} Packet by ity o f 3350 00:00: 05:59 mouth [place] (MIRALAX) 00 :00 every 24 Medica l 17 gram (twenty-fo Branch powder ur) hours as needed for Constipati on for up to 30 days. docusate 2019-10- No [id number] 100mg Take 1 [facility] (COLACE) 10-11 100 capsule by ity of 100 mg 00:00: 05:59 mouth 2 [place] capsule 00 :00 (two) Medical times Branch daily for 30 days. This medication is used for constipati on Polyethylen 2019-10 No [id number] 1{packe Take 1 [facility] e Glycol 10-11 100 t} Packet by ity o f 3350 00:00: 05:59 mouth [place] (MIRALAX) 00 :00 every 24 Medica l 17 gram (twenty-fo Branch powder ur) hours as needed for Constipati on for up to 30 days. docusate 2019-10- No [id number] 100mg Take 1 [facility] (COLACE) 10-11 100 capsule by ity of 100 mg 00:00: 05:59 mouth 2 [place] capsule 00 :00 (two) Medical times Branch daily for 30 days. This medication is used for constipati on Polyethylen 2019-10- No [id number] 1{packe Take 1 [facility] e Glycol 10-11 100 t} Packet by ity o f 3350 00:00: 05:59 mouth [place] (MIRALAX) 00 :00 every 24 Medica l 17 gram (twenty-fo Branch powder ur) hours as needed for Constipati on for up to 30 days. docusate 2019-10- No [id number] 100mg Take 1 [facility] (COLACE) 10-11 100 capsule by ity of 100 mg 00:00: 05:59 mouth 2 [place] capsule 00 :00 (two) Medical times Branch daily for 30 days. This medication is used for constipati on Polyethylen 2019-10 No [id number] 1{packe Take 1 [facility] e Glycol 10-11 100 t} Packet by ity o f 3350 00:00: 05:59 mouth [place] (MIRALAX) 00 :00 every 24 Medica l 17 gram (twenty-fo Branch powder ur) hours as needed for Constipati on for up to 30 days. docusate 2019-10- No [id number] 100mg Take 1 [facility] (COLACE) 10-11 100 capsule by ity of 100 mg 00:00: 05:59 mouth 2 [place] capsule 00 :00 (two) Medical times Branch daily for 30 days. This medication is used for constipati on Polyethylen 2019-10- No [id number] 1{packe Take 1 [facility] e Glycol 10-11 100 t} Packet by ity o f 3350 00:00: 05:59 mouth [place] (MIRALAX) 00 :00 every 24 Medica l 17 gram (twenty-fo Branch powder ur) hours as needed for Constipati on for up to 30 days. docusate 2019-10- No [id number] 100mg Take 1 [facility] (COLACE) 10-11 100 capsule by ity of 100 mg 00:00: 05:59 mouth 2 [place] capsule 00 :00 (two) Medical times Branch daily for 30 days. This medication is used for constipati on Polyethylen 2019-10- No [id number] 1{packe Take 1 [facility] e Glycol 10-11 100 t} Packet by ity o f 3350 00:00: 05:59 mouth [place] (MIRALAX) 00 :00 every 24 Medica l 17 gram (twenty-fo Branch powder ur) hours as needed for Constipati on for up to 30 days. docusate 2019-10- No [id number] 100mg Take 1 [facility] (COLACE) 10-11 100 capsule by ity of 100 mg 00:00: 05:59 mouth 2 [place] capsule 00 :00 (two) Medical times Branch daily for 30 days. This medication is used for constipati on Polyethylen 2019-10- No [id number] 1{packe Take 1 [facility] e Glycol 10-11 100 t} Packet by ity o f 3350 00:00: 05:59 mouth [place] (MIRALAX) 00 :00 every 24 Medica l 17 gram (twenty-fo Branch powder ur) hours as needed for Constipati on for up to 30 days. docusate 2019-10- No [id number] 100mg Take 1 [facility] (COLACE) 10-11 100 capsule by ity of 100 mg 00:00: 05:59 mouth 2 [place] capsule 00 :00 (two) Medical times Branch daily for 30 days. This medication is used for constipati on Polyethylen 2019-10- No [id number] 1{packe Take 1 [facility] e Glycol 10-11 100 t} Packet by ity o f 3350 00:00: 05:59 mouth [place] (MIRALAX) 00 :00 every 24 Medica l 17 gram (twenty-fo Branch powder ur) hours as needed for Constipati on for up to 30 days. docusate 2019-10- No [id number] 100mg Take 1 [facility] (COLACE) 10-11 100 capsule by ity of 100 mg 00:00: 05:59 mouth 2 [place] capsule 00 :00 (two) Medical times Branch daily for 30 days. This medication is used for constipati on Polyethylen 2019-10- No [id number] 1{packe Take 1 [facility] e Glycol 10-11 100 t} Packet by ity o f 3350 00:00: 05:59 mouth [place] (MIRALAX) 00 :00 every 24 Medica l 17 gram (twenty-fo Branch powder ur) hours as needed for Constipati on for up to 30 days. docusate 2019-10- No [id number] 100mg Take 1 [facility] (COLACE) 10-11 100 capsule by ity of 100 mg 00:00: 05:59 mouth 2 [place] capsule 00 :00 (two) Medical times Branch daily for 30 days. This medication is used for constipati on Polyethylen 2019-10- No [id number] 1{packe Take 1 [facility] e Glycol 10-11 100 t} Packet by ity o f 3350 00:00: 05:59 mouth [place] (MIRALAX) 00 :00 every 24 Medica l 17 gram (twenty-fo Branch powder ur) hours as needed for Constipati on for up to 30 days. docusate 2019-10- No [id number] 100mg Take 1 [facility] (COLACE) 10-11 100 capsule by ity of 100 mg 00:00: 05:59 mouth 2 [place] capsule 00 :00 (two) Medical times Branch daily for 30 days. This medication is used for constipati on Polyethylen 2019-10- No [id number] 1{packe Take 1 [facility] e Glycol 10-11 100 t} Packet by ity o f 3350 00:00: 05:59 mouth [place] (MIRALAX) 00 :00 every 24 Medica l 17 gram (twenty-fo Branch powder ur) hours as needed for Constipati on for up to 30 days. docusate 2019-10- No [id number] 100mg Take 1 [facility] (COLACE) 10-11 100 capsule by ity of 100 mg 00:00: 05:59 mouth 2 [place] capsule 00 :00 (two) Medical times Branch daily for 30 days. This medication is used for constipati on Polyethylen 2019-10- No [id number] 1{packe Take 1 [facility] e Glycol 10-11 100 t} Packet by ity o f 3350 00:00: 05:59 mouth [place] (MIRALAX) 00 :00 every 24 Medica l 17 gram (twenty-fo Branch powder ur) hours as needed for Constipati on for up to 30 days. docusate 2019-10- No [id number] 100mg Take 1 [facility] (COLACE) 10-11 100 capsule by ity of 100 mg 00:00: 05:59 mouth 2 [place] capsule 00 :00 (two) Medical times Branch daily for 30 days. This medication is used for constipati on Polyethylen 2019-10- No [id number] 1{packe Take 1 [facility] e Glycol 10-11 100 t} Packet by ity o f 3350 00:00: 05:59 mouth [place] (MIRALAX) 00 :00 every 24 Medica l 17 gram (twenty-fo Branch powder ur) hours as needed for Constipati on for up to 30 days. docusate 2019-10- No [id number] 100mg Take 1 [facility] (COLACE) 10-11 100 capsule by ity of 100 mg 00:00: 05:59 mouth 2 [place] capsule 00 :00 (two) Medical times Branch daily for 30 days. This medication is used for constipati on Polyethylen 2019-10- No [id number] 1{packe Take 1 [facility] e Glycol 10-11 100 t} Packet by ity o f 3350 00:00: 05:59 mouth [place] (MIRALAX) 00 :00 every 24 Medica l 17 gram (twenty-fo Branch powder ur) hours as needed for Constipati on for up to 30 days. docusate 2019-10- No [id number] 100mg Take 1 [facility] (COLACE) 10-11 100 capsule by ity of 100 mg 00:00: 05:59 mouth 2 [place] capsule 00 :00 (two) Medical times Branch daily for 30 days. This medication is used for constipati on Polyethylen 2019-10- No [id number] 1{packe Take 1 [facility] e Glycol 10-11 100 t} Packet by ity o f 3350 00:00: 05:59 mouth [place] (MIRALAX) 00 :00 every 24 Medica l 17 gram (twenty-fo Branch powder ur) hours as needed for Constipati on for up to 30 days. docusate 2019-10- No [id number] 100mg Take 1 [facility] (COLACE) 10-11 100 capsule by ity of 100 mg 00:00: 05:59 mouth 2 [place] capsule 00 :00 (two) Medical times Branch daily for 30 days. This medication is used for constipati on Polyethylen 2019-10- No [id number] 1{packe Take 1 [facility] e Glycol 10-11 100 t} Packet by ity o f 3350 00:00: 05:59 mouth [place] (MIRALAX) 00 :00 every 24 Medica l 17 gram (twenty-fo Branch powder ur) hours as needed for Constipati on for up to 30 days. docusate 2019-10- No [id number] 100mg Take 1 [facility] (COLACE) 10-11 100 capsule by ity of 100 mg 00:00: 05:59 mouth 2 [place] capsule 00 :00 (two) Medical times Branch daily for 30 days. This medication is used for constipati on Polyethylen 2019-10- No [id number] 1{packe Take 1 [facility] e Glycol 10-11 100 t} Packet by [employer] 3350 00:00: 05:59 mouth [place] (MIRALAX) 00 :00 every 24 Medica l 17 gram (twenty-fo Branch powder ur) hours as needed for Constipati on for up to 30 days. medroxyPROG 2019-10- No [id number] 10mg Take 1 [facility] ESTERone 10-11 100 tablet by ity o f (PROVERA) 00:00: 00:00 mouth 2 [place] 10 mg 00 :00 (two) Medical tablet times Branch daily for 60 doses. Take twice daily until you completely stop bleeding, then once per day medroxyPROG 2019-10- No [id number] 10mg Take 1 [facility] ESTERone 10-11 100 tablet by ity o f (PROVERA) 00:00: 00:00 mouth 2 [place] 10 mg 00 :00 (two) Medical tablet times Branch daily for 60 doses. Take twice daily until you completely stop bleeding, then once per day medroxyPROG 2019-10- No [id number] 10mg Take 1 [facility] ESTERone 10-11 100 tablet by ity o f (PROVERA) 00:00: 00:00 mouth 2 [place] 10 mg 00 :00 (two) Medical tablet times Branch daily for 60 doses. Take twice daily until you completely stop bleeding, then once per day medroxyPROG 2019-10- No [id number] 10mg Take 1 [facility] ESTERone 10-11 100 tablet by ity o f (PROVERA) 00:00: 00:00 mouth 2 [place] 10 mg 00 :00 (two) Medical tablet times Branch daily for 60 doses. Take twice daily until you completely stop bleeding, then once per day miSOPROStoL 2019-10- No [id number] 200ug Take 1 [facility] 200 mcg 0-16 10-18 tablet by ity of tablet 00:00: 04:59 mouth 2 [place] 00 :00 (two) Medical times Branch daily for 1 day. miSOPROStoL 2019-10- No [id number] 200ug Take 1 [facility] 200 mcg 0-16 10-18 tablet by ity of tablet 00:00: 04:59 mouth 2 [place] 00 :00 (two) Medical times Branch daily for 1 day. ferrous 2019-10 Yes 324mg Take 324 Unive [...] 00 daily. Medical tablet Branch ferrous 2019-10 Yes 324mg Take 324 Unive [...] by mouth ity of tablet 00:00: daily. [place] [facility] fluticasone 2019-10 Yes INSTILL Uni vers [...] by mouth ity of tablet 00:00: daily. [place] [facility] fluticasone 2019-10 Yes INSTILL Uni vers [...] by ity of tablet 00:00: mouth 2 [place] (two) Medical times Branch daily. loratadine 2020- Yes 10mg Take 10 mg U nivers 10 mg 0-08 by mouth ity of tablet 00:00: daily. [address] Branch fluticasone 2020- Yes INSTILL Uni [...] by ity of tablet 00:00: mouth 2 [place] (two) Medical times [place] daily. loratadine 2020- Yes 10mg Take 10 mg U nivers 10 mg 0-08 by mouth ity of tablet 00:00: daily. [address] Branch fluticasone 2020- Yes INSTILL Uni [...] by ity of tablet 00:00: mouth 2 [place] (two) Medical times Branch daily. loratadine 2020-1 Yes 10mg Take 10 mg U nivers 10 mg 0-08 by mouth ity of tablet 00:00: daily. [address] fluticasone 2020- Yes INSTILL Uni vers [...] by mouth ity of tablet 00:00: daily. [address] fluticasone 2019- Yes INSTILL Uni vers [...] by mouth ity of tablet 00:00: daily. [address] fluticasone 2020- Yes INSTILL Uni vers [...] by ity of tablet 00:00: mouth 2 [place] (two) Medical times [place] daily. loratadine 2019- Yes 10mg Take 10 mg U nivers 10 mg 0-08 by mouth ity of tablet 00:00: daily. [address] fluticasone 2019- Yes INSTILL Uni vers [...] by ity of tablet 00:00: mouth 2 [place] ([facility]) Medical times [place] daily. loratadine 2019- Yes 10mg Take 10 mg U nivers 10 mg 0-08 by mouth ity of tablet 00:00: daily. [address] fluticasone 2019- Yes INSTILL Uni vers [...] by ity of tablet 00:00: mouth 2 [place] [id number] (two) Medical times [place] daily. loratadine 2019- Yes 10mg Take 10 mg U nivers 10 mg 0-08 by mouth ity of tablet 00:00: daily. [address] fluticasone 2019- Yes INSTILL Uni vers [...] by mouth ity of tablet 00:00: daily. [place] [facility] fluticasone 2020- Yes INSTILL Uni [...] by mouth ity of tablet 00:00: daily. [place] [facility] Branch fluticasone 2020- Yes INSTILL Uni vers [...] by ity of tablet 00:00: mouth 2 [place] (two) Medical times Branch daily. loratadine 2020- Yes 10mg Take 10 mg U nivers 10 mg 0-08 by mouth ity of tablet 00:00: daily. [address] fluticasone 2020- Yes INSTILL Uni vers [...] by ity of tablet 00:00: mouth 2 [place] (two) Medical times [place] daily. loratadine 2019- Yes 10mg Take 10 mg U nivers 10 mg 0-08 by mouth ity of tablet 00:00: daily. [address] fluticasone 2019- Yes INSTILL Uni vers [...] by ity of tablet 00:00: mouth 2 [place] (two) Medical times [place] daily. loratadine 2020- Yes 10mg Take 10 mg U nivers 10 mg 0-08 by mouth ity of tablet 00:00: daily. [address] fluticasone 2020- Yes INSTILL Uni vers [...] by mouth ity of tablet 00:00: daily. [address] fluticasone 2020- Yes INSTILL Uni vers [...] by mouth ity of tablet 00:00: daily. [address] fluticasone 2019- Yes INSTILL Uni vers [...] by mouth ity of tablet 00:00: daily. [address] fluticasone 2019- Yes INSTILL Uni vers [...] by ity of tablet 00:00: mouth 2 [place] (two) Medical times Branch daily. loratadine 2019- Yes 10mg Take 10 mg U nivers 10 mg 0-08 by mouth ity of tablet 00:00: daily. [address] fluticasone 2019- Yes INSTILL Uni vers [...] by mouth ity of tablet 00:00: daily. [address] fluticasone 2020- Yes INSTILL Uni vers [...] by ity of tablet 00:00: mouth 2 [place] (two) Medical times Branch daily. loratadine 2020- Yes 10mg Take 10 mg U nivers 10 mg 0-08 by mouth ity of tablet 00:00: daily. [address] fluticasone 2019- Yes INSTILL Uni vers [...] by mouth ity of tablet 00:00: daily. [address] fluticasone 2019- Yes INSTILL Uni vers [...] by ity of tablet 00:00: mouth 2 [place] 00 (two) Medical times Branch daily. loratadine 2020- Yes 10mg Take 10 mg U nivers 10 mg 0-08 by mouth ity of tablet 00:00: daily. [address] Branch fluticasone 2020- Yes INSTILL Uni [...] by ity of tablet 00:00: mouth 2 [place] ([facility]) Medical times [place] daily. loratadine 2020- Yes 10mg Take 10 mg U nivers 10 mg 0-08 by mouth ity of tablet 00:00: daily. [address] fluticasone 2020- Yes INSTILL Uni vers [...] by ity of tablet 00:00: mouth 2 [place] (two) Medical times Branch daily. loratadine 2020- Yes 10mg Take 10 mg U nivers 10 mg 0-08 by mouth ity of tablet 00:00: daily. [place] [facility] fluticasone 2019- Yes INSTILL Uni vers propionate [...] by mouth ity of tablet 00:00: daily. [address] fluticasone 2019-10 Yes INSTILL Uni vers [...] by mouth ity of tablet 00:00: daily. [address] fluticasone 2019-10 Yes INSTILL Uni vers [...] by mouth ity of tablet 00:00: daily. [address] Branch fluticasone 2020- Yes INSTILL Uni [...] by ity of tablet 00:00: mouth 2 ([facility]) Medical times [place] daily. loratadine 2020- Yes 10mg Take 10 mg U nivers 10 mg 0-08 by mouth ity of tablet 00:00: daily. [address] fluticasone 2020- Yes INSTILL Uni vers [...] by ity of tablet 00:00: mouth 2 [place] (two) Medical times Branch daily. loratadine 2020- Yes 10mg Take 10 mg U nivers 10 mg 0-08 by mouth ity of tablet 00:00: daily. Medical Branch fluticasone 2019- Yes INSTILL Uni vers propionate 0-08 ONE (1) ity of 50 00:00: SPRAY(S) [place] mcg/actuati 00 INTO EACH Med ical on nasal NOSTRIL Branch spray TWICE A DAY. carvediloL 2019- Yes 6.25mg Take 6.25 Univers 6.25 mg 0-08 mg by ity of tablet 00:00: mouth 2 [place] (two) Medical times Branch daily. loratadine 2020- Yes 10mg Take 10 mg U nivers 10 mg 0-08 by mouth ity of tablet 00:00: daily. Medical Branch fluticasone 2019- Yes INSTILL Uni [...] by mouth ity of tablet 00:00: daily. [place] [facility] fluticasone 2020- Yes INSTILL Uni [...] by ity of tablet 00:00: mouth 2 [place] (two) Medical times [place] daily. loratadine 2020- Yes 10mg Take 10 mg U nivers 10 mg 0-08 by mouth ity of tablet 00:00: daily. [place] [facility] fluticasone 2019- Yes INSTILL Uni vers propionate 0-08 ONE (1) ity of 50 00:00: SPRAY(S) [place] mcg/actuati 00 INTO EACH Med ical on nasal NOSTRIL Branch spray TWICE A DAY. carvediloL 2020- Yes 6.25mg Take 6.25 Univers 6.25 mg 0-08 mg by ity of tablet 00:00: mouth 2 [place] (two) Medical times [place] daily. loratadine 2020- Yes 10mg Take 10 mg U nivers 10 mg 0-08 by mouth ity of tablet 00:00: daily. [place] [facility] fluticasone 2019- Yes INSTILL Uni vers propionate 0-08 ONE (1) ity of 50 00:00: SPRAY(S) [place] mcg/actuati 00 INTO EACH Med ical on nasal NOSTRIL Branch spray TWICE A DAY. carvediloL 2020- Yes 6.25mg Take 6.25 Univers 6.25 mg 0-08 mg by ity of tablet 00:00: mouth 2 [place] (two) Medical times [place] daily. loratadine 2020- Yes 10mg Take 10 mg U nivers 10 mg 0-08 by mouth ity of tablet 00:00: daily. [place] [facility] fluticasone 2020- Yes INSTILL Uni [...] FOUR (4) TABLETS FOR 14 DAYS. lamoTRIgine 2019-10- No TAKE ONE U nivers 25 mg 0-08 12-05 (1) ity of tablet 00:00: 00:00 TABLET(S) [...] Medical Sat Branch 07/05/20 at 1645, Routine
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 butalbital- Yes [id number] 1{tbl} Take 1 [facility] acetaminoph 9-26 tablet by ity of en-caff 00:00: mouth [place] 50-325-40 00 every 4 Medical mg tablet (four) Branch hours as needed for Pain (scale 7-10). butalbital- 2020-0 Yes [id number] 1{tbl} Take 1 [facility] acetaminoph 9-26 tablet by ity of en-caff 00:00: mouth [place] 50-325-40 00 every 4 Medical mg tablet (four) Branch hours as needed for Pain (scale 7-10). butalbital- 2020-0 Yes [id number] 1{tbl} Take 1 [facility] acetaminoph 9-26 tablet by ity of en-caff 00:00: mouth [place] 50-325-40 00 every 4 Medical mg tablet (four) Branch hours as needed for Pain (scale 7-10). butalbital- 2019-0 Yes [id number] 1{tbl} Take 1 [facility] acetaminoph 9-26 tablet by ity of en-caff 00:00: mouth [place] 50-325-40 00 every 4 Medical mg tablet (four) Branch hours as needed for Pain (scale 7-10). butalbital- 2019-0 Yes [id number] 1{tbl} Take 1 [facility] acetaminoph 9-26 tablet by ity of en-caff 00:00: mouth [place] 50-325-40 00 every 4 Medical mg tablet (four) Branch hours as needed for Pain (scale 7-10). butalbital- 2019-0 Yes [id number] 1{tbl} Take 1 [facility] acetaminoph 9-26 tablet by ity of en-caff 00:00: mouth [place] 50-325-40 00 every 4 Medical mg tablet (four) Branch hours as needed for Pain (scale 7-10). butalbital- 2020-0 Yes [id number] 1{tbl} Take 1 Univers acetaminoph 9-26 tablet by ity of en-caff 00:00: mouth [place] 50-325-40 00 every 4 Medical mg tablet (four) Branch hours as needed for Pain (scale 7-10). butalbital- 2020-0 Yes [id number] 1{tbl} Take 1 Univers acetaminoph 9-26 tablet by ity of en-caff 00:00: mouth [place] 50-325-40 00 every 4 Medical mg tablet (four) Branch hours as needed for Pain (scale 7-10). butalbital- 2020-0 Yes [id number] 1{tbl} Take 1 Univers acetaminoph 9-26 tablet by ity of en-caff 00:00: mouth [place] 50-325-40 00 every 4 Medical mg tablet (four) Branch hours as needed for Pain (scale 7-10). butalbital- 2020-0 Yes [id number] 1{tbl} Take 1 Univers acetaminoph 9-26 tablet by ity of en-caff 00:00: mouth [place] 50-325-40 00 every 4 Medical mg tablet (four) Branch hours as needed for Pain (scale 7-10). butalbital- 2020-0 Yes [id number] 1{tbl} Take 1 Univers acetaminoph 9-26 tablet by ity of en-caff 00:00: mouth [place] 50-325-40 00 every 4 Medical mg tablet (four) Branch hours as needed for Pain (scale 7-10). butalbital- 2020-0 Yes [id number] 1{tbl} Take 1 Univers acetaminoph 9-26 tablet by ity of en-caff 00:00: mouth [place] 50-325-40 00 every 4 Medical mg tablet (four) Branch hours as needed for Pain (scale 7-10). butalbital- 2020-0 Yes [id number] 1{tbl} Take 1 Univers acetaminoph 9-26 tablet by ity of en-caff 00:00: mouth [place] 50-325-40 00 every 4 Medical mg tablet (four) Branch hours as needed for Pain (scale 7-10). butalbital- 2020-0 Yes [id number] 1{tbl} Take 1 Univers acetaminoph 9-26 tablet by ity of en-caff 00:00: mouth [place] 50-325-40 00 every 4 Medical mg tablet (four) Branch hours as needed for Pain (scale 7-10). butalbital- 2020-0 Yes [id number] 1{tbl} Take 1 Univers acetaminoph 9-26 tablet by ity of en-caff 00:00: mouth [place] 50-325-40 00 every 4 Medical mg tablet (four) Branch hours as needed for Pain (scale 7-10). butalbital- 2020-0 Yes [id number] 1{tbl} Take 1 Univers acetaminoph 9-26 tablet by ity of en-caff 00:00: mouth [place] 50-325-40 00 every 4 Medical mg tablet (four) Branch hours as needed for Pain (scale 7-10). butalbital- 2020-0 Yes [id number] 1{tbl} Take 1 Univers acetaminoph 9-26 tablet by ity of en-caff 00:00: mouth [place] 50-325-40 00 every 4 Medical mg tablet (four) Branch hours as needed for Pain (scale 7-10). butalbital- 2020-0 Yes [id number] 1{tbl} Take 1 Univers acetaminoph 9-26 tablet by ity of en-caff 00:00: mouth [place] 50-325-40 00 every 4 Medical mg tablet (four) Branch hours as needed for Pain (scale 7-10). butalbital- 2020-0 Yes [id number] 1{tbl} Take 1 Univers acetaminoph 9-26 tablet by ity of en-caff 00:00: mouth [place] 50-325-40 00 every 4 Medical mg tablet (four) Branch hours as needed for Pain (scale 7-10). butalbital- 2020-0 Yes [id number] 1{tbl} Take 1 Univers acetaminoph 9-26 tablet by ity of en-caff 00:00: mouth [place] 50-325-40 00 every 4 Medical mg tablet (four) Branch hours as needed for Pain (scale 7-10). butalbital- 2020-0 Yes [id number] 1{tbl} Take 1 Univers acetaminoph 9-26 tablet by ity of en-caff 00:00: mouth [place] 50-325-40 00 every 4 Medical mg tablet (four) Branch hours as needed for Pain (scale 7-10). butalbital- 2020-0 Yes [id number] 1{tbl} Take 1 Univers acetaminoph 9-26 tablet by ity of en-caff 00:00: mouth [place] 50-325-40 00 every 4 Medical mg tablet (four) Branch hours as needed for Pain (scale 7-10). butalbital- 2020-0 Yes [id number] 1{tbl} Take 1 Univers acetaminoph 9-26 tablet by ity of en-caff 00:00: mouth [place] 50-325-40 00 every 4 Medical mg tablet (four) Branch hours as needed for Pain (scale 7-10). butalbital- 2020-0 Yes [id number] 1{tbl} Take 1 Univers acetaminoph 9-26 tablet by ity of en-caff 00:00: mouth [place] 50-325-40 00 every 4 Medical mg tablet (four) Branch hours as needed for Pain (scale 7-10). butalbital- 2020-0 Yes [id number] 1{tbl} Take 1 Univers acetaminoph 9-26 tablet by ity of en-caff 00:00: mouth [place] 50-325-40 00 every 4 Medical mg tablet (four) Branch hours as needed for Pain (scale 7-10). butalbital- 2020-0 Yes [id number] 1{tbl} Take 1 Univers acetaminoph 9-26 tablet by ity of en-caff 00:00: mouth [place] 50-325-40 00 every 4 Medical mg tablet (four) Branch hours as needed for Pain (scale 7-10). butalbital- 2020-0 Yes [id number] 1{tbl} Take 1 Univers acetaminoph 9-26 tablet by ity of en-caff 00:00: mouth [place] 50-325-40 00 every 4 Medical mg tablet (four) Branch hours as needed for Pain (scale 7-10). butalbital- 2020-0 Yes [id number] 1{tbl} Take 1 Univers acetaminoph 9-26 tablet by ity of en-caff 00:00: mouth [place] 50-325-40 00 every 4 Medical mg tablet (four) Branch hours as needed for Pain (scale 7-10). butalbital- 2020-0 Yes [id number] 1{tbl} Take 1 Univers acetaminoph 9-26 tablet by ity of en-caff 00:00: mouth [place] 50-325-40 00 every 4 Medical mg tablet (four) Branch hours as needed for Pain (scale 7-10). butalbital- 2020-0 Yes [id number] 1{tbl} Take 1 Univers acetaminoph 9-26 tablet by ity of en-caff 00:00: mouth [place] 50-325-40 00 every 4 Medical mg tablet (four) Branch hours as needed for Pain (scale 7-10). butalbital- 2020-0 Yes [id number] 1{tbl} Take 1 Univers acetaminoph 9-26 tablet by ity of en-caff 00:00: mouth [place] 50-325-40 00 every 4 Medical mg tablet (four) Branch hours as needed for Pain (scale 7-10). butalbital- 2020-0 Yes [id number] 1{tbl} Take 1 Univers acetaminoph 9-26 tablet by ity of en-caff 00:00: mouth [place] 50-325-40 00 every 4 Medical mg tablet (four) Branch hours as needed for Pain (scale 7-10). butalbital- 2019-0 Yes [id number] 1{tbl} Take 1 Univers acetaminoph 9-26 tablet by ity of en-caff 00:00: mouth [place] 50-325-40 00 every 4 Medical mg tablet (four) Branch hours as needed for Pain (scale 7-10). butalbital- 2019-0 Yes [id number] 1{tbl} Take 1 Univers acetaminoph 9-26 tablet by ity of en-caff 00:00: mouth [place] 50-325-40 00 every 4 Medical mg tablet (four) Branch hours as needed for Pain (scale 7-10). butalbital- 2019-0 Yes [id number] 1{tbl} Take 1 Univers acetaminoph 9-26 tablet by ity of en-caff 00:00: mouth [place] 50-325-40 00 every 4 Medical mg tablet (four) Branch hours as needed for Pain (scale 7-10). butalbital- 2020-0 Yes [id number] 1{tbl} Take 1 Univers acetaminoph 9-26 tablet by ity of en-caff 00:00: mouth [place] 50-325-40 00 every 4 Medical mg tablet (four) Branch hours as needed for Pain (scale 7-10). butalbital- 2019-0 Yes [id number] 1{tbl} Take 1 Univers acetaminoph 9-26 tablet by ity of en-caff 00:00: mouth [place] 50-325-40 00 every 4 Medical mg tablet (four) Branch hours as needed for Pain (scale 7-10). butalbital- 2019-0 Yes [id number] 1{tbl} Take 1 Univers acetaminoph 9-26 tablet by ity of en-caff 00:00: mouth [place] 50-325-40 00 every 4 Medical mg tablet (four) Branch hours as needed for Pain (scale 7-10). butalbital- 2019-0 Yes [id number] 1{tbl} Take 1 Univers acetaminoph 9-26 tablet by ity of en-caff 00:00: mouth [place] 50-325-40 00 every 4 Medical mg tablet (four) Branch hours as needed for Pain (scale 7-10). butalbital- 2019- Yes [id number] 1{tbl} Take 1 Univers acetaminoph 9-26 tablet by ity of en-caff 00:00: mouth [place] 50-325-40 00 every 4 Medical mg tablet (four) Branch hours as needed for Pain (scale 7-10). Vital Signs Vital Name Observation Time Observation Value Comments Source Systolic blood 2021-03-19 20:00:00 138 mm[Hg] [facility] [place] Diastolic blood 2021-03-19 20:00:00 80 mm[Hg] [facility] Heart rate 2021-03-19 20:00:00 72 /min [facility] Respiratory rate 2021-03-19 20:00:00 19 /min [facility] Oxygen saturation in 2021-03-19 20:00:00 98 /min [facility] Arterial blood by [facility] Pulse oximetry Branch Body temperature 2021-03-19 17:15:00 37.11 Mely [facility] Body weight 2021-03-19 17:15:00 104.327 kg [facility] BMI 2021-03-19 17:15:00 44.92 kg/m2 [facility] Systolic blood 2021-02-12 00:55:00 173 mm[Hg] [facility] [place] Diastolic blood 2021-02-12 00:55:00 82 mm[Hg] Unive rsity of [facility] [place] [facility] Heart rate 2021-02-12 00:55:00 75 /min [facility] [place] [facility] Respiratory rate 2021-02-12 00:55:00 18 /min Univ ersity [facility] [place] [facility] Oxygen saturation in 2021-02-12 00:55:00 100 /min University of Arterial blood by [place] [facility] Pulse oximetry Branch Body temperature 2021-02-12 00:30:45 37.06 Mely Univ ers[facility] [place] [facility] Body height 2021-02-11 23:35:00 152.4 cm [facility] [place] [facility] Body weight 2021-02-11 23:35:00 106.595 kg [facility] [place] [facility] BMI 2021-02-11 23:35:00 45.90 kg/m2 [facility] [place] [facility] Systolic blood 2020-09-13 17:36:00 108 mm[Hg] Univer sity of [facility] [place] [facility] Diastolic blood 2020-09-13 17:36:00 62 mm[Hg] Unive rsity of [facility] [place] [facility] Body temperature 2020-09-13 17:36:00 36.94 Mely Univ [facility] [place] [facility] Respiratory rate 2020-09-13 17:36:00 18 /min Univ ersity [facility] [place] [facility] Heart rate 2020-09-13 15:02:00 74 /min [facility] [place] [facility] Oxygen saturation in 2020-09-13 10:00:00 98 /min University of Arterial blood by [facility] luisa Pulse oximetry Branch Body height 2020-09-10 19:37:00 152.4 cm [facility] [place] [facility] Body weight 2020-09-10 19:37:00 106.6 kg [facility] [place] [facility] BMI 2020-09-10 19:37:00 45.90 kg/m2 [facility] [place] [facility] Systolic blood 2020-08-15 15:53:00 144 mm[Hg] Univer sity of [facility] [place] [facility] Diastolic blood 2020-08-15 15:53:00 84 mm[Hg] Unive rsity of [facility] [place] [facility] Heart rate 2020-08-15 15:47:00 70 /min [facility] [place] [facility] Body temperature 2020-08-15 15:47:00 37.11 Mely Univ ersity [facility] [place] [facility] Respiratory rate 2020-08-15 15:47:00 20 /min Univ ersity of [facility] Body height 2020-08-15 15:47:00 152.4 cm [facility] [place] [facility] [place] Body weight 2020-08-15 15:47:00 105.008 kg [facility] [place] [facility] BMI 2020-08-15 15:47:00 45.21 kg/m2 Universi ty of [facility] Systolic blood 2020-07-25 18:24:00 164 mm[Hg] Univer sity of [facility] [place] [facility] Diastolic blood 2020-07-25 18:24:00 86 mm[Hg] Unive rsity of pressure [facility] Body height 2020-07-25 18:21:00 152.4 cm Universi ty of [facility] Body weight 2020-07-25 18:21:00 105.688 kg Universi ty of [facility] BMI 2020-07-25 18:21:00 45.50 kg/m2 Universi ty of [facility] Heart rate 2020-07-25 18:21:00 76 /min Universi ty of [facility] Body temperature 2020-07-25 18:21:00 37.06 Mely Univ ersity of [facility] Respiratory rate 2020-07-25 18:21:00 20 /min Univ ersity of [facility] Body temperature 2020-07-05 20:24:00 36.72 Mely Univ ersity of [facility] Systolic blood 2020-07-05 20:21:00 159 mm[Hg] Univer sity of pressure [facility] Diastolic blood 2020-07-05 20:21:00 100 mm[Hg] Unive rsity of pressure [facility] Heart rate 2020-07-05 20:21:00 76 /min Universi ty of [facility] Branch Respiratory rate 2020-07-05 20:21:00 18 /min Univ ersity of [facility] Body height 2020-07-05 20:21:00 152.4 cm Universi ty of [facility] Body weight 2020-07-05 20:21:00 104.327 kg [facility] [place] [facility] BMI 2020-07-05 20:21:00 44.92 kg/m2 Universi ty of [facility] Oxygen saturation in 2020-07-05 20:21:00 100 /min [facility] Arterial blood by [facility] Pulse oximetry Branch Procedures Procedure Date / Time Performing Clinician Source Performed URINALYSIS 2021-03-19 19:50:[address] [facility] TROPONIN I 2021-03-19 18:21:[address] [facility] COMP. METABOLIC PANEL 2021-03-19 18:21:00 Arden Greenberg [facility] ([id number]) Medical Branch CBC WITH DIFF 2021-03-19 18:21:00 Arden Greenberg [facility] NOTICE OF PRIVACY 2021-03-19 16:59:38 Doctor Jordana, [facility] PRACTICES [facility] [place] CONSENT/REFUSAL FOR 2021-03-19 16:59:21 Doctor Silveira [facility] DIAGNOSIS AND TREATMENT [facility] [place] NOTICE OF PRIVACY 2021-02-11 23:27:37 Doctor Jordana [facility] PRACTICES [facility] [place] CONSENT/REFUSAL FOR 2021-02-11 23:26:02 Doctor Silveira [facility] DIAGNOSIS AND TREATMENT [facility] BASIC METABOLIC PANEL 2020-09-13 09:48:00 [facility] (NA, K, CL, CO2, GLUCOSE, Medica l Branch BUN, CREATININE, CA) CBC WITH DIFF 2020-09-13 09:48:00 [facility] HB ABO GROUPING 2020-09-12 13:09:00 [facility] POCT TEST 2020-09-12 12:35:00 Olvin Tello [facility] DAY SURGERY - ADC 2020-09-12 06:01:00 Doctor Jordana [facility] Name Medical [place] INSURANCE CORRESPONDENCE 2020-09-10 06:01:00 Doctor Silveira [facility] Name Medical Branch CONSENT/REFUSAL FOR 2020-09-08 19:49:10 Doctor Silveira [facility] DIAGNOSIS AND TREATMENT [facility] [place] ASSIGNMENT OF BENEFITS 2020-09-08 19:48:57 Doctor Silveira [facility] Name Medical Branch CONSENT/REFUSAL FOR 2020-09-08 19:48:11 [facility]AT[facility] [place] [facility] ASSIGNMENT OF BENEFITS 2020-09-08 19:47:57 [facility] [place] [facility] DISCLOSURE AND CONSENT 2020-09-02 06:01:00 Doctor [facility]ass[facility], [facility] [place] [facility] PROCEDURES - HYSTEY BI ULTRASOUND BREAST 2020-08-29 21:09:[address] [facility] LIMITED RIGHT Medical Branch BI DIAGNOSTIC 2020-08-29 20:32:18 Bert Wright [place] TOMOSYNTHESIS RIGHT Medical Bran ch DISCLOSURE AND CONSENT, 2020-08-15 06:01:00 Doctor Unasskellie, [facility]ICAL [place] [facility] PROCEDURES POCT TEST 2020-08-15 00:00:00 Bert Wright [facility] [place] ASSIGNMENT OF BENEFITS 2020-08-11 20:05:02 Doctor Unassigned, Un [facility] [facility] US PELVIS COMPLETE WITH 2020-08-08 16:22:02 Bert Wright [facility] TRANSVAGINAL Medical [place] EXTERNAL PROVIDER RECORDS 2020-08-06 05:01:00 Doctor Jordana [facility] [facility] POCT TEST 2020-07-25 00:00:00 Bert Wright [facility] [place] REFERRAL- 2020-07-22 05:01:00 Doctor Jordana, [facility] REQUEST/RESPONSE [facility] NOTICE OF PRIVACY 2020-07-05 20:13:18 Doctor Jordana, [facility] PRACTICES [place] [facility] Encounters Start End Encounter Admission Attending Care Care Encounter Source Date/Time Date/Time Type Type Clinicians Facility Department ID 2021-08-10 Emergency [facility] [id number] Univers 00:25:39 [facility] [place] [facility] [place] 2021-08-09 Emergency [facility] [id number] Univers 17:23:52 [facility] [place] [facility] 2021-08-08 Outpatient R BERT WRIGHT [facility] LEONEL [id number] Univers 08:34:29 ity [facility] [place] 2021-09-21 2021-09-21 Outpatient R BERT WRIGHT [facility] [id number] Univers 09:00:00 09:00:00 [id number] [facility] 2021-09-21 2021-09-21 Outpatient R BERT WRIGHT [facility] [id number] Univers 09:00:00 09:00:00 ity [facility] 2021-09-15 2021-09-15 Pre Visit CARLOS EDUARDO [place] [id number] Univers 00:00:00 00:00:00 Outreach Teresa CALLAWAY [id number] [id number] [phone] [address] 2021-03-19 2021-03-19 Emergency Arden Greenberg [facility] [id number] Univers 12:16:00 16:23:00 Leni Kar [id number] i [id number] [id number] [address] 2021-02-11 2021-02-11 Emergency [facility] [id number] Univers 18:40:00 19:58:00 Chetan [place] [id number] i ty [id number] [phone] [address] 2020-12-25 2020-12-25 Patient Norbert [facility] [id number] Univers 00:00:00 00:00:00 Outreach Sander SIMPSON [id number] i ty of [place] [facility] [id number] [facility] [phone] N[place] dical [address] [place] 2020-12-16 2020-12-16 Outpatient ARRON WRIGHTN [facility] [id number] Univers 11:00:00 11:00:00 [id number] [facility] 2020-12-16 2020-12-16 Outpatient R BERT WRIGHT [facility] [id number] Univers 00:00:00 [facility]:00[facility] 2020-10-29 2020-10-29 Outpatient R BERT WRIGHT [facility] [id number] Univers 15:30:00 15:30:00 [id number] ity of [facility] 2020-10-29 2020-10-29 Outpatient R BERT WRIGHT [facility] [id number] Univers 15:30:00 15:30:00 ity of [facility] 2020-10-13 2020-10-13 Outpatient R BERT WRIGHT [facility] [id number] Univers 15:30:00 15:30:00 ity of [facility] 2020-10-13 2020-10-13 Outpatient R BERT WRIGHT [facility] [id number] Univers 15:30:00 15:30:00 ity of [facility] 2020-09-29 2020-09-29 Outpatient R BERT WRIGHT [facility] [id number] Univers 15:00:00 15:00:00 [id number] ity of [facility] 2020-09-29 2020-09-29 Outpatient R BERT WRIGHT [facility] [id number] Univers 15:00:00 15:00:00 ity of [facility] 2020-09-18 2020-09-18 Nurse Megan Pacheco [id number] Univers 00:00:00 00:00:00 Triage HARSHA [id number] it y of [facility] [id number] [place] [phone] [facility] 019 Branch 2020-09-12 2020-09-13 Hospital Bert Wright [facility] [id number] Univers 06:45:00 13:10:00 Encounter [place] [id number] ity of [place] [id number] [facility] [phone] [facility] 083 Branch 2020-09-12 2020-09-12 Orders Doctor VANESA 1.2.840.114 [id number] Univers 00:00:00 00:00:00 Only Unassigned, HARSHA [id number] ity of [place] [facility] [id number] Ole as [phone] [facility] 009 Branch 2020-09-11 2020-09-11 Outpatient R [facility] [id number] Univers 10:30:00 10:30:00 [id number] ity [facility] 2020-09-10 2020-09-10 Business Services Manager Erik, Adc Lab Main [facility] [id number] Univers 10:03:06 10:18:06 Visit Bert Wright [id number] [id number] Profess[place] [phone] N[place] dical nal [address] [place] [address] 2020-09-10 2020-09-10 Outpatient R [facility] [id number] Univers 10:00:00 10:00:00 ity of [facility] 2020-09-10 2020-09-10 Outpatient R BERT WRIGHT [facility] [id number] Univers 10:00:00 10:00:00 ity of [facility] 2020-09-10 2020-09-10 Orders Doctor ALEXIS [id number] Univers 00:00:00 00:00:00 Only Unassigned, HARSHA [id number] ity of [facility] [id number] [place] [phone] [address] 2020-09-09 2020-09-09 Outpatient R BERT WRIGHT [facility] [id number] Univers 15:30:00 15:30:00 ity [facility] 2020-09-08 2020-09-08 Laboratory Lab, Adc Fam Pob I [facility] 1.2. [id number] Univers 13:17:01 13:42:36 Only Nikki Cristobal [id number] ity [facility] [id number] [place] Professio [phone] N[place] dical nal [address] [place] [address] 2020-09-08 2020-09-08 Outpatient R [facility] [id number] Univers 13:20:00 13:20:00 ity [facility] 2020-09-08 2020-09-08 Outpatient R LEVAR [facility] [id number] Univers 13:20:00 13:20:00 NIKKI ity [facility] 2020-09-08 2020-09-08 Letter Doctor ALEXIS 1.2.840.114 [id number] Univers 00:00:00 00:00:00 (Out) Unassigned, HARSHA [id number] [place]y [place] [facility] [id number] [place] as [phone] [facility] 044 [place] 2020-09-02 2020-09-02 Outpatient BERT WRIGHT [facility] [id number] Univers 10:00:00 10:00:00 [id number] ity of [facility] 2020-09-02 2020-09-02 Outpatient R BERT WRIGHT [facility] [id number] Univers 10:00:00 10:00:00 ity of [facility] 2020-09-02 2020-09-02 Orders Doctor VANESA 1.2.840.114 [id number] Univers 00:00:00 00:00:00 Only Unassigned, HARSHA [id number] ity of [place] [facility] [id number] Ole as [phone] [facility] 009 [place] 2020-08-31 2020-08-31 Case Bert Wright [facility] 1.2.840.114 [id number] Univers 00:00:00 00:00:00 Management [place] [id number] [id number] [phone] Nj dicburt nal [address] [place] [address] 2020-08-29 2020-08-29 [facility] Bert Wright [facility] [id number] Univers 14:02:56 23:59:00 Encounter SPECIALTY [id number] ity [id number] AT [phone] Nj dical VICTORY 800 [facility] 2020-08-29 2020-08-29 Outpatient R BERT WRIGHT [facility] [id number] Univers 14:30:00 14:30:00 ity of [facility] 2020-08-29 2020-08-29 [facility] Bert Wright [facility] 1.2.840.114 [id number] Univers 14:01:51 14:01:51 Encounter SPECIALTY [id number] ity [id number] [phone] Nj dical [address] 2020-08-29 2020-08-29 Outpatient R BERT WRIGHT [facility] [id number] Univers 00:00:00 00:00:00 ity of [facility] 2020-08-22 2020-08-22 Telephone Bert Wright [facility] 1.2.840.114 [id number] Univers 00:00:00 00:00:00 [place] [id number] i [id number] [phone] [address] 2020-08-20 2020-08-20 Telephone Bert Wright [facility] 1.2.840.114 [id number] Univers 00:00:00 00:00:00 [place] [id number] [id number] [phone] [address] 2020-08-15 2020-08-15 Office Bert Wright [facility] 1.2.840.114 [id number] Univers 09:25:49 10:17:03 Visit [place] [id number] i ty [id number] [phone] [address] 2020-08-15 2020-08-15 Outpatient R BERT WRIGHT [facility] [id number] Univers 09:30:00 09:30:00 ity of [facility] 2020-08-15 2020-08-15 Outpatient R BERT WRIGHT [facility] [id number] Univers 09:30:00 09:30:00 ity of [facility] 2020-08-15 2020-08-15 Telephone Nancy [facility] 1.2.840.114 [id number] Univers 00:00:00 00:00:00 Stefania Lakhani 350.1.13.10 [place] [phone] [address] 2020-08-15 2020-08-15 Telephone Bert Wright [facility] 1.2.840.114 [id number] Univers 00:00:00 00:00:00 [place] 350.1.13.10 [place] [phone] [facility] [address] [facility] 2020-08-15 2020-08-15 Orders Doctor VANESA 1.2.840.114 [id number] Univers 00:00:00 00:00:00 Only Unassigned, HARSHA 350.1.13.10 ity of [place] [facility] 4.2.7.2.686 [place] as [phone] [address] 2020-08-11 2020-08-11 Business Services Manager Erik, Adc Lab Main [facility] 1.2.8 40.114 [id number] Univers 14:09:38 14:24:38 Visit Bert Wright Kar 350.1.13.10 [place] [phone] [facility] [address] [facility] 2020-08-11 2020-08-11 Outpatient R [facility] [id number] Univers 13:45:00 13:45:00 ity [facility] 2020-08-11 2020-08-11 Outpatient R BERT WRIGHT [facility] [id number] Univers 13:45:00 13:45:00 ity [facility] 2020-08-11 2020-08-11 Telephone Bert Wright [facility] 1.2.840.114 [id number] Univers 00:00:00 00:00:00 [place] 350.1.13.10 [place] [phone] [facility] 134 [facility] 2020-08-11 2020-08-11 Orders Doctor ALEXIS 1.2.840.114 [id number] Univers 00:00:00 00:00:00 Only Unassigned, HARSHA 350.1.13.10 ity of [place] [facility] 4.2.7.2.686 [place] as [phone] [address] 2020-08-08 2020-08-08 Hospital Bert Wright [facility] 1.2.840.114 [id number] Univers 10:00:00 23:59:00 Encounter Kar 350.1.13.10 ity of [place] 4.2.7.2.686 [facility] [phone] [facility] [address] [place] 2020-08-08 2020-08-08 Outpatient R BERT WRIGHT [facility] [id number] Univers 00:00:00 00:00:00 ity of [facility] 2020-08-08 2020-08-08 Outpatient R BERT WRIGHT [facility] [id number] Univers 00:00:00 00:00:00 ity of [facility] 2020-08-08 2020-08-08 Case Bert Wright [facility] 1.2.840.114 [id number] Univers 00:00:00 00:00:00 Management Kar 350.1.13.10 ity of [place] 4.2.7.2.686 [facility] [phone] [facility] [address] [place] 2020-08-07 2020-08-07 Hospital Bret Wright [facility] 1.2.840.114 [id number] Univers 12:25:11 23:59:00 Encounter Kar 350.1.13.10 ity of [place] 4.2.7.2.686 [facility] [phone] [facility] 800 [place] 2020-08-07 2020-08-07 Outpatient R BERT WRIGHT [facility] [id number] Univers 12:40:00 12:40:00 ity of [facility] 2020-08-07 2020-08-07 Outpatient R BERT WRIGHT [facility] [id number] Univers 00:00:00 00:00:00 [id number] ity of [facility] 2020-08-06 2020-08-06 Orders Doctor ALEXIS 1.2.840.114 [id number] Univers 00:00:00 00:00:00 Only Unassigned, HARSHA 350.1.13.10 ity of [place] [facility] 4.2.7.2.686 [facility] [phone] [facility] [address] [place] 2020-08-01 2020-08-01 Outpatient R BERT WRIGHT [facility] [id number] Univers 10:30:00 10:30:00 [id number] ity of [facility] 2020-08-01 2020-08-01 Outpatient R BERT WRIGHT [facility] [id number] Univers 10:30:00 10:30:00 ity of [facility] 2020-07-25 2020-07-25 Office Bert Wright [facility] 1.2.840.114 [id number] Univers 13:06:08 13:52:32 Visit [place] 350.1.13.10 [place] [phone] N[place] dical nal [address] [facility] 2020-07-25 2020-07-25 Outpatient R BERT WRIGHT [facility] [id number] Univers 13:00:00 13:00:00 [id number] ity of [facility] 2020-07-25 2020-07-25 Outpatient R BERT WRIGHT [facility] [id number] Univers 13:00:00 13:00:00 ity of [facility] 2020-07-25 2020-07-25 Telephone Bert Wright [facility] 1.2.840.114 [id number] Univers 00:00:00 00:00:00 [place] 350.1.13.10 [place] [phone] N[place] dical nal [address] [facility] 2020-07-23 2020-07-23 Outpatient R BERT WRIGHT [facility] [id number] Univers 13:30:00 13:30:00 [id number] ity of [facility] 2020-07-23 2020-07-23 Outpatient R BERT WRIGHT [facility] [id number] Univers 13:30:00 13:30:00 ity of [facility] 2020-07-22 2020-07-22 Orders Doctor ALEXIS 1.2.840.114 [id number] Univers 00:00:00 00:00:00 Only Unassigned, HARSHA 350.1.13.10 ity of [place] [facility] 4.2.7.2.686 [place] [phone] [address] 2020-07-14 2020-07-14 Outpatient R LEVAR [facility] [id number] Univers 09:00:00 09:00:00 NIKKI henderson [facility] 2020-07-14 2020-07-14 Laboratory Lab, Adc Fam Pob I [facility] 1.2. 840.114 [id number] Univers 08:38:49 08:58:49 Only Nikki Cristobal 350.1.13.10 ity of [place] 4.2.7.2.686 [place] Profess[place] [phone] Nj dical [address] Office [facility] 2020-07-14 2020-07-14 Letter Doctor VANESA 1.2.840.114 [id number] Univers 00:00:00 00:00:00 (Out) Unassigned, HARSHA 350.1.13.10 ity of [place] [facility] 4.2.7.2.686 [place] [phone] [address] 2020-07-05 2020-07-05 Emergency [facility] 1.2.840.114 [id number] Univers 15:24:00 17:07:00 Mahad Lakhani 350.1.13.10 [place] [phone] [place] [address] [place] 2020-07-05 2020-07-05 Emergency X [facility] ERT [id number] Univers 15:24:00 15:24:00 MAHAD ityoli [facility] Results Test Description Test Time Test Comments Results Result Comments Source URINALYSIS 2021-03-19 20:29:51 Test Item Value Reference Range Interpretation Comme nts APPEARANCE (test code = Hazy Clear A 2248437230) COLOR (test code = 5479753036) Yellow Yellow PH (test code = 7891336797) 4.8-8.0 SP GRAVITY (test code = 1.003-1.030 9617920951) GLU U QUAL (test code = Normal Normal 6014212993) BLOOD (test code = 8958570197) Negative Negative KETONES (test code = 4618721859) Negative Negative PROTEIN (test code = 2887-8) Negative Negative UROBILIN (test code = Normal Normal 6167712213) BILIRUBIN (test code = Negative Negative 2928766306) NITRITE (test code = 9201822304) Negative Negative LEUK LON (test code = Negative Negative 3251847720) RBC/HPF (test code = 7111734902) See_Comment [Automated message] The system which ge nerated this result transmit adolfo reference range: 0 - 3 HP F. The reference range was not used to interpret th is result as normal/abnormal . WBC/HPF (test code = 0545714449) <1 See_Comment [Automated message] The system which ge nerated this result transmit adolfo reference range: 0 - 5 HP F. The reference range was not used to interpret th is result as normal/abnormal . BACTERIA (test code = Negative Negative 6182594744) MUCOUS (test code = 6432910300) Slight Negative LPF A SQ EPITH (test code = HPF 4757035051) Lab Interpretation (test code = Abnormal 59672-5) [id number]15:54 Test Item Value Reference Range Interpretation Comments TROPONIN I (test 0.000 ng/mL See_Comment [Automated code = 7903267198) message] The system which generated this result [...] ? Lab Interpretation Normal (test code = 81071-2) [facility] (25771)2021-03-19 19:04:49 Test Item Value Reference Range Interpretation Comments NA (test code = 138 mmol/L 135-145 0842728923) K (test code = 3.8 mmol/L 3.5-5.0 3348044426) CL (test code = 103 mmol/L 98-108 7017341602) CO2 TOTAL (test code = 27 mmol/L 23-31 4835897891) AGAP (test code = 2-16 4715387710) BUN (test code = 15 mg/dL 7-23 3404158234) GLUCOSE (test code = 139 mg/dL 70-110 H 0450477654) CREATININE (test code = 0.45 mg/dL 0.50-1.04 L 6005582555) TOTAL BILI (test code = 0.4 mg/dL 0.1-1.1 3086664667) CALCIUM (test code = 9.3 mg/dL 8.6-10.6 7138984231) T PROTEIN (test code = 8.3 g/dL 6.3-8.2 H 2457906271) ALBUMIN (test code = 4.4 g/dL 3.5-5.0 2119395963) ALK PHOS (test code = 129 U/L 34-122 H 0274590106) ALTv (test code = 75 U/L 5-35 H 1742-6) AST(SGOT) (test code = 71 U/L 13-40 H 4066976343) eGFR (test code = mL/min/1.73m2 6005845912) GLEN (test code = GLEN) Association of [...] tests). Lab Interpretation Abnormal (test code = 05859-3) [facility] WITH [id number] 18:56:45 Test Item Value Reference Range Interpretation Comments WBC (test code = See_Comment [Automated 6690-2) message] The sy stem which generated this result transmitted reference range : 4.30 - 11.10 10*3/?L. The reference range was not used to interpret this result as normal/abnormal . RBC (test code = See_Comment [Automated 789-8) message] The sy stem which generated this [...] RDW-SD (test code = 44.1 fL 39.0-49.9 66701-3) RDW-CV (test code = 17.6 % 12.0-15.5 H 788-0) PLT (test code = See_Comment H [Automated 777-3) message] The sy stem which generated this result transmitted reference range : 166 - 358 10*3/ ?L. The reference r adela was not used to interpret this result as normal/abnormal . MPV (test code = 10.1 fL 9.5-12.9 96140-6) NRBC/100 WBC (test See_Comment [Automat ed code = 7493907728) message] The system which generated this result transmitted reference range : 0.0 - 10.0 /100 WBCs. The refer ence range was not u sed to interpret th is result as normal/abnormal . NRBC x10^3 (test code <0.01 See_Comment [Auto mated = 6162175105) message] The s ystem which generated this result transmitted reference range : 10*3/?L. The reference range was not used to interpret this result as normal/abnormal . GRAN MAT (NEUT) % 73.8 % (test code = 770-8) IMM GRAN % (test code 0.50 % = 7222396082) LYMPH % (test code = 18.9 % 736-9) MONO % (test code = 4.6 % 5905-5) EOS % (test code = 1.6 % 713-8) BASO % (test code = 0.6 % 706-2) GRAN MAT x10^3(ANC) 6.56 10*3/uL 1.88-7.09 (test code = 2074900426) IMM GRAN x10^3 (test 0.04 10*3/uL 0.00-0.06 code = 1719729585) LYMPH x10^3 (test code 1.68 10*3/uL 1.32-3.29 = 731-0) MONO x10^3 (test code 0.41 10*3/uL 0.33-0.92 = 742-7) EOS x10^3 (test code = 0.14 10*3/uL 0.03-0.39 711-2) BASO x10^3 (test code 0.05 10*3/uL 0.01-0.07 = 704-7) Lab Interpretation Abnormal (test code = 76795-6) [facility] Metabolic Panel (NA, K, CL, CO2, Glucose, BUN, Creatinine, CA)2020-09-13 10:46:00 Test Item Value Reference Range Interpretation Comments NA (test code = 137 mmol/L 135-145 3433941578) K (test code = 3.6 mmol/L 3.5-5 1426102290) CL (test code = 106 mmol/L 98-108 9407314047) CO2 TOTAL (test code = 25 mmol/L 23-31 7164883390) AGAP (test code = 2-16 0260071324) BUN (test code = 18 mg/dL 7-23 2060761335) GLUCOSE (test code = 130 mg/dL 70-110 H 6234647375) CREATININE (test code = 0.84 mg/dL 0.5-1.04 2910433153) CALCIUM (test code = 8.5 mg/dL 8.6-10.6 L 4928503604) eGFR Calculation mL/min/1.73m2 (Non-) (test code = 8195541585) eGFR Calculation mL/min/1.73m2 () (test code = 1463852383) GLEN (test code = GLEN) Association of [...] tests). Lab Interpretation Abnormal (test code = 80181-4) [facility] with [id number] 10:24:00 Test Item Value Reference Range Interpretation Comments WBC (test code = See_Comment [Automated 6690-2) message] The sy stem which generated this result transmitted reference range : 4.30 - 11.10 10*3/?L. The reference range was not used to interpret this result as normal/abnormal . RBC (test code = See_Comment L [Automated 789-8) message] The sy stem which generated this [...] (test code = 55.9 fL 39-49.9 H 98947-1) RDW-CV (test code = 20.4 % 12-15.5 H 788-0) PLT (test code = See_Comment [Automated 777-3) message] The sy stem which generated this result transmitted reference range : 166 - 358 10*3/ ?L. The reference r adela was not used to interpret this result as normal/abnormal . MPV (test code = 9.8 fL 9.5-12.9 83832-7) NRBC/100 WBC (test See_Comment [Automat ed code = 3761627599) message] The system which generated this result transmitted reference range : 0.0 - 10.0 /100 WBCs. The refer ence range was not u sed to interpret th is result as normal/abnormal . NRBC x10^3 (test code <0.01 See_Comment [Auto mated = 5713520916) message] The s ystem which generated this result transmitted reference range : 10*3/?L. The reference range was not used to interpret this result as normal/abnormal . GRAN MAT (NEUT) % 70.4 % (test code = 770-8) IMM GRAN % (test code 0.20 % = 9762885491) LYMPH % (test code = 20.9 % 736-9) MONO % (test code = 7.8 % 5905-5) EOS % (test code = 0.4 % 713-8) BASO % (test code = 0.3 % 706-2) GRAN MAT x10^3(ANC) 6.35 10*3/uL 1.88-7.09 (test code = 2627264578) IMM GRAN x10^3 (test <0.03 0-0.06 code = 1771028103) LYMPH x10^3 (test code 1.89 10*3/uL 1.32-3.29 = 731-0) MONO x10^3 (test code 0.70 10*3/uL 0.33-0.92 = 742-7) EOS x10^3 (test code = 0.04 10*3/uL 0.03-0.39 711-2) BASO x10^3 (test code 0.03 10*3/uL 0.01-0.07 = 704-7) Lab Interpretation Abnormal (test code = 97470-6) [facility] The Type and Screen expires at midnight on the 3rd day after it was drawn. A current Type and Screen is required when RBCs are requested. For all other blood products, a Type and Scre en performed during the current hospitalizati...2020-09-12 13:57:33 Test Item Value Reference Range Interpretation Comments ABO & RH (test code O Positive Performe d at [facility] = 20) Laboratory [facility] [address] [place] [phone] Free: [phone] A No. [id number] IAT (test code = Negative Performed a t [facility] 1185) Laboratory [facility] [address] [place], [place] [id number] Free: [phone] A No. [id number] [facility] [id number] 12:35:00 Test Item Value Reference Range Interpretation Comments POCT PREG (test code = 1605) Negative On board controls acceptable with Yes C Line (test code = 3574) POCT PREG LOT # (test code = 3575) [id number] POCT PREG TEST DATE (test 2021-08-09 code = 3576) Lab Interpretation (test code = Normal 61415-7) [facility] ULTRASOUND BREAST LIMITED [id number] 23:49:55Examination:BI DIAGNOSTIC TOMOSYNTHESIS RIGHTBI ULTRASOUND BREAST LIMITED [...] ? BI-RADS Category: Right 3 - [facility]ES[facility] [id number] 23:49:54Examination:BI [facility]ESIS [facility] RIGHT History:Patient is 40 [...] ? BI-RADS Category: Right 3 - [facility] [id number] 15:51:00 Test Item Value Reference Range Interpretation Comments POCT PREG (test code = 1605) Negative On board controls acceptable with C Yes Line (test code = 3574) POCT PREG LOT # (test code = 3575) POCT PREG TEST DATE (test code = 3576) [facility] [id number] 15:51:00 Test Item Value Reference Range Interpretation Comments POCT PREG (test code = 1605) Negative On board controls acceptable with C Yes Line (test code = 3574) POCT PREG LOT # (test code = 3575) POCT PREG TEST DATE (test code = 3576) [facility] [id number] 15:51:00 Test Item Value Reference Range Interpretation Comments POCT PREG (test code = 1605) Negative On board controls acceptable with C Yes Line (test code = 3574) POCT PREG LOT # (test code = 3575) POCT PREG TEST DATE (test code = 3576) [facility] [id number] 15:51:00 Test Item Value Reference Range Interpretation Comments POCT PREG (test code = 1605) Negative On board controls acceptable with C Yes Line (test code = 3574) POCT PREG LOT # (test code = 3575) POCT PREG TEST DATE (test code = 3576) [facility] PELVIS COMPLETE WITH [id number] 18:39:20 No discernible abnormality to explain patient's [...] cavity mayrepresent blood products. Right ovarian cyst. [facility] [id number] 18:24:00 Test Item Value Reference Range Interpretation Comments POCT PREG (test code = 1605) Negative On board controls acceptable with C Yes Line (test code = 3574) POCT PREG LOT # (test code = 3575) POCT PREG TEST DATE (test code = 3576) [facility] [id number] 18:24:00 Test Item Value Reference Range Interpretation Comments POCT PREG (test code = 1605) Negative On board controls acceptable with C Yes Line (test code = 3574) POCT PREG LOT # (test code = 3575) POCT PREG TEST DATE (test code = 3576) [facility]"
--- NOTE | 2021-12-12 22:42 | EDPHYS ---
Physician Documentation [facility] Name: Bonny Overton Age: 41 yrs Sex: Female : 1980 Arrival Date: 12/12/2021 Time: 21:56 Bed 7 Private MD: Mahnaz Velasquez ED Physician Eduardo Alejandro HPI: 12/12 22:38 This 41 yrs old Female presents to ER via Ambulatory with complaints of pm1 Swollen lymph noded. 22:38 The patient or guardian complains of pain, tenderness. The symptoms are located Swollen pm1 lymph node on the right side of neck behind right ear. Onset: The symptoms/episode began/occurred Present for many years and recently more painful. Context: The neck injury/problem resulted from from unknown cause. Associated signs and symptoms: Pertinent positives: headache, Pertinent negatives: fever, ear pain. The pain does not radiate. Modifying factors: The symptoms are alleviated by nothing. the symptoms are aggravated by nothing. Severity of symptoms: in the emergency department the symptoms are actually worse. The patient has experienced similar episodes in the past, chronically. The patient has not recently seen a physician, the patient's primary care provider is Dr. Velasquez. has been seen for this many times by PCP and was told that it is nothing to worry about. has taken multiple antibiotics in the past for it without any improvment. 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 - Social history:: Smoking status: Patient denies any tobacco usage or history of. ROS: 22:38 Constitutional: Negative for fever, chills, and weight loss, Cardiovascular: Negative pm1 for chest pain, palpitations, and edema, Respiratory: Negative for shortness of breath, cough, wheezing, and pleuritic chest pain, MS/Extremity: Negative for injury and deformity, Skin: Negative for injury, rash, and discoloration. 22:38 Neck: Positive for swollen nodes, tenderness, of the right base of the skull. 22:38 All other systems are negative. Exam: 22:38 Constitutional: This is a well developed, well nourished patient who is awake, alert, pm1 and in no acute distress. Head/Face: Normocephalic, atraumatic. 22:38 Skin: Warm, dry with normal turgor. Normal color with no rashes, no lesions, and no evidence of cellulitis. MS/ Extremity: Pulses equal, no cyanosis. Neurovascular intact. Full, normal range of motion. 22:38 Neck: Lymph nodes: lymphadenopathy is appreciated, posterior cervical nodes, right side. 22:38 Cardiovascular: Exam negative for acute changes, Rate: normal, Rhythm: regular, Pulses: no pulse deficits are appreciated, Heart sounds: normal. 22:38 Respiratory: Exam negative for acute changes, respiratory distress, shortness of breath. 22:38 Neuro: Exam negative for Orientation: is normal, Mentation: is normal, Motor: is normal, moves all fours. Vital Signs: 22:18 BP 176 / 107; Pulse 77; Resp 18; Temp 98.9(O); Pulse Ox 100% on R/A; Weight 108.86 kg lp1 (R); Height 5 ft. 0 in. (152.40 cm); Pain 3/10; 22:18 Body Mass Index 46.87 (108.86 kg, 152.40 cm) lp1 MDM: 22:38 Data reviewed: vital signs. Data interpreted: Pulse oximetry: on room air is 100 %. pm1 Interpretation: normal. 22:38 Refusal of service: The patient/guardian displays adequate decision making capability pm1 and despite a detailed discussion of alternatives, benefits, risks, and consequences refuses: antibiotic therapy and pain medications for her lymphadenitis. Patient reports that she has been on multiple antibiotics in the past for this and they have not been helpful. Offered her pain medications and she refused because she does not like narcotics. Recommended that she address her dental issue and then get a biopsy of the lymph node if there is no improvement or worsening of it after her dental issue is resolved. 22:41 Patient medically screened. pm1 Administered Medications: No medications were administered Disposition: 12/13 01:33 Co-signature as Attending Physician, Eduardo Alejandro MD. [email or web address] Disposition Summary: 12/12/21 22:41 Discharge Ordered Location: Home pm1 Problem: chronic pm1 Symptoms: are unchanged pm1 Condition: Stable pm1 Diagnosis - Acute lymphadenitis, unspecified pm1 Followup: pm1 - With: Emergency Department - When: As needed - Reason: Worsening of condition Followup: pm1 - With: Private Physician - When: 2 - 3 days - Reason: Recheck today's complaints, Continuance of care, Re-evaluation by your physician Discharge Instructions: - Discharge Summary Sheet pm1 - Lymphadenopathy pm1 Forms: - Medication Reconciliation Form pm1 - Thank You Letter pm1 - Antibiotic Education pm1 - Prescription Opioid Use pm1 Signatures: Teodora Marshall RN RN lp1 Aamury Sandhu NP MANAGER ASSURANCE pm1 Eduardo Alejandro MD MD [email or web address]
--- NOTE | 2021-12-12 22:42 | ER ---
Nurse's Notes [facility] Name: Bonny Overton Age: 41 yrs Sex: Female : 1980 Arrival Date: 12/12/2021 Time: 21:56 Bed 7 Private MD: Mahnaz Velasquez Diagnosis: Acute lymphadenitis, unspecified Presentation: 12/12 22:18 Chief complaint: Patient states: "I have had this knot behind my ear for a while but it lp1 has become painful the last couple days and I have had a headache today"; Reports pain behind right ear and tenderness of palpation behind right ear. Coronavirus screen: Vaccine status: Patient reports being unvaccinated. At this time, the client does not indicate any symptoms associated with coronavirus-19. Ebola Screen: No symptoms or risks identified at this time. Initial Sepsis Screen: Does the patient meet any 2 criteria? No. Patient's initial sepsis screen is negative. Does the patient have a suspected source of infection? No. Patient's initial sepsis screen is negative. Risk Assessment: Do you want to hurt yourself or someone else? Patient reports no desire to harm self or others. Onset of symptoms was December 12, 2021. 22:18 Method Of Arrival: Ambulatory lp1 22:18 Acuity: ARISTIDES 3 lp1 Triage Assessment: 22:53 Headache History: The patient has had previous headaches and this one is similar to ll3 previous episodes. General: Appears. General: Appears uncomfortable, Behavior is calm, cooperative. Pain: Complains of pain in H/A Pain currently is 6 out of 10 on a pain scale. Pain began 1 day ago. Also complains of no other associated symptoms. Neuro: Level of Consciousness is awake, alert, obeys commands, Oriented to person, place, time, situation, Reports headache. Cardiovascular: Patient's skin is warm and dry. Respiratory: Respiratory effort is even, unlabored, Respiratory pattern is regular, symmetrical. Derm: Skin is pink, warm \\T\\ dry. 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 - Social history:: Smoking status: Patient denies any tobacco usage or history of. Screenin:56 Abuse screen: Denies threats or abuse. Nutritional screening: No deficits noted. ll3 Tuberculosis screening: No symptoms or risk factors identified. Fall Risk None identified. Assessment: 22:55 General: sEE TRIAGE ASSESSMENT. Pain: Complains of pain in H/A, side of neck. ll3 Vital Signs: 22:18 BP 176 / 107; Pulse 77; Resp 18; Temp 98.9(O); Pulse Ox 100% on R/A; Weight 108.86 kg lp1 (R); Height 5 ft. 0 in. (152.40 cm); Pain 3/10; 22:18 Body Mass Index 46.87 (108.86 kg, 152.40 cm) lp1 ED Course: 21:56 Patient arrived in ED. es 21:57 Mahnaz Velasquez is Private Physician. es 22:05 Amaury Sandhu NP is PHCP. pm1 22:05 Eduardo Alejandro MD is Attending Physician. pm1 22:19 Triage completed. lp1 22:19 Arm band placed on. lp1 22:56 Patient has correct armband on for positive identification. Bed in low position. Call ll3 light in reach. Side rails up X 1. 22:56 No provider procedures requiring assistance completed. Patient did not have IV access ll3 during this emergency room visit. Administered Medications: No medications were administered Outcome: 22:41 Discharge ordered by MD. pm1 22:56 Discharged to home ambulatory. ll3 22:56 Condition: stable 22:56 Discharge instructions given to patient, Instructed on discharge instructions, follow up and referral plans. Demonstrated understanding of instructions, follow-up care. 22:56 Patient left the ED. ll3 Signatures: Dilia Rico Laura, RN RN lp1 Amaury Snadhu NP [employer] pm1 Isabel Jerome RN RN ll3
[2021-12-12 23:07] VITALS: BP 176/107; TEMP 98.9; O2SAT 100
== END 2021-12-12 22:56 | disposition home or self-care (01) ==
LOC: ER 21:53
DX: L04.9 Acute lymphadenitis, unspecified (principal)
CPT/HCPCS: 99281

== ENCOUNTER 2022-02-13 23:41 | Emergency (ER) | payer OTHER ==
--- OUTSIDE RECORDS SUMMARY | 2022-02-13 23:47 | XMS REPORT | Continuity of Care Document ---
:1980 Author Organization [facility] t Address [address] [place] [address] Care Team Providers Name Role Phone Agnes MAC Primary Care Physician Unavailable KYLE Attending Clinician Unavailable Shana HUFFMAN Attending Clinician Unavailable Tonya Barajas Attending Clinician Singer NG Attending Clinician Vahid Toussaint DO Attending Clinician Tara RUBY, M Attending Clinician Unavailable Kyle FOSTER Attending [...] Type Policy Number Effective Date Expiration Date [facility] [id number] 2019 CHOICE MEDICAID 00:00:00 AETNA O [id number] 2020 00:00:00 Problems Condition Condition Condition Status Onset Resolution Last Treating Co mments Source Name Details Category Date Date Treatment Clinician Date Abnormal Abnormal Disease Active 2019-10 Overview: 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 Added automatic ally from request for surgery [id number] Hyperchole Hyperchole Disease Active 2019-10 N PI:183 steremia steremia 0-15 638151 1 00:00: 00 Essential Essential Disease Active 2019-10 NPI :183 hypertensi hypertensi 0-15 13 08409 on, benign on, benign 00:00: 00 Abnormal Abnormal Disease Active 2019-10 NPI:1 83 blood blood 0-15 [id number] sugar sugar 00:00: 00 Iron Iron Disease Active 2019-10 NPI:183 deficiency deficiency 0-15 13 38004 anemia, anemia, 00:00: unspecifie unspecifie 00 d iron d iron deficiency deficiency anemia anemia type type Class 3 Class 3 Disease Active 2019-10 NPI:183 severe severe 0-15 [id number] obesity obesity 00:00: with with 00 serious serious comorbidit comorbidit y and body y and body mass index mass index (BMI) of (BMI) of 45.0 to 45.0 to 49.9 in 49.9 in adult, adult, unspecifie unspecifie d obesity d obesity type type No known No known Disease NPI:1 83 active active [id number] problems problems Allergies, Adverse Reactions, Alerts Allergy Allergy Status Severity Reaction(s) Onset Inactive Treating Comm ents Source Name Type Date Date Clinician Claude Propensi Active Swelling NPI:18 3 ty to 02-11 [id number] adverse 00:00: reaction 00 s JOSEPH DRUG Active Swelling NPI:183 INGREDI 5-05 [id number] 00:00: 00 NO KNOWN Drug Active NPI:183 ALLERGIE Class [id number] S Social History Social Habit Start Date Stop Date Quantity Comments Source Exposure to Not sure NPI:[id number] 1 SARS-CoV-2 (event) History of Cigarette Smoker NPI:1831 [id number] tobacco use Alcohol intake 2020-10-29 2020-10-29 Ex-drinker NPI:[id number] 00:00:00 00:00:00 (finding) Tobacco use and 2020-07-23 2020-07-23 Never used NPI:[id number] exposure 00:00:00 00:00:00 Sex [birth year] At [birth year] NPI:[id number] 00:00:00 00:00:00 Smoking Status Start Date Stop Date Source Former smoker 2020-07-23 00:00:00 2020-07-23 00:00:00 NPI:1831 [id number] Never smoker Medications Ordered Filled Start Stop Current Ordering Indication Dosage Frequency Signature Comments Components Source Medication Medication Date Date Medication? Clinician (SIG) Name Name NaCl 0.9% 2020- No 1000mL at 999 NPI :183 (NS) bolus 03-19 mL/hr, [id number] 1 infusion 19:15: 07:14 1,000 mL, 1,000 mL 00 :00 IV Infusion, ONCE, 1 dose, Carrol 03/19/21 at 1415, STAT lisinopriL 2020- No 10mg 10 mg, NPI: 183 (PRINIVIL,Z 03-19 Oral, [id number] 1 ESTRIL) 19:15: 18:32 ONCE, 1 tablet 10 00 :00 dose, Carrol mg 03/19/21 at 1415, Routine magnesium 2020- No 2g 2 g, IV NPI: 183 sulfate in 03-19 Piggyback, 13 94433 water 2 19:15: 21:24 ONCE, 1 gram/50 mL 00 :00 dose, Carrol (4 %) 03/19/21 at infusion 2 1415, g Routine ketorolac 2020- No 30mg 30 mg, NPI:1 83 (TORADOL) 03-19 Slow IV [id number] 1 injection 19:15: 18:34 Push, 30 mg 00 :00 ONCE, 1 dose, Carrol 03/19/21 at 1415, ZULEYMA
Fa culty member approving Restricted medication : Arden GREENBERG metoclopram 2020- No 10mg 10 mg, NPI :183 brayden HCl 03-19 Slow IV [id number] (REGLAN) 19:15: 18:36 Push, injection 00 :00 ONCE, 1 10 mg dose, Carrol 03/19/21 at 1415, ZULEYMA diphenhydrA 2020- No 25mg 25 mg, NPI :183 MINE 03-19 Slow IV [id number] (BENADRYL) 19:15: 18:33 Push, injection 00 :00 ONCE, 1 25 mg dose, [facility] 03/19/21 at 1415, STAT hydrOXYzine 2021-0 Yes [id number] 10mg Take 1 NPI:183 10 mg 5-05 tablet by [id number] tablet 00:00: mouth 00 every 6 (six) hours. methylPREDN 2021-0 Yes [id number] Take by NPI:183 ISolone 5-05 mouth [id number] (MEDROL, 00:00: SEE-INSTRU KAVITHA,) 4 mg 00 CTIONS. tablets follow package directions hydrOXYzine 2021-0 Yes [id number] 10mg Take 1 NPI:183 10 mg 5-05 tablet by [id number] tablet 00:00: mouth 00 every 6 (six) hours. methylPREDN 2021-0 Yes [id number] Take by NPI:183 ISolone 5-05 mouth [id number] (MEDROL, 00:00: SEE-INSTRU KAVITHA,) 4 mg 00 CTIONS. tablets follow package directions hydrOXYzine 2021-0 Yes [id number] 10mg Take 1 NPI:183 10 mg 5-05 tablet by [id number] tablet 00:00: mouth 00 every 6 (six) hours. methylPREDN 2021-0 Yes [id number] Take by NPI:183 ISolone 5-05 mouth [id number] (MEDROL, 00:00: SEE-INSTRU KAVITHA,) 4 mg 00 CTIONS. tablets follow package directions fluconazole 2019-10 Yes TAKE ONE BEVERAGE SERVER I:183 150 mg 2-07 (1) TABLET [id number] tablet 00:00: BY MOUTH 00 ONCE NOW A SINGLE DOSE. fluconazole 2019-10 Yes TAKE ONE BEVERAGE SERVER I:183 150 mg 2-07 (1) TABLET [id number] tablet 00:00: BY MOUTH 00 ONCE NOW A SINGLE DOSE. fluconazole 2019- Yes TAKE ONE BEVERAGE SERVER I:183 150 mg 2-07 (1) TABLET [id number] tablet 00:00: BY MOUTH 00 ONCE NOW A SINGLE DOSE. fluconazole 2019- Yes TAKE ONE BEVERAGE SERVER I:183 150 mg 2-07 (1) TABLET [id number] tablet 00:00: BY MOUTH 00 ONCE NOW A SINGLE DOSE. norgestimat 2019-10 2020- No Take by N PI:183 e-ethinyl 2-05 12-05 mouth. [id number] estradiol 15:32: 00:00 (ESTARYLLA 22 :00 ORAL) simethicone 2019-10 Yes 80mg 80 mg, NPI: 183 (GAS RELIEF 2-05 Oral, QID, 13 96094 (SIMETHICON 15:15: First dose E)) 00 on Sat chewable 09/13/20 at tablet 80 0915, mg Until Discontinu ed, Routine carvediloL 2019-10 Yes 6.25mg 6.25 mg, N PI:183 (COREG) 2-05 Oral, [id number] tablet 6.25 15:00: DAILY, mg 00 First dose on 09/13/20 at 0900, Until Discontinu ed, Routine docusate 2019-10 Yes 240mg 240 mg, NPI:1 83 calcium 2-05 Oral, [id number] (SURFAK) 15:00: DAILY, capsule 240 00 First dose mg on 09/13/20 at 0900, Until Discontinu ed, Routine ibuprofen 2019-10 Yes [id number] 600mg Take 1 NPI:183 600 mg 2-05 100 tablet by [id number] tablet 00:00: mouth 00 every 6 (six) hours as needed for Pain (scale 1-3). simethicone 2019-10 Yes [id number] 80mg Take 1 NPI:183 80 mg 2-05 100 tablet by [id number] chewable 00:00: mouth tablet 00 every 6 (six) hours as needed for Gas. docusate 2019-10 Yes [id number] 100mg Take 1 NPI:183 100 mg 2-05 100 capsule by [id number] capsule 00:00: mouth 2 00 (two) times daily. ibuprofen 2019-10 Yes [id number] 600mg Take 1 NPI:183 600 mg 2-05 100 tablet by [id number] tablet 00:00: mouth 00 every 6 (six) hours as needed for Pain (scale 1-3). simethicone 2019-10 Yes [id number] 80mg Take 1 NPI:183 80 mg 2-05 100 tablet by [id number] chewable 00:00: mouth tablet 00 every 6 (six) hours as needed for Gas. docusate 2019-10 Yes [id number] 100mg Take 1 NPI:183 100 mg 2-05 100 capsule by [id number] capsule 00:00: mouth 2 00 (two) times daily. ibuprofen 2019-10 Yes [id number] 600mg Take 1 NPI:183 600 mg 2-05 100 tablet by [id number] tablet 00:00: mouth 00 every 6 (six) hours as needed for Pain (scale 1-3). simethicone 2020- Yes [id number] 80mg Take 1 NPI:183 80 mg 2-05 100 tablet by [id number] chewable 00:00: mouth tablet 00 every 6 (six) hours as needed for Gas. docusate 2019-10 Yes [id number] 100mg Take 1 NPI:183 100 mg 2-05 100 capsule by [id number] capsule 00:00: mouth 2 00 (two) times daily. ibuprofen 2019-10 Yes [id number] 600mg Take 1 NPI:183 600 mg 2-05 100 tablet by [id number] tablet 00:00: mouth 00 every 6 (six) hours as needed for Pain (scale 1-3). simethicone 2019-10 Yes [id number] 80mg Take 1 NPI:183 80 mg 2-05 100 tablet by [id number] chewable 00:00: mouth tablet 00 every 6 (six) hours as needed for Gas. docusate 2019-10 Yes [id number] 100mg Take 1 NPI:183 100 mg 2-05 100 capsule by [id number] capsule 00:00: mouth 2 00 (two) times daily. ferrous 2019-10 Yes 324mg Take 324 NPI:1 83 gluconate 2-05 mg by [id number] 324 mg (38 00:00: mouth 2 mg iron) 00 (two) tablet times daily. ibuprofen 2019-10 Yes [id number] 600mg Take 1 NPI:183 600 mg 2-05 100 tablet by [id number] tablet 00:00: mouth 00 every 6 (six) hours as needed for Pain (scale 1-3). simethicone 2019-10 Yes [id number] 80mg Take 1 NPI:183 80 mg 2-05 100 tablet by [id number] chewable 00:00: mouth tablet 00 every 6 (six) hours as needed for Gas. docusate 2019-10 Yes [id number] 100mg Take 1 NPI:183 100 mg 2-05 100 capsule by [id number] capsule 00:00: mouth 2 00 (two) times daily. ferrous 2019-10 Yes 324mg Take 324 NPI:1 83 gluconate 2-05 mg by [id number] 324 mg (38 00:00: mouth 2 mg iron) 00 (two) tablet times daily. ibuprofen 2019-10 Yes [id number] 600mg Take 1 NPI:183 600 mg 2-05 100 tablet by [id number] tablet 00:00: mouth 00 every 6 (six) hours as needed for Pain (scale 1-3). simethicone 2019-10 Yes [id number] 80mg Take 1 NPI:183 80 mg 2-05 100 tablet by [id number] chewable 00:00: mouth tablet 00 every 6 (six) hours as needed for Gas. docusate 2019-10 Yes [id number] 100mg Take 1 NPI:183 100 mg 2-05 100 capsule by [id number] capsule 00:00: mouth 2 00 (two) times daily. ferrous 2019-10 Yes 324mg Take 324 NPI:1 83 gluconate 2-05 mg by [id number] 324 mg (38 00:00: mouth 2 mg iron) 00 (two) tablet times daily. ibuprofen 2019-10 Yes [id number] 600mg Take 1 NPI:183 600 mg 2-05 100 tablet by [id number] tablet 00:00: mouth 00 every 6 (six) hours as needed for Pain (scale 1-3). simethicone 2019-10 Yes [id number] 80mg Take 1 NPI:183 80 mg 2-05 100 tablet by [id number] chewable 00:00: mouth tablet 00 every 6 (six) hours as needed for Gas. docusate 2019-10 Yes [id number] 100mg Take 1 NPI:183 100 mg 2-05 100 capsule by [id number] capsule 00:00: mouth 2 00 (two) times daily. ferrous 2019-10 Yes 324mg Take 324 NPI:1 83 gluconate 2-05 mg by [id number] 324 mg (38 00:00: mouth 2 mg iron) 00 (two) tablet times daily. HYDROcodone 2019-10 2020- No 4647 1{tbl} Take 1 N PI:183 -acetaminop 2-05 12-13 tablet by 13 [id number] hen 5-325 00:00: 05:59 mouth mg tablet 00 :00 every 6 (six) hours as needed for Pain (scale 7-10) for up to 7 days. Indication s: acute pain HYDROcodone 2019-10- No 4647 1{tbl} Take 1 N PI:183 -acetaminop 11-14 tablet by 13 [id number] hen 5-325 00:00: 05:59 mouth mg tablet 00 :00 every 6 (six) hours as needed for Pain (scale 7-10) for up to 7 days. Indication s: acute pain metoclopram 2019-10- No 10mg 10 mg, NPI :183 brayden HCl 11-14 Slow IV [id number] (REGLAN) 00:00: 05:29 Push, Q6H, injection 00 :00 2 doses, 10 mg First dose on Tue09/12/20 at 1800, Last dose on 09/13/20 at 0000, Routine ketorolac 2019-10- No 30mg 30 mg, NPI:1 83 (TORADOL) 11-14 Slow IV [id number] 1 injection 00:00: 17:37 Push, Q6H, 30 mg 00 :00 4 doses, First dose on Tue09/12/20 at 1800, Last dose on Tue09/13/20 at 1200, Routine
member services representative approving Restricted medication : ARRON WRIGHTN HYDROcodone 2019-10 Yes 2{tbl} 2 tablet, NPI:183 -acetaminop 2-04 Oral, [id number] hen (NORCO 21:53: Q6HPRN, 5) 5-325 mg 24 Starting tablet 2 Fri tablet 09/12/20 at 1553, Until Discontinu ed, Routine, Pain (scale 7-10) HYDROcodone 2019-10 Yes 1{tbl} 1 tablet, NPI:183 -acetaminop 2-04 Oral, [id number] hen (NORCO 21:53: Q6HPRN, 5) 5-325 mg 09 Starting tablet 1 Fri tablet 09/12/20 at 1553, Until Discontinu ed, Routine, Pain (scale 4-6) HYDROmorpho 2019-10 2020- No .2mg 0.2 mg, BEVERAGE SERVER I:183 ne -09-12 Slow IV [id number] (DILAUDID) 19:52: 21:28 Push, injection 59 :14 Q5MIN PRN, 0.2 mg 10 doses, Starting Tue09/12/20 at 1352, Until Tue09/12/20 at 1528, Routine, Pain (scale 7-10), PACU
Us e approved by (Faculty): PACU USE -ANESTHESI A SERVICE-HY DROMORPHON E INJECTIONS lactated 2019-10 Yes 1000mL at 75 NPI:18 3 ringers IV 2-04 mL/hr, [id number] infusion 19:30: 1,000 mL, 1,000 mL 00 IV Infusion, CONTINUOUS , Starting Tue09/12/20 at 1330, Until Discontinu ed, Routine, PACU FENTanyl PF 2019-10 2020- No 25ug 25 mcg, BEVERAGE SERVER I:183 (SUBLIMAZE 2-04 12-[place] [id number] 81 (PF)) 19:28: 19:48 Push, injection 45 :00 Q5MIN PRN, 25 mcg 4 doses, Starting Tue09/12/20 at 1328, Until Discontinu ed, Routine, Pain (scale 4-6), PACU lactated 2019-10 Yes 1000mL at 40 NPI:18 3 ringers IV 2-04 mL/hr, [id number] infusion 19:15: 1,000 mL, 1,000 mL 00 IV Infusion, CONTINUOUS , Starting Tue09/12/20 at 1315, Until Discontinu ed, Routine lactated 2019-10 2020- No 1000mL at 42 NPI:1 83 ringers IV 2-04 12-04 mL/hr, [id number] 1 infusion 13:00: 13:25 1,000 mL, 1,000 mL 00 :00 IV Infusion, ONCE, 1 dose, Tue09/12/20 at 0700, Routine, DSU Pre-op norgestimat 2019- Yes Take by BEVERAGE SERVER I:183 e-ethinyl 2-01 mouth. [id number] estradiol 22:23: (ESTARYLLA 00 ORAL) norgestimat 2019- Yes Take by BEVERAGE SERVER I:183 e-ethinyl 2-01 mouth. [id number] estradiol 22:23: (ESTARYLLA 00 ORAL) norgestimat 2019- Yes Take by BEVERAGE SERVER I:183 e-ethinyl 1-24 mouth. [id number] estradiol 16:21: (ESTARYLLA 22 ORAL) norgestimat 2019- Yes Take by BEVERAGE SERVER I:183 e-ethinyl 1-24 mouth. [id number] estradiol 16:21: (ESTARYLLA 22 ORAL) norgestimat 2020- Yes Take by BEVERAGE SERVER I:183 e-ethinyl 1-24 mouth. [id number] estradiol 16:21: (ESTARYLLA 22 ORAL) norgestimat 2019- Yes Take by BEVERAGE SERVER I:183 e-ethinyl 1-24 mouth. [id number] estradiol 16:21: (ESTARYLLA 22 ORAL) medroxyPROG 2020- Yes 10mg Take 10 mg NPI:183 ESTERone 10 1-24 by mouth 3 13 00194 mg tablet 00:00: (three) 00 times daily. oxyCODONE 5 2019-10 Yes TAKE ONE BEVERAGE SERVER I:183 mg 1-24 (1) [id number] immediate 00:00: TABLET(S) release 00 BY MOUTH tablet EVERY FOUR HOURS NEEDED FOR PAIN FOR UP TO 5 DOSES. medroxyPROG 2019-10 Yes 10mg Take 10 mg NPI:183 ESTERone 10 1-24 by mouth 3 13 56663 mg tablet 00:00: (three) 00 times daily. oxyCODONE 5 2019-10 Yes TAKE ONE BEVERAGE SERVER I:183 mg 1-24 (1) [id number] immediate 00:00: TABLET(S) release 00 BY MOUTH tablet EVERY FOUR HOURS NEEDED FOR PAIN FOR UP TO 5 DOSES. medroxyPROG 2019-10 Yes 10mg Take 10 mg NPI:183 ESTERone 10 1-24 by mouth 3 13 23129 mg tablet 00:00: (three) 00 times daily. oxyCODONE 5 2019-10 Yes TAKE ONE BEVERAGE SERVER I:183 mg 1-24 (1) [id number] immediate 00:00: TABLET(S) release 00 BY MOUTH tablet EVERY FOUR HOURS NEEDED FOR PAIN FOR UP TO 5 DOSES. medroxyPROG 2019-10 Yes 10mg Take 10 mg NPI:183 ESTERone 10 1-24 by mouth 3 13 [id number] mg tablet 00:00: (three) 00 times daily. oxyCODONE 5 2019-10 Yes TAKE ONE BEVERAGE SERVER I:183 mg 1-24 (1) [id number] immediate 00:00: TABLET(S) release 00 BY MOUTH tablet EVERY FOUR HOURS NEEDED FOR PAIN FOR UP TO 5 DOSES. cephALEXin 2019-10 Yes TAKE ONE NPI :183 500 mg 1-20 (1) [id number] capsule 00:00: CAPSULE(S) 00 BY MOUTH EVERY TWELVE HOURS FOR 10 DAYS. cephALEXin 2019-10 Yes TAKE ONE NPI :183 500 mg 1-20 (1) [id number] capsule 00:00: CAPSULE(S) 00 BY MOUTH EVERY TWELVE HOURS FOR 10 DAYS. cephALEXin 2019- Yes TAKE ONE NPI :183 500 mg 1-20 (1) [id number] capsule 00:00: CAPSULE(S) 00 BY MOUTH EVERY TWELVE HOURS FOR 10 DAYS. cephALEXin 2019- Yes TAKE ONE NPI :183 500 mg 1-20 (1) [id number] capsule 00:00: CAPSULE(S) 00 BY MOUTH EVERY TWELVE HOURS FOR 10 DAYS. cephALEXin 2019- Yes TAKE ONE NPI :183 500 mg 1-20 (1) [id number] capsule 00:00: CAPSULE(S) 00 BY MOUTH EVERY TWELVE HOURS FOR 10 DAYS. cephALEXin 2019-10 Yes TAKE ONE NPI :183 500 mg 1-20 (1) [id number] capsule 00:00: CAPSULE(S) 00 BY MOUTH EVERY TWELVE HOURS FOR 10 DAYS. cephALEXin 2019-10 2020- No TAKE ONE BEVERAGE SERVER I:183 500 mg 1-20 12-05 (1) [id number] capsule 00:00: 00:00 CAPSULE(S) 00 :00 BY MOUTH EVERY TWELVE HOURS FOR 10 DAYS. ferrous 2019- Yes [id number] 324mg Take 1 BEVERAGE SERVER I:183 gluconate 1-13 tablet [place] [id number] 81 324 mg (38 00:00: mouth 2 mg iron) 00 (two) tablet times daily. ascorbic 2019- Yes [id number] 500mg Take 1 N PI:183 acid, 1-13 tablet by [id number] vitamin C, 00:00: mouth 2 500 mg 00 (two) tablet times daily. Take with iron to help with absorption of iron. ferrous 2019- Yes [id number] 324mg Take 1 BEVERAGE SERVER I:183 gluconate 1-13 tablet by 16947 81 324 mg (38 00:00: mouth 2 mg iron) 00 (two) tablet times daily. ascorbic 2020- Yes [id number] 500mg Take 1 N PI:183 acid, 1-13 tablet by [id number] vitamin C, 00:00: mouth 2 500 mg 00 (two) tablet times daily. Take with iron to help with absorption of iron. ferrous 2020- Yes [id number] 324mg Take 1 BEVERAGE SERVER I:183 gluconate 1-13 tablet by 69983 81 324 mg (38 00:00: mouth 2 mg iron) 00 (two) tablet times daily. ascorbic 2020-1 Yes [id number] 500mg Take 1 N PI:183 acid, 1-13 tablet by [id number] vitamin C, 00:00: mouth 2 500 mg 00 (two) tablet times daily. Take with iron to help with absorption of iron. ferrous 2020- Yes [id number] 324mg Take 1 BEVERAGE SERVER I:183 gluconate 1-13 tablet by 49481 81 324 mg (38 00:00: mouth 2 mg iron) 00 (two) tablet times daily. ascorbic 2020 Yes [id number] 500mg Take 1 N PI:183 acid, 1-13 tablet by [id number] vitamin C, 00:00: mouth 2 500 mg 00 (two) tablet times daily. Take with iron to help with absorption of iron. ferrous 2020 Yes [id number] 324mg Take 1 BEVERAGE SERVER I:183 gluconate 1-13 tablet [place] 33460 81 324 mg (38 00:00: mouth 2 mg iron) 00 (two) tablet times daily. ascorbic 2019-10 Yes [id number] 500mg Take 1 N PI:183 acid, 1-13 tablet by [id number] vitamin C, 00:00: mouth 2 500 mg 00 (two) tablet times daily. Take with iron to help with absorption of iron. ferrous 2020- Yes [id number] 324mg Take 1 BEVERAGE SERVER I:183 gluconate 1-13 tablet by 92596 81 324 mg (38 00:00: mouth 2 mg iron) 00 (two) tablet times daily. ascorbic 2020 Yes [id number] 500mg Take 1 N PI:183 acid, 1-13 tablet by [id number] vitamin C, 00:00: mouth 2 500 mg 00 (two) tablet times daily. Take with iron to help with absorption of iron. ferrous 2020- Yes [id number] 324mg Take 1 BEVERAGE SERVER I:183 gluconate 1-13 tablet by 33081 81 324 mg (38 00:00: mouth 2 mg iron) 00 (two) tablet times daily. ascorbic 2020- Yes [id number] 500mg Take 1 N PI:183 acid, 1-13 tablet by [id number] vitamin C, 00:00: mouth 2 500 mg 00 (two) tablet times daily. Take with iron to help with absorption of iron. ferrous 2020- Yes [id number] 324mg Take 1 BEVERAGE SERVER I:183 gluconate 1-13 [place] 48602 81 324 mg (38 00:00: mouth 2 mg iron) 00 (two) tablet times daily. ascorbic 2019- Yes [id number] 500mg Take 1 N PI:183 acid, 1-13 tablet by [id number] vitamin C, 00:00: mouth 2 500 mg 00 (two) tablet times daily. Take with iron to help with absorption of iron. ferrous 2019- Yes [id number] 324mg Take 1 BEVERAGE SERVER I:183 gluconate 1-13 tablet by 89932 81 324 mg (38 00:00: mouth 2 mg iron) 00 (two) tablet times daily. ascorbic 2019-10 Yes [id number] 500mg Take 1 N PI:183 acid, 1-13 tablet by [id number] vitamin C, 00:00: mouth 2 500 mg 00 (two) tablet times daily. Take with iron to help with absorption of iron. ferrous 2019-10 Yes [id number] 324mg Take 1 BEVERAGE SERVER I:183 gluconate 1-13 tablet [place] 05181 81 324 mg (38 00:00: mouth 2 mg iron) 00 (two) tablet times daily. ascorbic 2019-10 Yes [id number] 500mg Take 1 N PI:183 acid, 1-13 tablet by [id number] vitamin C, 00:00: mouth 2 500 mg 00 (two) tablet times daily. Take with iron to help with absorption of iron. ferrous 2019-10 2020- No [id number] 324mg Take 1 N PI:183 gluconate 1-13 12-05 tablet by [id number] 324 mg (38 00:00: 00:00 mouth 2 mg iron) 00 :00 (two) tablet times daily. ascorbic 2019-10 2020- No [id number] 500mg Take 1 NPI:183 acid, 1-13 12-05 tablet by [id number] vitamin C, 00:00: 00:00 mouth 2 500 mg 00 :00 (two) tablet times daily. Take with iron to help with absorption of iron. medroxyPROG 2020- Yes [id number] 10mg Take 1 NPI:183 ESTERone 1-06 100 tablet by [id number] 1 (PROVERA) 00:00: mouth 3 10 mg 00 (three) tablet times daily. medroxyPROG 2020- Yes [id number] 10mg Take 1 NPI:183 ESTERone 1-06 100 tablet by 875060 1 (PROVERA) 00:00: mouth 3 10 mg 00 (three) tablet times daily. medroxyPROG 2020- Yes [id number] 10mg Take 1 NPI:183 ESTERone 1-06 100 tablet by 852269 1 (PROVERA) 00:00: mouth 3 10 mg 00 (three) tablet times daily. medroxyPROG 2020- Yes [id number] 10mg Take 1 NPI:183 ESTERone 1-06 100 tablet by [id number] 1 (PROVERA) 00:00: mouth 3 10 mg 00 (three) tablet times daily. medroxyPROG 2020 Yes [id number] 10mg Take 1 NPI:183 ESTERone 1-06 100 tablet by [id number] 1 (PROVERA) 00:00: mouth 3 10 mg 00 (three) tablet times daily. oxyCODONE 5 2019-10 Yes [id number] 5mg Take 5 mg N PI:183 mg TbOr 1-06 by mouth [id number] 00:00: every 4 00 (four) hours as needed for Pain (scale 4-6) for up to 3 doses. Indication s: acute pain ibuprofen 2019-10 Yes [id number] 600mg Take 1 NPI:183 600 mg 1-06 100 tablet by [id number] tablet 00:00: mouth 00 every 6 (six) hours as needed for Pain (scale 4-6). medroxyPROG 2020- Yes [id number] 10mg Take 1 NPI:183 ESTERone 1-06 100 tablet by [id number] 1 (PROVERA) 00:00: mouth 3 10 mg 00 (three) tablet times daily. medroxyPROG 2019-10 Yes [id number] 10mg Take 1 NPI:183 ESTERone 1-06 100 tablet by [id number] 1 (PROVERA) 00:00: mouth 3 10 mg 00 (three) tablet times daily. ibuprofen 2019-10 Yes [id number] 600mg Take 1 NPI:183 600 mg 1-06 100 tablet by [id number] tablet 00:00: mouth 00 every 6 (six) hours as needed for Pain (scale 4-6). oxyCODONE 5 2019-10 Yes [id number] 5mg Take 1 NPI: 183 mg 1-06 tablet by [id number] immediate 00:00: mouth release 00 every 4 tablet (four) hours as needed for Pain (scale 4-6) for up to 5 doses. Indication s: acute pain medroxyPROG 2019- Yes [id number] 10mg Take 1 NPI:183 ESTERone 1-06 100 tablet by [id number] 1 (PROVERA) 00:00: mouth 3 10 mg 00 (three) tablet times daily. ibuprofen 2019-10 Yes [id number] 600mg Take 1 NPI:183 600 mg 1-06 100 tablet by [id number] tablet 00:00: mouth 00 every 6 (six) hours as needed for Pain (scale 4-6). oxyCODONE 5 2019-10 Yes 4647 5mg Take 1 NPI: 183 mg 1-06 tablet by [id number] immediate 00:00: mouth release 00 every 4 tablet (four) hours as needed for Pain (scale 4-6) for up to 5 doses. Indication s: acute pain medroxyPROG 2019-10 Yes [id number] 10mg Take 1 NPI:183 ESTERone 1-06 100 tablet by [id number] 1 (PROVERA) 00:00: mouth 3 10 mg 00 (three) tablet times daily. ibuprofen 2019-10 Yes [id number] 600mg Take 1 NPI:183 600 mg 1-06 100 tablet by [id number] tablet 00:00: mouth 00 every 6 (six) hours as needed for Pain (scale 4-6). oxyCODONE 5 2019-10 Yes 4647 5mg Take 1 NPI: 183 mg 1-06 tablet by [id number] immediate 00:00: mouth release 00 every 4 tablet (four) hours as needed for Pain (scale 4-6) for up to 5 doses. Indication s: acute pain medroxyPROG 2019-10 Yes [id number] 10mg Take 1 NPI:183 ESTERone 1-06 100 tablet by [id number] 1 (PROVERA) 00:00: mouth 3 10 mg 00 (three) tablet times daily. ibuprofen 2019-10 Yes [id number] 600mg Take 1 NPI:183 600 mg 1-06 100 tablet by [id number] tablet 00:00: mouth 00 every 6 (six) hours as needed for Pain (scale 4-6). oxyCODONE 5 2019-10 Yes 4647 5mg Take 1 NPI: 183 mg 1-06 tablet by [id number] immediate 00:00: mouth release 00 every 4 tablet (four) hours as needed for Pain (scale 4-6) for up to 5 doses. Indication s: acute pain medroxyPROG 2019- Yes [id number] 10mg Take 1 NPI:183 ESTERone 1-06 100 tablet by [id number] 1 (PROVERA) 00:00: mouth 3 10 mg 00 (three) tablet times daily. ibuprofen 2019-10 Yes [id number] 600mg Take 1 NPI:183 600 mg 1-06 100 tablet by [id number] tablet 00:00: mouth 00 every 6 (six) hours as needed for Pain (scale 4-6). oxyCODONE 5 2019-10 Yes 4647 5mg Take 1 NPI: 183 mg 1-06 tablet by [id number] immediate 00:00: mouth release 00 every 4 tablet (four) hours as needed for Pain (scale 4-6) for up to 5 doses. Indication s: acute pain medroxyPROG 2019-10 Yes [id number] 10mg Take 1 NPI:183 ESTERone 1-06 100 tablet by [id number] 1 (PROVERA) 00:00: mouth 3 10 mg 00 (three) tablet times daily. ibuprofen 2019-10 Yes [id number] 600mg Take 1 NPI:183 600 mg 1-06 100 tablet by [id number] tablet 00:00: mouth 00 every 6 (six) hours as needed for Pain (scale 4-6). oxyCODONE 5 2019-10 Yes [id number] 5mg Take 1 NPI: 183 mg 1-06 tablet by [id number] immediate 00:00: mouth release 00 every 4 tablet (four) hours as needed for Pain (scale 4-6) for up to 5 doses. Indication s: acute pain medroxyPROG 2019-10 Yes [id number] 10mg Take 1 NPI:183 ESTERone 1-06 100 tablet by [id number] 1 (PROVERA) 00:00: mouth 3 10 mg 00 (three) tablet times daily. ibuprofen 2019-10 Yes [id number] 600mg Take 1 NPI:183 600 mg 1-06 100 tablet by [id number] tablet 00:00: mouth 00 every 6 (six) hours as needed for Pain (scale 4-6). oxyCODONE 5 2019-10 Yes [id number] 5mg Take 1 NPI: 183 mg 1-06 tablet by [id number] immediate 00:00: mouth release 00 every 4 tablet (four) hours as needed for Pain (scale 4-6) for up to 5 doses. Indication s: acute pain medroxyPROG 2019-10 Yes [id number] 10mg Take 1 NPI:183 ESTERone 1-06 100 tablet by [id number] (PROVERA) 00:00: mouth 3 10 mg 00 (three) tablet times daily. ibuprofen 2019-10 Yes [id number] 600mg Take 1 NPI:183 600 mg 1-06 100 tablet by [id number] tablet 00:00: mouth 00 every 6 (six) hours as needed for Pain (scale 4-6). oxyCODONE 5 2019-10 Yes [id number] 5mg Take 1 NPI: 183 mg 1-06 tablet by [id number] immediate 00:00: mouth release 00 every 4 tablet (four) hours as needed for Pain (scale 4-6) for up to 5 doses. Indication s: acute pain ibuprofen 2019-10 Yes [id number] 600mg Take 1 NPI:183 600 mg 1-06 100 tablet by [id number] tablet 00:00: mouth 00 every 6 (six) hours as needed for Pain (scale 4-6). ibuprofen 2019-10 Yes [id number] 600mg Take 1 NPI:183 600 mg 1-06 100 tablet by [id number] tablet 00:00: mouth 00 every 6 (six) hours as needed for Pain (scale 4-6). ibuprofen 2019-10 Yes [id number] 600mg Take 1 NPI:183 600 mg 1-06 100 tablet by [id number] tablet 00:00: mouth 00 every 6 (six) hours as needed for Pain (scale 4-6). ibuprofen 2019-10 Yes [id number] 600mg Take 1 NPI:183 600 mg 1-06 100 tablet by [id number] tablet 00:00: mouth 00 every 6 (six) hours as needed for Pain (scale 4-6). ibuprofen 2019-10 Yes [id number] 600mg Take 1 NPI:183 600 mg 1-06 100 tablet by [id number] tablet 00:00: mouth 00 every 6 (six) hours as needed for Pain (scale 4-6). ibuprofen 2019-10 Yes [id number] 600mg Take 1 NPI:183 600 mg 1-06 100 tablet by [id number] tablet 00:00: mouth 00 every 6 (six) hours as needed for Pain (scale 4-6). ibuprofen 2019-10 2020- No [id number] 600mg Take 1 NPI:183 600 mg 10-15 100 tablet by [id number] tablet 00:00: 00:00 mouth 00 :00 every 6 (six) hours as needed for Pain (scale 4-6). medroxyPROG 2019-10- No [id number] 10mg Take 1 NPI:183 ESTERone 10-15 [place] [id number] 81 (PROVERA) 00:00: 00:00 mouth 3 10 mg 00 :00 (three) tablet times daily. Take twice daily until you completely stop bleeding, then once per day medroxyPROG 2019-10- No [id number] 10mg Take 1 NPI:183 ESTERone 10-15 100 [place] [id number] (PROVERA) 00:00: 00:00 mouth 3 10 mg 00 :00 (three) tablet times daily. Take twice daily until you completely stop bleeding, then once per day medroxyPROG 2019-10- No [id number] 10mg Take 1 NPI:183 ESTERone 10-15 100 [place] [id number] 81 (PROVERA) 00:00: 00:00 mouth 3 10 mg 00 :00 (three) tablet times daily. Take twice daily until you completely stop bleeding, then once per day medroxyPROG 2019-10- No [id number] 10mg Take 1 NPI:183 ESTERone 10-15 100 [place] [id number] 81 (PROVERA) 00:00: 00:00 mouth 3 10 mg 00 :00 (three) tablet times daily. Take twice daily until you completely stop bleeding, then once per day oxyCODONE 5 2019-10- No [id number] 5mg Take 5 mg NPI:183 mg TbOr 10-15 by mouth [id number] 00:00: 00:00 every 4 00 :00 (four) hours as needed for Pain (scale 4-6) for up to 3 doses. Indication s: acute pain medroxyPROG 2019-10- No [id number] 10mg Take 1 NPI:183 ESTERone 10-11 100 tablet by [id number] (PROVERA) 00:00: 05:59 mouth 2 10 mg 00 :00 (two) tablet times daily for 60 doses. Take twice daily until you completely stop bleeding, then once per day docusate 2019-10- No [id number] 100mg Take 1 NPI:183 (COLACE) 10-11 100 capsule by [id number] 100 mg 00:00: 05:59 mouth 2 capsule 00 :00 (two) times daily for 30 days. This medication is used for constipati on Polyethylen 2019-10 No [id number] 1{packe Take 1 NPI:183 e Glycol 10-11 100 t} [place] [id number] 00:00: 05:59 mouth (MIRALAX) 00 :00 every 24 17 gram (twenty-fo powder ur) hours as needed for Constipati on for up to 30 days. medroxyPROG 2019-10- No [id number] 10mg Take 1 NPI:183 ESTERone 10-11 100 [place] [id number] 81 (PROVERA) 00:00: 05:59 mouth 2 10 mg 00 :00 (two) tablet times daily for 60 doses. Take twice daily until you completely stop bleeding, then once per day docusate 2019-10- No [id number] 100mg Take 1 NPI:183 (COLACE) 10-11 100 capsule by [id number] 100 mg 00:00: 05:59 mouth 2 capsule 00 :00 (two) times daily for 30 days. This medication is used for constipati on Polyethylen 2019-10 No [id number] 1{packe Take 1 NPI:183 e Glycol 10-11 100 t} [place] [id number] 00:00: 05:59 mouth (MIRALAX) 00 :00 every 24 17 gram (twenty-fo powder ur) hours as needed for Constipati on for up to 30 days. medroxyPROG 2019-10- No [id number] 10mg Take 1 NPI:183 ESTERone 10-11 100 [place] [id number] 81 (PROVERA) 00:00: 05:59 mouth 2 10 mg 00 :00 (two) tablet times daily for 60 doses. Take twice daily until you completely stop bleeding, then once per day docusate 2019-10- No [id number] 100mg Take 1 NPI:183 (COLACE) 10-11 100 capsule by [id number] 100 mg 00:00: 05:59 mouth 2 capsule 00 :00 (two) times daily for 30 days. This medication is used for constipati on Polyethylen 2019-10- No [id number] 1{packe Take 1 NPI:183 e Glycol 10-11 100 t} [place] [id number] 00:00: 05:59 mouth (MIRALAX) 00 :00 every 24 17 gram (twenty-fo powder ur) hours as needed for Constipati on for up to 30 days. docusate 2019-10- No [id number] 100mg Take 1 NPI:183 (COLACE) 10-11 100 capsule by [id number] 100 mg 00:00: 05:59 mouth 2 capsule 00 :00 (two) times daily for 30 days. This medication is used for constipati on Polyethylen 2019-10 No [id number] 1{packe Take 1 NPI:183 e Glycol 10-11 100 t} [place] [id number] 00:00: 05:59 mouth (MIRALAX) 00 :00 every 24 17 gram (twenty-fo powder ur) hours as needed for Constipati on for up to 30 days. docusate 2019-10- No [id number] 100mg Take 1 NPI:183 (COLACE) 10-11 100 capsule by [id number] 100 mg 00:00: 05:59 mouth 2 capsule 00 :00 (two) times daily for 30 days. This medication is used for constipati on Polyethylen 2019-10- No [id number] 1{packe Take 1 NPI:183 e Glycol 10-11 100 t} Packet [place] [id number] 00:00: 05:59 mouth (MIRALAX) 00 :00 every 24 17 gram (twenty-fo powder ur) hours as needed for Constipati on for up to 30 days. docusate 2019-10- No [id number] 100mg Take 1 NPI:183 (COLACE) 10-11 100 capsule by [id number] 100 mg 00:00: 05:59 mouth 2 capsule 00 :00 (two) times daily for 30 days. This medication is used for constipati on Polyethylen 2019-10 No [id number] 1{packe Take 1 NPI:183 e Glycol 10-11 100 t} Packet by [id number] 00:00: 05:59 mouth (MIRALAX) 00 :00 every 24 17 gram (twenty-fo powder ur) hours as needed for Constipati on for up to 30 days. docusate 2019-10- No [id number] 100mg Take 1 NPI:183 (COLACE) 10-11 100 capsule by [id number] 100 mg 00:00: 05:59 mouth 2 capsule 00 :00 (two) times daily for 30 days. This medication is used for constipati on Polyethylen 2019-10 No [id number] 1{packe Take 1 NPI:183 e Glycol 10-11 100 t} [place] [id number] 00:00: 05:59 mouth (MIRALAX) 00 :00 every 24 17 gram (twenty-fo powder ur) hours as needed for Constipati on for up to 30 days. docusate 2019-10- No [id number] 100mg Take 1 NPI:183 (COLACE) 10-11 100 capsule by [id number] 100 mg 00:00: 05:59 mouth 2 capsule 00 :00 (two) times daily for 30 days. This medication is used for constipati on Polyethylen 2019-10 No [id number] 1{packe Take 1 NPI:183 e Glycol 10-11 100 t} [place] [id number] 00:00: 05:59 mouth (MIRALAX) 00 :00 every 24 17 gram (twenty-fo powder ur) hours as needed for Constipati on for up to 30 days. docusate 2019-10- No [id number] 100mg Take 1 NPI:183 (COLACE) 10-11 100 capsule by [id number] 100 mg 00:00: 05:59 mouth 2 capsule 00 :00 (two) times daily for 30 days. This medication is used for constipati on Polyethylen 2019-10 No [id number] 1{packe Take 1 NPI:183 e Glycol 10-11 100 t} Packet [place] [id number] 00:00: 05:59 mouth (MIRALAX) 00 :00 every 24 17 gram (twenty-fo powder ur) hours as needed for Constipati on for up to 30 days. docusate 2019-10- No [id number] 100mg Take 1 NPI:183 (COLACE) 10-11 100 capsule by [id number] 100 mg 00:00: 05:59 mouth 2 capsule 00 :00 (two) times daily for 30 days. This medication is used for constipati on Polyethylen 2019-10 No [id number] 1{packe Take 1 NPI:183 e Glycol 10-11 100 t} Packet [place] [id number] 00:00: 05:59 mouth (MIRALAX) 00 :00 every 24 17 gram (twenty-fo powder ur) hours as needed for Constipati on for up to 30 days. docusate 2019-10- No [id number] 100mg Take 1 NPI:183 (COLACE) 10-11 100 capsule by [id number] 100 mg 00:00: 05:59 mouth 2 capsule 00 :00 (two) times daily for 30 days. This medication is used for constipati on Polyethylen 2019-10 No [id number] 1{packe Take 1 NPI:183 e Glycol 10-11 100 t} [place] [id number] 00:00: 05:59 mouth (MIRALAX) 00 :00 every 24 17 gram (twenty-fo powder ur) hours as needed for Constipati on for up to 30 days. docusate 2019-10- No [id number] 100mg Take 1 NPI:183 (COLACE) 10-11 100 capsule by [id number] 100 mg 00:00: 05:59 mouth 2 capsule 00 :00 (two) times daily for 30 days. This medication is used for constipati on Polyethylen 2019-10 No [id number] 1{packe Take 1 NPI:183 e Glycol 10-11 100 t} Packet [place] [id number] 00:00: 05:59 mouth (MIRALAX) 00 :00 every 24 17 gram (twenty-fo powder ur) hours as needed for Constipati on for up to 30 days. docusate 2019-10- No [id number] 100mg Take 1 NPI:183 (COLACE) 10-11 100 capsule by [id number] 100 mg 00:00: 05:59 mouth 2 capsule 00 :00 (two) times daily for 30 days. This medication is used for constipati on Polyethylen 2019-10- No [id number] 1{packe Take 1 NPI:183 e Glycol 10-11 100 t} Packet by [id number] 00:00: 05:59 mouth (MIRALAX) 00 :00 every 24 17 gram (twenty-fo powder ur) hours as needed for Constipati on for up to 30 days. docusate 2019-10- No [id number] 100mg Take 1 NPI:183 (COLACE) 10-11 100 capsule by [id number] 100 mg 00:00: 05:59 mouth 2 capsule 00 :00 (two) times daily for 30 days. This medication is used for constipati on Polyethylen 2019-10 No [id number] 1{packe Take 1 NPI:183 e Glycol 10-11 100 t} [place] [id number] 00:00: 05:59 mouth (MIRALAX) 00 :00 every 24 17 gram (twenty-fo powder ur) hours as needed for Constipati on for up to 30 days. docusate 2019-10- No [id number] 100mg Take 1 NPI:183 (COLACE) 10-11 100 capsule by [id number] 100 mg 00:00: 05:59 mouth 2 capsule 00 :00 (two) times daily for 30 days. This medication is used for constipati on Polyethylen 2019-10 No [id number] 1{packe Take 1 NPI:183 e Glycol 10-11 100 t} Packet by [id number] 00:00: 05:59 mouth (MIRALAX) 00 :00 every 24 17 gram (twenty-fo powder ur) hours as needed for Constipati on for up to 30 days. docusate 2019-10- No [id number] 100mg Take 1 NPI:183 (COLACE) 10-11 100 capsule by [id number] 100 mg 00:00: 05:59 mouth 2 capsule 00 :00 (two) times daily for 30 days. This medication is used for constipati on Polyethylen 2019-10 No [id number] 1{packe Take 1 NPI:183 e Glycol 10-11 100 t} [place] [id number] 00:00: 05:59 mouth (MIRALAX) 00 :00 every 24 17 gram (twenty-fo powder ur) hours as needed for Constipati on for up to 30 days. docusate 2019-10- No [id number] 100mg Take 1 NPI:183 (COLACE) 10-11 100 capsule by [id number] 100 mg 00:00: 05:59 mouth 2 capsule 00 :00 (two) times daily for 30 days. This medication is used for constipati on Polyethylen 2019-10 No [id number] 1{packe Take 1 NPI:183 e Glycol 10-11 100 t} Packet by [id number] 00:00: 05:59 mouth (MIRALAX) 00 :00 every 24 17 gram (twenty-fo powder ur) hours as needed for Constipati on for up to 30 days. docusate 2019-10- No [id number] 100mg Take 1 NPI:183 (COLACE) 10-11 100 capsule by [id number] 100 mg 00:00: 05:59 mouth 2 capsule 00 :00 (two) times daily for 30 days. This medication is used for constipati on Polyethylen 2019-10 No [id number] 1{packe Take 1 NPI:183 e Glycol 10-11 100 t} [place] [id number] 00:00: 05:59 mouth (MIRALAX) 00 :00 every 24 17 gram (twenty-fo powder ur) hours as needed for Constipati on for up to 30 days. docusate 2019-10- No [id number] 100mg Take 1 NPI:183 (COLACE) 10-11 100 capsule by [id number] 100 mg 00:00: 05:59 mouth 2 capsule 00 :00 (two) times daily for 30 days. This medication is used for constipati on Polyethylen 2019-10 No [id number] 1{packe Take 1 NPI:183 e Glycol 10-11 100 t} Packet by [id number] 00:00: 05:59 mouth (MIRALAX) 00 :00 every 24 17 gram (twenty-fo powder ur) hours as needed for Constipati on for up to 30 days. docusate 2019-10- No [id number] 100mg Take 1 NPI:183 (COLACE) 10-11 100 capsule by [id number] 100 mg 00:00: 05:59 mouth 2 capsule 00 :00 (two) times daily for 30 days. This medication is used for constipati on Polyethylen 2019-10- No [id number] 1{packe Take 1 NPI:183 e Glycol 10-11 100 t} [place] [id number] 00:00: 05:59 mouth (MIRALAX) 00 :00 every 24 17 gram (twenty-fo powder ur) hours as needed for Constipati on for up to 30 days. docusate 2019-10- No [id number] 100mg Take 1 NPI:183 (COLACE) 10-11 100 capsule by [id number] 100 mg 00:00: 05:59 mouth 2 capsule 00 :00 (two) times daily for 30 days. This medication is used for constipati on Polyethylen 2019-10- No [id number] 1{packe Take 1 NPI:183 e Glycol 10-11 100 t} [place] [id number] 00:00: 05:59 mouth (MIRALAX) 00 :00 every 24 17 gram (twenty-fo powder ur) hours as needed for Constipati on for up to 30 days. docusate 2019-10- No [id number] 100mg Take 1 NPI:183 (COLACE) 10-11 100 capsule by [id number] 100 mg 00:00: 05:59 mouth 2 capsule 00 :00 (two) times daily for 30 days. This medication is used for constipati on Polyethylen 2019-10- No [id number] 1{packe Take 1 NPI:183 e Glycol 10-11 100 t} [place] [id number] 00:00: 05:59 mouth (MIRALAX) 00 :00 every 24 17 gram (twenty-fo powder ur) hours as needed for Constipati on for up to 30 days. docusate 2019-10- No [id number] 100mg Take 1 NPI:183 (COLACE) 10-11 100 capsule by [id number] 100 mg 00:00: 05:59 mouth 2 capsule 00 :00 (two) times daily for 30 days. This medication is used for constipati on Polyethylen 2019-10- No [id number] 1{packe Take 1 NPI:183 e Glycol 10-11 100 t} [place] [id number] 00:00: 05:59 mouth (MIRALAX) 00 :00 every 24 17 gram (twenty-fo powder ur) hours as needed for Constipati on for up to 30 days. docusate 2019-10- No [id number] 100mg Take 1 NPI:183 (COLACE) 10-11 100 capsule by [id number] 100 mg 00:00: 05:59 mouth 2 capsule 00 :00 (two) times daily for 30 days. This medication is used for constipati on Polyethylen 2019-10 No [id number] 1{packe Take 1 NPI:183 e Glycol 10-11 100 t} [place] [id number] 00:00: 05:59 mouth (MIRALAX) 00 :00 every 24 17 gram (twenty-fo powder ur) hours as needed for Constipati on for up to 30 days. medroxyPROG 2019-10- No [id number] 10mg Take 1 NPI:183 ESTERone 10-11 [place] [id number] (PROVERA) 00:00: 00:00 mouth 2 10 mg 00 :00 (two) tablet times daily for 60 doses. Take twice daily until you completely stop bleeding, then once per day medroxyPROG 2019-10- No [id number] 10mg Take 1 NPI:183 ESTERone 10-11 100 [place] [id number] 81 (PROVERA) 00:00: 00:00 mouth 2 10 mg 00 :00 (two) tablet times daily for 60 doses. Take twice daily until you completely stop bleeding, then once per day medroxyPROG 2019-10- No [id number] 10mg Take 1 NPI:183 ESTERone 10-11 100 [place] [id number] 81 (PROVERA) 00:00: 00:00 mouth 2 10 mg 00 :00 (two) tablet times daily for 60 doses. Take twice daily until you completely stop bleeding, then once per day medroxyPROG 2019-10- No [id number] 10mg Take 1 NPI:183 ESTERone 10-11 [place] [id number] 81 (PROVERA) 00:00: 00:00 mouth 2 10 mg 00 :00 (two) tablet times daily for 60 doses. Take twice daily until you completely stop bleeding, then once per day miSOPROStoL 2019-10- No [id number] 200ug Take 1 NPI:183 200 mcg 0-16 10-18 tablet by [id number] tablet 00:00: 04:59 mouth 2 00 :00 (two) times daily for 1 day. miSOPROStoL 2019-10- No [id number] 200ug Take 1 NPI:183 200 mcg 0-16 10-18 tablet by [id number] tablet 00:00: 04:59 mouth 2 00 :00 (two) times daily for 1 day. ferrous 2019-10 Yes 324mg Take 324 NPI:1 83 gluconate 0-15 mg by [id number] 324 mg (38 00:00: mouth mg iron) 00 daily. tablet ferrous 2019-10 Yes 324mg Take 324 NPI:1 83 gluconate 0-15 mg by [id number] 324 mg (38 00:00: mouth mg iron) 00 daily. tablet ferrous 2019-10 Yes 324mg Take 324 NPI:1 83 gluconate 0-15 mg by [id number] 324 mg (38 00:00: mouth mg iron) 00 daily. tablet ferrous 2019-10 Yes 324mg Take 324 NPI:1 83 gluconate 0-15 mg by [id number] 324 mg (38 00:00: mouth mg iron) 00 daily. tablet ferrous 2019-10 Yes 324mg Take 324 NPI:1 83 gluconate 0-15 mg by [id number] 324 mg (38 00:00: mouth mg iron) 00 daily. tablet ferrous 2019-10 Yes 324mg Take 324 NPI:1 83 gluconate 0-15 mg by [id number] 324 mg (38 00:00: mouth mg iron) 00 daily. tablet ferrous 2019-10 Yes 324mg Take 324 NPI:1 83 gluconate 0-15 mg by [id number] 324 mg (38 00:00: mouth mg iron) 00 daily. tablet ferrous 2019-10 Yes 324mg Take 324 NPI:1 83 gluconate 0-15 mg by [id number] 324 mg (38 00:00: mouth mg iron) 00 daily. tablet ferrous 2019-10 Yes 324mg Take 324 NPI:1 83 gluconate 0-15 mg by [id number] 324 mg (38 00:00: mouth mg iron) 00 daily. tablet ferrous 2020 Yes 324mg Take 324 NPI:1 83 gluconate 0-15 mg by [id number] 324 mg (38 00:00: mouth mg iron) 00 daily. tablet ferrous 2019-10 Yes 324mg Take 324 NPI:1 83 gluconate 0-15 mg by [id number] 324 mg (38 00:00: mouth mg iron) 00 daily. tablet ferrous 2019-10 Yes 324mg Take 324 NPI:1 83 gluconate 0-15 mg by [id number] 324 mg (38 00:00: mouth mg iron) 00 daily. tablet ferrous 2019-10 Yes 324mg Take 324 NPI:1 83 gluconate 0-15 mg by [id number] 324 mg (38 00:00: mouth mg iron) 00 daily. tablet ferrous 2019-10 2020- No 324mg Take 324 NPI: 183 gluconate 0-15 11-13 mg by [id number] 324 mg (38 00:00: 00:00 mouth mg iron) 00 :00 daily. tablet carvediloL 2019-10 Yes 6.25mg Take 6.25 NPI:183 6.25 mg 0-08 mg by [id number] tablet 00:00: mouth 2 00 (two) times daily. loratadine 2019-10 Yes 10mg Take 10 mg N PI:183 10 mg 0-08 by mouth [id number] tablet 00:00: daily. 00 fluticasone 2019-10 Yes INSTILL NPI :183 propionate 0-08 ONE (1) [id number] 1 50 00:00: SPRAY(S) mcg/actuati 00 INTO EACH on nasal NOSTRIL spray TWICE A DAY. lamoTRIgine 2019-10 Yes TAKE ONE BEVERAGE SERVER I:183 25 mg 0-08 (1) [id number] tablet 00:00: TABLET(S) 00 BY MOUTH ONCE A DAY FOR 14 DAYS, THEN TAKE TWO (2) TABLETS FOR 14 DAYS, THEN FOUR (4) TABLETS FOR 14 DAYS. carvediloL 2019-10 Yes 6.25mg Take 6.25 NPI:183 6.25 mg 0-08 mg by [id number] tablet 00:00: mouth 2 00 (two) times daily. loratadine 2019-10 Yes 10mg Take 10 mg N PI:183 10 mg 0-08 by mouth [id number] tablet 00:00: daily. 00 fluticasone 2019-10 Yes INSTILL NPI :183 propionate 0-08 ONE (1) [id number] 1 50 00:00: SPRAY(S) mcg/actuati 00 INTO EACH on nasal NOSTRIL spray TWICE A DAY. lamoTRIgine 2019-10 Yes TAKE ONE BEVERAGE SERVER I:183 25 mg 0-08 (1) [id number] tablet 00:00: TABLET(S) 00 BY MOUTH ONCE A DAY FOR 14 DAYS, THEN TAKE TWO (2) TABLETS FOR 14 DAYS, THEN FOUR (4) TABLETS FOR 14 DAYS. carvediloL 2019-10 Yes 6.25mg Take 6.25 NPI:183 6.25 mg 0-08 mg by [id number] tablet 00:00: mouth 2 00 (two) times daily. loratadine 2019-10 Yes 10mg Take 10 mg N PI:183 10 mg 0-08 by mouth [id number] tablet 00:00: daily. 00 fluticasone 2019-10 Yes INSTILL NPI :183 propionate 0-08 ONE (1) [id number] 1 50 00:00: SPRAY(S) mcg/actuati 00 INTO EACH on nasal NOSTRIL spray TWICE A DAY. lamoTRIgine 2019-10 Yes TAKE ONE BEVERAGE SERVER I:183 25 mg 0-08 (1) [id number] tablet 00:00: TABLET(S) 00 BY MOUTH ONCE A DAY FOR 14 DAYS, THEN TAKE TWO (2) TABLETS FOR 14 DAYS, THEN FOUR (4) TABLETS FOR 14 DAYS. carvediloL 2019-10 Yes 6.25mg Take 6.25 NPI:183 6.25 mg 0-08 mg by [id number] tablet 00:00: mouth 2 00 (two) times daily. loratadine 2019-10 Yes 10mg Take 10 mg N PI:183 10 mg 0-08 by mouth [id number] tablet 00:00: daily. 00 fluticasone 2019- Yes INSTILL NPI :183 propionate 0-08 ONE (1) [id number] 1 50 00:00: SPRAY(S) mcg/actuati 00 INTO EACH on nasal NOSTRIL spray TWICE A DAY. lamoTRIgine 2019-10 Yes TAKE ONE BEVERAGE SERVER I:183 25 mg 0-08 (1) [id number] tablet 00:00: TABLET(S) 00 BY MOUTH ONCE A DAY FOR 14 DAYS, THEN TAKE TWO (2) TABLETS FOR 14 DAYS, THEN FOUR (4) TABLETS FOR 14 DAYS. carvediloL 2019- Yes 6.25mg Take 6.25 NPI:183 6.25 mg 0-08 mg by [id number] tablet 00:00: mouth 2 00 (two) times daily. loratadine 2019- Yes 10mg Take 10 mg N PI:183 10 mg 0-08 by mouth [id number] tablet 00:00: daily. 00 fluticasone 2019- Yes INSTILL NPI :183 propionate 0-08 ONE (1) [id number] 1 50 00:00: SPRAY(S) mcg/actuati 00 INTO EACH on nasal NOSTRIL spray TWICE A DAY. lamoTRIgine 2019-10 Yes TAKE ONE BEVERAGE SERVER I:183 25 mg 0-08 (1) [id number] tablet 00:00: TABLET(S) 00 BY MOUTH ONCE A DAY FOR 14 DAYS, THEN TAKE TWO (2) TABLETS FOR 14 DAYS, THEN FOUR (4) TABLETS FOR 14 DAYS. carvediloL 2019-10 Yes 6.25mg Take 6.25 NPI:183 6.25 mg 0-08 mg by [id number] tablet 00:00: mouth 2 00 (two) times daily. loratadine 2019-10 Yes 10mg Take 10 mg N PI:183 10 mg 0-08 by mouth [id number] tablet 00:00: daily. 00 fluticasone 2019- Yes INSTILL NPI :183 propionate 0-08 ONE (1) [id number] 1 50 00:00: SPRAY(S) mcg/actuati 00 INTO EACH on nasal NOSTRIL spray TWICE A DAY. lamoTRIgine 2019-10 Yes TAKE ONE BEVERAGE SERVER I:183 25 mg 0-08 (1) [id number] tablet 00:00: TABLET(S) 00 BY MOUTH ONCE A DAY FOR 14 DAYS, THEN TAKE TWO (2) TABLETS FOR 14 DAYS, THEN FOUR (4) TABLETS FOR 14 DAYS. carvediloL 2019- Yes 6.25mg Take 6.25 NPI:183 6.25 mg 0-08 mg by [id number] tablet 00:00: mouth 2 00 (two) times daily. loratadine 2019- Yes 10mg Take 10 mg N PI:183 10 mg 0-08 by mouth [id number] tablet 00:00: daily. 00 fluticasone 2019- Yes INSTILL NPI :183 propionate 0-08 ONE (1) [id number] 1 50 00:00: SPRAY(S) mcg/actuati 00 INTO EACH on nasal NOSTRIL spray TWICE A DAY. lamoTRIgine 2019-10 Yes TAKE ONE BEVERAGE SERVER I:183 25 mg 0-08 (1) [id number] tablet 00:00: TABLET(S) 00 BY MOUTH ONCE A DAY FOR 14 DAYS, THEN TAKE TWO (2) TABLETS FOR 14 DAYS, THEN FOUR (4) TABLETS FOR 14 DAYS. carvediloL 2019- Yes 6.25mg Take 6.25 NPI:183 6.25 mg 0-08 mg by [id number] tablet 00:00: mouth 2 00 (two) times daily. loratadine 2019-10 Yes 10mg Take 10 mg N PI:183 10 mg 0-08 by mouth [id number] tablet 00:00: daily. 00 fluticasone 2019- Yes INSTILL NPI :183 propionate 0-08 ONE (1) [id number] 1 50 00:00: SPRAY(S) mcg/actuati 00 INTO EACH on nasal NOSTRIL spray TWICE A DAY. lamoTRIgine 2019-10 Yes TAKE ONE BEVERAGE SERVER I:183 25 mg 0-08 (1) [id number] tablet 00:00: TABLET(S) 00 BY MOUTH ONCE A DAY FOR 14 DAYS, THEN TAKE TWO (2) TABLETS FOR 14 DAYS, THEN FOUR (4) TABLETS FOR 14 DAYS. carvediloL 2019- Yes 6.25mg Take 6.25 NPI:183 6.25 mg 0-08 mg by [id number] tablet 00:00: mouth 2 00 (two) times daily. loratadine 2019-10 Yes 10mg Take 10 mg N PI:183 10 mg 0-08 by mouth [id number] tablet 00:00: daily. 00 fluticasone 2019- Yes INSTILL NPI :183 propionate 0-08 ONE (1) [id number] 1 50 00:00: SPRAY(S) mcg/actuati 00 INTO EACH on nasal NOSTRIL spray TWICE A DAY. lamoTRIgine 2019-10 Yes TAKE ONE BEVERAGE SERVER I:183 25 mg 0-08 (1) [id number] tablet 00:00: TABLET(S) 00 BY MOUTH ONCE A DAY FOR 14 DAYS, THEN TAKE TWO (2) TABLETS FOR 14 DAYS, THEN FOUR (4) TABLETS FOR 14 DAYS. carvediloL 2020- Yes 6.25mg Take 6.25 NPI:183 6.25 mg 0-08 mg by [id number] tablet 00:00: mouth 2 00 (two) times daily. loratadine 2019- Yes 10mg Take 10 mg N PI:183 10 mg 0-08 by mouth [id number] tablet 00:00: daily. 00 fluticasone 2019- Yes INSTILL NPI :183 propionate 0-08 ONE (1) [id number] 1 50 00:00: SPRAY(S) mcg/actuati 00 INTO EACH on nasal NOSTRIL spray TWICE A DAY. lamoTRIgine 2019- Yes TAKE ONE BEVERAGE SERVER I:183 25 mg 0-08 (1) [id number] tablet 00:00: TABLET(S) 00 BY MOUTH ONCE A DAY FOR 14 DAYS, THEN TAKE TWO (2) TABLETS FOR 14 DAYS, THEN FOUR (4) TABLETS FOR 14 DAYS. carvediloL 2019- Yes 6.25mg Take 6.25 NPI:183 6.25 mg 0-08 mg by [id number] tablet 00:00: mouth 2 00 (two) times daily. loratadine 2019- Yes 10mg Take 10 mg N PI:183 10 mg 0-08 by mouth [id number] tablet 00:00: daily. 00 fluticasone 2019- Yes INSTILL NPI :183 propionate 0-08 ONE (1) [id number] 1 50 00:00: SPRAY(S) mcg/actuati 00 INTO EACH on nasal NOSTRIL spray TWICE A DAY. lamoTRIgine 2019- Yes TAKE ONE BEVERAGE SERVER I:183 25 mg 0-08 (1) [id number] tablet 00:00: TABLET(S) 00 BY MOUTH ONCE A DAY FOR 14 DAYS, THEN TAKE TWO (2) TABLETS FOR 14 DAYS, THEN FOUR (4) TABLETS FOR 14 DAYS. carvediloL 2020- Yes 6.25mg Take 6.25 NPI:183 6.25 mg 0-08 mg by [id number] tablet 00:00: mouth 2 00 (two) times daily. loratadine 2019- Yes 10mg Take 10 mg N PI:183 10 mg 0-08 by mouth [id number] tablet 00:00: daily. 00 fluticasone 2019- Yes INSTILL NPI :183 propionate 0-08 ONE (1) [id number] 1 50 00:00: SPRAY(S) mcg/actuati 00 INTO EACH on nasal NOSTRIL spray TWICE A DAY. 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 carvediloL 2020- Yes 6.25mg Take 6.25 NPI:183 6.25 mg 0-08 mg by [id number] tablet 00:00: mouth 2 00 (two) times daily. loratadine 2019- Yes 10mg Take 10 mg N PI:183 10 mg 0-08 by mouth [id number] tablet 00:00: daily. 00 fluticasone 2019- Yes INSTILL NPI :183 propionate 0-08 ONE (1) [id number] 1 50 00:00: SPRAY(S) mcg/actuati 00 INTO EACH on nasal NOSTRIL spray TWICE A DAY. lamoTRIgine 2019-10 Yes TAKE ONE BEVERAGE SERVER I:183 25 mg 0-08 (1) [id number] tablet 00:00: TABLET(S) 00 BY MOUTH ONCE A DAY FOR 14 DAYS, THEN TAKE TWO (2) TABLETS FOR 14 DAYS, THEN FOUR (4) TABLETS FOR 14 DAYS. carvediloL 2019- Yes 6.25mg Take 6.25 NPI:183 6.25 mg 0-08 mg by [id number] tablet 00:00: mouth 2 00 (two) times daily. loratadine 2019- Yes 10mg Take 10 mg N PI:183 10 mg 0-08 by mouth [id number] tablet 00:00: daily. 00 fluticasone 2019- Yes INSTILL NPI :183 propionate 0-08 ONE (1) [id number] 1 50 00:00: SPRAY(S) mcg/actuati 00 INTO EACH on nasal NOSTRIL spray TWICE A DAY. lamoTRIgine 2019- Yes TAKE ONE BEVERAGE SERVER I:183 25 mg 0-08 (1) [id number] tablet 00:00: TABLET(S) 00 BY MOUTH ONCE A DAY FOR 14 DAYS, THEN TAKE TWO (2) TABLETS FOR 14 DAYS, THEN FOUR (4) TABLETS FOR 14 DAYS. carvediloL 2020- Yes 6.25mg Take 6.25 NPI:183 6.25 mg 0-08 mg by [id number] tablet 00:00: mouth 2 00 (two) times daily. loratadine 2019- Yes 10mg Take 10 mg N PI:183 10 mg 0-08 by mouth [id number] tablet 00:00: daily. 00 fluticasone 2019- Yes INSTILL NPI :183 propionate 0-08 ONE (1) [id number] 1 50 00:00: SPRAY(S) mcg/actuati 00 INTO EACH on nasal NOSTRIL spray TWICE A DAY. lamoTRIgine 2019-10 Yes TAKE ONE BEVERAGE SERVER I:183 25 mg 0-08 (1) [id number] tablet 00:00: TABLET(S) 00 BY MOUTH ONCE A DAY FOR 14 DAYS, THEN TAKE TWO (2) TABLETS FOR 14 DAYS, THEN FOUR (4) TABLETS FOR 14 DAYS. carvediloL 2019- Yes 6.25mg Take 6.25 NPI:183 6.25 mg 0-08 mg by [id number] tablet 00:00: mouth 2 00 (two) times daily. loratadine 2019- Yes 10mg Take 10 mg N PI:183 10 mg 0-08 by mouth [id number] tablet 00:00: daily. 00 fluticasone 2019- Yes INSTILL NPI :183 propionate 0-08 ONE (1) [id number] 1 50 00:00: SPRAY(S) mcg/actuati 00 INTO EACH on nasal NOSTRIL spray TWICE A DAY. lamoTRIgine 2019- Yes TAKE ONE BEVERAGE SERVER I:183 25 mg 0-08 (1) [id number] tablet 00:00: TABLET(S) 00 BY MOUTH ONCE A DAY FOR 14 DAYS, THEN TAKE TWO (2) TABLETS FOR 14 DAYS, THEN FOUR (4) TABLETS FOR 14 DAYS. carvediloL 2019- Yes 6.25mg Take 6.25 NPI:183 6.25 mg 0-08 mg by [id number] tablet 00:00: mouth 2 00 (two) times daily. loratadine 2020- Yes 10mg Take 10 mg N PI:183 10 mg 0-08 by mouth [id number] tablet 00:00: daily. 00 fluticasone 2020- Yes INSTILL NPI :183 propionate 0-08 ONE (1) [id number] 1 50 00:00: SPRAY(S) mcg/actuati 00 INTO EACH on nasal NOSTRIL spray TWICE A DAY. lamoTRIgine 2019-10 Yes TAKE ONE BEVERAGE SERVER I:183 25 mg 0-08 (1) [id number] tablet 00:00: TABLET(S) 00 BY MOUTH ONCE A DAY FOR 14 DAYS, THEN TAKE TWO (2) TABLETS FOR 14 DAYS, THEN FOUR (4) TABLETS FOR 14 DAYS. carvediloL 2019-10 Yes 6.25mg Take 6.25 NPI:183 6.25 mg 0-08 mg by [id number] tablet 00:00: mouth 2 00 (two) times daily. loratadine 2019-10 Yes 10mg Take 10 mg N PI:183 10 mg 0-08 by mouth [id number] tablet 00:00: daily. 00 fluticasone 2019-10 Yes INSTILL NPI :183 propionate 0-08 ONE (1) [id number] 1 50 00:00: SPRAY(S) mcg/actuati 00 INTO EACH on nasal NOSTRIL spray TWICE A DAY. lamoTRIgine 2019-10 Yes TAKE ONE BEVERAGE SERVER I:183 25 mg 0-08 (1) [id number] tablet 00:00: TABLET(S) 00 BY MOUTH ONCE A DAY FOR 14 DAYS, THEN TAKE TWO (2) TABLETS FOR 14 DAYS, THEN FOUR (4) TABLETS FOR 14 DAYS. carvediloL 2019-10 Yes 6.25mg Take 6.25 NPI:183 6.25 mg 0-08 mg by [id number] tablet 00:00: mouth 2 00 (two) times daily. loratadine 2019-10 Yes 10mg Take 10 mg N PI:183 10 mg 0-08 by mouth [id number] tablet 00:00: daily. 00 fluticasone 2019- Yes INSTILL NPI :183 propionate 0-08 ONE (1) [id number] 1 50 00:00: SPRAY(S) mcg/actuati 00 INTO EACH on nasal NOSTRIL spray TWICE A DAY. lamoTRIgine 2019-10 Yes TAKE ONE B[employer]AGE SERVER I:183 25 mg 0-08 (1) [id number] tablet 00:00: TABLET(S) 00 BY MOUTH ONCE A DAY FOR 14 DAYS, THEN TAKE TWO (2) TABLETS FOR 14 DAYS, THEN FOUR (4) TABLETS FOR 14 DAYS. carvediloL 2019- Yes 6.25mg Take 6.25 NPI:183 6.25 mg 0-08 mg by [id number] tablet 00:00: mouth 2 00 (two) times daily. loratadine 2019-10 Yes 10mg Take 10 mg N PI:183 10 mg 0-08 by mouth [id number] tablet 00:00: daily. 00 fluticasone 2019-10 Yes INSTILL NPI :183 propionate 0-08 ONE (1) [id number] 1 50 00:00: SPRAY(S) mcg/actuati 00 INTO EACH on nasal NOSTRIL spray TWICE A DAY. lamoTRIgine 2019-10 Yes TAKE ONE B[employer]AGE SERVER I:183 25 mg 0-08 (1) [id number] tablet 00:00: TABLET(S) 00 BY MOUTH ONCE A DAY FOR 14 DAYS, THEN TAKE TWO (2) TABLETS FOR 14 DAYS, THEN FOUR (4) TABLETS FOR 14 DAYS. carvediloL 2019-10 Yes 6.25mg Take 6.25 NPI:183 6.25 mg 0-08 mg by [id number] tablet 00:00: mouth 2 00 (two) times daily. loratadine 2019-10 Yes 10mg Take 10 mg N PI:183 10 mg 0-08 by mouth [id number] tablet 00:00: daily. 00 fluticasone 2019- Yes INSTILL NPI :183 propionate 0-08 ONE (1) [id number] 1 50 00:00: SPRAY(S) mcg/actuati 00 INTO EACH on nasal NOSTRIL spray TWICE A DAY. lamoTRIgine 2019-10 Yes TAKE ONE B[employer]AGE SERVER I:183 25 mg 0-08 (1) [id number] tablet 00:00: TABLET(S) 00 BY MOUTH ONCE A DAY FOR 14 DAYS, THEN TAKE TWO (2) TABLETS FOR 14 DAYS, THEN FOUR (4) TABLETS FOR 14 DAYS. carvediloL 2019- Yes 6.25mg Take 6.25 NPI:183 6.25 mg 0-08 mg by [id number] tablet 00:00: mouth 2 00 (two) times daily. loratadine 2019-10 Yes 10mg Take 10 mg N PI:183 10 mg 0-08 by mouth [id number] tablet 00:00: daily. 00 fluticasone 2019- Yes INSTILL NPI :183 propionate 0-08 ONE (1) [id number] 1 50 00:00: SPRAY(S) mcg/actuati 00 INTO EACH on nasal NOSTRIL spray TWICE A DAY. lamoTRIgine 2019- Yes TAKE ONE B[employer]AGE SERVER I:183 25 mg 0-08 (1) [id number] tablet 00:00: TABLET(S) 00 BY MOUTH ONCE A DAY FOR 14 DAYS, THEN TAKE TWO (2) TABLETS FOR 14 DAYS, THEN FOUR (4) TABLETS FOR 14 DAYS. carvediloL 2019- Yes 6.25mg Take 6.25 NPI:183 6.25 mg 0-08 mg by [id number] tablet 00:00: mouth 2 00 (two) times daily. loratadine 2020- Yes 10mg Take 10 mg N PI:183 10 mg 0-08 by mouth [id number] tablet 00:00: daily. 00 fluticasone 2019- Yes INSTILL NPI :183 propionate 0-08 ONE (1) [id number] 1 50 00:00: SPRAY(S) mcg/actuati 00 INTO EACH on nasal NOSTRIL spray TWICE A DAY. lamoTRIgine 2019-10 Yes TAKE ONE B[employer]AGE SERVER I:183 25 mg 0-08 (1) [id number] tablet 00:00: TABLET(S) 00 BY MOUTH ONCE A DAY FOR 14 DAYS, THEN TAKE TWO (2) TABLETS FOR 14 DAYS, THEN FOUR (4) TABLETS FOR 14 DAYS. carvediloL 2019- Yes 6.25mg Take 6.25 NPI:183 6.25 mg 0-08 mg by [id number] tablet 00:00: mouth 2 00 (two) times daily. loratadine 2019- Yes 10mg Take 10 mg N PI:183 10 mg 0-08 by mouth [id number] tablet 00:00: daily. 00 fluticasone 2019- Yes INSTILL NPI :183 propionate 0-08 ONE (1) [id number] 1 50 00:00: SPRAY(S) mcg/actuati 00 INTO EACH on nasal NOSTRIL spray TWICE A DAY. lamoTRIgine 2019- Yes TAKE ONE BEVERAGE SERVER I:183 25 mg 0-08 (1) [id number] tablet 00:00: TABLET(S) 00 BY MOUTH ONCE A DAY FOR 14 DAYS, THEN TAKE TWO (2) TABLETS FOR 14 DAYS, THEN FOUR (4) TABLETS FOR 14 DAYS. carvediloL 2019- Yes 6.25mg Take 6.25 NPI:183 6.25 mg 0-08 mg by [id number] tablet 00:00: mouth 2 00 (two) times daily. loratadine 2019- Yes 10mg Take 10 mg N PI:183 10 mg 0-08 by mouth [id number] tablet 00:00: daily. 00 fluticasone 2019-10 Yes INSTILL NPI :183 propionate 0-08 ONE (1) [id number] 1 50 00:00: SPRAY(S) mcg/actuati 00 INTO EACH on nasal NOSTRIL spray TWICE A DAY. lamoTRIgine 2019-10 Yes TAKE ONE B[employer]AGE SERVER I:183 25 mg 0-08 (1) [id number] tablet 00:00: TABLET(S) 00 BY MOUTH ONCE A DAY FOR 14 DAYS, THEN TAKE TWO (2) TABLETS FOR 14 DAYS, THEN FOUR (4) TABLETS FOR 14 DAYS. carvediloL 2019-10 Yes 6.25mg Take 6.25 NPI:183 6.25 mg 0-08 mg by [id number] tablet 00:00: mouth 2 00 (two) times daily. loratadine 2019-10 Yes 10mg Take 10 mg N PI:183 10 mg 0-08 by mouth [id number] tablet 00:00: daily. 00 fluticasone 2019-10 Yes INSTILL NPI :183 propionate 0-08 ONE (1) [id number] 1 50 00:00: SPRAY(S) mcg/actuati 00 INTO EACH on nasal NOSTRIL spray TWICE A DAY. lamoTRIgine 2019-10 Yes TAKE ONE B[employer]AGE SERVER I:183 25 mg 0-08 (1) [id number] tablet 00:00: TABLET(S) 00 BY MOUTH ONCE A DAY FOR 14 DAYS, THEN TAKE TWO (2) TABLETS FOR 14 DAYS, THEN FOUR (4) TABLETS FOR 14 DAYS. carvediloL 2019-10 Yes 6.25mg Take 6.25 NPI:183 6.25 mg 0-08 mg by [id number] tablet 00:00: mouth 2 00 (two) times daily. loratadine 2019-10 Yes 10mg Take 10 mg N PI:183 10 mg 0-08 by mouth [id number] tablet 00:00: daily. 00 fluticasone 2019- Yes INSTILL NPI :183 propionate 0-08 ONE (1) [id number] 1 50 00:00: SPRAY(S) mcg/actuati 00 INTO EACH on nasal NOSTRIL spray TWICE A DAY. lamoTRIgine 2019- Yes TAKE ONE BEVERAGE SERVER I:183 25 mg 0-08 (1) [id number] tablet 00:00: TABLET(S) 00 BY MOUTH ONCE A DAY FOR 14 DAYS, THEN TAKE TWO (2) TABLETS FOR 14 DAYS, THEN FOUR (4) TABLETS FOR 14 DAYS. carvediloL 2020- Yes 6.25mg Take 6.25 NPI:183 6.25 mg 0-08 mg by [id number] tablet 00:00: mouth 2 00 (two) times daily. loratadine 2019- Yes 10mg Take 10 mg N PI:183 10 mg 0-08 by mouth [id number] tablet 00:00: daily. 00 fluticasone 2019- Yes INSTILL NPI :183 propionate 0-08 ONE (1) [id number] 1 50 00:00: SPRAY(S) mcg/actuati 00 INTO EACH on nasal NOSTRIL spray TWICE A DAY. lamoTRIgine 2019-10 Yes TAKE ONE BEVERAGE SERVER I:183 25 mg 0-08 (1) [id number] tablet 00:00: TABLET(S) 00 BY MOUTH ONCE A DAY FOR 14 DAYS, THEN TAKE TWO (2) TABLETS FOR 14 DAYS, THEN FOUR (4) TABLETS FOR 14 DAYS. carvediloL 2019- Yes 6.25mg Take 6.25 NPI:183 6.25 mg 0-08 mg by [id number] tablet 00:00: mouth 2 00 (two) times daily. loratadine 2020- Yes 10mg Take 10 mg N PI:183 10 mg 0-08 by mouth [id number] tablet 00:00: daily. 00 fluticasone 2019- Yes INSTILL NPI :183 propionate 0-08 ONE (1) [id number] 1 50 00:00: SPRAY(S) mcg/actuati 00 INTO EACH on nasal NOSTRIL spray TWICE A DAY. lamoTRIgine 2019- Yes TAKE ONE B[employer]AGE SERVER I:183 25 mg 0-08 (1) [id number] tablet 00:00: TABLET(S) 00 BY MOUTH ONCE A DAY FOR 14 DAYS, THEN TAKE TWO (2) TABLETS FOR 14 DAYS, THEN FOUR (4) TABLETS FOR 14 DAYS. carvediloL 2019- Yes 6.25mg Take 6.25 NPI:183 6.25 mg 0-08 mg by [id number] tablet 00:00: mouth 2 00 (two) times daily. loratadine 2019- Yes 10mg Take 10 mg N PI:183 10 mg 0-08 by mouth [id number] tablet 00:00: daily. 00 fluticasone 2019- Yes INSTILL NPI :183 propionate 0-08 ONE (1) [id number] 1 50 00:00: SPRAY(S) mcg/actuati 00 INTO EACH on nasal NOSTRIL spray TWICE A DAY. carvediloL 2019-10 Yes 6.25mg Take 6.25 NPI:183 6.25 mg 0-08 mg by [id number] tablet 00:00: mouth 2 00 (two) times daily. loratadine 2019-10 Yes 10mg Take 10 mg N PI:183 10 mg 0-08 by mouth [id number] tablet 00:00: daily. 00 fluticasone 2019-10 Yes INSTILL NPI :183 propionate 0-08 ONE (1) [id number] 1 50 00:00: SPRAY(S) mcg/actuati 00 INTO EACH on nasal NOSTRIL spray TWICE A DAY. carvediloL 2019-10 Yes 6.25mg Take 6.25 NPI:183 6.25 mg 0-08 mg by [id number] tablet 00:00: mouth 2 00 (two) times daily. loratadine 2019-10 Yes 10mg Take 10 mg N PI:183 10 mg 0-08 by mouth [id number] tablet 00:00: daily. 00 fluticasone 2019-10 Yes INSTILL NPI :183 propionate 0-08 ONE (1) [id number] 1 50 00:00: SPRAY(S) mcg/actuati 00 INTO EACH on nasal NOSTRIL spray TWICE A DAY. carvediloL 2019-10 Yes 6.25mg Take 6.25 NPI:183 6.25 mg 0-08 mg by [id number] tablet 00:00: mouth 2 00 (two) times daily. loratadine 2019-10 Yes 10mg Take 10 mg N PI:183 10 mg 0-08 by mouth [id number] tablet 00:00: daily. 00 fluticasone 2019- Yes INSTILL NPI :183 propionate 0-08 ONE (1) [id number] 1 50 00:00: SPRAY(S) mcg/actuati 00 INTO EACH on nasal NOSTRIL spray TWICE A DAY. carvediloL 2019- Yes 6.25mg Take 6.25 NPI:183 6.25 mg 0-08 mg by [id number] tablet 00:00: mouth 2 00 (two) times daily. loratadine 2019- Yes 10mg Take 10 mg N PI:183 10 mg 0-08 by mouth [id number] tablet 00:00: daily. 00 fluticasone 2019- Yes INSTILL NPI :183 propionate 0-08 ONE (1) [id number] 1 50 00:00: SPRAY(S) mcg/actuati 00 INTO EACH on nasal NOSTRIL spray TWICE A DAY. carvediloL 2019- Yes 6.25mg Take 6.25 NPI:183 6.25 mg 0-08 mg by [id number] tablet 00:00: mouth 2 00 (two) times daily. loratadine 2019-10 Yes 10mg Take 10 mg N PI:183 10 mg 0-08 by mouth [id number] tablet 00:00: daily. 00 fluticasone 2019- Yes INSTILL NPI :183 propionate 0-08 ONE (1) [id number] 1 50 00:00: SPRAY(S) mcg/actuati 00 INTO EACH on nasal NOSTRIL spray TWICE A DAY. carvediloL 2019- Yes 6.25mg Take 6.25 NPI:183 6.25 mg 0-08 mg by [id number] tablet 00:00: mouth 2 00 (two) times daily. loratadine 2019-10 Yes 10mg Take 10 mg N PI:183 10 mg 0-08 by mouth [id number] tablet 00:00: daily. 00 fluticasone 2019- Yes INSTILL NPI :183 propionate 0-08 ONE (1) [id number] 1 50 00:00: SPRAY(S) mcg/actuati 00 INTO EACH on nasal NOSTRIL spray TWICE A DAY. carvediloL 2019- Yes 6.25mg Take 6.25 NPI:183 6.25 mg 0-08 mg by [id number] tablet 00:00: mouth 2 00 (two) times daily. loratadine 2019-10 Yes 10mg Take 10 mg N PI:183 10 mg 0-08 by mouth [id number] tablet 00:00: daily. 00 fluticasone 2019- Yes INSTILL NPI :183 propionate 0-08 ONE (1) [id number] 1 50 00:00: SPRAY(S) mcg/actuati 00 INTO EACH on nasal NOSTRIL spray TWICE A DAY. lamoTRIgine 2019-10 Yes TAKE ONE BEVERAGE SERVER I:183 25 mg 0-08 (1) [id number] tablet 00:00: TABLET(S) 00 BY MOUTH ONCE A DAY FOR 14 DAYS, THEN TAKE TWO (2) TABLETS FOR 14 DAYS, THEN FOUR (4) TABLETS FOR 14 DAYS. lamoTRIgine 2019-10 2020- No TAKE ONE N PI:183 25 mg 0-08 09-13 (1) [id number] tablet 00:00: 00:00 TABLET(S) 00 :00 BY MOUTH ONCE A DAY FOR 14 DAYS, THEN TAKE TWO (2) TABLETS FOR 14 DAYS, THEN FOUR (4) TABLETS FOR 14 DAYS. ketorolac 2019- No 30mg 30 mg, NPI:1 83 (TORADOL) 07-05 Intramuscu 131 [id number] injection 21:45: 21:20 lar, ONCE, 30 mg 00 :00 1 dose, 07/05/20 at 1645, Routine
member services representative approving Restricted medication : KARLA NOGUERA diphenhydrA 2019- No 25mg 25 mg, NPI :183 MINE 07-05 Oral, [id number] (BENADRYL) 21:45: 21:19 ONCE, 1 tablet 25 00 :00 dose, Sat mg 07/05/20 at 1645, ZULEYMA butalbital- 2020- No 2{tbl} 2 tablet, NPI:183 acetaminoph 07-05 Oral, [id number] en-caff 20:45: 21:19 ONCE, 1 (ESGIC) 00 :00 dose, Sat 50-325-40 07/05/20 at mg tablet 2 1545, tablet Routine butalbital- 0 Yes [id number] 1{tbl} Take 1 NPI:183 acetaminoph 9-26 tablet by [id number] en-caff 00:00: mouth 50-325-40 00 every 4 mg tablet (four) hours as needed for Pain (scale 7-10). butalbital- 2019-0 Yes [id number] 1{tbl} Take 1 NPI:183 acetaminoph 9-26 tablet by [id number] en-caff 00:00: mouth 50-325-40 00 every 4 mg tablet (four) hours as needed for Pain (scale 7-10). butalbital- 2020-0 Yes [id number] 1{tbl} Take 1 NPI:183 acetaminoph 9-26 tablet by [id number] en-caff 00:00: mouth 50-325-40 00 every 4 mg tablet (four) hours as needed for Pain (scale 7-10). butalbital- 2020-0 Yes [id number] 1{tbl} Take 1 NPI:183 acetaminoph 9-26 tablet by [id number] en-caff 00:00: mouth 50-325-40 00 every 4 mg tablet (four) hours as needed for Pain (scale 7-10). butalbital- 2020-0 Yes [id number] 1{tbl} Take 1 NPI:183 acetaminoph 9-26 tablet by 131 [id number] en-caff 00:00: mouth 50-325-40 00 every 4 mg tablet (four) hours as needed for Pain (scale 7-10). butalbital- 2020-0 Yes [id number] 1{tbl} Take 1 NPI:183 acetaminoph 9-26 tablet by 131 [id number] en-caff 00:00: mouth 50-325-40 00 every 4 mg tablet (four) hours as needed for Pain (scale 7-10). butalbital- 2020-0 Yes [id number] 1{tbl} Take 1 NPI:183 acetaminoph 9-26 tablet by 131 [id number] en-caff 00:00: mouth 50-325-40 00 every 4 mg tablet (four) hours as needed for Pain (scale 7-10). butalbital- 2020-0 Yes [id number] 1{tbl} Take 1 NPI:183 acetaminoph 9-26 tablet by 131 [id number] en-caff 00:00: mouth 50-325-40 00 every 4 mg tablet (four) hours as needed for Pain (scale 7-10). butalbital- 2020-0 Yes [id number] 1{tbl} Take 1 NPI:183 acetaminoph 9-26 tablet by 131 [id number] en-caff 00:00: mouth 50-325-40 00 every 4 mg tablet (four) hours as needed for Pain (scale 7-10). butalbital- 2020-0 Yes [id number] 1{tbl} Take 1 NPI:183 acetaminoph 9-26 tablet by 131 [id number] en-caff 00:00: mouth 50-325-40 00 every 4 mg tablet (four) hours as needed for Pain (scale 7-10). butalbital- 2020-0 Yes [id number] 1{tbl} Take 1 NPI:183 acetaminoph 9-26 tablet by 131 [id number] en-caff 00:00: mouth 50-325-40 00 every 4 mg tablet (four) hours as needed for Pain (scale 7-10). butalbital- 2020-0 Yes [id number] 1{tbl} Take 1 NPI:183 acetaminoph 9-26 tablet by 131 [id number] en-caff 00:00: mouth 50-325-40 00 every 4 mg tablet (four) hours as needed for Pain (scale 7-10). butalbital- 2020-0 Yes [id number] 1{tbl} Take 1 NPI:183 acetaminoph 9-26 tablet by 131 [id number] en-caff 00:00: mouth 50-325-40 00 every 4 mg tablet (four) hours as needed for Pain (scale 7-10). butalbital- 2020-0 Yes [id number] 1{tbl} Take 1 NPI:183 acetaminoph 9-26 tablet by 131 [id number] en-caff 00:00: mouth 50-325-40 00 every 4 mg tablet (four) hours as needed for Pain (scale 7-10). butalbital- 2020-0 Yes [id number] 1{tbl} Take 1 NPI:183 acetaminoph 9-26 tablet by 131 [id number] en-caff 00:00: mouth 50-325-40 00 every 4 mg tablet (four) hours as needed for Pain (scale 7-10). butalbital- 2020-0 Yes [id number] 1{tbl} Take 1 NPI:183 acetaminoph 9-26 tablet by 131 [id number] en-caff 00:00: mouth 50-325-40 00 every 4 mg tablet (four) hours as needed for Pain (scale 7-10). butalbital- 2020-0 Yes [id number] 1{tbl} Take 1 NPI:183 acetaminoph 9-26 tablet by 131 [id number] en-caff 00:00: mouth 50-325-40 00 every 4 mg tablet (four) hours as needed for Pain (scale 7-10). butalbital- 2020-0 Yes [id number] 1{tbl} Take 1 NPI:183 acetaminoph 9-26 tablet by 131 [id number] en-caff 00:00: mouth 50-325-40 00 every 4 mg tablet (four) hours as needed for Pain (scale 7-10). butalbital- 2020-0 Yes [id number] 1{tbl} Take 1 NPI:183 acetaminoph 9-26 tablet by 131 [id number] en-caff 00:00: mouth 50-325-40 00 every 4 mg tablet (four) hours as needed for Pain (scale 7-10). butalbital- 2020-0 Yes [id number] 1{tbl} Take 1 NPI:183 acetaminoph 9-26 tablet by 131 [id number] en-caff 00:00: mouth 50-325-40 00 every 4 mg tablet (four) hours as needed for Pain (scale 7-10). butalbital- 2020-0 Yes [id number] 1{tbl} Take 1 NPI:183 acetaminoph 9-26 tablet by 131 [id number] en-caff 00:00: mouth 50-325-40 00 every 4 mg tablet (four) hours as needed for Pain (scale 7-10). butalbital- 2020-0 Yes [id number] 1{tbl} Take 1 NPI:183 acetaminoph 9-26 tablet by 131 [id number] en-caff 00:00: mouth 50-325-40 00 every 4 mg tablet (four) hours as needed for Pain (scale 7-10). butalbital- 2020-0 Yes [id number] 1{tbl} Take 1 NPI:183 acetaminoph 9-26 tablet by 131 [id number] en-caff 00:00: mouth 50-325-40 00 every 4 mg tablet (four) hours as needed for Pain (scale 7-10). butalbital- 2020-0 Yes [id number] 1{tbl} Take 1 NPI:183 acetaminoph 9-26 tablet by 131 [id number] en-caff 00:00: mouth 50-325-40 00 every 4 mg tablet (four) hours as needed for Pain (scale 7-10). butalbital- 2020-0 Yes [id number] 1{tbl} Take 1 NPI:183 acetaminoph 9-26 tablet by 131 [id number] en-caff 00:00: mouth 50-325-40 00 every 4 mg tablet (four) hours as needed for Pain (scale 7-10). butalbital- 2020-0 Yes [id number] 1{tbl} Take 1 NPI:183 acetaminoph 9-26 tablet by 131 8781 en-caff 00:00: mouth 50-325-40 00 every 4 mg tablet (four) hours as needed for Pain (scale 7-10). butalbital- 2020-0 Yes [id number] 1{tbl} Take 1 NPI:183 acetaminoph 9-26 tablet by 131 8781 en-caff 00:00: mouth 50-325-40 00 every 4 mg tablet (four) hours as needed for Pain (scale 7-10). butalbital- 2020-0 Yes [id number] 1{tbl} Take 1 NPI:183 acetaminoph 9-26 tablet by 131 8781 en-caff 00:00: mouth 50-325-40 00 every 4 mg tablet (four) hours as needed for Pain (scale 7-10). butalbital- 2020-0 Yes [id number] 1{tbl} Take 1 NPI:183 acetaminoph 9-26 tablet by 131 8781 en-caff 00:00: mouth 50-325-40 00 every 4 mg tablet (four) hours as needed for Pain (scale 7-10). butalbital- 2020-0 Yes [id number] 1{tbl} Take 1 NPI:183 acetaminoph 9-26 tablet by 131 8781 en-caff 00:00: mouth 50-325-40 00 every 4 mg tablet (four) hours as needed for Pain (scale 7-10). butalbital- 2020-0 Yes [id number] 1{tbl} Take 1 NPI:183 acetaminoph 9-26 tablet by 131 8781 en-caff 00:00: mouth 50-325-40 00 every 4 mg tablet (four) hours as needed for Pain (scale 7-10). butalbital- 2020-0 Yes [id number] 1{tbl} Take 1 NPI:183 acetaminoph 9-26 tablet by 131 [id number] en-caff 00:00: mouth 50-325-40 00 every 4 mg tablet (four) hours as needed for Pain (scale 7-10). butalbital- 2020-0 Yes [id number] 1{tbl} Take 1 NPI:183 acetaminoph 9-26 tablet by 131 [id number] en-caff 00:00: mouth 50-325-40 00 every 4 mg tablet (four) hours as needed for Pain (scale 7-10). butalbital- 2020-0 Yes [id number] 1{tbl} Take 1 NPI:183 acetaminoph 9-26 tablet by 131 [id number] en-caff 00:00: mouth 50-325-40 00 every 4 mg tablet (four) hours as needed for Pain (scale 7-10). butalbital- 2020-0 Yes [id number] 1{tbl} Take 1 NPI:183 acetaminoph 9-26 tablet by 131 8781 en-caff 00:00: mouth 50-325-40 00 every 4 mg tablet (four) hours as needed for Pain (scale 7-10). butalbital- 2020-0 Yes [id number] 1{tbl} Take 1 NPI:183 acetaminoph 9-26 tablet by 131 [id number] en-caff 00:00: mouth 50-325-40 00 every 4 mg tablet (four) hours as needed for Pain (scale 7-10). butalbital- 2020-0 Yes [id number] 1{tbl} Take 1 NPI:183 acetaminoph 9-26 tablet by 131 8781 en-caff 00:00: mouth 50-325-40 00 every 4 mg tablet (four) hours as needed for Pain (scale 7-10). butalbital- 2020-0 Yes [id number] 1{tbl} Take 1 NPI:183 acetaminoph 9-26 tablet by 131 8781 en-caff 00:00: mouth 50-325-40 00 every 4 mg tablet (four) hours as needed for Pain (scale 7-10). butalbital- 2019-0 Yes [id number] 1{tbl} Take 1 NPI:183 acetaminoph 9-26 tablet by 131 8781 en-caff 00:00: mouth 50-325-40 00 every 4 mg tablet (four) hours as needed for Pain (scale 7-10). butalbital- 2019-0 Yes [id number] 1{tbl} Take 1 NPI:183 acetaminoph 9-26 tablet by 131 8781 en-caff 00:00: mouth 50-325-40 00 every 4 mg tablet (four) hours as needed for Pain (scale 7-10). butalbital- 2019-0 Yes [id number] 1{tbl} Take 1 NPI:183 acetaminoph 9-26 tablet by [id number] en-caff 00:00: mouth 50-325-40 00 every 4 mg tablet (four) hours as needed for Pain (scale 7-10). Vital Signs Vital Name Observation Time Observation Value Comments Source Systolic blood pressure 2021-03-19 20:00:00 138 mm[Hg] Diastolic blood 2021-03-19 20:00:00 80 mm[Hg] NPI:1 [id number] pressure Heart rate 2021-03-19 20:00:00 72 /min NPI:1831 [id number] Respiratory rate 2021-03-19 20:00:00 19 /min Oxygen saturation in 2021-03-19 20:00:00 98 /min Arterial blood by Pulse oximetry Body temperature 2021-03-19 17:15:00 37.11 Mely Body weight 2021-03-19 17:15:00 104.327 kg NPI:183 [id number] BMI 2021-03-19 17:15:00 44.92 kg/m2 NPI:183 [id number] Systolic blood pressure 2021-02-12 00:55:00 173 mm[Hg] Diastolic blood 2021-02-12 00:55:00 82 mm[Hg] NPI:1 [id number] pressure Heart rate 2021-02-12 00:55:00 75 /min NPI:1831 [id number] Respiratory rate 2021-02-12 00:55:00 18 /min Oxygen saturation in 2021-02-12 00:55:00 100 /min Arterial blood by Pulse oximetry Body temperature 2021-02-12 00:30:45 37.06 Mely Body height 2021-02-11 23:35:00 152.4 cm NPI:1831 [id number] Body weight 2021-02-11 23:35:00 106.595 kg NPI:1831 [id number] BMI 2021-02-11 23:35:00 45.90 kg/m2 NPI:1831 [id number] Systolic blood pressure 2020-09-13 17:36:00 108 mm[Hg] Diastolic blood 2020-09-13 17:36:00 62 mm[Hg] NPI:1 [id number] pressure Body temperature 2020-09-13 17:36:00 36.94 Mely Respiratory rate 2020-09-13 17:36:00 18 /min Heart rate 2020-09-13 15:02:00 74 /min NPI:1831 [id number] Oxygen saturation in 2020-09-13 10:00:00 98 /min Arterial blood by Pulse oximetry Body height 2020-09-10 19:37:00 152.4 cm NPI:1831 [id number] Body weight 2020-09-10 19:37:00 106.6 kg NPI:1831 [id number] BMI 2020-09-10 19:37:00 45.90 kg/m2 NPI:1831 [id number] Systolic blood pressure 2020-08-15 15:53:00 144 mm[Hg] Diastolic blood 2020-08-15 15:53:00 84 mm[Hg] NPI:1 [id number] pressure Heart rate 2020-08-15 15:47:00 70 /min NPI:1831 [id number] Body temperature 2020-08-15 15:47:00 37.11 Mely Respiratory rate 2020-08-15 15:47:00 20 /min Body height 2020-08-15 15:47:00 152.4 cm NPI:1831 [id number] Body weight 2020-08-15 15:47:00 105.008 kg NPI:1831 [id number] BMI 2020-08-15 15:47:00 45.21 kg/m2 NPI:1831 [id number] Systolic blood pressure 2020-07-25 18:24:00 164 mm[Hg] Diastolic blood 2020-07-25 18:24:00 86 mm[Hg] NPI:1 [id number] pressure Body height 2020-07-25 18:21:00 152.4 cm NPI:1831 [id number] Body weight 2020-07-25 18:21:00 105.688 kg NPI:1831 086256 BMI 2020-07-25 18:21:00 45.50 kg/m2 NPI:1831 [id number] Heart rate 2020-07-25 18:21:00 76 /min NPI:1831 [id number] Body temperature 2020-07-25 18:21:00 37.06 Mely Respiratory rate 2020-07-25 18:21:00 20 /min Body temperature 2020-07-05 20:24:00 36.72 Mely Systolic blood pressure 2020-07-05 20:21:00 159 mm[Hg] Diastolic blood 2020-07-05 20:21:00 100 mm[Hg] NPI:1 [id number] pressure Heart rate 2020-07-05 20:21:00 76 /min NPI:1831 [id number] Respiratory rate 2020-07-05 20:21:00 18 /min Body height 2020-07-05 20:21:00 152.4 cm NPI:1831 880218 Body weight 2020-07-05 20:21:00 104.327 kg NPI:1831 645655 BMI 2020-07-05 20:21:00 44.92 kg/m2 NPI:1831 967398 Oxygen saturation in 2020-07-05 20:21:00 100 /min Arterial blood by Pulse oximetry Procedures Procedure Date / Time Performed Performing Clinician Sour e URINALYSIS 2021-03-19 19:50:00 MelodyArden NPI:[id number] TROPONIN I 2021-03-19 18:21:00 Melody Arden Tonya NPI:[id number] COMP. METABOLIC PANEL 2021-03-19 18:21:00 Arden Greenberg NPI:[id number] ([id number]) CBC WITH DIFF 2021-03-19 18:21:00 MelodyArden mcgill NPI:[id number] NOTICE OF PRIVACY PRACTICES 2021-03-19 16:59:38 Doctor Adinassigncarlos a del rosario, No Name CONSENT/REFUSAL FOR 2021-03-19 16:59:21 Doctor Unassigned, No BEVERAGE SERVER I:[id number] DIAGNOSIS AND TREATMENT Name NOTICE OF PRIVACY PRACTICES 2021-02-11 23:27:37 Doctor Marcos del rosario, No Name CONSENT/REFUSAL FOR 2021-02-11 23:26:02 Doctor Unassigned, No BEVERAGE SERVER I:[id number] DIAGNOSIS AND TREATMENT Name BASIC METABOLIC PANEL (NA, 2020-09-13 09:48:00 FishBert N PI:[id number] K, CL, CO2, GLUCOSE, BUN, CREATININE, CA) CBC WITH DIFF 2020-09-13 09:48:00 Bert Wright NPI:[id number] HB ABO GROUPING 2020-09-12 13:09:00 Bert Wright NPI:[id number] POCT TEST 2020-09-12 12:35:00 Olvin Tello NPI:1831 [id number] DAY SURGERY - ADC 2020-09-12 06:01:00 Doctor Unassigned, No Name INSURANCE CORRESPONDENCE 2020-09-10 06:01:00 Doctor Unassigned, No Name CONSENT/REFUSAL FOR 2020-09-08 19:49:10 Doctor Unassigned, No BEVERAGE SERVER I:[id number] DIAGNOSIS AND TREATMENT Name ASSIGNMENT OF BENEFITS 2020-09-08 19:48:57 Doctor Unassigned, No Name CONSENT/REFUSAL FOR 2020-09-08 19:48:11 Doctor Unassigned, No BEVERAGE SERVER I:[id number] DIAGNOSIS AND TREATMENT Name ASSIGNMENT OF BENEFITS 2020-09-08 19:47:57 Doctor Unassigned, No Name DISCLOSURE AND CONSENT 2020-09-02 06:01:00 Doctor Unassigned, No MEDICAL & SURGICAL Name PROCEDURES - HYSTEY BI ULTRASOUND BREAST 2020-08-29 21:09:13 Bert Wright NPI:[id number] LIMITED RIGHT BI DIAGNOSTIC TOMOSYNTHESIS 2020-08-29 20:32:18 Bert Wright RIGHT DISCLOSURE AND CONSENT, 2020-08-15 06:01:00 Doctor Unassigned, N o MEDICAL AND SURGICAL Name PROCEDURES POCT TEST 2020-08-15 00:00:00 Bert Wright NPI:1831 [id number] ASSIGNMENT OF BENEFITS 2020-08-11 20:05:02 Doctor Unassigned, No Name US PELVIS COMPLETE WITH 2020-08-08 16:22:02 Bert Wright TRANSVAGINAL EXTERNAL PROVIDER RECORDS 2020-08-06 05:01:00 Doctor Unassigned, No Name POCT TEST 2020-07-25 00:00:00 Bert Wright NPI:1831 [id number] REFERRAL- REQUEST/RESPONSE 2020-07-22 05:01:00 Doctor Unassigned , No Name NOTICE OF PRIVACY PRACTICES 2020-07-05 20:13:18 Doctor Unassigne d, No Name Encounters Start End Encounter Admission Attending Care Care Encounter Source Date/Time Date/Time Type Type Clinicians Facility Department ID 2021-08-10 Emergency [facility] [id number] NPI:183 00:25:39 [id number] 5883-10-31 Emergency [facility] [id number] NPI:183 17:23:52 [id number] 7714-10-30 Outpatient R BERT WRIGHT [facility] LEONEL [id number] NPI:183 08:34:29 [id number] 2840-12-13 2021-09-21 Outpatient R BERT WRIGHT [facility] [id number] NPI:183 09:00:00 09:00:00 132226 [id number] 1 2021-09-21 2021-09-21 Outpatient R BERT WRIGHT [facility] [id number] NPI:183 09:00:00 09:00:00 [id number] 1 2021-09-15 2021-09-15 Pre Visit CARLOS EDUARDO [place] 1.2.537.070 [id number] NPI:183 00:00:00 00:00:00 Outreach Teresa CALLAWAY 350.1.13.10 1 [id number] [place] 4.2.7.2.686 [id number] 086 2021-03-19 2021-03-19 Emergency Arden Greenberg [facility] 1.2.840.114 [id number] NPI:183 12:16:00 16:23:00 Tonya Estrellaton 350.1.13.10 1 [id number] [place] 4.2.7.2.686 [place] [id number] 084 2021-02-11 2021-02-11 Emergency Singer [facility] 1.2.458.672 [id number] NPI:183 18:40:00 19:58:00 Chetan Lakhani 350.1.13.10 1 [id number] [place] 4.2.7.2.686 [place] [id number] 084 2020-12-25 2020-12-25 Patient Norbert [facility] 1.2.840.114 [id number] NPI:183 00:00:00 00:00:00 Outreach Sander SIMPSON 350.1.13.10 1 [id number] [facility] 4.2.7.2.686 [place] [id number] 388 2020-12-16 2020-12-16 Outpatient BERT WRIGHT [facility] [id number] NPI:183 11:00:00 11:00:00 [id number] 1 2020-12-16 2020-12-16 Outpatient R BERT WRIGHT [facility] [id number] NPI:183 00:00:00 00:00:00 [id number] 1 2020-10-29 2020-10-29 Outpatient R BERT WRIGHT [facility] [id number] NPI:183 15:30:00 15:30:00 [id number] 1 2020-10-29 2020-10-29 Outpatient R BERT WRIGHT [facility] [id number] NPI:183 15:30:00 15:30:00 [id number] 1 2020-10-13 2020-10-13 Outpatient R BERT WRIGHT [facility] 394 [id number]-20 NPI:183 15:30:00 15:30:00 [id number] 1 2020-10-13 2020-10-13 Outpatient R BERT WRIGHT [facility] [id number] NPI:183 15:30:00 15:30:00 [id number] 1 2020-09-29 2020-09-29 Outpatient R BERT WRIGHT [facility] [id number] NPI:183 15:00:00 15:00:00 [id number] 1 2020-09-29 2020-09-29 Outpatient R BERT WRIGHT [facility] [id number] NPI:183 15:00:00 15:00:00 [id number] 1 2020-09-18 2020-09-18 Nurse Megan Pacheco 1.2.840.114 [id number] NPI:183 00:00:00 00:00:00 Triage HARSHA 350.1.13.[id number] [id number] 019 2020-09-12 2020-09-13 [facility] Bert Wright [facility] 1.2.840.114 [id number] NPI:183 06:45:00 13:10:[address].1.13.[id number] [place] [id number] 083 2020-09-12 2020-09-12 Orders Doctor VANESA 1.2.840.114 [id number] NPI:183 00:00:00 00:00:00 Only Unassigned, HARSHA 350.1.13.10 [id number] [place] [address].2.7.2.686 [id number] 009 2020-09-11 2020-09-11 Outpatient R [facility] [id number] NPI:183 10:30:00 10:30:00 [id number] 1 2020-09-10 2020-09-10 Forging Die Sinker Erik, Katt Lab Main [facility] 1.2.8 40.114 [id number] NPI:183 10:03:06 10:18:06 Visit Bert Wright 350.1.13.10 [id number] [place] 4.2.7.2.686 Professio [id number] [address] 2020-09-10 2020-09-10 Outpatient R [facility] [id number] -[id number] NPI:183 10:00:00 10:00:00 [id number] 2020-09-10 2020-09-10 Outpatient R BERT WRIGHT [facility] [id number] NPI:183 10:00:00 10:00:00 [id number] 1 2020-09-10 2020-09-10 Orders Doctor ALEXSI 1.2.840.114 [id number] NPI:183 00:00:00 00:00:00 Only UnassignedHARSHA 350.1.13.10 [id number] [place] [facility] 4.2.7.2.686 [id number] 009 2020-09-09 2020-09-09 Outpatient R BERT WRIGHT [facility] [id number]-20 NPI:183 15:30:00 15:30:00 [id number] 2020-09-08 2020-09-08 Laboratory Lab, Adc Fam Pob I [facility] 1.2. 840.114 [id number] NPI:183 13:17:01 13:42:36 Only Nikki Cristobal [facility] [address].1.13.[id number] 4.2.7.2.686 Professio [id number] [place] [address] [address] 2020-09-08 2020-09-08 Outpatient R [facility] [id number] -[id number] NPI:183 13:20:00 13:20:00 [id number] 1 2020-09-08 2020-09-08 Outpatient R LEVAR [facility] [id number] NPI:183 13:20:00 13:20:00 NIKKI [id number] 1 2020-09-08 2020-09-08 Letter Doctor ALEXIS 1.2.840.114 [id number] NPI:183 00:00:00 00:00:00 (Out) Unassigned, HARSHA 350.1.13.10 [id number] [place] [facility] 2.7.2.686 [id number] 044 2020-09-02 2020-09-02 Outpatient BERT WRIGHT [facility] [id number] NPI:183 10:00:00 10:00:00 [id number] 1 2020-09-02 2020-09-02 Outpatient R BERT WRIGHT [facility] [id number] NPI:183 10:00:00 10:00:00 [id number] 1 2020-09-02 2020-09-02 Orders Doctor VANESA 1.2.840.114 [id number] NPI:183 00:00:00 00:00:00 Only Unassigned, HARSHA 350.1.13.10 [id number] [place] [address].2.7.2.686 [id number] 009 2020-08-31 2020-08-31 Case Bert Wright [facility] 1.2.840.114 [id number] NPI:183 00:00:00 00:00:[address] 350.1.13.10 [id number] [place] 4.2.7.2.686 [facility] [id number] [address] 2020-08-29 2020-08-29 [facility] Bert Wright [facility] 1.2.840.114 [id number] NPI:183 14:02:56 23:59:00 Encounter SPECIALTY 350.1.13.10 [id number] CARE 4.2.7.2.686 CENTER AT [id number] [address] 2020-08-29 2020-08-29 Outpatient R BERT WRIGHT [facility] [id number] NPI:183 14:30:00 14:30:00 [id number] 1 2020-08-29 2020-08-29 [facility] Bert Wright [facility] 1.2.840.114 [id number] NPI:183 14:01:51 14:01:51 Encounter SPECIALTY 350.1.13.10 [id number] CARE 4.2.7.2.686 CENTER AT [id number] [address] 2020-08-29 2020-08-29 Outpatient R BERT WRIGHT [facility] [id number] NPI:183 00:00:00 00:00:00 [id number] 1 2020-08-22 2020-08-22 Telephone Bert Wright [facility] 1.2.840.114 [id number] NPI:183 00:00:00 00:00:[address] 350.1.13.10 1 [id number] [place] 4.2.7.2.686 [place] [id number] [address] 2020-08-20 2020-08-20 Bert Sharma [facility] 1.2.840.114 [id number] NPI:183 00:00:00 00:00:[address] 350.1.13.10 1 [id number] [place] 4.2.7.2.686 [place] [id number] [address] 2020-08-15 2020-08-15 Office Bert Wright [facility] 1.2.840.114 [id number] NPI:183 09:25:49 10:17:[address] 350.1.13.10 1 [id number] [place] 4.2.7.2.686 [place] [id number] [address] 2020-08-15 2020-08-15 Outpatient R BERT WRIGHT [facility] [id number]-20 NPI:183 09:30:00 09:30:00 [id number] 1 2020-08-15 2020-08-15 Outpatient R BERT WRIGHT [facility] [id number] NPI:183 09:30:00 09:30:00 [id number] 1 2020-08-15 2020-08-15 Telephone Nancy DEHEMA 1.2.840.114 [id number] NPI:183 00:00:00 00:00:[address] 350.1.13.10 [id number] [place] 4.2.7.2.686 [place] [id number] [address] 2020-08-15 2020-08-15 Telephone Bert Wright [facility] 1.2.840.114 [id number] NPI:183 00:00:00 00:00:[address] 350.1.13.10 1 [id number] [place] 4.2.7.2.686 Profess[place] [phone] critical access hospital [address] [facility] 2020-08-15 2020-08-15 Orders Doctor VANESA 1.2.840.114 [id number] NPI:183 00:00:00 00:00:00 Only Unassigned, HARSHA 350.1.13.10 [id number] [place] [facility] 4.2.7.2.686 [id number] 009 2020-08-11 2020-08-11 Forging Die Sinker Erik, Adc Lab Main [facility] 1.2.8 40.114 [id number] NPI:183 14:09:38 14:24:38 Visit Bert Wright 350.1.13.10 [id number] [place] 4.2.7.2.686 [facility] [id number] [address] 2020-08-11 2020-08-11 Outpatient R [facility] [id number] -[id number] NPI:183 13:45:00 13:45:00 [id number] 1 2020-08-11 2020-08-11 Outpatient R BERT WRIGHT [facility] [id number] NPI:183 13:45:00 13:45:00 [id number] 1 2020-08-11 2020-08-11 Telephone Bert Wright [facility] 1.2.840.114 [id number] NPI:183 00:00:00 00:00:[address] 350.1.13.10 1 [id number] [place] 4.2.7.2.686 [facility] [id number] [facility] hospital [facility] 2020-08-11 2020-08-11 Orders Doctor VANESA 1.2.840.114 [id number] NPI:183 00:00:00 00:00:00 Only Unassigned, HARSHA 350.1.13.10 [id number] [place] [facility] 4.2.7.2.686 [id number] 009 2020-08-08 2020-08-08 Hospital Bert Wright [facility] 1.2.840.114 [id number] NPI:183 10:00:00 23:59:[address] 350.1.13.10 [id number] [place] 4.2.7.2.686 [place] [id number] [id number] 2020-08-08 2020-08-08 Outpatient R BERT WRIGHT [facility] [id number]-20 NPI:183 00:00:00 00:00:00 [id number] 1 2020-08-08 2020-08-08 Outpatient R BERT WRIGHT [facility] [id number] NPI:183 00:00:00 00:00:00 [id number] 1 2020-08-08 2020-08-08 Case Bert Wright [facility] 1.2.840.114 [id number] NPI:183 00:00:00 00:00:[address] 350.1.13.10 [id number] [place] 4.2.7.2.686 [place] [id number] 083 2020-08-07 2020-08-07 [facility] Bert Wright [facility] 1.2.840.114 [id number] NPI:183 12:25:11 23:59:[address] 350.1.13.10 [id number] [place] 4.2.7.2.686 [place] [id number] 2020-08-07 2020-08-07 Outpatient R BERT WRIGHT [facility] [id number] NPI:183 12:40:00 12:40:00 [id number] 1 2020-08-07 2020-08-07 Outpatient R BERT WRIGHT [facility] [id number]-20 NPI:183 00:00:00 00:00:00 [id number] 1 2020-08-06 2020-08-06 Orders Doctor VANESA 1.2.840.114 [id number] NPI:183 00:00:00 00:00:00 Only Unassigned, HARSHA 350.1.13.10 [id number] [place] [address].2.7.2.686 [id number] 009 2020-08-01 2020-08-01 Outpatient R BERT WRIGHT [facility] [id number] NPI:183 10:30:00 10:30:00 [id number] 1 2020-08-01 2020-08-01 Outpatient R BERT WRIGHT [facility] [id number] NPI:183 10:30:00 10:30:00 [id number] 1 2020-07-25 2020-07-25 Office Bert Wright [facility] 1.2.840.114 [id number] NPI:183 13:06:08 13:52:[address] 350.1.13.10 1 [id number] [place] 4.2.7.2.686 Profess[place] [id number] [address] 2020-07-25 2020-07-25 Outpatient R BERT WRIGHT [facility] [id number] NPI:183 13:00:00 13:00:00 [id number] 1 2020-07-25 2020-07-25 Outpatient R BERT WRIGHT [facility] [id number] NPI:183 13:00:00 13:00:00 [id number] 1 2020-07-25 2020-07-25 Telephone Bert Wright [facility] 1..840.114 [id number] NPI:183 00:00:00 00:00:[address] 350.1.13.10 1 [id number] [place] 4.2.7.2.686 Profess[place] [id number] [address] 2020-07-23 2020-07-23 Outpatient R BERT WRIGHT [facility] [id number] NPI:183 13:30:00 13:30:00 [id number] 1 2020-07-23 2020-07-23 Outpatient R BERT WRIGHT [facility] [id number] NPI:183 13:30:00 13:30:00 [id number] 1 2020-07-22 2020-07-22 [facility] Doctor ALEXIS 1..840.114 [id number] NPI:183 00:00:00 00:00:00 Only Unassigned, HARSHA 350..13.10 [id number] [place] [facility] 4.2.7.2.686 [id number] 009 2020-07-14 2020-07-14 Outpatient R LEVAR [facility] [id number] NPI:183 09:00:00 09:00:00 NIKKI [id number] 1 2020-07-14 2020-07-14 Laboratory Lab, Adc Fam Pob I [facility] 1.2. 840.114 [id number] NPI:183 08:38:49 08:58:49 Only Nikki Cristobal [facility] 350.1.13.[id number] 4.2.7.2.686 [facility] [phone] nal [address] 2020-07-14 2020-07-14 Letter Doctor VANESA 1.2.840.114 [id number] NPI:183 00:00:00 00:00:00 (Out) Unassigned, HARSHA 350.1.13.10 [id number] [place] [facility] 4.2.7.2.686 [id number] 044 2020-07-05 2020-07-05 [facility] 1.2.840.114 [id number] NPI:183 15:24:00 17:07:00 Mahad Lakhani 350.1.13.10 1 [id number] [place] 4.2.7.2.686 [place] [id number] 084 2020-07-05 2020-07-05 Emergency X MAE [facility] ERT [id number] NPI:183 15:24:00 15:24:00 MAHAD [id number] 1 Results Test Description Test Time Test Comments Results Result Comments Source URINALYSIS 2021-03-19 20:29:51 Test Item Value Reference Range Interpretation Comme nts APPEARANCE (test code = Hazy Clear A 2466453389) COLOR (test code = 5411467402) Yellow Yellow PH (test code = 3335830367) 4.8-8.0 SP GRAVITY (test code = 1.003-1.030 1500919085) GLU U QUAL (test code = Normal Normal 9289214302) BLOOD (test code = 3021366657) Negative Negative KETONES (test code = 8421158457) Negative Negative PROTEIN (test code = 2887-8) Negative Negative UROBILIN (test code = Normal Normal 5633439875) BILIRUBIN (test code = Negative Negative 9134906772) NITRITE (test code = 2274957216) Negative Negative LEUK LON (test code = Negative Negative 0787072058) RBC/HPF (test code = 6663758658) See_Comment [Automated message] The system which ge nerated this result transmit adolfo reference range: 0 - 3 HP F. The reference range was not used to interpret th is result as normal/abnormal . WBC/HPF (test code = 1377044778) <1 See_Comment [Automated message] The system which ge nerated this result transmit adolfo reference range: 0 - 5 HP F. The reference range was not used to interpret th is result as normal/abnormal . BACTERIA (test code = Negative Negative 4361200856) MUCOUS (test code = 5891118414) Slight Negative LPF A SQ EPITH (test code = HPF 3153650166) Lab Interpretation (test code = Abnormal 32039-4) NPI:[id number] [id number] 19:15:54 Test Item Value Reference Range Interpretation Comments TROPONIN I (test 0.000 ng/mL See_Comment [Automated code = 0508955639) message] The system which generated this result [...] ? Lab Interpretation Normal (test code = 03678-7) NPI:[id number]. METABOLIC PANEL (46149)2021-03-19 19:04:49 Test Item Value Reference Range Interpretation Comments NA (test code = 138 mmol/L 135-145 0119457328) K (test code = 3.8 mmol/L 3.5-5.0 2492590881) CL (test code = 103 mmol/L 98-108 3573938156) CO2 TOTAL (test code = 27 mmol/L 23-31 7735336277) AGAP (test code = 2-16 6920965152) BUN (test code = 15 mg/dL 7-23 2623988638) GLUCOSE (test code = 139 mg/dL 70-110 H 4483131436) CREATININE (test code = 0.45 mg/dL 0.50-1.04 L 2430329334) TOTAL BILI (test code = 0.4 mg/dL 0.1-1.6 6681029910) CALCIUM (test code = 9.3 mg/dL 8.6-10.6 2102191401) T PROTEIN (test code = 8.3 g/dL 6.3-8.2 H 6313222342) ALBUMIN (test code = 4.4 g/dL 3.5-5.0 3778703770) ALK PHOS (test code = 129 U/L 34-122 H 7628005600) ALTv (test code = 75 U/L 5-35 H 1742-6) AST(SGOT) (test code = 71 U/L 13-40 H 0031437876) eGFR (test code = mL/min/1.73m2 5103058111) GLEN (test code = GLEN) Association of [...] tests). Lab Interpretation Abnormal (test code = 50423-6) NPI:[id number] WITH [id number] 18:56:45 Test Item Value Reference Range Interpretation [...] RDW-SD (test code = 44.1 fL 39.0-49.9 24052-7) RDW-CV (test code = 17.6 % 12.0-15.5 H 788-0) PLT (test code = See_Comment H [Automated 777-3) message] The sy stem which generated this result transmitted reference range : 166 - 358 10*3/ ?L. The reference r adela was not used to interpret this result as normal/abnormal . MPV (test code = 10.1 fL 9.5-12.9 24182-4) NRBC/100 WBC (test See_Comment [Automat ed code = 7539528216) message] The system which generated this result transmitted reference range : 0.0 - 10.0 /100 WBCs. The refer ence range was not u sed to interpret th is result as normal/abnormal . NRBC x10^3 (test code <0.01 See_Comment [Auto mated = 1786904186) message] The s ystem which generated this result transmitted reference range : 10*3/?L. The reference range was not used to interpret this result as normal/abnormal . GRAN MAT (NEUT) % 73.8 % (test code = 770-8) IMM GRAN % (test code 0.50 % = 4927441996) LYMPH % (test code = 18.9 % 736-9) MONO % (test code = 4.6 % 5905-5) EOS % (test code = 1.6 % 713-8) BASO % (test code = 0.6 % 706-2) GRAN MAT x10^3(ANC) 6.56 10*3/uL 1.88-7.09 (test code = 5541348234) IMM GRAN x10^3 (test 0.04 10*3/uL 0.00-0.06 code = 3860480947) LYMPH x10^3 (test code 1.68 10*3/uL 1.32-3.29 = 731-0) MONO x10^3 (test code 0.41 10*3/uL 0.33-0.92 = 742-7) EOS x10^3 (test code = 0.14 10*3/uL 0.03-0.39 711-2) BASO x10^3 (test code 0.05 10*3/uL 0.01-0.07 = 704-7) Lab Interpretation Abnormal (test code = 59986-2) NPI:[id number] Metabolic Panel (NA, K, CL, CO2, Glucose, BUN, Creatinine, CA)2020-09-13 10:46:00 Test Item Value Reference Range Interpretation Comments NA (test code = 137 mmol/L 135-145 9383061808) K (test code = 3.6 mmol/L 3.5-5 8362214128) CL (test code = 106 mmol/L 98-108 9736533860) CO2 TOTAL (test code = 25 mmol/L 23-31 3283539751) AGAP (test code = 2-16 8967393332) BUN (test code = 18 mg/dL 7-23 9857162044) GLUCOSE (test code = 130 mg/dL 70-110 H 8813174728) CREATININE (test code = 0.84 mg/dL 0.5-1.04 0122007972) CALCIUM (test code = 8.5 mg/dL 8.6-10.6 L 1299543838) eGFR Calculation mL/min/1.73m2 (Non-) (test code = 1801362470) eGFR Calculation mL/min/1.73m2 () (test code = 3991528423) GLEN (test code = GLEN) Association of [...] tests). Lab Interpretation Abnormal (test code = 88281-6) NPI:[id number] with [id number] 10:24:00 Test Item Value Reference Range Interpretation [...] (test code = 55.9 fL 39-49.9 H 81099-4) RDW-CV (test code = 20.4 % 12-15.5 H 788-0) PLT (test code = See_Comment [Automated 777-3) message] The sy stem which generated this result transmitted reference range : 166 - 358 10*3/ ?L. The reference r adela was not used to interpret this result as normal/abnormal . MPV (test code = 9.8 fL 9.5-12.9 98055-8) NRBC/100 WBC (test See_Comment [Automat ed code = [id number]) message] The system which generated this result transmitted reference range : 0.0 - 10.0 /100 WBCs. The refer ence range was not u sed to interpret th is result as normal/abnormal . NRBC x10^3 (test code <0.01 See_Comment [Auto mated = [id number]) message] The s ystem which generated this result transmitted reference range : 10*3/?L. The reference range was not used to interpret this result as normal/abnormal . GRAN MAT (NEUT) % 70.4 % (test code = 770-8) IMM GRAN % (test code 0.20 % = [id number]) LYMPH % (test code = 20.9 % 736-9) MONO % (test code = 7.8 % 5905-5) EOS % (test code = 0.4 % 713-8) BASO % (test code = 0.3 % 706-2) GRAN MAT x10^3(ANC) 6.35 10*3/uL 1.88-7.09 (test code = 6200081322) IMM GRAN x10^3 (test <0.03 0-0.06 code = 0596660813) LYMPH x10^3 (test code 1.89 10*3/uL 1.32-3.29 = 731-0) MONO x10^3 (test code 0.70 10*3/uL 0.33-0.92 = 742-7) EOS x10^3 (test code = 0.04 10*3/uL 0.03-0.39 711-2) BASO x10^3 (test code 0.03 10*3/uL 0.01-0.07 = 704-7) Lab Interpretation Abnormal (test code = 24138-3) NPI:[id number] and Screen - The Type and Screen expires at midnight on the 3rd day after it was drawn. A current Type and Screen is required when RBCs are requested. For all other blood products, a Type and Screen performed during the current hospitalizati...2020-09-12 13:57:33 Test Item Value Reference Range Interpretation Comments ABO & RH (test code O Positive Performe d at [facility] = 20) Laboratory Serv [facility] [address] [place] [address] Free: [phone] A No. [id number] IAT (test code = Negative Performed a t [facility] 1185) Laboratory Serv [facility] [place], [place] [address]Toll Free: [phone] A No. [id number] NPI:[id number] 12:35:00 Test Item Value Reference Range Interpretation Comments POCT PREG (test code = 1605) Negative On board controls acceptable with Yes C Line (test code = 3574) POCT PREG LOT # (test code = 3575) [id number] POCT PREG TEST DATE (test 2021-08-09 code = 3576) Lab Interpretation (test code = Normal 96171-4) NPI:[id number] ULTRASOUND BREAST LIMITED [id number] 23:49:55 Examination:BI DIAGNOSTIC TOMOSYNTHESIS RIGHTBI ULTRASOUND BREAST LIMITED RIGHT [...] ? BI-RADS Category: Right 3 - Probably BenignNPI:[id number] DIAGNOSTIC TOMOSYNTHESIS [id number] 23:49:54Examination:BI DIAGNOSTIC TOMOSYNTHESIS RIGHTBI ULTRASOUND BREAST LIMITED RIGHT [...] ? BI-RADS Category: Right 3 - Probably BenignNPI:[id number] 15:51:00 Test Item Value Reference Range Interpretation Comments POCT PREG (test code = 1605) Negative On board controls acceptable with C Yes Line (test code = 3574) POCT PREG LOT # (test code = 3575) POCT PREG TEST DATE (test code = 3576) NPI:[id number] 15:51:00 Test Item Value Reference Range Interpretation Comments POCT PREG (test code = 1605) Negative On board controls acceptable with C Yes Line (test code = 3574) POCT PREG LOT # (test code = 3575) POCT PREG TEST DATE (test code = 3576) NPI:[id number] 15:51:00 Test Item Value Reference Range Interpretation Comments POCT PREG (test code = 1605) Negative On board controls acceptable with C Yes Line (test code = 3574) POCT PREG LOT # (test code = 3575) POCT PREG TEST DATE (test code = 3576) NPI:[id number] 15:51:00 Test Item Value Reference Range Interpretation Comments POCT PREG (test code = 1605) Negative On board controls acceptable with C Yes Line (test code = 3574) POCT PREG LOT # (test code = 3575) POCT PREG TEST DATE (test code = 3576) NPI:[id number] PELVIS COMPLETE WITH [id number] 18:39:20 No discernible abnormality to explain patient's [...] cavity mayrepresent blood products. Right ovarian cyst. NPI:[id number] 18:24:00 Test Item Value Reference Range Interpretation Comments POCT PREG (test code = 1605) Negative On board controls acceptable with C Yes Line (test code = 3574) POCT PREG LOT # (test code = 3575) POCT PREG TEST DATE (test code = 3576) NPI:[id number] 18:24:00 Test Item Value Reference Range Interpretation Comments POCT PREG (test code = 1605) Negative On board controls acceptable with C Yes Line (test code = 3574) POCT PREG LOT # (test code = 3575) POCT PREG TEST DATE (test code = 3576) "
--- NOTE | 2022-02-14 01:48 | ER ---
Nurse's Notes [facility] Name: Bonny Overton Age: 41 yrs Sex: Female : 1980 Arrival Date: 02/13/2022 Time: 23:45 Bed 14 Private MD: Diagnosis: Other sprain of left ring finger Presentation: 02/13 23:48 Chief complaint: Patient states: "I jammed my right hand at work - I was not going to ld1 come because I thought it was just jammed but now it is starting to swell and turn purple.". Coronavirus screen: At this time, the client does not indicate any symptoms associated with coronavirus-19. Ebola Screen: No symptoms or risks identified at this time. Initial Sepsis Screen: Does the patient meet any 2 criteria? No. Patient's initial sepsis screen is negative. Does the patient have a suspected source of infection? No. Patient's initial sepsis screen is negative. Risk Assessment: Do you want to hurt yourself or someone else? Patient reports no desire to harm self or others. Onset of symptoms was February 13, 2022. 23:48 Method Of Arrival: Ambulatory ld1 23:48 Acuity: ARISTIDES 4 ld1 Triage Assessment: 23:49 General: Appears in no apparent distress. comfortable, Behavior is calm, cooperative, ld1 appropriate for age. Pain: Complains of pain in left hand Pain does not radiate. Pain currently is 7 out of 10 on a pain scale. Quality of pain is described as throbbing, Pain began gradually, Is continuous. EENT: No signs and/or symptoms were reported regarding the EENT system. Neuro: Carrillo Agitation-Sedation Scale (RASS): 0 - Alert and Calm Level of Consciousness is awake, alert, obeys commands, Oriented to person, place, time, situation. Respiratory: Airway is patent Respiratory effort is even, unlabored. Musculoskeletal: Reports pain in right hand. Injury Description: Hand injury - unknown. 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 - Social history:: Smoking status: Patient denies any tobacco usage or history of. Patient/guardian denies using alcohol. Screenin/08 02:03 Abuse screen: Denies threats or abuse. Denies injuries from another. Nutritional sm5 screening: No deficits noted. Tuberculosis screening: No symptoms or risk factors identified. Fall Risk None identified. Assessment: 00:38 General: Appears in no apparent distress. Behavior is cooperative. Pain: Complains of sm5 pain in right hand. Neuro: No deficits noted. Carrillo Agitation-Sedation Scale (RASS): 0 - Alert and Calm Level of Consciousness is awake, alert, obeys commands, Oriented to person, place, time, situation. Cardiovascular: No deficits noted. Capillary refill < 3 seconds Patient's skin is warm and dry. Respiratory: No deficits noted. Airway is patent Trachea midline Respiratory effort is even, unlabored. Musculoskeletal: Swelling present in right pinky Reports pain in right hand. 01:45 Reassessment: No changes from previously documented assessment. Patient and/or family sm5 updated on plan of care and expected duration. Pain level reassessed. Vital Signs: 02/13 23:48 Pulse 94; Resp 18; Temp 98.3(TE); Pulse Ox 98% ; Weight 108.86 kg; Height 5 ft. 0 in. ld1 (152.40 cm); Pain 7/10; 02/14 02:04 Pulse 88; Resp 17; Pulse Ox 99% on R/A; sm5 02/13 23:48 Body Mass Index 46.87 (108.86 kg, 152.40 cm) ld1 ED Course: 02/13 23:45 Patient arrived in ED. kz 23:49 Triage completed. ld1 23:49 Arm band placed on right wrist. ld1 23:52 Eduardo Alejandro MD is Attending Physician. mh7 23:56 Jihan Suárez RN is Primary Nurse. sm5 02/14 01:07 Hand Right 3 View XRAY In Process Unspecified. EDMS 01:45 Nain Soliman MD is Referral Physician. 7 02:03 No provider procedures requiring assistance completed. Patient did not have IV access sm5 during this emergency room visit. Aluminum finger splint applied to dorsal aspect of distal phalanx of right little finger, dorsal aspect of middle phalanx of right little finger, dorsal aspect of proximal phalanx of right little finger, palmar aspect of distal phalanx of right little finger, palmar aspect of middle phalanx of right little finger and Palmar aspect of proximal phalanx of right little finger. 02:04 Patient has correct armband on for positive identification. Bed in low position. Call [facility] light in reach. Side rails up X2. Administered Medications: No medications were administered Outcome: 01:47 Discharge ordered by . eLtty 02:04 Patient left the ED. [facility] Signatures: Dispatcher [employer] EDMS Eduardo Alejandro MD MD [facility] Joselin Muro RN RN ld1 Jihan Suárez RN RN sm5 Asiya Abdul
--- NOTE | 2022-02-14 01:48 | EDPHYS ---
Physician Documentation [facility] Name: Bonny Overton Age: 41 yrs Sex: Female : 1980 Arrival Date: 02/13/2022 Time: 23:45 Bed 14 Private MD: ED Physician Eduardo Alejandro HPI: 02/14 00:03 This 41 yrs old Female presents to ER via Ambulatory with complaints of Hand mh7 Injury - Right. 00:03 The patient or guardian reports injury, pain. The complaints affect the right hand. mh7 Context: The problem was sustained at work, resulted from an unknown cause. Onset: The symptoms/episode began/occurred yesterday, at 15:30. Modifying factors: The symptoms are alleviated by nothing, the symptoms are aggravated by movement, touching. Associated signs and symptoms: Pertinent negatives: cyanosis distally, decreased sensation distally, fever, nausea, numbness distally, tingling distally, vomiting. Severity of symptoms: At their worst the symptoms were moderate, yesterday, in the emergency department the symptoms have improved, moderately. 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 - Social history:: Smoking status: Patient denies any tobacco usage or history of. Patient/guardian denies using alcohol. ROS: 02/14 00:03 Constitutional: Negative for fever, chills, and weight loss, Eyes: Negative for injury, mh7 pain, redness, and discharge, ENT: Negative for injury, pain, and discharge, Neck: Negative for injury, pain, and swelling, Cardiovascular: Negative for chest pain, palpitations, and edema, Respiratory: Negative for shortness of breath, cough, wheezing, and pleuritic chest pain, Abdomen/GI: Negative for abdominal pain, nausea, vomiting, diarrhea, and constipation, Back: Negative for injury and pain, : Negative for injury, bleeding, discharge, and swelling, Skin: Negative for injury, rash, and discoloration, Neuro: Negative for headache, weakness, numbness, tingling, and seizure, Psych: Negative for depression, anxiety, suicide ideation, homicidal ideation, and hallucinations, Allergy/Immunology: Negative for hives, rash, and allergies, Endocrine: Negative for neck swelling, polydipsia, polyuria, polyphagia, and marked weight changes, Hematologic/Lymphatic: Negative for swollen nodes, abnormal bleeding, and unusual bruising. Exam: 00:03 Constitutional: This is a well developed, well nourished patient who is awake, alert, mh7 and in no acute distress. Head/Face: Normocephalic, atraumatic. 00:03 Skin: Warm, dry with normal turgor. Normal color with no rashes, no lesions, and no evidence of cellulitis. Neuro: Awake and alert, GCS 15, oriented to person, place, time, and situation. Cranial nerves II-XII grossly intact. Motor strength 5/5 in all extremities. Sensory grossly intact. Cerebellar exam normal. Normal gait. Psych: Awake, alert, with orientation to person, place and time. Behavior, mood, and affect are within normal limits. 00:03 Musculoskeletal/extremity: Extremities: noted in the right hand, 5th digit: ecchymosis, pain, swelling, tenderness, ROM: intact in all extremities, Circulation is intact in all extremities. Sensation intact. Compartment Syndrome exam of affected extremity: is normal. no numbness, no tingling, no sensation deficit, no palor, no weak pulses, Joints: All joints appear normal with full range of motion. Weight bearing: able to fully bear weight, without difficulty, Tendon exam: specific tendon testing normal through active and passive range of motion Vital Signs: 02/13 23:48 Pulse 94; Resp 18; Temp 98.3(TE); Pulse Ox 98% ; Weight 108.86 kg; Height 5 ft. 0 in. ld1 (152.40 cm); Pain 7/10; 02/14 02:04 Pulse 88; Resp 17; Pulse Ox 99% on R/A; sm5 02/13 23:48 Body Mass Index 46.87 (108.86 kg, 152.40 cm) ld1 MDM: 01:44 Differential diagnosis: dislocation, closed fracture, contusion, abrasion, tendonitis. [facility] Data reviewed: vital signs, nurses notes, radiologic studies, plain films. Data interpreted: Pulse oximetry: on room air is 98 %. Interpretation: normal. Counseling: I had a detailed discussion with the patient and/or guardian regarding: the historical points, exam findings, and any diagnostic results supporting the discharge/admit diagnosis, radiology results, the need for outpatient follow up, a hand specialist, to return to the emergency department if symptoms worsen or persist or if there are any questions or concerns that arise at home. Response to treatment: the patient's symptoms have markedly improved after treatment. 01:[address] [facility] 02/14 00:02 Order name: Hand Right [address] [facility] 02/14 01:44 Order name: Finger Splint; Complete Time: 01:59 [facility] Administered Medications: No medications were administered Disposition Summary: 02/14/22 01:47 Discharge Ordered Location: Home [facility] Problem: [facility] Symptoms: have improved [facility] Condition: Stable [facility] Diagnosis - Other sprain of left ring finger [facility] Followup: [facility] - With: Private Physician - When: 1 - 2 days - Reason: Worsening of condition, Recheck today's complaints, Continuance of care, Re-evaluation by your physician Followup: [facility] - With: Nain Soliman MD - When: 5 - 6 days - Reason: Worsening of condition, Recheck today's complaints Discharge Instructions: - Discharge Summary Sheet [facility] - Cast or Splint Care, Adult, [id number] [facility] - Finger Sprain, Adult, [id number] [facility] Forms: - Medication Reconciliation Form [facility] - Thank You Letter [facility] - Antibiotic Education [facility] - Prescription Opioid Use [facility] Signatures: Dispatcher [employer] Eduardo Smith MD MD [facility] Joselin Muro, RN RN ld1
[2022-02-14 03:21] VITALS: TEMP 98.3
[2022-02-14 03:32] VITALS: O2SAT 99
--- NOTE | 2022-02-15 15:18 | RAD REPORT ---
EXAM DESCRIPTION: RAD - Hand Right 3 View - 02/14/2022 1:06 am CLINICAL HISTORY: Injury TECHNIQUE: Frontal, lateral and oblique views of the right hand. COMPARISON: No relevant prior studies available. FINDINGS: Bones/joints: Unremarkable. No acute fracture. No dislocation. Soft tissues: Unremarkable. No radiopaque foreign body. IMPRESSION: No acute injury. Electronically signed by: Kimberley Nation MD 02/14/2022 1:36 AM CDT Due to temporary technical issues with the PACS/Fluency reporting system, reports are being signed by the in house radiologist without review as a courtesy to ensure prompt reporting. The interpreting r adiologist is fully responsible for the content of the report.
== END 2022-02-14 02:04 | disposition home or self-care (01) ==
LOC: ER 23:41
DX: S63.694A Other sprain of right ring finger, initial encounter (principal); E11.9 Type 2 diabetes mellitus without complications; I10 Essential (primary) hypertension
CPT/HCPCS: 99283

== ENCOUNTER 2022-03-31 13:32 | Emergency (ER) | payer SELFPAY ==
--- OUTSIDE RECORDS SUMMARY | 2022-03-31 13:38 | XMS REPORT | Continuity of Care Document ---
:1980 Author Organization [facility] t Address [address] [place] [address] Care Team Providers Name Role Phone Agnes [...] Type Policy Number Effective Date Expiration Date Formerly [facility] [id number] 2019 CHOICE MEDICAID 00:00:00 [employer] O [id number] 2020 00:00:00 Problems Condition Condition Condition Status [...] Added automatic ally from request for surgery [id number] Hyperchole Hyperchole Disease Active 2019-10 U nivers [...] rs active active ity of problems problems [facility] Allergies, Adverse Reactions, Alerts Allergy Allergy Status Severity Reaction(s) Onset Inactive Treating Comm ents Source Name Type Date Date Clinician [place] Propensi Active Swelling Univer s ty to 5-05 ity of adverse 00:00: [place] reaction 00 Medical s Branch JOSEPH DRUG Active Swelling Univers INGREDI 5-05 ity of 00:00: [place] 00 Medical Branch NO KNOWN Drug Active Univers ALLERGIE Class ity of S [facility] Social History Social Habit Start Date Stop Date Quantity Comments Source Exposure to Not sure [facility] SARS-CoV-2 [facility] (event) Branch History of Cigarette Smoker Universi ty of tobacco use [facility] Alcohol intake 2020-10-29 2020-10-29 Ex-drinker [facility] 00:00:00 00:00:00 (finding) [facility] Tobacco use and 2020-07-23 2020-07-23 Never used Universit y of exposure 00:00:00 00:00:00 [facility] Sex [birth year] Universit y of 00:00:00 00:00:00 [facility] Smoking Status Start Date Stop Date Source Former smoker 2020-07-23 00:00:00 2020-07-23 00:00:00 [facility] Never smoker [facility] Medications Ordered Filled Start Stop Current Ordering Indication Dosage Frequency Signature Comments Components Source Medication Medication Date Date Medication? Clinician (SIG) Name Name NaCl 0.9% 2020- No 1000mL at 999 Uni vers (NS) bolus 03-19 mL/hr, ity of infusion 19:15: 07:14 1,000 mL, [place] as 1,000 mL 00 :00 IV Medical Infusion, [place] ONCE, 1 dose, [place] 03/19/21 at 1415, [...] [place] Medi luisa (4 %) 03/19/21 at [place] infusion 2 1415, g Routine ketorolac 2020- No 30mg 30 mg, Unive rs (TORADOL) 03-19 Slow IV ity of injection 19:15: 18:34 Push, [place] 30 mg 00 :00 ONCE, 1 Medical dose, [facility] Branch 03/19/21 at 1415, ZULEYMA
Fa culty member approving Restricted medication : Arden GREENBERG LENI metoclopram 2020- No 10mg 10 mg, Uni vers brayden HCl 03-19 Slow IV ity of (REGLAN) 19:15: 18:36 Push, [place] injection 00 :00 ONCE, 1 Medical 10 mg dose, [facility] Branch 03/19/21 at 1415, ZULEYMA diphenhydrA 2020- No 25mg 25 mg, Uni vers MINE 03-19 Slow IV ity of (BENADRYL) 19:15: 18:33 Push, [place] injection 00 :00 ONCE, 1 Medical 25 mg dose, [place] Branch 03/19/21 at 1415, STAT hydrOXYzine 1-0 Yes [id number] 10mg Take 1 Univers 10 mg 5-05 tablet by ity of tablet 00:00: mouth [place] 00 every 6 Medical (six) Branch hours. methylPREDN 2021-0 Yes [id number] Take by Univers ISolone 5-05 mouth ity of (MEDROL, 00:00: SEE-INSTRU Ole as KAVITHA,) 4 mg 00 CTIONS. Medica l tablets follow Branch package directions hydrOXYzine 2020-0 Yes [id number] 10mg Take 1 Univers 10 mg 5-05 tablet by ity of tablet 00:00: mouth [place] 00 every 6 Medical (six) Branch hours. methylPREDN 2021-0 Yes [id number] Take by Univers ISolone 5-05 mouth ity of (MEDROL, 00:00: SEE-INSTRU [place] KAVITHA,) 4 mg 00 CTIONS. Medica l tablets follow Branch package directions hydrOXYzine 2020-0 Yes [id number] 10mg Take 1 Univers 10 mg 5-05 tablet by ity of tablet 00:00: mouth [place] 00 every 6 Medical (six) Branch hours. methylPREDN 2021-0 Yes [id number] Take by Univers ISolone 5-05 mouth ity [...] 15:15: First dose [place] E)) 00 on [facility] Medical chewable 09/13/20 at [facility] h tablet 80 0915, mg Until Discontinu ed, Routine carvediloL 2019-10 Yes 6.25mg 6.25 mg, U nivers (COREG) 2-05 Oral, ity of tablet 6.25 15:00: [place]ILY[place] mg 00 First dose Medical on [facility] Branch 09/13/20 at 0900, Until Discontinu ed, Routine docusate 2019-10 Yes 240mg 240 mg, Unive rs calcium 2-05 Oral, ity of (SURFAK) 15:00: DAILY, [place] capsule 240 00 First dose Me dical mg on [facility] Branch 09/13/20 at 0900, Until Discontinu ed, Routine ibuprofen 2019-10 Yes [id number] 600mg Take 1 Univers 600 mg 2-05 100 tablet by ity of tablet 00:00: mouth [place] 00 every 6 Medical (six) Branch hours as needed for Pain (scale 1-3). simethicone 2019-10 Yes [id number] 80mg Take 1 Univers 80 mg 2-05 100 tablet by ity of chewable 00:00: mouth [place] tablet 00 every 6 Medical (six) Branch hours as needed for Gas. docusate 2019-10 Yes [id number] 100mg Take 1 Univers 100 mg 2-05 100 capsule by ity of capsule 00:00: mouth 2 [place] 00 (two) Medical times Branch daily. ibuprofen 2019-10 Yes [id number] 600mg Take 1 Univers 600 mg 2-05 100 tablet by ity of tablet 00:00: mouth [place] 00 every 6 Medical (six) Branch hours as needed for Pain (scale 1-3). simethicone 2019-10 Yes [id number] 80mg Take 1 Univers 80 mg 2-05 100 tablet by ity of chewable 00:00: mouth [place] tablet 00 every 6 Medical (six) Branch hours as needed for Gas. docusate 2019-10 Yes [id number] 100mg Take 1 Univers 100 mg 2-05 100 capsule by ity of capsule 00:00: mouth 2 [place] 00 (two) Medical times Branch daily. ibuprofen 2019- Yes [id number] 600mg Take 1 Univers 600 mg 2-05 100 tablet by ity of tablet 00:00: mouth [place] 00 every 6 Medical (six) Branch hours as needed for Pain (scale 1-3). simethicone 2020-1 Yes [id number] 80mg Take 1 Univers 80 mg 2-05 100 tablet by ity of chewable 00:00: mouth [place] tablet 00 every 6 Medical (six) Branch hours as needed for Gas. docusate 2019- Yes [id number] 100mg Take 1 Univers 100 mg 2-05 100 capsule by ity of capsule 00:00: mouth 2 [place] 00 (two) Medical times Branch daily. ibuprofen 2019- Yes [id number] 600mg Take 1 Univers 600 mg 2-05 100 tablet by ity of tablet 00:00: mouth [place] 00 every 6 Medical (six) Branch hours as needed for Pain (scale 1-3). simethicone 2019-1 Yes [id number] 80mg Take 1 Univers 80 mg 2-05 100 tablet by ity of chewable 00:00: mouth [place] tablet 00 every 6 Medical (six) Branch hours as needed for Gas. docusate 2019-1 Yes [id number] 100mg Take 1 Univers 100 mg 2-05 100 capsule by ity of capsule 00:00: mouth 2 [place] 00 (two) Medical times Branch daily. ferrous 2019- Yes 324mg Take 324 Unive rs gluconate 2-05 mg by ity of 324 mg (38 00:00: mouth 2 [place] mg iron) 00 (two) Medical tablet times Branch daily. ibuprofen 2019- Yes [id number] 600mg Take 1 Univers 600 mg 2-05 100 tablet by ity of tablet 00:00: mouth [place] 00 every 6 Medical (six) Branch hours as needed for Pain (scale 1-3). simethicone 2020-1 Yes [id number] 80mg Take 1 Univers 80 mg 2-05 100 tablet by ity of chewable 00:00: mouth [place] tablet 00 every 6 Medical (six) Branch hours as needed for Gas. docusate 2019-1 Yes [id number] 100mg Take 1 Univers 100 mg 2-05 100 capsule by ity of capsule 00:00: mouth 2 [place] 00 (two) Medical times Branch daily. ferrous 2019-10 Yes 324mg Take 324 Unive rs gluconate 2-05 mg by ity of 324 mg (38 00:00: mouth 2 [place] mg iron) 00 (two) Medical tablet times Branch daily. ibuprofen 2019-10 Yes [id number] 600mg Take 1 Univers 600 mg 2-05 100 tablet by ity of tablet 00:00: mouth [place] 00 every 6 Medical (six) Branch hours as needed for Pain (scale 1-3). simethicone 2019-10 Yes [id number] 80mg Take 1 Univers 80 mg 2-05 100 tablet by ity of chewable 00:00: mouth [place] tablet 00 every 6 Medical (six) Branch hours as needed for Gas. docusate 2019-10 Yes [id number] 100mg Take 1 Univers 100 mg 2-05 100 capsule by ity of capsule 00:00: mouth 2 [place] 00 (two) Medical times Branch daily. ferrous 2019-10 Yes 324mg Take 324 Unive rs gluconate 2-05 mg by ity of 324 mg (38 00:00: mouth 2 [place] mg iron) 00 (two) Medical tablet times Branch daily. ibuprofen 2019-10 Yes [id number] 600mg Take 1 Univers 600 mg 2-05 100 tablet by ity of tablet 00:00: mouth [place] 00 every 6 Medical (six) Branch hours as needed for Pain (scale 1-3). simethicone 2019-10 Yes [id number] 80mg Take 1 Univers 80 mg 2-05 100 tablet by ity of chewable 00:00: mouth [place] tablet 00 every 6 Medical (six) Branch hours as needed for Gas. docusate 2019-10 Yes [id number] 100mg Take 1 Univers 100 mg 2-05 [...] dose on Tue09/13/20 at 1200, Routine
membership coordinator approving Restricted medication : BERT WRIGHT HYDROcodone [...] [place] (ESTARYLLA 22 Medical ORAL) Branch norgestimat 2019- [...] it y of mg tablet 00:00: (three) [place] 00 times Medical daily. Branch oxyCODONE 5 2019-10 Yes TAKE ONE Un yudi mg 1-24 (1) ity of immediate 00:00: TABLET(S) [place] as release 00 BY MOUTH Medical tablet EVERY FOUR Branch HOURS NEEDED FOR PAIN FOR UP TO 5 DOSES. medroxyPROG 2019-10 Yes 10mg Take 10 mg Univers ESTERone 10 1-24 by mouth 3 it y of mg tablet 00:00: (three) [place] 00 times Medical daily. Branch oxyCODONE 5 [...] it y of mg tablet 00:00: (three) [place] 00 times Medical daily. Branch oxyCODONE 5 [...] HOURS FOR 10 DAYS. ferrous 2019- Yes [id number] 324mg Take 1 Un yudi gluconate 1-13 tablet by ity o f 324 mg (38 00:00: mouth 2 [place] mg iron) 00 (two) Medical tablet times Branch daily. ascorbic 2019- Yes [id number] 500mg Take 1 U nivers acid, 1-13 tablet by ity of vitamin C, 00:00: mouth 2 [place] 500 mg 00 (two) Medical tablet times Branch daily. Take with iron to help with absorption of iron. ferrous 2019- Yes [id number] 324mg Take 1 Un yudi gluconate 1-13 tablet by ity o f 324 mg (38 00:00: mouth 2 [place] mg iron) 00 (two) Medical tablet times Branch daily. ascorbic 2019-10 Yes [id number] 500mg Take 1 U nivers acid, 1-13 tablet by ity of vitamin C, 00:00: mouth 2 [place] 500 mg 00 (two) Medical tablet times Branch daily. Take with iron to help with absorption of iron. ferrous 2019-10 Yes [id number] 324mg Take 1 Un yudi gluconate 1-13 tablet by ity o f 324 mg (38 00:00: mouth 2 [place] mg iron) 00 (two) Medical tablet times Branch daily. ascorbic 2019-10 Yes [id number] 500mg Take 1 U nivers acid, 1-13 tablet by ity of vitamin C, 00:00: mouth 2 [place] 500 mg 00 (two) Medical tablet times Branch daily. Take with iron to help with absorption of iron. ferrous 2019-10 Yes [id number] 324mg Take 1 Un yudi gluconate 1-13 tablet by ity o f 324 mg (38 00:00: mouth 2 [place] mg iron) 00 (two) Medical tablet times Branch daily. ascorbic 2019-10 Yes [id number] 500mg Take 1 U nivers acid, 1-13 tablet by ity of vitamin C, 00:00: mouth 2 [place] 500 mg 00 (two) Medical tablet times Branch daily. Take with iron to help with absorption of iron. ferrous 2019-10 Yes [id number] 324mg Take 1 Un yudi gluconate 1-13 tablet by ity o f 324 mg (38 00:00: mouth 2 [place] mg iron) 00 (two) Medical tablet times Branch daily. ascorbic 2019-10 Yes [id number] 500mg Take 1 U nivers acid, 1-13 tablet by ity of vitamin C, 00:00: mouth 2 [place] 500 mg 00 (two) Medical tablet times Branch daily. Take with iron to help with absorption of iron. ferrous 2019- Yes [id number] 324mg Take 1 Un yudi gluconate 1-13 tablet by ity o f 324 mg (38 00:00: mouth 2 [place] mg iron) 00 (two) Medical tablet times Branch daily. ascorbic 2019- Yes [id number] 500mg Take 1 U nivers acid, 1-13 tablet by ity of vitamin C, 00:00: mouth 2 [place] 500 mg 00 (two) Medical tablet times Branch daily. Take with iron to help with absorption of iron. ferrous 2019-10 Yes [id number] 324mg Take 1 Un yudi gluconate 1-13 tablet by ity o f 324 mg (38 00:00: mouth 2 [place] mg iron) 00 (two) Medical tablet times Branch daily. ascorbic 2019-10 Yes [id number] 500mg Take 1 U nivers acid, 1-13 tablet by ity of vitamin C, 00:00: mouth 2 [place] 500 mg 00 (two) Medical tablet times Branch daily. Take with iron to help with absorption of iron. ferrous 2019-10 Yes [id number] 324mg Take 1 Un yudi gluconate 1-13 tablet by ity o f 324 mg (38 00:00: mouth 2 [place] mg iron) 00 (two) Medical tablet times Branch daily. ascorbic 2019-10 Yes [id number] 500mg Take 1 U nivers acid, 1-13 tablet by ity of vitamin C, 00:00: mouth 2 [place] 500 mg 00 (two) Medical tablet times Branch daily. Take with iron to help with absorption of iron. ferrous 2019-10 Yes [id number] 324mg Take 1 Un yudi gluconate 1-13 tablet by ity o f 324 mg (38 00:00: mouth 2 [place] mg iron) 00 (two) Medical tablet times Branch daily. ascorbic 2019-10 Yes [id number] 500mg Take 1 U nivers acid, 1-13 tablet by ity of vitamin C, 00:00: mouth 2 [place] 500 mg 00 (two) Medical tablet times Branch daily. Take with iron to help with absorption of iron. ferrous 2019-10 Yes [id number] 324mg Take 1 Un yudi gluconate 1-13 tablet by ity o f 324 mg (38 00:00: mouth 2 [place] mg iron) 00 (two) Medical tablet times Branch daily. ascorbic 2019-10 Yes [id number] 500mg Take 1 U nivers acid, 1-13 tablet by ity of vitamin C, 00:00: mouth 2 [place] 500 mg 00 (two) Medical tablet times Branch daily. Take with iron to help with absorption of iron. ferrous 2019-10- No [id number] 324mg Take 1 U nivers gluconate 10-22 tablet by ity of 324 mg (38 00:00: 00:00 mouth 2 [place] mg iron) 00 :00 (two) Medical tablet times Branch daily. ascorbic 2019-10- No [id number] 500mg Take 1 Univers acid, 10-22 tablet by ity of vitamin C, 00:00: 00:00 mouth 2 [place] 500 mg 00 :00 (two) Medical tablet times Branch daily. Take with iron to help with absorption of iron. medroxyPROG 2019-10 Yes [id number] 10mg Take 1 Univers ESTERone 1-06 100 tablet by ity of (PROVERA) 00:00: mouth 3 [place] 10 mg 00 (three) Medical tablet times Branch daily. medroxyPROG 2019-10 Yes [id number] 10mg Take 1 Univers ESTERone 1-06 100 tablet by ity of (PROVERA) 00:00: mouth 3 [place] 10 mg 00 (three) Medical tablet times Branch daily. medroxyPROG 2019-10 Yes [id number] 10mg Take 1 Univers ESTERone 1-06 100 tablet by ity of (PROVERA) 00:00: mouth 3 [place] 10 mg 00 (three) Medical tablet times Branch daily. medroxyPROG 2019-10 Yes [id number] 10mg Take 1 Univers ESTERone 1-06 100 tablet by ity of (PROVERA) 00:00: mouth 3 [place] 10 mg 00 (three) Medical tablet times Branch daily. medroxyPROG 2019-10 Yes [id number] 10mg Take 1 Univers ESTERone 1-06 100 [...] Indication s: acute pain ibuprofen 2019-10 Yes [id number] 600mg Take 1 Univers 600 mg 1-06 100 tablet by ity of tablet 00:00: mouth [place] 00 every 6 Medical (six) Branch hours as needed for Pain (scale 4-6). medroxyPROG 2019-10 Yes [id number] 10mg Take 1 Univers ESTERone 1-06 100 tablet by ity of (PROVERA) 00:00: mouth 3 [place] 10 mg 00 (three) Medical tablet times Branch daily. medroxyPROG 2020-1 Yes [id number] 10mg Take 1 Univers ESTERone 1-06 100 tablet by ity of (PROVERA) 00:00: mouth 3 [place] 10 mg 00 (three) Medical tablet times Branch daily. ibuprofen 2020- Yes [id number] 600mg Take 1 Univers 600 mg 1-06 [...] Indication s: acute pain medroxyPROG 2020- Yes [id number] 10mg Take 1 Univers ESTERone 1-06 100 tablet by ity of (PROVERA) 00:00: mouth 3 [place] 10 mg 00 (three) Medical tablet times Branch daily. ibuprofen 2019- Yes [id number] 600mg Take 1 Univers 600 mg 1-06 [...] Indication s: acute pain medroxyPROG 2020- Yes [id number] 10mg Take 1 Univers ESTERone 1-06 100 tablet by ity of (PROVERA) 00:00: mouth 3 [place] 10 mg 00 (three) Medical tablet times Branch daily. ibuprofen 2020- Yes [id number] 600mg Take 1 Univers 600 mg 1-06 [...] Indication s: acute pain medroxyPROG 2020- Yes [id number] 10mg Take 1 Univers ESTERone 1-06 100 tablet by ity of (PROVERA) 00:00: mouth 3 [place] 10 mg 00 (three) Medical tablet times Branch daily. ibuprofen 2019-10 Yes [id number] 600mg Take 1 Univers 600 mg 1-06 [...] Indication s: acute pain medroxyPROG 2019-10 Yes [id number] 10mg Take 1 Univers ESTERone 1-06 100 tablet by ity of (PROVERA) 00:00: mouth 3 [place] 10 mg 00 (three) Medical tablet times Branch daily. ibuprofen 2019-10 Yes [id number] 600mg Take 1 Univers 600 mg 1-06 [...] Indication s: acute pain medroxyPROG 2019- Yes [id number] 10mg Take 1 Univers ESTERone 1-06 100 tablet by ity of (PROVERA) 00:00: mouth 3 [place] 10 mg 00 (three) Medical tablet times Branch daily. ibuprofen 2019- Yes [id number] 600mg Take 1 Univers 600 mg 1-06 [...] Indication s: acute pain medroxyPROG 2020- Yes [id number] 10mg Take 1 Univers ESTERone 1-06 100 tablet by ity of (PROVERA) 00:00: mouth 3 [place] 10 mg 00 (three) Medical tablet times Branch daily. ibuprofen 2019- Yes [id number] 600mg Take 1 Univers 600 mg 1-06 [...] Indication s: acute pain medroxyPROG 2019- Yes [id number] 10mg Take 1 Univers ESTERone 1-06 100 tablet by ity of (PROVERA) 00:00: mouth 3 [place] 10 mg 00 (three) Medical tablet times Branch daily. ibuprofen 2019-10 Yes [id number] 600mg Take 1 Univers 600 mg 1-06 [...] Indication s: acute pain ibuprofen 2019- Yes [id number] 600mg Take 1 Univers 600 mg 1-06 100 tablet by ity of tablet 00:00: mouth [place] 00 every 6 Medical (six) Branch hours as needed for Pain (scale 4-6). ibuprofen 2019- Yes [id number] 600mg Take 1 Univers 600 mg 1-06 100 tablet by ity of tablet 00:00: mouth [place] 00 every 6 Medical (six) Branch hours as needed for Pain (scale 4-6). ibuprofen 2019- Yes [id number] 600mg Take 1 Univers 600 mg 1-06 100 tablet by ity of tablet 00:00: mouth [place] 00 every 6 Medical (six) Branch hours as needed for Pain (scale 4-6). ibuprofen 2019-10 Yes [id number] 600mg Take 1 Univers 600 mg 1-06 100 tablet by ity of tablet 00:00: mouth [place] 00 every 6 Medical (six) Branch hours as needed for Pain (scale 4-6). ibuprofen 2019-10 Yes [id number] 600mg Take 1 Univers 600 mg 1-06 100 tablet by ity of tablet 00:00: mouth [place] 00 every 6 Medical (six) Branch hours as needed for Pain (scale 4-6). ibuprofen 2019-10 Yes [id number] 600mg Take 1 Univers 600 mg 1-06 100 tablet by ity of tablet 00:00: mouth [place] 00 every 6 Medical (six) Branch hours as needed for Pain (scale 4-6). ibuprofen 2019-10- No [id number] 600mg Take 1 Univers 600 mg 1-06 12-05 100 tablet by ity of tablet 00:00: 00:00 mouth [place] 00 :00 every 6 Medical (six) Branch hours as needed for Pain (scale 4-6). medroxyPROG 2019-10- No [id number] 10mg Take 1 Univers ESTERone 10-15- 100 tablet by ity o f (PROVERA) 00:00: 00:00 mouth 3 [place] 10 mg 00 :00 (three) Medical tablet times Branch daily. Take twice daily until you completely stop bleeding, then once per day medroxyPROG 2019-10- No [id number] 10mg Take 1 Univers ESTERone 10-15- 100 tablet by ity o f (PROVERA) 00:00: 00:00 mouth 3 [place] 10 mg 00 :00 (three) Medical tablet times Branch daily. Take twice daily until you completely stop bleeding, then once per day medroxyPROG 2019-10- No [id number] 10mg Take 1 Univers ESTERone 10-15- 100 tablet by ity o f (PROVERA) 00:00: 00:00 mouth 3 [place] 10 mg 00 :00 (three) Medical tablet times Branch daily. Take twice daily until you completely stop bleeding, then once per day medroxyPROG 2019-10- No [id number] 10mg Take 1 Univers ESTERone 10-15 100 [...] Indication s: acute pain medroxyPROG 2019-10- No [id number] 10mg Take 1 Univers ESTERone 10-11 100 tablet by ity o f (PROVERA) 00:00: 05:59 mouth 2 [place] 10 mg 00 :00 (two) Medical tablet times Branch daily for 60 doses. Take twice daily until you completely stop bleeding, then once per day docusate 2019-10- No [id number] 100mg Take 1 Univers (COLACE) 10-11 100 capsule by ity of 100 mg 00:00: 05:59 mouth 2 [place] capsule 00 :00 (two) Medical times Branch daily for 30 days. This medication is used for constipati on Polyethylen 2019-10- No [id number] 1{packe Take 1 Univers e Glycol 10-11 100 t} Packet by ity o f 3350 00:00: 05:59 mouth [place] (MIRALAX) 00 :00 every 24 Medica l 17 gram (twenty-fo Branch powder ur) hours as needed for Constipati on for up to 30 days. medroxyPROG 2019-10- No [id number] 10mg Take 1 Univers ESTERone 10-11 100 tablet by ity o f (PROVERA) 00:00: 05:59 mouth 2 [place] 10 mg 00 :00 (two) Medical tablet times Branch daily for 60 doses. Take twice daily until you completely stop bleeding, then once per day docusate 2019-10- No [id number] 100mg Take 1 Univers (COLACE) 10-11 100 capsule by ity of 100 mg 00:00: 05:59 mouth 2 [place] capsule 00 :00 (two) Medical times Branch daily for 30 days. This medication is used for constipati on Polyethylen 2019-10- No [id number] 1{packe Take 1 Univers e Glycol 10-11 100 t} Packet by ity o f 3350 00:00: 05:59 mouth [place] (MIRALAX) 00 :00 every 24 Medica l 17 gram (twenty-fo Branch powder ur) hours as needed for Constipati on for up to 30 days. medroxyPROG 2019-10- No [id number] 10mg Take 1 Univers ESTERone 10-11 100 tablet by ity o f (PROVERA) 00:00: 05:59 mouth 2 [place] 10 mg 00 :00 (two) Medical tablet times Branch daily for 60 doses. Take twice daily until you completely stop bleeding, then once per day docusate 2019-10- No [id number] 100mg Take 1 Univers (COLACE) 10-11 100 capsule by ity of 100 mg 00:00: 05:59 mouth 2 [place] capsule 00 :00 (two) Medical times Branch daily for 30 days. This medication is used for constipati on Polyethylen 2019-10 No [id number] 1{packe Take 1 Univers e Glycol 10-11 100 t} Packet by ity o f 3350 00:00: 05:59 mouth [place] (MIRALAX) 00 :00 every 24 Medica l 17 gram (twenty-fo Branch powder ur) hours as needed for Constipati on for up to 30 days. docusate 2019-10- No [id number] 100mg Take 1 Univers (COLACE) 10-11 100 capsule by ity of 100 mg 00:00: 05:59 mouth 2 [place] capsule 00 :00 (two) Medical times Branch daily for 30 days. This medication is used for constipati on Polyethylen 2019-10- No [id number] 1{packe Take 1 Univers e Glycol 10-11 100 t} Packet by ity o f 3350 00:00: 05:59 mouth [place] (MIRALAX) 00 :00 every 24 Medica l 17 gram (twenty-fo Branch powder ur) hours as needed for Constipati on for up to 30 days. docusate 2019-10 No [id number] 100mg Take 1 Univers (COLACE) 10-11 100 capsule by ity of 100 mg 00:00: 05:59 mouth 2 [place] capsule 00 :00 (two) Medical times Branch daily for 30 days. This medication is used for constipati on Polyethylen 2019-10 No [id number] 1{packe Take 1 Univers e Glycol 10-11 100 t} Packet by ity o f 3350 00:00: 05:59 mouth [place] (MIRALAX) 00 :00 every 24 Medica l 17 gram (twenty-fo Branch powder ur) hours as needed for Constipati on for up to 30 days. docusate 2019-10- No [id number] 100mg Take 1 Univers (COLACE) 10-11 100 capsule by ity of 100 mg 00:00: 05:59 mouth 2 [place] capsule 00 :00 (two) Medical times Branch daily for 30 days. This medication is used for constipati on Polyethylen 2019-10- No [id number] 1{packe Take 1 Univers e Glycol 10-11 100 t} Packet by ity o f 3350 00:00: 05:59 mouth [place] (MIRALAX) 00 :00 every 24 Medica l 17 gram (twenty-fo Branch powder ur) hours as needed for Constipati on for up to 30 days. docusate 2019-10- No [id number] 100mg Take 1 Univers (COLACE) 10-11 100 capsule by ity of 100 mg 00:00: 05:59 mouth 2 [place] capsule 00 :00 (two) Medical times Branch daily for 30 days. This medication is used for constipati on Polyethylen 2019-10- No [id number] 1{packe Take 1 Univers e Glycol 10-11 100 t} Packet by ity o f 3350 00:00: 05:59 mouth [place] (MIRALAX) 00 :00 every 24 Medica l 17 gram (twenty-fo Branch powder ur) hours as needed for Constipati on for up to 30 days. docusate 2019-10- No [id number] 100mg Take 1 Univers (COLACE) 10-11 100 capsule by ity of 100 mg 00:00: 05:59 mouth 2 [place] capsule 00 :00 (two) Medical times Branch daily for 30 days. This medication is used for constipati on Polyethylen 2019-10- No [id number] 1{packe Take 1 Univers e Glycol 10-11 100 t} Packet by ity o f 3350 00:00: 05:59 mouth [place] (MIRALAX) 00 :00 every 24 Medica l 17 gram (twenty-fo Branch powder ur) hours as needed for Constipati on for up to 30 days. docusate 2019-10- No [id number] 100mg Take 1 Univers (COLACE) 10-11 100 capsule by ity of 100 mg 00:00: 05:59 mouth 2 [place] capsule 00 :00 (two) Medical times Branch daily for 30 days. This medication is used for constipati on Polyethylen 2019-10 No [id number] 1{packe Take 1 Univers e Glycol 10-11 100 t} Packet by ity o f 3350 00:00: 05:59 mouth [place] (MIRALAX) 00 :00 every 24 Medica l 17 gram (twenty-fo Branch powder ur) hours as needed for Constipati on for up to 30 days. docusate 2019-10- No [id number] 100mg Take 1 [facility] (COLACE) 10-11 100 capsule by ity of 100 mg 00:00: 05:59 mouth 2 [place] capsule 00 :00 (two) Medical times Branch daily for 30 days. This medication is used for constipati on Polyethylen 2019-10- No [id number] 1{packe Take 1 [facility] e Glycol 10-11 100 t} Packet by ity o f 3350 00:00: 05:59 mouth [place] (MIRALAX) 00 :00 every 24 Medica l 17 gram (twenty-fo Branch powder ur) hours as needed for Constipati on for up to 30 days. docusate 2019-10- No [id number] 100mg Take 1 [facility] (COLACE) 10-11 100 capsule by ity of 100 mg 00:00: 05:59 mouth 2 [place] capsule 00 :00 (two) Medical times Branch daily for 30 days. This medication is used for constipati on Polyethylen 2019-10 No [id number] 1{packe Take 1 [facility] e Glycol 10-11 100 t} Packet by ity o f 3350 00:00: 05:59 mouth [place] (MIRALAX) 00 :00 every 24 Medica l 17 gram (twenty-fo Branch powder ur) hours as needed for Constipati on for up to 30 days. docusate 2019-10- No [id number] 100mg Take 1 [facility] (COLACE) 10-11 100 capsule by ity of 100 mg 00:00: 05:59 mouth 2 [place] capsule 00 :00 (two) Medical times Branch daily for 30 days. This medication is used for constipati on Polyethylen 2019-10- No [id number] 1{packe Take 1 [facility] e Glycol 10-11 100 t} Packet by ity o f 3350 00:00: 05:59 mouth [place] (MIRALAX) 00 :00 every 24 Medica l 17 gram (twenty-fo Branch powder ur) hours as needed for Constipati on for up to 30 days. docusate 2019-10- No [id number] 100mg Take 1 [facility] (COLACE) 10-11 100 capsule by ity of 100 mg 00:00: 05:59 mouth 2 [place] capsule 00 :00 (two) Medical times Branch daily for 30 days. This medication is used for constipati on Polyethylen 2019-10- No [id number] 1{packe Take 1 [facility] e Glycol 10-11 100 t} Packet by ity o f 3350 00:00: 05:59 mouth [place] (MIRALAX) 00 :00 every 24 Medica l 17 gram (twenty-fo Branch powder ur) hours as needed for Constipati on for up to 30 days. docusate 2019-10- No [id number] 100mg Take 1 [facility] (COLACE) 10-11 100 capsule by ity of 100 mg 00:00: 05:59 mouth 2 [place] capsule 00 :00 (two) Medical times Branch daily for 30 days. This medication is used for constipati on Polyethylen 2019-10- No [id number] 1{packe Take 1 [facility] e Glycol 10-11 100 t} Packet by ity o f 3350 00:00: 05:59 mouth [place] (MIRALAX) 00 :00 every 24 Medica l 17 gram (twenty-fo Branch powder ur) hours as needed for Constipati on for up to 30 days. docusate 2019-10- No [id number] 100mg Take 1 [facility] (COLACE) 10-11 100 capsule by ity of 100 mg 00:00: 05:59 mouth 2 [place] capsule 00 :00 (two) Medical times Branch daily for 30 days. This medication is used for constipati on Polyethylen 2019-10- No [id number] 1{packe Take 1 [facility] e Glycol 10-11 100 t} Packet by ity o f 3350 00:00: 05:59 mouth [place] (MIRALAX) 00 :00 every 24 Medica l 17 gram (twenty-fo Branch powder ur) hours as needed for Constipati on for up to 30 days. docusate 2019-10- No [id number] 100mg Take 1 [facility] (COLACE) 10-11 100 capsule by ity of 100 mg 00:00: 05:59 mouth 2 [place] capsule 00 :00 (two) Medical times Branch daily for 30 days. This medication is used for constipati on Polyethylen 2019-10- No [id number] 1{packe Take 1 [facility] e Glycol 10-11 100 t} Packet by ity o f 3350 00:00: 05:59 mouth [place] (MIRALAX) 00 :00 every 24 Medica l 17 gram (twenty-fo Branch powder ur) hours as needed for Constipati on for up to 30 days. docusate 2019-10- No [id number] 100mg Take 1 [facility] (COLACE) 10-11 100 capsule by ity of 100 mg 00:00: 05:59 mouth 2 [place] capsule 00 :00 (two) Medical times Branch daily for 30 days. This medication is used for constipati on Polyethylen 2019-10- No [id number] 1{packe Take 1 [facility] e Glycol 10-11 100 t} Packet by ity o f 3350 00:00: 05:59 mouth [place] (MIRALAX) 00 :00 every 24 Medica l 17 gram (twenty-fo Branch powder ur) hours as needed for Constipati on for up to 30 days. docusate 2019-10- No [id number] 100mg Take 1 [facility] (COLACE) 10-11 100 capsule by ity of 100 mg 00:00: 05:59 mouth 2 [place] capsule 00 :00 (two) Medical times Branch daily for 30 days. This medication is used for constipati on Polyethylen 2019-10- No [id number] 1{packe Take 1 [facility] e Glycol 10-11 100 t} Packet by ity o f 3350 00:00: 05:59 mouth [place] (MIRALAX) 00 :00 every 24 Medica l 17 gram (twenty-fo Branch powder ur) hours as needed for Constipati on for up to 30 days. docusate 2019-10- No [id number] 100mg Take 1 [facility] (COLACE) 10-11 100 capsule by ity of 100 mg 00:00: 05:59 mouth 2 [place] capsule 00 :00 (two) Medical times Branch daily for 30 days. This medication is used for constipati on Polyethylen 2019-10- No [id number] 1{packe Take 1 [facility] e Glycol 10-11 100 t} Packet by ity o f 3350 00:00: 05:59 mouth [place] (MIRALAX) 00 :00 every 24 Medica l 17 gram (twenty-fo Branch powder ur) hours as needed for Constipati on for up to 30 days. docusate 2019-10- No [id number] 100mg Take 1 [facility] (COLACE) 10-11 100 capsule by ity of 100 mg 00:00: 05:59 mouth 2 [place] capsule 00 :00 (two) Medical times Branch daily for 30 days. This medication is used for constipati on Polyethylen 2019-10- No [id number] 1{packe Take 1 [facility] e Glycol 10-11 100 t} Packet by ity o f 3350 00:00: 05:59 mouth [place] (MIRALAX) 00 :00 every 24 Medica l 17 gram (twenty-fo Branch powder ur) hours as needed for Constipati on for up to 30 days. docusate 2019-10- No [id number] 100mg Take 1 [facility] (COLACE) 10-11 100 capsule by ity of 100 mg 00:00: 05:59 mouth 2 [place] capsule 00 :00 (two) Medical times Branch daily for 30 days. This medication is used for constipati on Polyethylen 2019-10- No [id number] 1{packe Take 1 [facility] e Glycol 10-11 100 t} Packet by ity o f 3350 00:00: 05:59 mouth [place] (MIRALAX) 00 :00 every 24 Medica l 17 gram (twenty-fo Branch powder ur) hours as needed for Constipati on for up to 30 days. docusate 2019-10- No [id number] 100mg Take 1 [facility] (COLACE) 10-11 100 capsule by ity of 100 mg 00:00: 05:59 mouth 2 [place] capsule 00 :00 (two) Medical times Branch daily for 30 days. This medication is used for constipati on Polyethylen 2019-10- No [id number] 1{packe Take 1 [facility] e Glycol 10-11 100 t} Packet by ity o f 3350 00:00: 05:59 mouth [place] (MIRALAX) 00 :00 every 24 Medica l 17 gram (twenty-fo Branch powder ur) hours as needed for Constipati on for up to 30 days. docusate 2019-10- No [id number] 100mg Take 1 [facility] (COLACE) 10-11 100 capsule by ity of 100 mg 00:00: 05:59 mouth 2 [place] capsule 00 :00 (two) Medical times Branch daily for 30 days. This medication is used for constipati on Polyethylen 2019-10- No [id number] 1{packe Take 1 [facility] e Glycol 10-11 100 t} Packet by ity o f 3350 00:00: 05:59 mouth [place] (MIRALAX) 00 :00 every 24 Medica l 17 gram (twenty-fo Branch powder ur) hours as needed for Constipati on for up to 30 days. docusate 2019-10- No [id number] 100mg Take 1 [facility] (COLACE) 10-11 100 capsule by ity of 100 mg 00:00: 05:59 mouth 2 [place] capsule 00 :00 (two) Medical times Branch daily for 30 days. This medication is used for constipati on Polyethylen 2019-10- No [id number] 1{packe Take 1 [facility] e Glycol 10-11 100 t} Packet by [facility] 3350 00:00: 05:59 mouth [place] (MIRALAX) 00 :00 every 24 Medica l 17 gram (twenty-fo Branch powder ur) hours as needed for Constipati on for up to 30 days. medroxyPROG 2019-10- No [id number] 10mg Take 1 [facility] ESTERone 10-11 100 tablet by ity o f (PROVERA) 00:00: 00:00 mouth [place] 10 mg 00 :00 (two) Medical tablet times Branch daily for 60 doses. Take twice daily until you completely stop bleeding, then once per day medroxyPROG 2019-10- No [id number] 10mg Take 1 [facility] ESTERone 10-11 100 tablet by ity o f (PROVERA) 00:00: 00:00 mouth [place] 10 mg 00 :00 (two) Medical tablet times Branch daily for 60 doses. Take twice daily until you completely stop bleeding, then once per day medroxyPROG 2019-10- No [id number] 10mg Take 1 [facility] ESTERone 10-11 100 tablet by ity o f (PROVERA) 00:00: 00:00 mouth 2 [place] 10 mg 00 :00 (two) Medical tablet times Branch daily for 60 doses. Take twice daily until you completely stop bleeding, then once per day medroxyPROG 2019-10- No [id number] 10mg Take 1 [facility] ESTERone 10-11 100 tablet by ity o f (PROVERA) 00:00: 00:00 mouth 2 [place] 10 mg 00 :00 (two) Medical tablet times Branch daily for 60 doses. Take twice daily until you completely stop bleeding, then once per day miSOPROStoL 2019-10- No [id number] 200ug Take 1 [facility] 200 mcg 0-16 10-18 tablet by ity of tablet 00:00: 04:59 mouth 2 [place] 00 :00 (two) Medical times Branch daily for 1 day. miSOPROStoL 2019-10- No [id number] 200ug Take 1 [facility] 200 mcg 0-16 [...] tablet 00:00: daily. [place] [facility] fluticasone 2019-10 Yes INSTILL Uni [...] tablet 00:00: daily. [place] [facility] fluticasone 2019-10 Yes INSTILL Uni [...] by mouth ity of tablet 00:00: daily. [address] Branch fluticasone 2020- Yes INSTILL Uni [...] 00:00: mouth 2 [place] (two) Medical times [place] daily. loratadine 2020- Yes 10mg Take 10 mg U nivers 10 mg 0-08 by mouth ity of tablet 00:00: daily. [address] Branch fluticasone 2020- Yes INSTILL Uni [...] by mouth ity of tablet 00:00: daily. [address] fluticasone 2020- Yes INSTILL Uni vers [...] by mouth ity of tablet 00:00: daily. [address] fluticasone 2019- Yes INSTILL Uni vers [...] by mouth ity of tablet 00:00: daily. [address] fluticasone 2020- Yes INSTILL Uni vers [...] 00:00: mouth 2 [place] (two) Medical times [place] daily. loratadine 2019- Yes 10mg Take 10 mg U nivers 10 mg 0-08 by mouth ity of tablet 00:00: daily. [address] fluticasone 2019- Yes INSTILL Uni vers [...] ity of tablet 00:00: mouth 2 [place] ([facility]) Medical times [place] daily. loratadine 2019- Yes 10mg Take 10 mg U nivers 10 mg 0-08 by mouth ity of tablet 00:00: daily. [address] fluticasone 2019- Yes INSTILL Uni vers [...] by ity of tablet 00:00: mouth 2 [place] [id number] (two) Medical times [place] daily. loratadine 2019- Yes 10mg Take 10 mg U nivers 10 mg 0-08 by mouth ity of tablet 00:00: daily. [address] fluticasone 2019- Yes INSTILL Uni vers [...] mouth ity of tablet 00:00: daily. [place] [facility] Branch fluticasone 2020- Yes INSTILL Uni vers [...] by mouth ity of tablet 00:00: daily. [address] fluticasone 2020- Yes INSTILL Uni vers [...] 00:00: mouth 2 [place] (two) Medical times [place] daily. loratadine 2019- Yes 10mg Take 10 mg U nivers 10 mg 0-08 by mouth ity of tablet 00:00: daily. [address] fluticasone 2019- Yes INSTILL Uni vers [...] 00:00: mouth 2 [place] (two) Medical times [place] daily. loratadine 2020- Yes 10mg Take 10 mg U nivers 10 mg 0-08 by mouth ity of tablet 00:00: daily. [address] fluticasone 2020- Yes INSTILL Uni vers [...] by mouth ity of tablet 00:00: daily. [address] fluticasone 2020- Yes INSTILL Uni vers [...] by mouth ity of tablet 00:00: daily. [address] fluticasone 2019- Yes INSTILL Uni vers [...] by mouth ity of tablet 00:00: daily. [address] fluticasone 2019- Yes INSTILL Uni vers [...] by mouth ity of tablet 00:00: daily. [address] fluticasone 2019- Yes INSTILL Uni vers [...] by mouth ity of tablet 00:00: daily. [address] fluticasone 2020- Yes INSTILL Uni vers [...] by mouth ity of tablet 00:00: daily. [address] fluticasone 2019- Yes INSTILL Uni vers [...] by mouth ity of tablet 00:00: daily. [address] fluticasone 2019- Yes INSTILL Uni vers [...] ity of tablet 00:00: mouth 2 [place] 00 (two) Medical times Branch daily. loratadine 2020- Yes 10mg Take 10 mg U nivers 10 mg 0-08 by mouth ity of tablet 00:00: daily. [address] Branch fluticasone 2020- Yes INSTILL Uni [...] ity of tablet 00:00: mouth 2 [place] ([facility]) Medical times [place] daily. loratadine 2020- Yes 10mg Take 10 mg U nivers 10 mg 0-08 by mouth ity of tablet 00:00: daily. [address] fluticasone 2020- Yes INSTILL Uni vers [...] mouth ity of tablet 00:00: daily. [place] [facility] fluticasone 2019- Yes INSTILL Uni vers propionate [...] by mouth ity of tablet 00:00: daily. [address] fluticasone 2019-10 Yes INSTILL Uni vers [...] by mouth ity of tablet 00:00: daily. [address] fluticasone 2019-10 Yes INSTILL Uni vers [...] by mouth ity of tablet 00:00: daily. [address] Branch fluticasone 2020- Yes INSTILL Uni [...] by ity of tablet 00:00: mouth 2 ([facility]) Medical times [place] daily. loratadine 2020- Yes 10mg Take 10 mg U nivers 10 mg 0-08 by mouth ity of tablet 00:00: daily. [address] fluticasone 2020- Yes INSTILL Uni vers [...] 00:00: mouth 2 [place] (two) Medical times [place] daily. loratadine 2020- Yes 10mg Take 10 mg U nivers 10 mg 0-08 by mouth ity of tablet 00:00: daily. [place] [facility] fluticasone 2019- Yes INSTILL Uni vers propionate 0-08 ONE (1) ity of 50 00:00: SPRAY(S) [place] mcg/actuati 00 INTO EACH Med ical on nasal NOSTRIL Branch spray TWICE A DAY. carvediloL 2020- Yes 6.25mg Take 6.25 Univers 6.25 mg 0-08 mg by ity of tablet 00:00: mouth 2 [place] (two) Medical times [place] daily. loratadine 2020- Yes 10mg Take 10 mg U nivers 10 mg 0-08 by mouth ity of tablet 00:00: daily. [place] [facility] fluticasone 2019- Yes INSTILL Uni vers propionate 0-08 ONE (1) ity of 50 00:00: SPRAY(S) [place] mcg/actuati 00 INTO EACH Med ical on nasal NOSTRIL Branch spray TWICE A DAY. carvediloL 2020- Yes 6.25mg Take 6.25 [facility] 6.25 mg 0-08 mg by ity of tablet 00:00: mouth 2 [place] (two) Medical times [place] daily. loratadine 2020- Yes 10mg Take 10 [...] Sat Branch 07/05/20 at 1645, Routine
membership coordinator approving Restricted medication : KARLA NOGUERA diphenhydrA [...] tablet 2 1545, tablet Routine butalbital- Yes [id number] 1{tbl} Take 1 [facility] acetaminoph - tablet by ity of en-caff 00:00: mouth [place] 50-325-40 00 every 4 Medical mg tablet (four) Branch hours as needed for Pain (scale 7-10). butalbital- Yes [id number] 1{tbl} Take 1 [facility] acetaminoph 9-26 tablet by ity of en-caff 00:00: mouth [place] 50-325-40 00 every 4 Medical mg tablet (four) Branch hours as needed for Pain (scale 7-10). butalbital- 2020-0 Yes [id number] 1{tbl} Take 1 [facility] acetaminoph 9-26 tablet by ity of en-caff 00:00: mouth [place] 50-325-40 00 every 4 Medical mg tablet (four) Branch hours as needed for Pain (scale 7-10). butalbital- 2020-0 Yes [id number] 1{tbl} Take 1 [facility] acetaminoph 9-26 tablet by ity of en-caff 00:00: mouth [place] 50-325-40 00 every 4 Medical mg tablet (four) Branch hours as needed for Pain (scale 7-10). butalbital- 2019-0 Yes [id number] 1{tbl} Take 1 [facility] acetaminoph 9-26 tablet by ity of en-caff 00:00: mouth [place] 50-325-40 00 every 4 Medical mg tablet (four) Branch hours as needed for Pain (scale 7-10). butalbital- 2019-0 Yes [id number] 1{tbl} Take 1 [facility] acetaminoph 9-26 tablet by ity of en-caff 00:00: mouth [place] 50-325-40 00 every 4 Medical mg tablet (four) Branch hours as needed for Pain (scale 7-10). butalbital- 2019-0 Yes [id number] 1{tbl} Take 1 [facility] acetaminoph 9-26 tablet by ity of en-caff 00:00: mouth [place] 50-325-40 00 every 4 Medical mg tablet (four) Branch hours as needed for Pain (scale 7-10). butalbital- 2020-0 Yes [id number] 1{tbl} Take 1 [facility] acetaminoph 9-26 tablet by ity of en-caff 00:00: mouth [place] 50-325-40 00 every 4 Medical mg tablet (four) Branch hours as needed for Pain (scale 7-10). butalbital- 2020-0 Yes [id number] 1{tbl} Take 1 [facility] acetaminoph 9-26 tablet by ity of en-caff 00:00: mouth [place] 50-325-40 00 every 4 Medical mg tablet (four) Branch hours as needed for Pain (scale 7-10). butalbital- 2020-0 Yes [id number] 1{tbl} Take 1 [facility] acetaminoph 9-26 tablet by ity of en-caff 00:00: mouth [place] 50-325-40 00 every 4 Medical mg tablet (four) Branch hours as needed for Pain (scale 7-10). butalbital- 2020-0 Yes [id number] 1{tbl} Take 1 [facility] acetaminoph 9-26 tablet by ity of en-caff 00:00: mouth [place] 50-325-40 00 every 4 Medical mg tablet (four) Branch hours as needed for Pain (scale 7-10). butalbital- 2020-0 Yes [id number] 1{tbl} Take 1 [facility] acetaminoph 9-26 tablet by ity of en-caff 00:00: mouth [place] 50-325-40 00 every 4 Medical mg tablet (four) Branch hours as needed for Pain (scale 7-10). butalbital- 2020-0 Yes [id number] 1{tbl} Take 1 [facility] acetaminoph 9-26 tablet by ity of en-caff 00:00: mouth [place] 50-325-40 00 every 4 Medical mg tablet (four) Branch hours as needed for Pain (scale 7-10). butalbital- 2020-0 Yes [id number] 1{tbl} Take 1 [facility] acetaminoph 9-26 tablet by ity of en-caff 00:00: mouth [place] 50-325-40 00 every 4 Medical mg tablet (four) Branch hours as needed for Pain (scale 7-10). butalbital- 2020-0 Yes [id number] 1{tbl} Take 1 [facility] acetaminoph 9-26 tablet by ity of en-caff 00:00: mouth [place] 50-325-40 00 every 4 Medical mg tablet (four) Branch hours as needed for Pain (scale 7-10). butalbital- 2020-0 Yes [id number] 1{tbl} Take 1 [facility] acetaminoph 9-26 tablet by ity of en-caff 00:00: mouth [place] 50-325-40 00 every 4 Medical mg tablet (four) Branch hours as needed for Pain (scale 7-10). butalbital- 2020-0 Yes [id number] 1{tbl} Take 1 [facility] acetaminoph 9-26 tablet by ity of en-caff 00:00: mouth [place] 50-325-40 00 every 4 Medical mg tablet (four) Branch hours as needed for Pain (scale 7-10). butalbital- 2020-0 Yes [id number] 1{tbl} Take 1 [facility] acetaminoph 9-26 tablet by ity of en-caff 00:00: mouth [place] 50-325-40 00 every 4 Medical mg tablet (four) Branch hours as needed for Pain (scale 7-10). butalbital- 2020-0 Yes [id number] 1{tbl} Take 1 [facility] acetaminoph 9-26 tablet by ity of en-caff 00:00: mouth [place] 50-325-40 00 every 4 Medical mg tablet (four) Branch hours as needed for Pain (scale 7-10). butalbital- 2020-0 Yes [id number] 1{tbl} Take 1 [facility] acetaminoph 9-26 tablet by ity of en-caff 00:00: mouth [place] 50-325-40 00 every 4 Medical mg tablet (four) Branch hours as needed for Pain (scale 7-10). butalbital- 2020-0 Yes [id number] 1{tbl} Take 1 [facility] acetaminoph 9-26 tablet by ity of en-caff 00:00: mouth [place] 50-325-40 00 every 4 Medical mg tablet (four) Branch hours as needed for Pain (scale 7-10). butalbital- 2020-0 Yes [id number] 1{tbl} Take 1 [facility] acetaminoph 9-26 tablet by ity of en-caff 00:00: mouth [place] 50-325-40 00 every 4 Medical mg tablet (four) Branch hours as needed for Pain (scale 7-10). butalbital- 2020-0 Yes [id number] 1{tbl} Take 1 [facility] acetaminoph 9-26 tablet by ity of en-caff 00:00: mouth [place] 50-325-40 00 every 4 Medical mg tablet (four) Branch hours as needed for Pain (scale 7-10). butalbital- 2020-0 Yes [id number] 1{tbl} Take 1 [facility] acetaminoph 9-26 tablet by ity of en-caff 00:00: mouth [place] 50-325-40 00 every 4 Medical mg tablet (four) Branch hours as needed for Pain (scale 7-10). butalbital- 2020-0 Yes [id number] 1{tbl} Take 1 [facility] acetaminoph 9-26 tablet by ity of en-caff 00:00: mouth [place] 50-325-40 00 every 4 Medical mg tablet (four) Branch hours as needed for Pain (scale 7-10). butalbital- 2020-0 Yes [id number] 1{tbl} Take 1 [facility] acetaminoph 9-26 tablet by ity of en-caff 00:00: mouth [place] 50-325-40 00 every 4 Medical mg tablet (four) Branch hours as needed for Pain (scale 7-10). butalbital- 2020-0 Yes [id number] 1{tbl} Take 1 [facility] acetaminoph 9-26 tablet by ity of en-caff 00:00: mouth [place] 50-325-40 00 every 4 Medical mg tablet (four) Branch hours as needed for Pain (scale 7-10). butalbital- 2020-0 Yes [id number] 1{tbl} Take 1 [facility] acetaminoph 9-26 tablet by ity of en-caff 00:00: mouth [place] 50-325-40 00 every 4 Medical mg tablet (four) Branch hours as needed for Pain (scale 7-10). butalbital- 2020-0 Yes [id number] 1{tbl} Take 1 [facility] acetaminoph 9-26 tablet by ity of en-caff 00:00: mouth [place] 50-325-40 00 every 4 Medical mg tablet (four) Branch hours as needed for Pain (scale 7-10). butalbital- 2020-0 Yes [id number] 1{tbl} Take 1 [facility] acetaminoph 9-26 tablet by ity of en-caff 00:00: mouth [place] 50-325-40 00 every 4 Medical mg tablet (four) Branch hours as needed for Pain (scale 7-10). butalbital- 2020-0 Yes [id number] 1{tbl} Take 1 [facility] acetaminoph 9-26 tablet by ity of en-caff 00:00: mouth [place] 50-325-40 00 every 4 Medical mg tablet (four) Branch hours as needed for Pain (scale 7-10). butalbital- 2020-0 Yes [id number] 1{tbl} Take 1 [facility] acetaminoph 9-26 tablet by ity of en-caff 00:00: mouth [place] 50-325-40 00 every 4 Medical mg tablet (four) Branch hours as needed for Pain (scale 7-10). butalbital- 2020-0 Yes [id number] 1{tbl} Take 1 [facility] acetaminoph 9-26 tablet by ity of en-caff 00:00: mouth [place] 50-325-40 00 every 4 Medical mg tablet (four) Branch hours as needed for Pain (scale 7-10). butalbital- 2019-0 Yes [id number] 1{tbl} Take 1 [facility] acetaminoph 9-26 tablet by ity of en-caff 00:00: mouth [place] 50-325-40 00 every 4 Medical mg tablet (four) Branch hours as needed for Pain (scale 7-10). butalbital- 2019-0 Yes [id number] 1{tbl} Take 1 [facility] acetaminoph 9-26 tablet by ity of en-caff 00:00: mouth [place] 50-325-40 00 every 4 Medical mg tablet (four) Branch hours as needed for Pain (scale 7-10). butalbital- 2019-0 Yes [id number] 1{tbl} Take 1 [facility] acetaminoph 9-26 tablet by ity of en-caff 00:00: mouth [place] 50-325-40 00 every 4 Medical mg tablet (four) Branch hours as needed for Pain (scale 7-10). butalbital- 2020-0 Yes [id number] 1{tbl} Take 1 [facility] acetaminoph 9-26 tablet by ity of en-caff 00:00: mouth [place] 50-325-40 00 every 4 Medical mg tablet (four) Branch hours as needed for Pain (scale 7-10). butalbital- 2019-0 Yes [id number] 1{tbl} Take 1 [facility] acetaminoph 9-26 tablet by ity of en-caff 00:00: mouth [place] 50-325-40 00 every 4 Medical mg tablet (four) Branch hours as needed for Pain (scale 7-10). butalbital- 2019-0 Yes [id number] 1{tbl} Take 1 [facility] acetaminoph 9-26 tablet by ity of en-caff 00:00: mouth [place] 50-325-40 00 every 4 Medical mg tablet (four) Branch hours as needed for Pain (scale 7-10). butalbital- 2019-0 Yes [id number] 1{tbl} Take 1 [facility] acetaminoph 9-26 tablet by ity of en-caff 00:00: mouth [place] 50-325-40 00 every 4 Medical mg tablet (four) Branch hours as needed for Pain (scale 7-10). butalbital- 2019- Yes [id number] 1{tbl} Take 1 [facility] acetaminoph 9-26 tablet by ity of en-caff 00:00: mouth [place] 50-325-40 00 every 4 Medical mg tablet (four) Branch hours as needed for Pain (scale 7-10). Vital Signs Vital Name Observation Time Observation Value Comments Source Systolic blood 2021-03-19 20:00:00 138 mm[Hg] [facility] Diastolic blood 2021-03-19 20:00:00 80 mm[Hg] [facility] Heart rate 2021-03-19 20:00:00 72 /min [facility] Respiratory rate 2021-03-19 20:00:00 19 /min [facility] Oxygen saturation in 2021-03-19 20:00:00 98 /min [facility] Arterial blood by [facility] Pulse oximetry Branch Body temperature 2021-03-19 17:15:00 37.11 Mely [facility] Body weight 2021-03-19 17:15:00 104.327 kg [facility] BMI 2021-03-19 17:15:00 44.92 kg/m2 [facility] Systolic blood 2021-02-12 00:55:00 173 mm[Hg] [facility] Diastolic blood 2021-02-12 00:55:00 82 mm[Hg] Un[facility] rsity of pressure [place] [facility] Heart rate 2021-02-12 00:55:00 75 /min [facility] [place] [facility] Respiratory rate 2021-02-12 00:55:00 18 /min [facility] [place] [facility] Oxygen saturation in 2021-02-12 00:55:00 100 /min [facility] of Arterial blood by [place] [employer] [facility] Pulse oximetry Branch Body temperature 2021-02-12 00:30:45 37.06 Mely [facility] [place] [facility] Body height 2021-02-11 23:35:00 152.4 cm [facility] [place] [facility] Body weight 2021-02-11 23:35:00 106.595 kg [facility] [place] [facility] BMI 2021-02-11 23:35:00 45.90 kg/m2 [facility] [place] [facility] Systolic blood 2020-09-13 17:36:00 108 mm[Hg] Univer sity of pressure [facility] Diastolic blood 2020-09-13 17:36:00 62 mm[Hg] Unive rsity of pressure [facility] Body temperature 2020-09-13 17:36:00 36.94 Mely Univ ers[facility] Respiratory rate 2020-09-13 17:36:00 18 /min Univ [facility] Heart rate 2020-09-13 15:02:00 74 /min [facility] Oxygen saturation in 2020-09-13 10:00:00 98 /min University of Arterial blood by [facility] luisa Pulse oximetry Branch Body height 2020-09-10 19:37:00 152.4 cm [facility] Body weight 2020-09-10 19:37:00 106.6 kg [facility] BMI 2020-09-10 19:37:00 45.90 kg/m2 [facility] Systolic blood 2020-08-15 15:53:00 144 mm[Hg] Univer sity of pressure [facility] Diastolic blood 2020-08-15 15:53:00 84 mm[Hg] Unive rsity of pressure [facility] Heart rate 2020-08-15 15:47:00 70 /min [facility] Body temperature 2020-08-15 15:47:00 37.11 Mely [facility] [place] [facility] Respiratory rate 2020-08-15 15:47:00 20 /min Univ ersity of [facility] Body height 2020-08-15 15:47:00 152.4 cm [facility] [place] Body weight 2020-08-15 15:47:00 105.008 kg [facility] BMI 2020-08-15 15:47:00 45.21 kg/m2 Universi ty of [facility] Systolic blood 2020-07-25 18:24:00 164 mm[Hg] Univer sity of pressure [facility] Diastolic blood 2020-07-25 18:24:00 86 mm[Hg] Unive rsity of pressure [facility] Body height 2020-07-25 18:21:00 152.[address] [facility] Body weight 2020-07-25 18:21:00 105.[address] [facility] BMI 2020-07-25 18:21:00 45.50 kg/m2 Universi ty of [facility] Heart rate 2020-07-25 18:21:00 76 /min Universi ty of [facility] Body temperature 2020-07-25 18:21:00 37.06 [address] [facility] Respiratory rate 2020-07-25 18:21:00 20 /min Univ ersity of [facility] Body temperature 2020-07-05 20:24:00 36.72 [address] [facility] Systolic blood 2020-07-05 20:21:00 159 mm[Hg] Univer sity of pressure [facility] Diastolic blood 2020-07-05 20:21:00 100 mm[Hg] Unive rsity of pressure [facility] Heart rate 2020-07-05 20:21:00 76 /min Universi ty of [facility] Respiratory rate 2020-07-05 20:21:00 18 /min Univ ersity of [facility] Body height 2020-07-05 20:21:00 152.[address] [facility] Body weight 2020-07-05 20:21:00 104.327 kg [facility] BMI 2020-07-05 20:21:00 44.92 kg/m2 Universi ty of [facility] Oxygen saturation in 2020-07-05 20:21:00 100 /min [facility] Arterial blood by [facility] Pulse oximetry Branch Procedures Procedure Date / Time Performing Clinician Source Performed URINALYSIS 2021-03-19 19:50:00 Arden Greenberg [facility] TROPONIN I 2021-03-19 18:21:00 Arden Greenberg [facility] COMP. METABOLIC PANEL 2021-03-19 18:21:00 Arden Greenberg Leni [facility] ([id number]) Medical Branch CBC WITH DIFF 2021-03-19 18:21:00 Arden Greenberg Leni [facility] NOTICE OF PRIVACY 2021-03-19 16:59:38 Doctor Jordana, [place] [facility] [place] CONSENT/REFUSAL FOR 2021-03-19 16:59:21 Doctor Silveira [facility] DIAGNOSIS AND TREATMENT [place] [facility] [place] NOTICE OF PRIVACY 2021-02-11 23:27:37 Doctor Jordana [facility] [place] CONSENT/REFUSAL FOR 2021-02-11 23:26:02 Doctor Silveira [facility] DIAGNOSIS AND TREATMENT [place] [facility] BASIC METABOLIC PANEL 2020-09-13 09:48:00 [facility] [address] (NA, K, CL, CO2, GLUCOSE, Medica l Branch BUN, CREATININE, CA) CBC WITH DIFF 2020-09-13 09:48:00 [facility] HB ABO GROUPING 2020-09-12 13:09:00 [facility] POCT TEST 2020-09-12 12:35:00 Olvin Tello [facility] DAY SURGERY - ADC 2020-09-12 06:01:00 Doctor Jordana [facility] Name [facility] [place] INSURANCE CORRESPONDENCE 2020-09-10 06:01:00 Doctor Silveira [facility] Name Medical Branch CONSENT/REFUSAL FOR 2020-09-08 19:49:10 Doctor Silveira [facility] DIAGNOSIS AND TREATMENT [place] [facility] [place] ASSIGNMENT OF BENEFITS 2020-09-08 19:48:[address] [facility] Name Medical Branch CONSENT/REFUSAL FOR 2020-09-08 19:48:11 Doctor Silveira [facility]REATMENT [place] [facility] ASSIGNMENT OF BENEFITS 2020-09-08 19:47:57 Doctor Unassigned, [facility] [place] [facility] DISCLOSURE AND CONSENT 2020-09-02 06:01:00 Doctor Unassigned, [facility] [place] [facility] h PROCEDURES - HYSTEY BI ULTRASOUND BREAST 2020-08-29 21:09:13 Bert [facility] LIMITED RIGHT Medical Branch BI DIAGNOSTIC 2020-08-29 20:32:18 Bert Wright [place] TOMOSYNTHESIS RIGHT Medical Bran ch DISCLOSURE AND CONSENT, 2020-08-15 06:01:00 Doctor Unasskellie, [facility] MEDICAL AND SURGICAL [place] [facility] PROCEDURES POCT TEST 2020-08-15 00:00:00 Bert Wright [facility] [place] ASSIGNMENT OF BENEFITS 2020-08-11 20:05:02 Doctor Unassigned, Un [facility] [place] [facility] US PELVIS COMPLETE WITH 2020-08-08 16:22:02 Bert Wright [facility] TRANSVAGINAL [facility] [place] EXTERNAL PROVIDER RECORDS 2020-08-06 05:01:[address] [facility] [place] [facility] POCT TEST 2020-07-25 00:00:00 Bert Wright [facility] [place] REFERRAL- 2020-07-22 05:01:00 Doctor Jordana, [facility] REQUEST/RESPONSE [place] [facility] NOTICE OF PRIVACY 2020-07-05 20:13:18 Doctor Jordana, [place] [facility] [place] [facility] Encounters Start End Encounter Admission Attending Care Care Encounter Source Date/Time Date/Time Type Type Clinicians Facility Department ID 2021-08-10 Emergency [facility] [id number] Univers 00:25:39 [facility] 2021-08-09 Emergency [facility] [id number] Univers 17:23:52 [facility] 2021-08-08 Outpatient R BERT WRIGHT [facility] LEONEL [id number] Univers 08:34:29 ity [facility] [place] 2021-09-21 2021-09-21 Outpatient R BERT WRIGHT [facility] [id number] Univers 09:00:00 09:00:00 [id number] [facility] 2021-09-21 2021-09-21 Outpatient R BERT WRIGHT [facility] [id number] Univers 09:00:00 09:00:00 ity [facility] 2021-09-15 2021-09-15 Pre Visit CARLOS EDUARDO Saldana [id number] Univers 00:00:00 00:00:00 Outreach Teresa CALLAWAY [id number] [phone] [address] 2021-03-19 2021-03-19 Emergency Arden Greenberg [facility] 1.2.840.114 [id number] Univers 12:16:00 16:23:00 Leni Kar [id number] i [id number] [phone] [address] 2021-02-11 2021-02-11 Emergency [facility] [id number] Univers 18:40:00 19:58:00 Chetan Estrellaton [id number] i [id number] [phone] [address] 2020-12-25 2020-12-25 Patient Norbert [facility] 1.2.840.114 [id number] Univers 00:00:00 00:00:00 Outreach Sander SIMPSON [id number] i ty of [place] [facility] [id number] [facility] [phone] Mi dical [address] [place] 2020-12-16 2020-12-16 Outpatient ARRON WRIGHTN [facility] [id number] Univers 11:00:00 11:00:00 [id number] [facility] 2020-12-16 2020-12-16 Outpatient R BERT WRIGHT [facility] [id number] Univers 00:00:00 00:00:00 [facility] 2020-10-29 2020-10-29 Outpatient R BERT WRIGHT [facility] [id number] Univers 15:30:00 15:30:[id number] [facility] 2020-10-29 2020-10-29 Outpatient R BERT WRIGHT [facility] [id number] Univers 15:30:00 15:30:[address] [facility] 2020-10-13 2020-10-13 Outpatient R BERT WRIGHT [facility] [id number] Univers 15:30:00 15:30:[address] [facility] 2020-10-13 2020-10-13 Outpatient R BERT WRIGHT [facility] [id number] Univers 15:30:00 15:30:[address] [facility] 2020-09-29 2020-09-29 Outpatient R BERT WRIGHT [facility] [id number] Univers 15:00:00 15:00:[id number] [facility] 2020-09-29 2020-09-29 Outpatient R BERT WRIGHT [facility] [id number] Univers 15:00:00 15:00:[address] [facility] 2020-09-18 2020-09-18 Nurse Megan Pacheco 1.2.840.114 [id number] Univers 00:00:00 00:00:00 Triage HARSHA [id number] it y of [facility] [id number] [place] as [phone] [facility] 019 Branch 2020-09-12 2020-09-13 Hospital Bert Wright [facility] 1.2.840.114 [id number] Univers 06:45:00 13:10:00 Encounter [place] [id number] ity of [place] [facility].7.2.686 [facility] [phone] [facility] 083 Branch 2020-09-12 2020-09-12 Orders Doctor VANESA 1.2.840.114 [id number] Univers 00:00:00 00:00:00 Only Unassigned, HARSHA [id number] ity of [place] [facility] 4.2.7.2.686 Ole as [phone] [facility] 009 Branch 2020-09-11 2020-09-11 Outpatient R [facility] [id number] Univers 10:30:00 10:30:00 [id number] ity [facility] 2020-09-10 2020-09-10 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 2020-09-10 2020-09-10 Outpatient R BERT WRIGHT [facility] [id number] Univers 10:00:00 10:00:[address] [facility] 2020-09-10 2020-09-10 Orders Doctor ALEXIS 1.2.840.114 [id number] Univers 00:00:00 00:00:00 Only Unassigned, HARSHA 350.1.13.10 ity of [facility] 4.2.7.2.686 [place] [phone] [address] 2020-09-09 2020-09-09 Outpatient R BERT WRIGHT [facility] [id number] Univers 15:30:00 15:30:00 ity [facility] 2020-09-08 2020-09-08 Laboratory Lab, Adc Fam Pob I [facility] 1.2. 840.114 [id number] Univers 13:17:01 13:42:36 Only Nikki Cristobal [id number] ity [facility] [id number] [place] Professio [phone] Mi dical nal [address] [place] [address] One 2020-09-08 2020-09-08 Outpatient R [facility] [id number] Univers 13:20:00 13:20:00 ity [facility] 2020-09-08 2020-09-08 Outpatient R LEVAR [facility] [id number] Univers 13:20:00 13:20:00 NIKKI ity [facility] 2020-09-08 2020-09-08 Letter Doctor ALEXIS 1.2.840.114 [id number] Univers 00:00:00 00:00:00 (Out) Unassigned, HARSHA 350.1.13.10 ity of [place] [facility] 4.2.7.2.686 Ole as [phone] [facility] 044 [place] 2020-09-02 2020-09-02 Outpatient BERT WRIGHT [facility] [id number] Univers 10:00:00 10:00:[id number] [facility] 2020-09-02 2020-09-02 Outpatient R BERT WRIGHT [facility] [id number] Univers 10:00:00 10:00:[address] [facility] 2020-09-02 2020-09-02 Orders Doctor VANESA 1.2.840.114 [id number] Univers 00:00:00 00:00:00 Only Unassigned, HARSHA 350.1.13.10 ity of [place] [facility] 4.2.7.2.686 [place] as [phone] [facility] 009 [place] 2020-08-31 2020-08-31 Case Bert Wright [facility] 1.2.840.114 [id number] Univers 00:00:00 00:00:00 Management [place] 350.1.13.10 [place] [phone] Mi dicburt nal [address] [place] [address] 2020-08-29 2020-08-29 [facility] 1.2.840.114 [id number] Univers 14:02:56 23:59:00 Encounter SPECIALTY [id number] ity of [place].2.[place] C[place] AT [phone] Mi dical VICTORY 800 [facility] 2020-08-29 2020-08-29 Outpatient R BERT WRIGHT [facility] [id number] Univers 14:30:00 14:30:[address] [facility] 2020-08-29 2020-08-29 [facility] 1.2.840.114 [id number] Univers 14:01:51 14:01:51 Encounter SPECIALTY [id number] ity [place]2.[place] C[place] AT [phone] Mi dical [address] 2020-08-29 2020-08-29 Outpatient R BERT WRIGHT [facility] [id number] Univers 00:00:00 00:00:[address] [facility] 2020-08-22 2020-08-22 Telephone Bert Wright [facility] 1.2.840.114 [id number] Univers 00:00:00 00:00:00 [place] 350.1.13.10 i [place] [phone] [address] 2020-08-20 2020-08-20 Telephone Bert Wright [facility] 1.2.840.114 [id number] Univers 00:00:00 00:00:00 [place] 350.1.13.10 i [place] [phone] [address] 2020-08-15 2020-08-15 Office Bert Wright [facility] 1.2.840.114 [id number] Univers 09:25:49 10:17:03 Visit [place] 350.1.13.10 i [place] [phone] [address] 2020-08-15 2020-08-15 Outpatient R BERT WRIGHT [facility] [id number] Univers 09:30:00 09:30:[address] [facility] 2020-08-15 2020-08-15 Outpatient R BERT WRIGHT [facility] [id number] Univers 09:30:00 09:30:[address] [facility] 2020-08-15 2020-08-15 Telephone Nancy [facility] 1.2.840.114 [id number] Univers 00:00:00 00:00:00 Stefania Lakhani 350.1.13.10 it[place] of [place]2.[place] [phone] [address] 2020-08-15 2020-08-15 Telephone Bert Wright [facility] 1.2.840.114 [id number] Univers 00:00:00 00:00:00 [place] 350.1.13.10 i [place] [phone] [facility] 134 [facility] 2020-08-15 2020-08-15 Orders Doctor VANESA 1.2.840.114 [id number] Univers 00:00:00 00:00:00 Only Unassigned, HARSHA 350.1.13.10 ity of [place] [facility] 4.2.7.2.686 Ole as [id number] [address] 2020-08-11 2020-08-11 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, 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 Lab Main [facility] 1.2.8 40.114 [id number] Univers 14:09:38 14:24:38 Visit Bert Wright Kar 350.1.13.10 [place] [phone] [facility] 353 [facility] 2020-08-11 2020-08-11 Outpatient R [facility] [id number] Univers 13:45:00 13:45:00 ity [facility] 2020-08-11 2020-08-11 Outpatient R BERT WRIGHT [facility] [id number] Univers 13:45:00 13:45:00 ity [facility] 2020-08-11 2020-08-11 Telephone Bert Wright [facility] 1.2.840.114 [id number] Univers 00:00:00 00:00:00 [place] 350.1.13.10 i [place]2.[place] [phone] [facility] 134 [facility] 2020-08-11 2020-08-11 Orders Doctor ALEXIS 1.2.840.114 [id number] Univers 00:00:00 00:00:00 Only Unassigned, HARSHA 350.1.13.10 ity of [place] [facility] 4.2.7.2.686 Ole as [phone] [address] 2020-08-08 2020-08-08 Hospital Bert Wright [facility] 1.2.840.114 [id number] Univers 10:00:00 23:59:00 Encounter Kar 350.1.13.10 ity of [place] 4.2.7.2.686 [facility] [phone] [facility] [address] [place] 2020-08-08 2020-08-08 Outpatient R BERT WRIGHT [facility] [id number] Univers 00:00:00 00:00:[address] [facility] 2020-08-08 2020-08-08 Outpatient R BERT WRIGHT [facility] [id number] Univers 00:00:00 00:00:[address] [facility] 2020-08-08 2020-08-08 Case Bert Wright [facility] 1.2.840.114 [id number] Univers 00:00:00 00:00:00 Management Kar 350.1.13.10 ity of [place] 4.2.7.2.686 [facility] [phone] [facility] [address] [place] 2020-08-07 2020-08-07 Hospital Bert Wright [facility] 1.2.840.114 [id number] Univers 12:25:11 23:59:00 Encounter Kar 350.1.13.10 ity of [place] 4.2.7.2.686 [facility] [phone] [facility] [address] [place] 2020-08-07 2020-08-07 Outpatient R BERT WRIGHT [facility] [id number] Univers 12:40:00 12:40:[address] [facility] 2020-08-07 2020-08-07 Outpatient R BERT WRIGHT [facility] [id number] Univers 00:00:00 00:00:[id number] [facility] 2020-08-06 2020-08-06 Orders Doctor ALEXIS 1.2.840.114 [id number] Univers 00:00:00 00:00:00 Only Unassigned, HARSHA 350.1.13.10 ity of [place] [facility] 4.2.7.2.686 [facility] [phone] [facility] 009 Branch 2020-08-01 2020-08-01 Outpatient R BERT WRIGHT [facility] [id number] Univers 10:30:00 10:30:[id number] [facility] 2020-08-01 2020-08-01 Outpatient R BERT WRIGHT [facility] [id number] Univers 10:30:00 10:30:[address] [facility] 2020-07-25 2020-07-25 Office Bert Wright [facility] 1.2.840.114 [id number] Univers 13:06:08 13:52:32 Visit [place] 350.1.13.10 i ty [place] [phone] Mi dical nal 134 [facility] 2020-07-25 2020-07-25 Outpatient R BERT WRIGHT [facility] [id number] Univers 13:00:00 13:00:[id number] [facility] 2020-07-25 2020-07-25 Outpatient R BERT WRIGHT [facility] [id number] Univers 13:00:00 13:00:[address] [facility] 2020-07-25 2020-07-25 Telephone Bert Wright [facility] 1.2.840.114 [id number] Univers 00:00:00 00:00:00 [place] 350.1.13.10 i [place] [phone] Mi dical nal 134 [facility] 2020-07-23 2020-07-23 Outpatient R BERT WRIGHT [facility] [id number] Univers 13:30:00 13:30:[id number] [facility] 2020-07-23 2020-07-23 Outpatient R BERT WRIGHT [facility] [id number] Univers 13:30:00 13:30:[address] [facility] 2020-07-22 2020-07-22 Orders Doctor ALEXIS 1.2.840.114 [id number] Univers 00:00:00 00:00:00 Only Unassigned, HARSHA 350.1.13.10 ity of [place] [facility] 4.2.7.2.686 Ole as [phone] [address] 2020-07-14 2020-07-14 Outpatient R LEVAR [facility] [id number] Univers 09:00:00 09:00:00 NIKKI henderson [facility] 2020-07-14 2020-07-14 Laboratory Lab, Adc Fam Pob I [facility] 1.2. 840.114 [id number] Univers 08:38:49 08:58:49 Only Nikki Cristobal 350.1.13.10 ity of [place] 4.2.7.2.686 [place] as Professio [phone] Mi dical [address] Office Building One 2020-07-14 2020-07-14 Letter Doctor VANESA 1.2.840.114 [id number] Univers 00:00:00 00:00:00 (Out) Unassigned, HARSHA 350.1.13.10 ity of [place] [facility] 4.2.7.2.686 Ole as [phone] [address] 2020-07-05 2020-07-05 Emergency [facility] 1.2.840.114 [id number] Univers 15:24:00 17:07:00 Mahad Lakhani 350.1.13.10 i ty [place].2.[place] [phone] [place] [id number] [place] 2020-07-05 2020-07-05 Emergency X [facility] ERT [id number] Univers 15:24:00 15:24:00 MAHAD ityoli [facility] Results Test Description Test Time Test Comments Results Result Comments Source URINALYSIS 2021-03-19 20:29:51 Test Item Value Reference Range Interpretation Comme nts APPEARANCE (test code = Hazy Clear A 3089813552) COLOR (test code = 7224522733) Yellow Yellow PH (test code = 3119546436) 4.8-8.0 SP GRAVITY (test code = 1.003-1.030 2270654602) GLU U QUAL (test code = Normal Normal 1363556379) BLOOD (test code = 3476845483) Negative Negative KETONES (test code = 3221052034) Negative Negative PROTEIN (test code = 2887-8) Negative Negative UROBILIN (test code = Normal Normal 5959440803) BILIRUBIN (test code = Negative Negative 3548557481) NITRITE (test code = 8416054301) Negative Negative LEUK LON (test code = Negative Negative 8281466948) RBC/HPF (test code = 8133291099) See_Comment [Automated message] The system which ge nerated this result transmit adolfo reference range: 0 - 3 HP F. The reference range was not used to interpret th is result as normal/abnormal . WBC/HPF (test code = 0476853819) <1 See_Comment [Automated message] The system which ge nerated this result transmit adolfo reference range: 0 - 5 HP F. The reference range was not used to interpret th is result as normal/abnormal . BACTERIA (test code = Negative Negative 0670829019) MUCOUS (test code = 2822422120) Slight Negative LPF A SQ EPITH (test code = HPF 5618165490) Lab Interpretation (test code = Abnormal 10766-2) [id number] 19:15:54 Test Item Value Reference Range Interpretation Comments TROPONIN I (test 0.000 ng/mL See_Comment [Automated code = 6193543500) message] The system which generated this result [...] ? Lab Interpretation Normal (test code = 67452-7) [facility] PAN[facility] (61491)2021-03-19 19:04:49 Test Item Value Reference Range Interpretation Comments NA (test code = 138 mmol/L 135-145 1434235968) K (test code = 3.8 mmol/L 3.5-5.0 8892100274) CL (test code = 103 mmol/L 98-108 6514571115) CO2 TOTAL (test code = 27 mmol/L 23-31 2243074600) AGAP (test code = 2-16 3116138529) BUN (test code = 15 mg/dL 7-23 5416117144) GLUCOSE (test code = 139 mg/dL 70-110 H 4213441996) CREATININE (test code = 0.45 mg/dL 0.50-1.04 L [id number]) TOTAL BILI (test code = 0.4 mg/dL 0.1-1.7 2550875277) CALCIUM (test code = 9.3 mg/dL 8.6-10.6 4287424638) T PROTEIN (test code = 8.3 g/dL 6.3-8.2 H [id number]) ALBUMIN (test code = 4.4 g/dL 3.5-5.0 4987627319) ALK PHOS (test code = 129 U/L 34-122 H [id number]) ALTv (test code = 75 U/L 5-35 H 1742-6) AST(SGOT) (test code = 71 U/L 13-40 H 1805906381) eGFR (test code = mL/min/1.73m2 9329903808) GLEN (test code = GLEN) Association of [...] tests). Lab Interpretation Abnormal (test code = 57011-6) [facility] WITH [id number] 18:56:45 Test Item Value Reference Range Interpretation [...] RDW-SD (test code = 44.1 fL 39.0-49.9 91482-0) RDW-CV (test code = 17.6 % 12.0-15.5 H 788-0) PLT (test code = See_Comment H [Automated 777-3) message] The sy stem which generated this result transmitted reference range : 166 - 358 10*3/ ?L. The reference r adela was not used to interpret this result as normal/abnormal . MPV (test code = 10.1 fL 9.5-12.9 84966-1) NRBC/100 WBC (test See_Comment [Automat ed code = 8461665054) message] The system which generated this result transmitted reference range : 0.0 - 10.0 /100 WBCs. The refer ence range was not u sed to interpret th is result as normal/abnormal . NRBC x10^3 (test code <0.01 See_Comment [Auto mated = 9755352258) message] The s ystem which generated this result transmitted reference range : 10*3/?L. The reference range was not used to interpret this result as normal/abnormal . GRAN MAT (NEUT) % 73.8 % (test code = 770-8) IMM GRAN % (test code 0.50 % = 7834052639) LYMPH % (test code = 18.9 % 736-9) MONO % (test code = 4.6 % 5905-5) EOS % (test code = 1.6 % 713-8) BASO % (test code = 0.6 % 706-2) GRAN MAT x10^3(ANC) 6.56 10*3/uL 1.88-7.09 (test code = 2234159271) IMM GRAN x10^3 (test 0.04 10*3/uL 0.00-0.06 code = 0490684702) LYMPH x10^3 (test code 1.68 10*3/uL 1.32-3.29 = 731-0) MONO x10^3 (test code 0.41 10*3/uL 0.33-0.92 = 742-7) EOS x10^3 (test code = 0.14 10*3/uL 0.03-0.39 711-2) BASO x10^3 (test code 0.05 10*3/uL 0.01-0.07 = 704-7) Lab Interpretation Abnormal (test code = 29607-6) [facility] Metabolic Panel (NA, K, CL, CO2, Glucose, BUN, Creatinine, CA)2020-09-13 10:46:00 Test Item Value Reference Range Interpretation Comments NA (test code = 137 mmol/L 135-145 0118011856) K (test code = 3.6 mmol/L 3.5-5 8628992555) CL (test code = 106 mmol/L 98-108 9694859691) CO2 TOTAL (test code = 25 mmol/L 23-31 6793977498) AGAP (test code = 2-16 9701806335) BUN (test code = 18 mg/dL 7-23 6450883173) GLUCOSE (test code = 130 mg/dL 70-110 H 5690501708) CREATININE (test code = 0.84 mg/dL 0.5-1.04 8656597804) CALCIUM (test code = 8.5 mg/dL 8.6-10.6 L 0323524232) eGFR Calculation mL/min/1.73m2 (Non-) (test code = 3600800191) eGFR Calculation mL/min/1.73m2 () (test code = 3333591012) GLEN (test code = GLEN) Association of [...] tests). Lab Interpretation Abnormal (test code = 12247-4) [facility] with [id number] 10:24:00 Test Item Value Reference Range Interpretation [...] (test code = 55.9 fL 39-49.9 H 90133-8) RDW-CV (test code = 20.4 % 12-15.5 H 788-0) PLT (test code = See_Comment [Automated 777-3) message] The sy stem which generated this result transmitted reference range : 166 - 358 10*3/ ?L. The reference r adela was not used to interpret this result as normal/abnormal . MPV (test code = 9.8 fL 9.5-12.9 95437-8) NRBC/100 WBC (test See_Comment [Automat ed code = 1789607726) message] The system which generated this result transmitted reference range : 0.0 - 10.0 /100 WBCs. The refer ence range was not u sed to interpret th is result as normal/abnormal . NRBC x10^3 (test code <0.01 See_Comment [Auto mated = 4236053337) message] The s ystem which generated this result transmitted reference range : 10*3/?L. The reference range was not used to interpret this result as normal/abnormal . GRAN MAT (NEUT) % 70.4 % (test code = 770-8) IMM GRAN % (test code 0.20 % = 2343515193) LYMPH % (test code = 20.9 % 736-9) MONO % (test code = 7.8 % 5905-5) EOS % (test code = 0.4 % 713-8) BASO % (test code = 0.3 % 706-2) GRAN MAT x10^3(ANC) 6.35 10*3/uL 1.88-7.09 (test code = 1558262357) IMM GRAN x10^3 (test <0.03 0-0.06 code = 1546914785) LYMPH x10^3 (test code 1.89 10*3/uL 1.32-3.29 = 731-0) MONO x10^3 (test code 0.70 10*3/uL 0.33-0.92 = 742-7) EOS x10^3 (test code = 0.04 10*3/uL 0.03-0.39 711-2) BASO x10^3 (test code 0.03 10*3/uL 0.01-0.07 = 704-7) Lab Interpretation Abnormal (test code = 17472-3) [facility] The Type and Screen expires at midnight on the 3rd day after it was drawn. A current Type and Screen is required when RBCs are requested. For all other blood products, a Type and Scre en performed during the current hospitalizati...2020-09-12 13:57:33 Test Item Value Reference Range Interpretation Comments ABO & RH (test code O Positive Performe d at [facility] = 20) Laboratory [facility] [address] [place] [phone] Free: [phone] A No. [id number] IAT (test code = Negative Performed a t [facility] 1185) Laboratory [facility] [address] [place], [place] [phone] Free: [phone] A No. [id number] [facility] [id number] 12:35:00 Test Item Value Reference Range Interpretation Comments POCT PREG (test code = 1605) Negative On board controls acceptable with Yes C Line (test code = 3574) POCT PREG LOT # (test code = 3575) [id number] POCT PREG TEST DATE (test 2021-08-09 code = 3576) Lab Interpretation (test code = Normal 01300-6) [facility] ULTRASOUND BREAST LIMITED [id number] 23:49:55Examination:BI DIAGNOSTIC TOMOSYNTHESIS RIGHTBI ULTRASOUND BREAST LIMITED [...] ? BI-RADS Category: Right 3 - [facility] [id number] 23:49:54Examination:BI [facility]AG[facility]ESIS [facility] RIGHT History:Patient is 40 [...] ? BI-RADS Category: Right 3 - [facility] [id number] 15:51:00 Test Item Value Reference Range Interpretation Comments POCT PREG (test code = 1605) Negative On board controls acceptable with C Yes Line (test code = 3574) POCT PREG LOT # (test code = 3575) POCT PREG TEST DATE (test code = 3576) [facility] [id number] 15:51:00 Test Item Value Reference Range Interpretation Comments POCT PREG (test code = 1605) Negative On board controls acceptable with C Yes Line (test code = 3574) POCT PREG LOT # (test code = 3575) POCT PREG TEST DATE (test code = 3576) [facility] [id number] 15:51:00 Test Item Value Reference Range Interpretation Comments POCT PREG (test code = 1605) Negative On board controls acceptable with C Yes Line (test code = 3574) POCT PREG LOT # (test code = 3575) POCT PREG TEST DATE (test code = 3576) [facility] [id number] 15:51:00 Test Item Value Reference Range Interpretation Comments POCT PREG (test code = 1605) Negative On board controls acceptable with C Yes Line (test code = 3574) POCT PREG LOT # (test code = 3575) POCT PREG TEST DATE (test code = 3576) [facility] PELVIS COMPLETE WITH [id number] 18:39:20 No discernible abnormality to explain patient's [...] cavity mayrepresent blood products. Right ovarian cyst. [facility] [id number] 18:24:00 Test Item Value Reference Range Interpretation Comments POCT PREG (test code = 1605) Negative On board controls acceptable with C Yes Line (test code = 3574) POCT PREG LOT # (test code = 3575) POCT PREG TEST DATE (test code = 3576) [facility] [id number] 18:24:00 Test Item Value Reference Range Interpretation Comments POCT PREG (test code = 1605) Negative On board controls acceptable with C Yes Line (test code = 3574) POCT PREG LOT # (test code = 3575) POCT PREG TEST DATE (test code = 3576) [facility]"
--- NOTE | 2022-03-31 14:01 | EDPHYS ---
Physician Documentation [facility] Name: Bonny Overton Age: 42 yrs Sex: Female : 1980 Arrival Date: 03/31/2022 Time: 13:34 Bed Waiting Private MD: Mahnaz Velasquez ED Physician Otoniel Monsalve HPI: 03/31 13:56 This 42 yrs old Female presents to ER via Ambulatory with complaints of pm1 Allergic Reaction. 13:56 The patient presents with localized swelling, redness of skin, movable knot present to pm1 right clavicle area. Onset: The symptoms/episode began/occurred 2 day(s) ago. Associated signs and symptoms: Pertinent negatives: fever. Possible causes: covid and tetanus vaccine on Tuesday to right shoulder. At home the patient or guardian has treated the symptoms with nothing. Severity of symptoms: in the emergency department the symptoms are unchanged. The patient has not experienced similar symptoms in the past, patient received covid vaccine for the first time on Tuesday. The patient has not recently seen a physician. Historical: - Allergies: 13:51 No Known Allergies; ss - PMHx: 13:51 diabetes mellitus; Hypertensive disorder; Migraine; ss - PSHx: 13:51 section; Cholecystectomy; hysterectomy; ss - Immunization history:: Client reports receiving the 1st dose of the Covid vaccine. - Social history:: Smoking status: Patient denies any tobacco usage or history of. ROS: 13:56 Constitutional: Negative for fever, chills, and weight loss, Cardiovascular: Negative pm1 for chest pain, palpitations, and edema, Respiratory: Negative for shortness of breath, cough, wheezing, and pleuritic chest pain, Abdomen/GI: Negative for abdominal pain, nausea, vomiting, diarrhea, and constipation. 13:56 Neuro: Negative for headache, weakness, numbness, tingling, and seizure. 13:56 MS/extremity: Positive for swelling, tenderness, of the right deltoid, Negative for decreased range of motion, deformity. 13:56 Skin: Positive for rash, of the right shoulder. 13:56 All other systems are negative. Exam: 13:56 Constitutional: This is a well developed, well nourished patient who is awake, alert, pm1 and in no acute distress. Head/Face: Normocephalic, atraumatic. 13:56 Back: No spinal tenderness. No costovertebral tenderness. Full range of motion. Skin: Warm, dry with normal turgor. Normal color with no rashes, no lesions, and no evidence of cellulitis. MS/ Extremity: Pulses equal, no cyanosis. Neurovascular intact. Full, normal range of motion. 13:56 ENT: Exam is negative for acute changes, Mouth: no acute changes, Lips: normal, moist, Oral mucosa: normal, pink and intact, moist. 13:56 Neck: Exam negative for acute changes. 13:56 Chest/axilla: Lymph nodes: supraclavicular nodes, palpable, tender, on the right, single small, less than 1 cm movable lymph node 13:56 Cardiovascular: Exam negative for acute changes, Rate: normal, Rhythm: regular, Pulses: no pulse deficits are appreciated. 13:56 Respiratory: Exam negative for acute changes, respiratory distress, shortness of breath. 13:56 Neuro: Exam negative for acute changes, Orientation: is normal, Mentation: is normal, Motor: is normal, moves all fours, Gait: is steady, at a normal pace, without difficulty. Vital Signs: 13:49 BP 141 / 99; Pulse 79; Resp 16; Temp 98.0(TE); Pulse Ox 100% on R/A; Weight 63.5 kg; ss Height 5 ft. 0 in. (152.40 cm); Pain 2/10; 13:49 Body Mass Index 27.34 (63.50 kg, 152.40 cm) ss MDM: 13:56 Data reviewed: vital signs. Data interpreted: Pulse oximetry: on room air is 100 %. pm1 Interpretation: normal. Counseling: I had a detailed discussion with the patient and/or guardian regarding: the historical points, exam findings, and any diagnostic results supporting the discharge/admit diagnosis, the need for outpatient follow up, to return to the emergency department if symptoms worsen or persist or if there are any questions or concerns that arise at home. 13:56 ED course: Patient offered steroids and Benadryl for symptom relief. Patient refused. pm1 Patient just wanted reassurance that the swelling to her arm is a normal reaction to the tetanus and covid vaccination. Explained to the patient that she also has a hematoma present to injection area due to blood vessel injury during immunization. 13:56 Differential diagnosis: cellulitis, abscess, urticaria, immunization reaction. pm1 14:01 Patient medically screened. pm1 Administered Medications: No medications were administered Disposition: 18:27 Co-signature as Attending Physician, Otoniel Monsalve MD. rn Disposition Summary: 03/31/22 14:01 Discharge Ordered Location: Home pm1 Problem: new pm1 Symptoms: are unchanged pm1 Condition: Stable pm1 Diagnosis - Adverse effect of other vaccines and biological substances, initial encounter pm1 Followup: pm1 - With: Emergency Department - When: As needed - Reason: Worsening of condition Followup: pm1 - With: Private Physician - When: 2 - 3 days - Reason: Recheck today's complaints, Continuance of care, Re-evaluation by your physician Discharge Instructions: - Discharge Summary Sheet pm1 - Emergency Use Authorization (EUA) of the Pfizer-BioNTech COVID-19 Vaccine: Fact pm1 Sheet for Recipients and Caregivers - FDA - Emergency Use Authorization (EUA) of the Moderna COVID-19 Vaccine: Fact Sheet for pm1 Recipients and Caregivers - FDA Forms: - Medication Reconciliation Form pm1 - Thank You Letter pm1 - Antibiotic Education pm1 - Prescription Opioid Use pm1 Signatures: Otoniel Monsalve MD MD rn Smirch, Shelby, RN RN ss Marinas, Patrick, NP [employer] pm1
--- NOTE | 2022-03-31 14:01 | ER ---
Nurse's Notes [facility] Name: Bonny Overton Age: 42 yrs Sex: Female : 1980 Arrival Date: 03/31/2022 Time: 13:34 Bed Waiting Private MD: Mahnaz Velasquez Diagnosis: Adverse effect of other vaccines and biological substances, initial encounter Presentation: 03/31 13:49 Chief complaint: Patient states: Redness and swelling to R deltoid that began after ss having a first COVID vaccination on Tuesday. Coronavirus screen: Client denies travel out of the [place] in the last 14 days. Ebola Screen: Patient denies exposure to infectious person. Patient denies travel to an Ebola-affected area in the 21 days before illness onset. Onset: The symptoms/episode began/occurred 2 day(s) ago. Anaphylaxis evaluation, no signs or symptoms of anaphylaxis were noted. Initial Sepsis Screen: Does the patient meet any 2 criteria? No. Patient's initial sepsis screen is negative. Does the patient have a suspected source of infection? No. Patient's initial sepsis screen is negative. Risk Assessment: Do you want to hurt yourself or someone else? Patient reports no desire to harm self or others. Onset of symptoms was March 31, 2022. 13:49 Method Of Arrival: Ambulatory ss 13:49 Acuity: ARISTIDES 4 ss Historical: - Allergies: 13:51 No Known Allergies; ss - PMHx: 13:51 diabetes mellitus; Hypertensive disorder; Migraine; ss - PSHx: 13:51 section; Cholecystectomy; hysterectomy; ss - Immunization history:: Client reports receiving the 1st dose of the Covid vaccine. - Social history:: Smoking status: Patient denies any tobacco usage or history of. Screenin:51 Abuse screen: Denies threats or abuse. Denies injuries from another. Nutritional ss screening: No deficits noted. Tuberculosis screening: Never had TB. Fall Risk None identified. Assessment: 13:51 General: Appears in no apparent distress. comfortable, Behavior is calm, cooperative. ss Pain: Complains of pain in anterior aspect of right shoulder Pain currently is 2 out of 10 on a pain scale. Quality of pain is described as tender, Pain began 2-3 days ago. Is continuous. Neuro: Carrillo Agitation-Sedation Scale (RASS): 0 - Alert and Calm Level of Consciousness is awake, alert, obeys commands, Oriented to person, place, time, situation. Cardiovascular: Capillary refill < 3 seconds is brisk in bilateral fingers. Respiratory: Airway is patent Respiratory effort is even, unlabored, Respiratory pattern is regular, symmetrical. GI: Patient currently denies abdominal pain, diarrhea, nausea, vomiting. Derm: Skin is intact, is healthy with good turgor, Skin is dry, Skin is pink, warm \T\ dry. normal. Derm: Bruising that is dark purple, on R deltoid. Musculoskeletal: Swelling present in R deltoid. Vital Signs: 13:49 BP 141 / 99; Pulse 79; Resp 16; Temp 98.0(TE); Pulse Ox 100% on R/A; Weight 63.5 kg; ss Height 5 ft. 0 in. (152.40 cm); Pain 2/10; 13:49 Body Mass Index 27.34 (63.50 kg, 152.40 cm) ED Course: 13:34 Patient arrived in ED. mr 13:34 Mahnaz Velasquez is Private Physician. mr 13:48 Amaury Sandhu NP is PHCP. pm1 13:48 Otoniel Monsalve MD is Attending Physician. pm1 13:50 Triage completed. ss 13:51 Arm band placed on right wrist. ss 13:51 Patient has correct armband on for positive identification. Bed in low position. Call ss light in reach. 13:56 Hali Vuong RN is Primary Nurse. ss 13:56 No provider procedures requiring assistance completed. Patient did not have IV access ss during this emergency room visit. Administered Medications: No medications were administered Medication: 13:51 VIS not applicable for this client. Outcome: 14:01 Discharge ordered by . pm1 14:05 Discharged to home ambulatory. ss 14:05 Condition: good 14:05 Discharge instructions given to patient, Instructed on discharge instructions, follow up and referral plans. Demonstrated understanding of instructions, follow-up care. 14:05 Patient left the ED. Signatures: Ray Gricelda mr Hali Vuong, FLORI RN ss Amaury Sandhu NP [employer]ELOPER pm1
[2022-03-31 14:22] VITALS: BP 141/99; TEMP 98; O2SAT 100
== END 2022-03-31 14:05 | disposition home or self-care (01) ==
LOC: ER 13:32
DX: R21 Rash and other nonspecific skin eruption (principal); R22.31 Localized swelling, mass and lump, right upper limb; T50.Z95A Adverse effect of other vaccines and biological substances, initial encounter; E11.9 Type 2 diabetes mellitus without complications; I10 Essential (primary) hypertension
CPT/HCPCS: 99281

== ENCOUNTER 2022-08-03 11:29 | Emergency (ER) | payer OTHER ==
--- OUTSIDE RECORDS SUMMARY | 2022-08-03 11:39 | XMS REPORT | Continuity of Care Document ---
:1980 Author Organization [facility] t Address [address] [place] [address] Care Team Providers Name Role Phone LUKAS MAC Primary Care Physician Unavailable BERT WRIGHT Attending Clinician Unavailable Teresa Saldana MA Attending Clinician Unavailable Arden Barajas Attending Clinician Chetan Ruiz DO Attending Clinician Sander Toussaint DO Attending Clinician Megan Pacheco RN Attending Clinician Unavailable Bert Wright MD Attending Clinician Doctor Unassigned, [facility] Attending Clinician Unavailable Pob, Adc Lab Main Attending Clinician Unavailable Lab, Adc Fam Pob I Attending Clinician Unavailable Nikki Cartwright Attending Clinician NIKKI CRISTOBAL Attending Clinician Unavailable Stefania Cruz MD Attending Clinician Mahad Singh Attending Clinician MAHAD WALL Attending Clinician Unavailable BERT WRIGHT Admitting Clinician Unavailable Bert Wright MD Admitting Clinician Payers Payer Name Policy Type Policy Number Effective Date Expiration Date Formerly [facility] [id number] 2019 CHOICE MEDICAID 00:00:00 [employer] O [id number] 2020 00:00:00 Problems Condition Condition Condition Status [...] Added automatic ally from request for surgery [id number] Hyperchole Hyperchole Disease Active 2019-10 U nivers [...] rs active active ity of problems problems [facility] Allergies, Adverse Reactions, Alerts Allergy [...] Active Univers ALLERGIE Class ity of S [facility] Social History Social Habit Start Date Stop Date Quantity Comments Source Exposure to Not sure [facility] SARS-CoV-2 [facility] (event) Branch History of Cigarette Smoker Universi ty of tobacco use [facility] Alcohol intake 2020-10-29 2020-10-29 Ex-drinker University of 00:00:00 00:00:00 (finding) [facility] Tobacco use and 2020-07-23 2020-07-23 Never used Universit y of exposure 00:00:00 00:00:00 [facility] Sex [birth year] Universit y of 00:00:00 00:00:00 [facility] Smoking Status Start Date Stop Date Source Former smoker 2020-07-23 00:00:00 2020-07-23 00:00:00 Universi ty of [facility] Never smoker [facility] Medications Ordered Filled Start Stop Current [...] mg 00 :00 ONCE, 1 Medical dose, [place] [facility] 03/19/21 at 1415, ZULEYMA
Fa culty member approving Restricted medication : Arden GREENBERG metoclopram 2020- No 10mg 10 mg, Uni vers brayden HCl 03-19 Slow IV ity of (REGLAN) 19:15: 18:36 [place], [place] injection 00 :00 ONCE, 1 Medical 10 mg dose, [place] [facility] 03/19/21 at 1415, ZULEYMA diphenhydrA 2020-0 2020- No 25mg 25 mg, Uni vers MINE 03-19 Slow IV ity of (BENADRYL) 19:15: 18:33 Push, [place] injection 00 :00 ONCE, 1 Medical 25 mg dose, [place] [facility] 03/19/21 at 1415, STAT hydrOXYzine 2020-0 Yes [id number] 10mg Take 1 Univers 10 mg 5-05 tablet by ity of tablet 00:00: mouth [place] 00 every 6 Medical (six) Branch hours. methylPREDN 2020-0 Yes [id number] Take by Univers ISolone 5-05 mouth ity of (MEDROL, 00:00: SEE-INSTRU [place] KAVITHA,) 4 mg 00 CTIONS. Medica l tablets follow Branch package directions hydrOXYzine 2020-0 Yes [id number] 10mg Take 1 Univers 10 mg 5-05 tablet by ity of tablet 00:00: mouth [place] 00 every 6 Medical (six) Branch hours. methylPREDN 2020-0 Yes [id number] Take by Univers ISolone 5-05 mouth ity of (MEDROL, 00:00: SEE-INSTRU [place] KAVITHA,) 4 mg 00 CTIONS. Medica l tablets follow Branch package directions hydrOXYzine 2020-0 Yes [id number] 10mg Take 1 Univers 10 mg 5-05 tablet by ity of tablet 00:00: mouth [place] 00 every 6 Medical (six) Branch hours. methylPREDN 2020-0 Yes [id number] Take by Univers ISolone 5-05 mouth ity of (MEDROL, 00:00: SEE-INSTRU [place] KAVITHA,) 4 mg 00 CTIONS. Medica l tablets follow Branch package directions fluconazole 2019- Yes TAKE ONE Un yudi 150 mg 2-07 (1) TABLET ity of tablet 00:00: BY MOUTH [place] 00 ONCE NOW Medical A Branch SINGLE DOSE. fluconazole 2019-10 Yes TAKE ONE Un y[facility] 150 mg 2-07 (1) TABLET ity of tablet 00:00: BY MOUTH [place] 00 ONCE NOW Medical A Branch SINGLE DOSE. fluconazole 2019-10 Yes TAKE ONE [facility] 150 mg 2-07 (1) TABLET ity of tablet 00:00: BY MOUTH [place] 00 ONCE NOW Medical A Branch SINGLE DOSE. fluconazole 2019-10 Yes TAKE ONE Un y[facility] 150 mg 2-07 (1) TABLET ity of tablet 00:00: BY MOUTH [place] 00 ONCE NOW Medical A Branch SINGLE DOSE. norgestimat 2019-10 2020- No Take by Un yudi e-ethinyl 2-05 12-05 mouth. ity of estradiol 15:32: 00:00 [place] (ESTARYLLA 22 :00 Medical ORAL) Branch simethicone 2019-10 Yes 80mg 80 mg, Univ ers (GAS RELIEF 2-05 Oral, QID, it y of (SIMETHICON 15:15: First dose [place] E)) 00 on Sat Medical chewable 09/13/20 at Bran h tablet 80 0915, mg Until Discontinu [...] Until Discontinu ed, Routine ibuprofen 2019-10 Yes [id number] 600mg Take 1 Univers 600 mg 2-05 100 tablet by ity of tablet 00:00: mouth [place] 00 every 6 Medical (six) Branch hours as needed for Pain (scale 1-3). simethicone 2019-10 Yes [id number] 80mg Take 1 Univers 80 mg 2-05 100 tablet by ity of chewable 00:00: mouth [place] tablet 00 every 6 Medical (six) Branch hours as needed for Gas. docusate 2019-10 Yes [id number] 100mg Take 1 Univers 100 mg 2-05 100 capsule by ity of capsule 00:00: mouth 2 [place] 00 (two) Medical times Branch daily. ibuprofen 2019-10 Yes [id number] 600mg Take 1 Univers 600 mg 2-05 100 tablet by ity of tablet 00:00: mouth [place] 00 every 6 Medical (six) Branch hours as needed for Pain (scale 1-3). simethicone 2019-10 Yes [id number] 80mg Take 1 Univers 80 mg 2-05 100 tablet by ity of chewable 00:00: mouth [place] tablet 00 every 6 Medical (six) Branch hours as needed for Gas. docusate 2020- Yes [id number] 100mg Take 1 Univers 100 mg 2-05 100 capsule by ity of capsule 00:00: mouth 2 [place] 00 (two) Medical times Branch daily. ibuprofen 2019-10 Yes [id number] 600mg Take 1 Univers 600 mg 2-05 100 tablet by ity of tablet 00:00: mouth [place] 00 every 6 Medical (six) Branch hours as needed for Pain (scale 1-3). simethicone 2019- Yes [id number] 80mg Take 1 Univers 80 mg 2-05 100 tablet by ity of chewable 00:00: mouth [place] tablet 00 every 6 Medical (six) Branch hours as needed for Gas. docusate 2019-10 Yes [id number] 100mg Take 1 Univers 100 mg 2-05 100 capsule by ity of capsule 00:00: mouth 2 [place] 00 (two) Medical times Branch daily. ibuprofen 2019-10 Yes [id number] 600mg Take 1 Univers 600 mg 2-05 100 tablet by ity of tablet 00:00: mouth [place] 00 every 6 Medical (six) Branch hours as needed for Pain (scale 1-3). simethicone 2019-10 Yes [id number] 80mg Take 1 Univers 80 mg 2-05 100 tablet by ity of chewable 00:00: mouth [place] tablet 00 every 6 Medical (six) Branch hours as needed for Gas. docusate 2019-10 Yes [id number] 100mg Take 1 Univers 100 mg 2-05 100 capsule by ity of capsule 00:00: mouth 2 [place] 00 (two) Medical times Branch daily. ferrous 2019- Yes 324mg Take 324 Unive rs gluconate 2-05 mg by ity of 324 mg (38 00:00: mouth 2 [place] mg iron) 00 (two) Medical tablet times Branch daily. ibuprofen 2019-10 Yes [id number] 600mg Take 1 Univers 600 mg 2-05 100 tablet by ity of tablet 00:00: mouth [place] 00 every 6 Medical (six) Branch hours as needed for Pain (scale 1-3). simethicone 2019- Yes [id number] 80mg Take 1 Univers 80 mg 2-05 100 tablet by ity of chewable 00:00: mouth [place] tablet 00 every 6 Medical (six) Branch hours as needed for Gas. docusate 2020-1 Yes [id number] 100mg Take 1 Univers 100 mg 2-05 100 capsule by ity of capsule 00:00: mouth 2 [place] 00 (two) Medical times Branch daily. ferrous 2020-1 Yes 324mg Take 324 Unive rs gluconate 2-05 mg by ity of 324 mg (38 00:00: mouth 2 [place] mg iron) 00 (two) Medical tablet times Branch daily. ibuprofen 2019- Yes [id number] 600mg Take 1 Univers 600 mg 2-05 100 tablet by ity of tablet 00:00: mouth [place] 00 every 6 Medical (six) Branch hours as needed for Pain (scale 1-3). simethicone 2020- Yes [id number] 80mg Take 1 Univers 80 mg 2-05 100 tablet by ity of chewable 00:00: mouth [place] tablet 00 every 6 Medical (six) Branch hours as needed for Gas. docusate 2019-10 Yes [id number] 100mg Take 1 Univers 100 mg 2-05 100 capsule by ity of capsule 00:00: mouth 2 [place] 00 (two) Medical times Branch daily. ferrous 2019-10 Yes 324mg Take 324 Unive rs gluconate 2-05 mg by ity of 324 mg (38 00:00: mouth 2 [place] mg iron) 00 (two) Medical tablet times Branch daily. ibuprofen 2019-10 Yes [id number] 600mg Take 1 Univers 600 mg 2-05 100 tablet by ity of tablet 00:00: mouth [place] 00 every 6 Medical (six) Branch hours as needed for Pain (scale 1-3). simethicone 2019-1 Yes [id number] 80mg Take 1 Univers 80 mg 2-05 100 tablet by ity of chewable 00:00: mouth [place] tablet 00 every 6 Medical (six) Branch hours as needed for Gas. docusate 2020-1 Yes [id number] 100mg Take 1 Univers 100 mg 2-05 [...] [id number] 1{tbl} Take 1 U nivers -acetaminop -09-21 tablet by it y of hen 5-325 00:00: 05:59 mouth [place] mg tablet 00 :00 every 6 Medical (six) Branch hours as needed for Pain (scale 7-10) for up to 7 days. Indication s: acute pain HYDROcodone 2019-10- No [id number] 1{tbl} Take 1 U nivers -acetaminop -09-21 tablet by it y of hen 5-325 [...] Last dose on 09/13/20 at 1200, Routine
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 ity of estradiol 22:23: [place] (ESTARYLLA 00 Medical ORAL) Branch norgestimat 2019-10 Yes Take by Uni vers e-ethinyl 2-01 mouth. ity of estradiol 22:23: [place] (ESTARYLLA 00 Medical ORAL) Branch norgestimat 2019- Yes Take by Uni vers e-ethinyl 1-24 mouth. ity of estradiol 16:21: [place] (ESTARYLLA 22 Medical ORAL) Branch norgestimat 2019-10 Yes Take by Uni vers e-ethinyl 1-24 mouth. ity of estradiol 16:21: [place] (ESTARYLLA 22 Medical ORAL) Branch norgestimat 2019-10 Yes Take by Uni vers e-ethinyl 1-24 mouth. ity of estradiol 16:21: [place] (ESTARYLLA 22 Medical ORAL) Branch norgestimat 2019-10 Yes Take by Uni vers e-ethinyl 1-24 mouth. ity of estradiol 16:21: [place] (ESTARYLLA 22 Medical ORAL) Branch medroxyPROG 2019-10 Yes 10mg Take 10 mg Univers ESTERone 10 1-24 by mouth 3 it y of mg tablet 00:00: (three) [place] 00 times Medical daily. Branch oxyCODONE 5 2019-10 Yes TAKE ONE Un yudi mg 1-24 (1) ity of immediate 00:00: TABLET(S) [place] release 00 BY MOUTH Medical tablet EVERY FOUR Branch HOURS NEEDED FOR PAIN FOR UP TO 5 DOSES. medroxyPROG 2019-10 Yes 10mg Take 10 mg Univers ESTERone 10 1-24 by mouth 3 it y of mg tablet 00:00: (three) [place] 00 times Medical daily. Branch oxyCODONE 5 2019-10 Yes TAKE ONE Un yudi mg 1-24 (1) ity of immediate 00:00: TABLET(S) [place] release 00 BY MOUTH Medical tablet EVERY FOUR Branch HOURS NEEDED FOR PAIN FOR UP TO 5 DOSES. medroxyPROG 2019-10 Yes 10mg Take 10 mg Univers ESTERone 10 1-24 by mouth 3 it y of mg tablet 00:00: (three) [place] 00 times Medical daily. Branch oxyCODONE 5 [...] HOURS FOR 10 DAYS. ferrous 2019- Yes [id number] 324mg Take 1 Un [place] gluconate 1-13 tablet by ity o f 324 mg (38 00:00: mouth 2 [place] mg iron) 00 (two) Medical tablet times Branch daily. ascorbic 2019- Yes [id number] 500mg Take 1 U nivers acid, 1-13 tablet by ity of vitamin C, 00:00: mouth 2 [place] 500 mg 00 (two) Medical tablet times Branch daily. Take with iron to help with absorption of iron. ferrous 2020- Yes [id number] 324mg Take 1 Un yudi gluconate 1-13 tablet by ity o f 324 mg (38 00:00: mouth 2 [place] mg iron) 00 (two) Medical tablet times Branch daily. ascorbic 2020- Yes [id number] 500mg Take 1 U nivers acid, 1-13 tablet by ity of vitamin C, 00:00: mouth 2 [place] 500 mg 00 (two) Medical tablet times Branch daily. Take with iron to help with absorption of iron. ferrous 2019- Yes [id number] 324mg Take 1 Un [place] gluconate 1-13 tablet by ity o f 324 mg (38 00:00: mouth 2 [place] mg iron) 00 (two) Medical tablet times Branch daily. ascorbic 2019- Yes [id number] 500mg Take 1 U nivers acid, 1-13 tablet by ity of vitamin C, 00:00: mouth 2 [place] 500 mg 00 (two) Medical tablet times Branch daily. Take with iron to help with absorption of iron. ferrous 2019- Yes [id number] 324mg Take 1 Un [place] gluconate 1-13 tablet by ity o f 324 mg (38 00:00: mouth 2 [place] mg iron) 00 (two) Medical tablet times Branch daily. ascorbic 2019- Yes [id number] 500mg Take 1 U nivers acid, 1-13 tablet by ity of vitamin C, 00:00: mouth 2 [place] 500 mg 00 (two) Medical tablet times Branch daily. Take with iron to help with absorption of iron. ferrous 2019- Yes [id number] 324mg Take 1 Un [place] gluconate 1-13 tablet by ity o f 324 mg (38 00:00: mouth 2 [place] mg iron) 00 (two) Medical tablet times Branch daily. ascorbic 2020-1 Yes [id number] 500mg Take 1 U nivers acid, 1-13 tablet by ity of vitamin C, 00:00: mouth 2 [place] 500 mg 00 (two) Medical tablet times Branch daily. Take with iron to help with absorption of iron. ferrous 2019- Yes [id number] 324mg Take 1 Un [place] gluconate 1-13 tablet by ity o f 324 mg (38 00:00: mouth 2 [place] mg iron) 00 (two) Medical tablet times Branch daily. ascorbic 2019-10 Yes [id number] 500mg Take 1 U nivers acid, 1-13 tablet by ity of vitamin C, 00:00: mouth 2 [place] 500 mg 00 (two) Medical tablet times Branch daily. Take with iron to help with absorption of iron. ferrous 2019-10 Yes [id number] 324mg Take 1 Un [place] gluconate 1-13 tablet by ity o f 324 mg (38 00:00: mouth 2 [place] mg iron) 00 (two) Medical tablet times Branch daily. ascorbic 2019-10 Yes [id number] 500mg Take 1 U nivers acid, 1-13 tablet by ity of vitamin C, 00:00: mouth 2 [place] 500 mg 00 (two) Medical tablet times Branch daily. Take with iron to help with absorption of iron. ferrous 2019-10 Yes [id number] 324mg Take 1 Un [place] gluconate 1-13 tablet by ity o f 324 mg (38 00:00: mouth 2 [place] mg iron) 00 (two) Medical tablet times Branch daily. ascorbic 2019-10 Yes [id number] 500mg Take 1 U nivers acid, 1-13 tablet by ity of vitamin C, 00:00: mouth 2 [place] 500 mg 00 (two) Medical tablet times Branch daily. Take with iron to help with absorption of iron. ferrous 2019-10 Yes [id number] 324mg Take 1 Un [place] gluconate 1-13 tablet by ity o f 324 mg (38 00:00: mouth 2 [place] mg iron) 00 (two) Medical tablet times Branch daily. ascorbic 2019-10 Yes [id number] 500mg Take 1 U nivers acid, 1-13 tablet by ity of vitamin C, 00:00: mouth 2 [place] 500 mg 00 (two) Medical tablet times Branch daily. Take with iron to help with absorption of iron. ferrous 2019-10 Yes [id number] 324mg Take 1 Un [place] gluconate 1-13 tablet by ity o f 324 mg (38 00:00: mouth 2 [place] mg iron) 00 (two) Medical tablet times Branch daily. ascorbic 2019- Yes [id number] 500mg Take 1 U nivers acid, 1-13 tablet by ity of vitamin C, 00:00: mouth 2 [place] 500 mg 00 (two) Medical tablet times Branch daily. Take with iron to help with absorption of iron. ferrous 2019-10- No [id number] 324mg Take 1 U nivers gluconate 10-22 tablet by ity of 324 mg (38 00:00: 00:00 mouth 2 [place] mg iron) 00 :00 (two) Medical tablet times Branch daily. ascorbic 2019-10- No [id number] 500mg Take 1 Univers acid, 10-22 tablet by ity of vitamin C, 00:00: 00:00 mouth 2 [place] 500 mg 00 :00 (two) Medical tablet times Branch daily. Take with iron to help with absorption of iron. medroxyPROG 2019-10 Yes [id number] 10mg Take 1 Univers ESTERone 1-06 100 tablet by ity of (PROVERA) 00:00: mouth 3 [place] 10 mg 00 (three) Medical tablet times Branch daily. medroxyPROG 2019-10 Yes [id number] 10mg Take 1 Univers ESTERone 1-06 100 tablet by ity of (PROVERA) 00:00: mouth 3 [place] 10 mg 00 (three) Medical tablet times Branch daily. medroxyPROG 2019-10 Yes [id number] 10mg Take 1 Univers ESTERone 1-06 100 tablet by ity of (PROVERA) 00:00: mouth 3 [place] 10 mg 00 (three) Medical tablet times Branch daily. medroxyPROG 2019-10 Yes [id number] 10mg Take 1 Univers ESTERone 1-06 100 tablet by ity of (PROVERA) 00:00: mouth 3 [place] 10 mg 00 (three) Medical tablet times Branch daily. medroxyPROG 2019-10 Yes [id number] 10mg Take 1 Univers ESTERone 1-06 100 [...] Indication s: acute pain ibuprofen 2019-10 Yes [id number] 600mg Take 1 Univers 600 mg 1-06 100 tablet by ity of tablet 00:00: mouth [place] 00 every 6 Medical (six) Branch hours as needed for Pain (scale 4-6). medroxyPROG 2020- Yes [id number] 10mg Take 1 Univers ESTERone 1-06 100 tablet by ity of (PROVERA) 00:00: mouth 3 [place] 10 mg 00 (three) Medical tablet times Branch daily. medroxyPROG 2020- Yes [id number] 10mg Take 1 Univers ESTERone 1-06 100 tablet by ity of (PROVERA) 00:00: mouth 3 [place] 10 mg 00 (three) Medical tablet times Branch daily. ibuprofen 2019- Yes [id number] 600mg Take 1 Univers 600 mg 1-06 [...] Indication s: acute pain medroxyPROG 2020- Yes [id number] 10mg Take 1 Univers ESTERone 1-06 100 tablet by ity of (PROVERA) 00:00: mouth 3 [place] 10 mg 00 (three) Medical tablet times Branch daily. ibuprofen 2019- Yes [id number] 600mg Take 1 Univers 600 mg 1-06 [...] 5 doses. Indication s: acute pain medroxyPROG 2020-1 Yes [id number] 10mg Take 1 Univers ESTERone 1-06 100 tablet by ity of (PROVERA) 00:00: mouth 3 [place] 10 mg 00 (three) Medical tablet times Branch daily. ibuprofen 2020- Yes [id number] 600mg Take 1 Univers 600 mg 1-06 [...] Indication s: acute pain medroxyPROG 2019- Yes [id number] 10mg Take 1 Univers ESTERone 1-06 100 tablet by ity of (PROVERA) 00:00: mouth 3 [place] 10 mg 00 (three) Medical tablet times Branch daily. ibuprofen 2019-10 Yes [id number] 600mg Take 1 Univers 600 mg 1-06 [...] Indication s: acute pain medroxyPROG 2019- Yes [id number] 10mg Take 1 Univers ESTERone 1-06 100 tablet by ity of (PROVERA) 00:00: mouth 3 [place] 10 mg 00 (three) Medical tablet times Branch daily. ibuprofen 2019- Yes [id number] 600mg Take 1 Univers 600 mg 1-06 [...] Indication s: acute pain medroxyPROG 2020- Yes [id number] 10mg Take 1 Univers ESTERone 1-06 100 tablet by ity of (PROVERA) 00:00: mouth 3 [place] 10 mg 00 (three) Medical tablet times Branch daily. ibuprofen 2019- Yes [id number] 600mg Take 1 Univers 600 mg 1-06 [...] Indication s: acute pain medroxyPROG 2019-10 Yes [id number] 10mg Take 1 Univers ESTERone 1-06 100 tablet by ity of (PROVERA) 00:00: mouth 3 [place] 10 mg 00 (three) Medical tablet times Branch daily. ibuprofen 2019-10 Yes [id number] 600mg Take 1 Univers 600 mg 1-06 [...] Indication s: acute pain medroxyPROG 2019-10 Yes [id number] 10mg Take 1 Univers ESTERone 1-06 100 tablet by ity of (PROVERA) 00:00: mouth 3 [place] 10 mg 00 (three) Medical tablet times Branch daily. ibuprofen 2019-10 Yes [id number] 600mg Take 1 Univers 600 mg 1-06 [...] Indication s: acute pain ibuprofen 2019-10 Yes [id number] 600mg Take 1 [facility] 600 mg 1-06 100 tablet by ity of tablet 00:00: mouth [place] 00 every 6 Medical (six) Branch hours as needed for Pain (scale 4-6). ibuprofen 2019-10 Yes [id number] 600mg Take 1 Univers 600 mg 1-06 100 tablet by ity of tablet 00:00: mouth [place] 00 every 6 Medical (six) Branch hours as needed for Pain (scale 4-6). ibuprofen 2019-10 Yes [id number] 600mg Take 1 Univers 600 mg 1-06 100 tablet by ity of tablet 00:00: mouth [place] 00 every 6 Medical (six) Branch hours as needed for Pain (scale 4-6). ibuprofen 2019-10 Yes [id number] 600mg Take 1 Univers 600 mg 1-06 100 tablet by ity of tablet 00:00: mouth [place] 00 every 6 Medical (six) Branch hours as needed for Pain (scale 4-6). ibuprofen 2019-10 Yes [id number] 600mg Take 1 Univers 600 mg 1-06 100 tablet by ity of tablet 00:00: mouth [place] 00 every 6 Medical (six) Branch hours as needed for Pain (scale 4-6). ibuprofen 2019-10 Yes [id number] 600mg Take 1 Univers 600 mg 1-06 100 tablet by ity of tablet 00:00: mouth [place] 00 every 6 Medical (six) Branch hours as needed for Pain (scale 4-6). ibuprofen 2019-10- No [id number] 600mg Take 1 Univers 600 mg 1-06 12-05 100 tablet by ity of tablet 00:00: 00:00 mouth [place] 00 :00 every 6 Medical (six) Branch hours as needed for Pain (scale 4-6). medroxyPROG 2019-10- No [id number] 10mg Take 1 Univers ESTERone -03 20- 100 tablet by ity o f (PROVERA) 00:00: 00:00 mouth 3 [place] 10 mg 00 :00 (three) Medical tablet times Branch daily. Take twice daily until you completely stop bleeding, then once per day medroxyPROG 2019-10 2020- No [id number] 10mg Take 1 Univers ESTERone - 11-06 100 tablet by ity o f (PROVERA) 00:00: 00:00 mouth 3 [place] 10 mg 00 :00 (three) Medical tablet times Branch daily. Take twice daily until you completely stop bleeding, then once per day medroxyPROG 2019-10 2020- No [id number] 10mg Take 1 Univers ESTERone - 11-06 100 tablet by ity o f (PROVERA) 00:00: 00:00 mouth 3 [place] 10 mg 00 :00 (three) Medical tablet times Branch daily. Take twice daily until you completely stop bleeding, then once per day medroxyPROG 2019-10- No [id number] 10mg Take 1 Univers ESTERone 10-15 100 [...] Indication s: acute pain medroxyPROG 2019-10- No [id number] 10mg Take 1 Univers ESTERone 10-11 100 tablet by ity o f (PROVERA) 00:00: 05:59 mouth 2 [place] 10 mg 00 :00 (two) Medical tablet times Branch daily for 60 doses. Take twice daily until you completely stop bleeding, then once per day docusate 2019-10- No [id number] 100mg Take 1 Univers (COLACE) 10-11 100 capsule by ity of 100 mg 00:00: 05:59 mouth 2 [place] capsule 00 :00 (two) Medical times Branch daily for 30 days. This medication is used for constipati on Polyethylen 2019-10- No [id number] 1{packe Take 1 Univers e Glycol 10-11 100 t} Packet by ity o f 3350 00:00: 05:59 mouth [place] (MIRALAX) 00 :00 every 24 Medica l 17 gram (twenty-fo Branch powder ur) hours as needed for Constipati on for up to 30 days. medroxyPROG 2019-10- No [id number] 10mg Take 1 Univers ESTERone 10-11 100 tablet by ity o f (PROVERA) 00:00: 05:59 mouth 2 [place] 10 mg 00 :00 (two) Medical tablet times Branch daily for 60 doses. Take twice daily until you completely stop bleeding, then once per day docusate 2019-10- No [id number] 100mg Take 1 Univers (COLACE) 10-11 100 capsule by ity of 100 mg 00:00: 05:59 mouth 2 [place] capsule 00 :00 (two) Medical times Branch daily for 30 days. This medication is used for constipati on Polyethylen 2019-10 No [id number] 1{packe Take 1 Univers e Glycol 10-11 100 t} Packet by ity o f 3350 00:00: 05:59 mouth [place] (MIRALAX) 00 :00 every 24 Medica l 17 gram (twenty-fo Branch powder ur) hours as needed for Constipati on for up to 30 days. medroxyPROG 2019-10- No [id number] 10mg Take 1 Univers ESTERone 10-11 100 tablet by ity o f (PROVERA) 00:00: 05:59 mouth 2 [place] 10 mg 00 :00 (two) Medical tablet times Branch daily for 60 doses. Take twice daily until you completely stop bleeding, then once per day docusate 2019-10- No [id number] 100mg Take 1 Univers (COLACE) 10-11 100 capsule by ity of 100 mg 00:00: 05:59 mouth 2 [place] capsule 00 :00 (two) Medical times Branch daily for 30 days. This medication is used for constipati on Polyethylen 2019-10 No [id number] 1{packe Take 1 Univers e Glycol 10-11 100 t} Packet by ity o f 3350 00:00: 05:59 mouth [place] (MIRALAX) 00 :00 every 24 Medica l 17 gram (twenty-fo Branch powder ur) hours as needed for Constipati on for up to 30 days. docusate 2019-10- No [id number] 100mg Take 1 Univers (COLACE) 10-11 100 capsule by ity of 100 mg 00:00: 05:59 mouth 2 [place] capsule 00 :00 (two) Medical times Branch daily for 30 days. This medication is used for constipati on Polyethylen 2019-10 No [id number] 1{packe Take 1 Univers e Glycol 10-11 100 t} Packet by ity o f 3350 00:00: 05:59 mouth [place] (MIRALAX) 00 :00 every 24 Medica l 17 gram (twenty-fo Branch powder ur) hours as needed for Constipati on for up to 30 days. docusate 2019-10- No [id number] 100mg Take 1 Univers (COLACE) 10-11 100 capsule by ity of 100 mg 00:00: 05:59 mouth 2 [place] capsule 00 :00 (two) Medical times Branch daily for 30 days. This medication is used for constipati on Polyethylen 2019-10- No [id number] 1{packe Take 1 [facility] e Glycol 10-11 100 t} Packet by ity o f 3350 00:00: 05:59 mouth [place] (MIRALAX) 00 :00 every 24 Medica l 17 gram (twenty-fo Branch powder ur) hours as needed for Constipati on for up to 30 days. docusate 2019-10- No [id number] 100mg Take 1 [facility] (COLACE) 10-11 100 capsule by ity of 100 mg 00:00: 05:59 mouth 2 [place] capsule 00 :00 (two) Medical times Branch daily for 30 days. This medication is used for constipati on Polyethylen 2019-10 No [id number] 1{packe Take 1 [facility] e Glycol 10-11 100 t} Packet by ity o f 3350 00:00: 05:59 mouth [place] (MIRALAX) 00 :00 every 24 Medica l 17 gram (twenty-fo Branch powder ur) hours as needed for Constipati on for up to 30 days. docusate 2019-10- No [id number] 100mg Take 1 [facility] (COLACE) 10-11 100 capsule by ity of 100 mg 00:00: 05:59 mouth 2 [place] capsule 00 :00 (two) Medical times Branch daily for 30 days. This medication is used for constipati on Polyethylen 2019-10- No [id number] 1{packe Take 1 [facility] Glycol 10-11 100 t} Packet by ity o f 3350 00:00: 05:59 mouth [place] (MIRALAX) 00 :00 every 24 Medica l 17 gram (twenty-fo Branch powder ur) hours as needed for Constipati on for up to 30 days. docusate 2019-10- No [id number] 100mg Take 1 [facility] (COLACE) 10-11 100 capsule by ity of 100 mg 00:00: 05:59 mouth 2 [place] capsule 00 :00 (two) Medical times Branch daily for 30 days. This medication is used for constipati on Polyethylen 2019-10 No [id number] 1{packe Take 1 [facility] e Glycol 10-11 100 t} Packet by ity o f 3350 00:00: 05:59 mouth [place] (MIRALAX) 00 :00 every 24 Medica l 17 gram (twenty-fo Branch powder ur) hours as needed for Constipati on for up to 30 days. docusate 2019-10- No [id number] 100mg Take 1 [facility] (COLACE) 10-11 100 capsule by ity of 100 mg 00:00: 05:59 mouth 2 [place] capsule 00 :00 (two) Medical times Branch daily for 30 days. This medication is used for constipati on Polyethylen 2019-10- No [id number] 1{packe Take 1 [facility] e Glycol 10-11 100 t} Packet by ity o f 3350 00:00: 05:59 mouth [place] (MIRALAX) 00 :00 every 24 Medica l 17 gram (twenty-fo Branch powder ur) hours as needed for Constipati on for up to 30 days. docusate 2019-10- No [id number] 100mg Take 1 [facility] (COLACE) 10-11 100 capsule by ity of 100 mg 00:00: 05:59 mouth 2 [place] capsule 00 :00 (two) Medical times Branch daily for 30 days. This medication is used for constipati on Polyethylen 2019-10- No [id number] 1{packe Take 1 [facility] Glycol 10-11 100 t} Packet by ity o f 3350 00:00: 05:59 mouth [place] (MIRALAX) 00 :00 every 24 Medica l 17 gram (twenty-fo Branch powder ur) hours as needed for Constipati on for up to 30 days. docusate 2019-10- No [id number] 100mg Take 1 [facility] (COLACE) 10-11 100 capsule by ity of 100 mg 00:00: 05:59 mouth 2 [place] capsule 00 :00 (two) Medical times Branch daily for 30 days. This medication is used for constipati on Polyethylen 2019-10- No [id number] 1{packe Take 1 [facility] e Glycol 10-11 100 t} Packet by ity o f 3350 00:00: 05:59 mouth [place] (MIRALAX) 00 :00 every 24 Medica l 17 gram (twenty-fo Branch powder ur) hours as needed for Constipati on for up to 30 days. docusate 2019-10- No [id number] 100mg Take 1 [facility] (COLACE) 10-11 100 capsule by ity of 100 mg 00:00: 05:59 mouth 2 [place] capsule 00 :00 (two) Medical times Branch daily for 30 days. This medication is used for constipati on Polyethylen 2019-10- No [id number] 1{packe Take 1 [facility] Glycol 10-11 100 t} Packet by ity o f 3350 00:00: 05:59 mouth [place] (MIRALAX) 00 :00 every 24 Medica l 17 gram (twenty-fo Branch powder ur) hours as needed for Constipati on for up to 30 days. docusate 2019-10- No [id number] 100mg Take 1 [facility] (COLACE) 10-11 100 capsule by ity of 100 mg 00:00: 05:59 mouth 2 [place] capsule 00 :00 (two) Medical times Branch daily for 30 days. This medication is used for constipati on Polyethylen 2019-10- No [id number] 1{packe Take 1 [facility] Glycol 10-11 100 t} Packet by ity o f 3350 00:00: 05:59 mouth [place] (MIRALAX) 00 :00 every 24 Medica l 17 gram (twenty-fo Branch powder ur) hours as needed for Constipati on for up to 30 days. docusate 2019-10- No [id number] 100mg Take 1 [facility] (COLACE) 10-11 100 capsule by ity of 100 mg 00:00: 05:59 mouth 2 [place] capsule 00 :00 (two) Medical times Branch daily for 30 days. This medication is used for constipati on Polyethylen 2019-10 No [id number] 1{packe Take 1 [facility] Glycol 10-11 100 t} Packet by ity o f 3350 00:00: 05:59 mouth [place] (MIRALAX) 00 :00 every 24 Medica l 17 gram (twenty-fo Branch powder ur) hours as needed for Constipati on for up to 30 days. docusate 2019-10- No [id number] 100mg Take 1 [facility] (COLACE) 10-11 100 capsule by ity of 100 mg 00:00: 05:59 mouth 2 [place] capsule 00 :00 (two) Medical times Branch daily for 30 days. This medication is used for constipati on Polyethylen 2019-10 No [id number] 1{packe Take 1 [facility] Glycol 10-11 100 t} Packet by ity o f 3350 00:00: 05:59 mouth [place] (MIRALAX) 00 :00 every 24 Medica l 17 gram (twenty-fo Branch powder ur) hours as needed for Constipati on for up to 30 days. docusate 2019-10- No [id number] 100mg Take 1 [facility] (COLACE) 10-11 100 capsule by ity of 100 mg 00:00: 05:59 mouth 2 [place] capsule 00 :00 (two) Medical times Branch daily for 30 days. This medication is used for constipati on Polyethylen 2019-10- No [id number] 1{packe Take 1 [facility] Glycol 10-11 100 t} Packet by ity o f 3350 00:00: 05:59 mouth [place] (MIRALAX) 00 :00 every 24 Medica l 17 gram (twenty-fo Branch powder ur) hours as needed for Constipati on for up to 30 days. docusate 2019-10- No [id number] 100mg Take 1 [facility] (COLACE) 10-11 100 capsule by ity of 100 mg 00:00: 05:59 mouth 2 [place] capsule 00 :00 (two) Medical times Branch daily for 30 days. This medication is used for constipati on Polyethylen 2019-10- No [id number] 1{packe Take 1 [facility] Glycol 10-11 100 t} Packet by ity o f 3350 00:00: 05:59 mouth [place] (MIRALAX) 00 :00 every 24 Medica l 17 gram (twenty-fo Branch powder ur) hours as needed for Constipati on for up to 30 days. docusate 2019-10- No [id number] 100mg Take 1 [facility] (COLACE) 10-11 100 capsule by ity of 100 mg 00:00: 05:59 mouth 2 [place] capsule 00 :00 (two) Medical times Branch daily for 30 days. This medication is used for constipati on Polyethylen 2019-10 No [id number] 1{packe Take 1 [facility] Glycol 10-11 100 t} Packet by ity o f 3350 00:00: 05:59 mouth [place] (MIRALAX) 00 :00 every 24 Medica l 17 gram (twenty-fo Branch powder ur) hours as needed for Constipati on for up to 30 days. docusate 2019-10- No [id number] 100mg Take 1 [facility] (COLACE) 10-11 100 capsule by ity of 100 mg 00:00: 05:59 mouth 2 [place] capsule 00 :00 (two) Medical times Branch daily for 30 days. This medication is used for constipati on Polyethylen 2019-10- No [id number] 1{packe Take 1 [facility] Glycol 10-11 100 t} Packet by ity o f 3350 00:00: 05:59 mouth [place] (MIRALAX) 00 :00 every 24 Medica l 17 gram (twenty-fo Branch powder ur) hours as needed for Constipati on for up to 30 days. docusate 2019-10- No [id number] 100mg Take 1 [facility] (COLACE) 10-11 100 capsule by ity of 100 mg 00:00: 05:59 mouth 2 [place] capsule 00 :00 (two) Medical times Branch daily for 30 days. This medication is used for constipati on Polyethylen 2019-10- No [id number] 1{packe Take 1 [facility] Glycol 10-11 100 t} Packet by ity o f 3350 00:00: 05:59 mouth [place] (MIRALAX) 00 :00 every 24 Medica l 17 gram (twenty-fo Branch powder ur) hours as needed for Constipati on for up to 30 days. docusate 2019-10- No [id number] 100mg Take 1 [facility] (COLACE) 10-11 100 capsule by ity of 100 mg 00:00: 05:59 mouth 2 [place] capsule 00 :00 (two) Medical times Branch daily for 30 days. This medication is used for constipati on Polyethylen 2019-10- No [id number] 1{packe Take 1 [facility] Glycol 10-11 100 t} Packet by ity o f 3350 00:00: 05:59 mouth [place] (MIRALAX) 00 :00 every 24 Medica l 17 gram (twenty-fo Branch powder ur) hours as needed for Constipati on for up to 30 days. docusate 2019-10- No [id number] 100mg Take 1 [facility] (COLACE) 10-11 100 capsule by ity of 100 mg 00:00: 05:59 mouth 2 [place] capsule 00 :00 (two) Medical times Branch daily for 30 days. This medication is used for constipati on Polyethylen 2019-10- No [id number] 1{packe Take 1 [facility] Glycol 10-11 100 t} Packet by ity o f 3350 00:00: 05:59 mouth [place] (MIRALAX) 00 :00 every 24 Medica l 17 gram (twenty-fo Branch powder ur) hours as needed for Constipati on for up to 30 days. docusate 2019-10- No [id number] 100mg Take 1 [facility] (COLACE) 10-11 100 capsule by ity of 100 mg 00:00: 05:59 mouth 2 [place] capsule 00 :00 (two) Medical times Branch daily for 30 days. This medication is used for constipati on Polyethylen 2019-10- No [id number] 1{packe Take 1 [facility] Glycol 10-11 100 t} Packet by ity o f 3350 00:00: 05:59 mouth [place] (MIRALAX) 00 :00 every 24 Medica l 17 gram (twenty-fo Branch powder ur) hours as needed for Constipati on for up to 30 days. docusate 2019-10- No [id number] 100mg Take 1 [facility] (COLACE) 10-11 100 capsule by ity of 100 mg 00:00: 05:59 mouth 2 [place] capsule 00 :00 (two) Medical times Branch daily for 30 days. This medication is used for constipati on Polyethylen 2019-10- No [id number] 1{packe Take 1 [facility]col 10-11 100 t} [facility] 00:00: 05:59 mouth [place] (MIRALAX) 00 :00 every 24 Medica l 17 gram (twenty-fo Branch powder ur) hours as needed for Constipati on for up to 30 days. medroxyPROG 2019-10- No [id number] 10mg Take 1 [facility] ESTERone 10-11 100 tablet by ity o f (PROVERA) 00:00: 00:00 mouth 2 [place] 10 mg 00 :00 (two) Medical tablet times Branch daily for 60 doses. Take twice daily until you completely stop bleeding, then once per day medroxyPROG 2019-10- No [id number] 10mg Take 1 [facility] ESTERone 10-11 100 tablet by ity o f (PROVERA) 00:00: 00:00 mouth 2 [place] 10 mg 00 :00 (two) Medical tablet times Branch daily for 60 doses. Take twice daily until you completely stop bleeding, then once per day medroxyPROG 2019-10- No [id number] 10mg Take 1 [facility] ESTERone 10-11 100 tablet by ity o f (PROVERA) 00:00: 00:00 mouth 2 [place] 10 mg 00 :00 (two) Medical tablet times Branch daily for 60 doses. Take twice daily until you completely stop bleeding, then once per day medroxyPROG 2019-10- No [id number] 10mg Take 1 [facility] ESTERone 10-11 100 tablet by ity o f (PROVERA) 00:00: 00:00 mouth 2 [place] 10 mg 00 :00 (two) Medical tablet times Branch daily for 60 doses. Take twice daily until you completely stop bleeding, then once per day miSOPROStoL 2019-10- No [id number] 200ug Take 1 [facility] 200 mcg 0-16 10-18 tablet by ity of tablet 00:00: 04:59 mouth 2 [place] 00 :00 (two) Medical times Branch daily for 1 day. miSOPROStoL 2019-10- No [id number] 200ug Take 1 [facility] 200 mcg 0-16 10-18 tablet by ity of tablet 00:00: 04:59 mouth 2 [place] 00 :00 (two) Medical times Branch daily for 1 day. ferrous 2020- Yes 324mg Take 324 Unive [...] of tablet 00:00: daily. Medical Branch fluticasone 2019-10 Yes INSTILL Uni [...] of tablet 00:00: daily. Medical Branch fluticasone 2019-10 Yes INSTILL Uni [...] mouth ity of tablet 00:00: daily. [address] Branch fluticasone 2019- Yes INSTILL Uni [...] by ity of tablet 00:00: mouth 2 [place] (two) Medical times Branch daily. loratadine 2019- Yes 10mg Take 10 mg U nivers 10 mg 0-08 by mouth ity of tablet 00:00: daily. [address] fluticasone 2019- Yes INSTILL Uni vers [...] mouth ity of tablet 00:00: daily. [address] fluticasone 2020- Yes INSTILL Uni vers [...] mouth ity of tablet 00:00: daily. [address] fluticasone 2019- Yes INSTILL Uni vers [...] mouth ity of tablet 00:00: daily. [address] fluticasone 2019- Yes INSTILL Uni vers [...] by ity of tablet 00:00: mouth 2 [place] 00 (two) Medical times Branch daily. loratadine 2020- Yes 10mg Take 10 mg U nivers 10 mg 0-08 by mouth ity of tablet 00:00: daily. [address] Branch fluticasone 2020- Yes INSTILL Uni [...] by ity of tablet 00:00: mouth 2 [place] (two) Medical times [place] daily. loratadine 2019- Yes 10mg Take 10 mg U nivers 10 mg 0-08 by mouth ity of tablet 00:00: daily. [address] fluticasone 2019- Yes INSTILL Uni vers [...] by ity of tablet 00:00: mouth 2 [place] (two) Medical times Branch daily. loratadine 2020- Yes 10mg Take 10 mg U nivers 10 mg 0-08 by mouth ity of tablet 00:00: daily. [address] fluticasone 2019- Yes INSTILL Uni vers [...] mouth ity of tablet 00:00: daily. [address] fluticasone 2019-10 Yes INSTILL Uni vers [...] mouth ity of tablet 00:00: daily. [address] fluticasone 2019- Yes INSTILL Uni vers [...] mouth ity of tablet 00:00: daily. [address] fluticasone 2020- Yes INSTILL Uni vers [...] tablet 00:00: mouth 2 (two) Medical times [place] daily. loratadine 2020- Yes 10mg Take 10 mg U nivers 10 mg 0-08 by mouth ity of tablet 00:00: daily. [address] fluticasone 2020- Yes INSTILL Uni vers [...] mouth ity of tablet 00:00: daily. [address] fluticasone 2019- Yes INSTILL Uni vers [...] by ity of tablet 00:00: mouth 2 [place] (two) Medical times [place] daily. loratadine 2019- Yes 10mg Take 10 mg U nivers 10 mg 0-08 by mouth ity of tablet 00:00: daily. [address] fluticasone 2019-10 Yes INSTILL Uni vers [...] by ity of tablet 00:00: mouth 2 [place] (two) Medical times Branch daily. loratadine 2019- Yes 10mg Take 10 mg U nivers 10 mg 0-08 by mouth ity of tablet 00:00: daily. [address] fluticasone 2019-10 Yes INSTILL Uni vers [...] mouth ity of tablet 00:00: daily. [address] fluticasone 2019- Yes INSTILL Uni vers [...] mouth ity of tablet 00:00: daily. [address] fluticasone 2019- Yes INSTILL Uni vers [...] by ity of tablet 00:00: mouth 2 [place] (two) Medical times [place] daily. loratadine 2020- Yes 10mg Take 10 mg U nivers 10 mg 0-08 by mouth ity of tablet 00:00: daily. [address] fluticasone 2020- Yes INSTILL Uni vers [...] by ity of tablet 00:00: mouth 2 [place] (two) Medical times [place] daily. loratadine 2020- Yes 10mg Take 10 mg U nivers 10 mg 0-08 by mouth ity of tablet 00:00: daily. [address] fluticasone 2019- Yes INSTILL Uni vers [...] by ity of tablet 00:00: mouth 2 [place] (two) Medical times [place] daily. loratadine 2020- Yes 10mg Take 10 mg U nivers 10 mg 0-08 by mouth ity of tablet 00:00: daily. [address] fluticasone 2020- Yes INSTILL Uni vers [...] mouth ity of tablet 00:00: daily. [address] fluticasone 2019- Yes INSTILL Uni vers [...] mouth ity of tablet 00:00: daily. [address] fluticasone 2019- Yes INSTILL Uni vers [...] by ity of tablet 00:00: mouth 2 [place] (two) Medical times [place] daily. loratadine 2020- Yes 10mg Take 10 mg U nivers 10 mg 0-08 by mouth ity of tablet 00:00: daily. [address] fluticasone 2019- Yes INSTILL Uni vers [...] by ity of tablet 00:00: mouth 2 [place] ([facility]) Medical times [place] daily. loratadine 2019- Yes 10mg Take 10 mg U nivers 10 mg 0-08 by mouth ity of tablet 00:00: daily. [address] fluticasone 2019- Yes INSTILL Uni vers [...] by ity of tablet 00:00: mouth 2 [place] (two) Medical times [place] daily. loratadine 2020- Yes 10mg Take 10 mg U nivers 10 mg 0-08 by mouth ity of tablet 00:00: daily. [address] fluticasone 2019- Yes INSTILL Uni vers [...] mouth ity of tablet 00:00: daily. [address] fluticasone 2020- Yes INSTILL Uni vers [...] mouth ity of tablet 00:00: daily. [address] fluticasone 2020- Yes INSTILL Uni vers [...] by ity of tablet 00:00: mouth 2 [place] ([facility]) Medical times [place] daily. loratadine 2020- Yes 10mg Take 10 mg U nivers 10 mg 0-08 by mouth ity of tablet 00:00: daily. [place] [facility] fluticasone 2020- Yes INSTILL Uni vers propionate 0-08 ONE (1) ity of 50 00:00: SPRAY(S) [place] mcg/actuati 00 INTO EACH Med ical on nasal NOSTRIL Branch spray TWICE A DAY. carvediloL 2020- Yes 6.25mg Take 6.25 Univers 6.25 mg 0-08 mg by ity of tablet 00:00: mouth 2 [place] [address] ([facility]) Medical times [place] daily. loratadine 2020- Yes 10mg Take 10 mg U nivers 10 mg 0-08 by mouth ity of tablet 00:00: daily. [address] fluticasone 2019- Yes INSTILL Uni vers propionate 0-08 ONE (1) ity of 50 00:00: SPRAY(S) [place] mcg/actuati 00 INTO EACH Med ical on nasal NOSTRIL Branch spray TWICE A DAY. carvediloL 2020- Yes 6.25mg Take 6.25 Univers 6.25 mg 0-08 mg by ity of tablet 00:00: mouth 2 [place] [address] ([facility]) Medical times [place] daily. loratadine 2020- Yes 10mg Take 10 mg U nivers 10 mg 0-08 by mouth ity of tablet 00:00: daily. [address] fluticasone 2019- Yes INSTILL Uni vers propionate 0-08 ONE (1) ity of 50 00:00: SPRAY(S) [place] mcg/actuati 00 INTO EACH Med ical on nasal NOSTRIL Branch spray TWICE A DAY. carvediloL 2020- Yes 6.25mg Take 6.25 Univers 6.25 mg 0-08 mg by ity of tablet 00:00: mouth 2 [place] [address] ([facility]) Medical times [place] daily. loratadine 2020- Yes 10mg Take 10 mg U nivers 10 mg 0-08 by mouth ity of tablet 00:00: daily. [address] fluticasone 2020-1 Yes INSTILL Uni vers propionate 0-08 ONE (1) ity of 50 00:00: SPRAY(S) [place] mcg/actuati 00 INTO EACH Med ical on nasal NOSTRIL Branch spray TWICE A DAY. carvediloL 2020- Yes 6.25mg Take 6.25 Univers 6.25 mg 0-08 mg by ity of tablet 00:00: mouth 2 [place] (two) Medical times Branch daily. loratadine 2020- [...] by ity of tablet 00:00: mouth 2 [place] (two) Medical times Branch daily. loratadine 2020- Yes 10mg Take 10 mg U nivers 10 mg 0-08 by mouth ity of tablet 00:00: daily. [place] [facility] fluticasone 2020- Yes INSTILL Uni vers propionate 0-08 ONE (1) ity of 50 00:00: SPRAY(S) [place] mcg/actuati 00 INTO EACH Med ical on nasal NOSTRIL Branch spray TWICE A DAY. carvediloL 2020- Yes 6.25mg Take 6.25 Univers 6.25 mg 0-08 mg by ity of tablet 00:00: mouth 2 [place] (two) Medical times Branch daily. loratadine 2020- Yes 10mg Take 10 mg U nivers 10 mg 0-08 by mouth ity of tablet 00:00: daily. [place] [facility] Branch fluticasone 2020- Yes INSTILL Uni vers propionate 0-08 ONE (1) ity of 50 00:00: SPRAY(S) [place] mcg/actuati 00 INTO EACH Med ical on nasal NOSTRIL Branch spray TWICE A DAY. carvediloL 2020- Yes 6.25mg Take 6.25 Univers 6.25 mg 0-08 mg by ity of tablet 00:00: mouth 2 [place] (two) Medical times Branch daily. loratadine 2020- Yes 10mg Take 10 mg U nivers 10 mg 0-08 by mouth ity of tablet 00:00: daily. [place] 00 Medical Branch fluticasone 2019-10 Yes INSTILL Uni [...] 30 mg 00 :00 1 dose, Medical [facility] Branch 07/05/20 at 1645, Routine
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 Restricted medication : KARLA NOGUERA diphenhydrA 2019- No 25mg 25 mg, Uni vers MINE 07-05 Oral, ity of (BENADRYL) 21:45: 21:19 ONCE, 1 [place] tablet 25 00 :00 dose, Sat Medic al mg 07/05/20 at Branch 1645, ZULEYMA butalbital- 2020- No 2{tbl} 2 tablet, Univers acetaminoph 07-05 Oral, ity of en-caff 20:45: 21:19 ONCE, 1 [place] (ESGIC) 00 :00 dose, [facility] Medical 50-325-40 07/05/20 at Bran ch mg tablet 2 1545, tablet Routine butalbital- Yes [id number] 1{tbl} Take 1 [facility] acetaminoph 07-05 tablet by ity of en-caff 00:00: mouth [place] 50-325-40 00 every 4 Medical mg tablet (four) Branch hours as needed for Pain (scale 7-10). butalbital- 2020-0 Yes [id number] 1{tbl} Take 1 [facility] acetaminoph 9-26 tablet by ity of en-caff 00:00: mouth [place] 50-325-40 00 every 4 Medical mg tablet (four) Branch hours as needed for Pain (scale 7-10). butalbital- 2020-0 Yes [id number] 1{tbl} Take 1 [facility] acetaminoph 9-26 tablet by ity of en-caff 00:00: mouth [place] 50-325-40 00 every 4 Medical mg tablet (four) Branch hours as needed for Pain (scale 7-10). butalbital- 2020-0 Yes [id number] 1{tbl} Take 1 [facility] acetaminoph 9-26 tablet by ity of en-caff 00:00: mouth [place] 50-325-40 00 every 4 Medical mg tablet (four) Branch hours as needed for Pain (scale 7-10). butalbital- 2020-0 Yes [id number] 1{tbl} Take 1 [facility] acetaminoph 9-26 tablet by ity of en-caff 00:00: mouth [place] 50-325-40 00 every 4 Medical mg tablet (four) Branch hours as needed for Pain (scale 7-10). butalbital- 2020-0 Yes [id number] 1{tbl} Take 1 [facility] acetaminoph 9-26 tablet by ity of en-caff 00:00: mouth [place] 50-325-40 00 every 4 Medical mg tablet (four) Branch hours as needed for Pain (scale 7-10). butalbital- 2020-0 Yes [id number] 1{tbl} Take 1 [facility] acetaminoph 9-26 tablet by ity of en-caff 00:00: mouth [place] 50-325-40 00 every 4 Medical mg tablet (four) Branch hours as needed for Pain (scale 7-10). butalbital- 2020-0 Yes [id number] 1{tbl} Take 1 [facility] acetaminoph 9-26 tablet by ity of en-caff 00:00: mouth [place] 50-325-40 00 every 4 Medical mg tablet (four) Branch hours as needed for Pain (scale 7-10). butalbital- 2020-0 Yes [id number] 1{tbl} Take 1 [facility] acetaminoph 9-26 tablet by ity of en-caff 00:00: mouth [place] 50-325-40 00 every 4 Medical mg tablet (four) Branch hours as needed for Pain (scale 7-10). butalbital- 2020-0 Yes [id number] 1{tbl} Take 1 [facility] acetaminoph 9-26 tablet by ity of en-caff 00:00: mouth [place] 50-325-40 00 every 4 Medical mg tablet (four) Branch hours as needed for Pain (scale 7-10). butalbital- 2020-0 Yes [id number] 1{tbl} Take 1 [facility] acetaminoph 9-26 tablet by ity of en-caff 00:00: mouth [place] 50-325-40 00 every 4 Medical mg tablet (four) Branch hours as needed for Pain (scale 7-10). butalbital- 2020-0 Yes [id number] 1{tbl} Take 1 [facility] acetaminoph 9-26 tablet by ity of en-caff 00:00: mouth [place] 50-325-40 00 every 4 Medical mg tablet (four) Branch hours as needed for Pain (scale 7-10). butalbital- 2020-0 Yes [id number] 1{tbl} Take 1 [facility] acetaminoph 9-26 tablet by ity of en-caff 00:00: mouth [place] 50-325-40 00 every 4 Medical mg tablet (four) Branch hours as needed for Pain (scale 7-10). butalbital- 2020-0 Yes [id number] 1{tbl} Take 1 [facility] acetaminoph 9-26 tablet by ity of en-caff 00:00: mouth [place] 50-325-40 00 every 4 Medical mg tablet (four) Branch hours as needed for Pain (scale 7-10). butalbital- 2020-0 Yes [id number] 1{tbl} Take 1 [facility] acetaminoph 9-26 tablet by ity of en-caff 00:00: mouth [place] 50-325-40 00 every 4 Medical mg tablet (four) Branch hours as needed for Pain (scale 7-10). butalbital- 2020-0 Yes [id number] 1{tbl} Take 1 [facility] acetaminoph 9-26 tablet by ity of en-caff 00:00: mouth [place] 50-325-40 00 every 4 Medical mg tablet (four) Branch hours as needed for Pain (scale 7-10). butalbital- 2020-0 Yes [id number] 1{tbl} Take 1 [facility] acetaminoph 9-26 tablet by ity of en-caff 00:00: mouth [place] 50-325-40 00 every 4 Medical mg tablet (four) Branch hours as needed for Pain (scale 7-10). butalbital- 2020-0 Yes [id number] 1{tbl} Take 1 [facility] acetaminoph 9-26 tablet by ity of en-caff 00:00: mouth [place] 50-325-40 00 every 4 Medical mg tablet (four) Branch hours as needed for Pain (scale 7-10). butalbital- 2019-0 Yes [id number] 1{tbl} Take 1 [facility] acetaminoph 9-26 tablet by ity of en-caff 00:00: mouth [place] 50-325-40 00 every 4 Medical mg tablet (four) Branch hours as needed for Pain (scale 7-10). butalbital- 2019-0 Yes [id number] 1{tbl} Take 1 [facility] acetaminoph 9-26 tablet by ity of en-caff 00:00: mouth [place] 50-325-40 00 every 4 Medical mg tablet (four) Branch hours as needed for Pain (scale 7-10). butalbital- 2020-0 Yes [id number] 1{tbl} Take 1 [facility] acetaminoph 9-26 tablet by ity of en-caff 00:00: mouth [place] 50-325-40 00 every 4 Medical mg tablet (four) Branch hours as needed for Pain (scale 7-10). butalbital- 2020-0 Yes [id number] 1{tbl} Take 1 [facility] acetaminoph 9-26 tablet by ity of en-caff 00:00: mouth [place] 50-325-40 00 every 4 Medical mg tablet (four) Branch hours as needed for Pain (scale 7-10). butalbital- 2020-0 Yes [id number] 1{tbl} Take 1 [facility] acetaminoph 9-26 tablet by ity of en-caff 00:00: mouth [place] 50-325-40 00 every 4 Medical mg tablet (four) Branch hours as needed for Pain (scale 7-10). butalbital- 2020-0 Yes [id number] 1{tbl} Take 1 [facility] acetaminoph 9-26 tablet by ity of en-caff 00:00: mouth [place] 50-325-40 00 every 4 Medical mg tablet (four) Branch hours as needed for Pain (scale 7-10). butalbital- 2020-0 Yes [id number] 1{tbl} Take 1 [facility] acetaminoph 9-26 tablet by ity of en-caff 00:00: mouth [place] 50-325-40 00 every 4 Medical mg tablet (four) Branch hours as needed for Pain (scale 7-10). butalbital- 2020-0 Yes [id number] 1{tbl} Take 1 [facility] acetaminoph 9-26 tablet by ity of en-caff 00:00: mouth [place] 50-325-40 00 every 4 Medical mg tablet (four) Branch hours as needed for Pain (scale 7-10). butalbital- 2020-0 Yes [id number] 1{tbl} Take 1 [facility] acetaminoph 9-26 tablet by ity of en-caff 00:00: mouth [place] 50-325-40 00 every 4 Medical mg tablet (four) Branch hours as needed for Pain (scale 7-10). butalbital- 2020-0 Yes [id number] 1{tbl} Take 1 [facility] acetaminoph 9-26 tablet by ity of en-caff 00:00: mouth [place] 50-325-40 00 every 4 Medical mg tablet (four) Branch hours as needed for Pain (scale 7-10). butalbital- 2020-0 Yes [id number] 1{tbl} Take 1 [facility] acetaminoph 9-26 tablet by ity of en-caff 00:00: mouth [place] 50-325-40 00 every 4 Medical mg tablet (four) Branch hours as needed for Pain (scale 7-10). butalbital- 2020-0 Yes [id number] 1{tbl} Take 1 [facility] acetaminoph 9-26 tablet by ity of en-caff 00:00: mouth [place] 50-325-40 00 every 4 Medical mg tablet (four) Branch hours as needed for Pain (scale 7-10). butalbital- 2020-0 Yes [id number] 1{tbl} Take 1 [facility] acetaminoph 9-26 tablet by ity of en-caff 00:00: mouth [place] 50-325-40 00 every 4 Medical mg tablet (four) Branch hours as needed for Pain (scale 7-10). butalbital- 2020-0 Yes [id number] 1{tbl} Take 1 [facility] acetaminoph 9-26 tablet by ity of en-caff 00:00: mouth [place] 50-325-40 00 every 4 Medical mg tablet (four) Branch hours as needed for Pain (scale 7-10). butalbital- 2020-0 Yes [id number] 1{tbl} Take 1 [facility] acetaminoph 9-26 tablet by ity of en-caff 00:00: mouth [place] 50-325-40 00 every 4 Medical mg tablet (four) Branch hours as needed for Pain (scale 7-10). butalbital- 2020-0 Yes [id number] 1{tbl} Take 1 [facility] acetaminoph 9-26 tablet by ity of en-caff 00:00: mouth [place] 50-325-40 00 every 4 Medical mg tablet (four) Branch hours as needed for Pain (scale 7-10). butalbital- 2020-0 Yes [id number] 1{tbl} Take 1 [facility] acetaminoph 9-26 tablet by ity of en-caff 00:00: mouth [place] 50-325-40 00 every 4 Medical mg tablet (four) Branch hours as needed for Pain (scale 7-10). butalbital- 2020-0 Yes [id number] 1{tbl} Take 1 [facility] acetaminoph 9-26 tablet by ity of en-caff 00:00: mouth [place] 50-325-40 00 every 4 Medical mg tablet (four) Branch hours as needed for Pain (scale 7-10). butalbital- 2020-0 Yes [id number] 1{tbl} Take 1 [facility] acetaminoph 9-26 tablet by ity of en-caff 00:00: mouth [place] 50-325-40 00 every 4 Medical mg tablet (four) Branch hours as needed for Pain (scale 7-10). butalbital- 2020-0 Yes [id number] 1{tbl} Take 1 [facility] acetaminoph 9-26 tablet by ity of en-caff 00:00: mouth [place] 50-325-40 00 every 4 Medical mg tablet (four) Branch hours as needed for Pain (scale 7-10). butalbital- 2019-0 Yes [id number] 1{tbl} Take 1 [facility] acetaminoph 9-26 tablet by ity of en-caff 00:00: mouth [place] 50-325-40 00 every 4 Medical mg tablet (four) Branch hours as needed for Pain (scale 7-10). butalbital- 2019-0 Yes [id number] 1{tbl} Take 1 [facility] acetaminoph 9-26 tablet by ity of en-caff 00:00: mouth [place] 50-325-40 00 every 4 Medical mg tablet (four) Branch hours as needed for Pain (scale 7-10). butalbital- 2019-0 Yes [id number] 1{tbl} Take 1 [facility] acetaminoph 9-26 tablet by ity of en-caff 00:00: mouth [place] 50-325-40 00 every 4 Medical mg tablet (four) Branch hours as needed for Pain (scale 7-10). Vital Signs Vital Name Observation Time Observation Value Comments Source Systolic blood 2021-03-19 20:00:00 138 mm[Hg] [facility] Diastolic blood 2021-03-19 20:00:00 80 mm[Hg] [facility] Heart rate 2021-03-19 20:00:00 72 /min [facility] Respiratory rate 2021-03-19 20:00:00 19 /min [facility] Oxygen saturation in 2021-03-19 20:00:00 98 /min [facility] Arterial blood by [facility] Pulse oximetry [place] Body temperature 2021-03-19 17:15:00 37.11 Mely [facility] Body weight 2021-03-19 17:15:00 104.327 kg [facility] BMI 2021-03-19 17:15:00 44.92 kg/m2 [facility] [place] [facility] Systolic blood 2021-02-12 00:55:00 173 mm[Hg] Univer sity of [facility] [place] [facility] Diastolic blood 2021-02-12 00:55:00 82 mm[Hg] [facility]ive [facility]ity of [facility] [place] [facility] [place] Heart rate 2021-02-12 00:55:00 75 /min [facility] [place] [facility] [place] Respiratory rate 2021-02-12 00:55:00 18 /min Univ ers[facility] [place] [facility] [place] Oxygen saturation in 2021-02-12 00:55:00 100 /min University of Arterial blood by [facility] Pulse oximetry Branch Body temperature 2021-02-12 00:30:45 37.06 Mely [facility] [place] [facility] [place] Body height 2021-02-11 23:35:00 152.4 cm [facility] [place] [facility] [place] Body weight 2021-02-11 23:35:00 106.595 kg [facility] [place] [facility] [place] BMI 2021-02-11 23:35:00 45.90 kg/m2 [facility] [place] [facility] Systolic blood 2020-09-13 17:36:00 108 mm[Hg] [facility]iver sity [facility] [place] [facility] Diastolic blood 2020-09-13 17:36:00 62 mm[Hg] [facility]ive [facility]ity [facility] [place] [facility] [place] Body temperature 2020-09-13 17:36:00 36.94 Mely [facility] [place] [facility] Respiratory rate 2020-09-13 17:36:00 18 /min Univ ersity of [facility] Heart rate 2020-09-13 15:02:00 74 /min [facility] [place] [facility] [place] Oxygen saturation in 2020-09-13 10:00:00 98 /min University of Arterial blood by [facility] Pulse oximetry Branch Body height 2020-09-10 19:37:00 152.4 cm [facility] [place] [facility] Body weight 2020-09-10 19:37:00 106.6 kg [facility] [place] [facility] BMI 2020-09-10 19:37:00 45.90 kg/m2 [facility] [place] [facility] Systolic blood 2020-08-15 15:53:00 144 mm[Hg] [facility]iver [facility] [place] [facility] Diastolic blood 2020-08-15 15:53:00 84 mm[Hg] Unive rsity of [facility] [place] [facility] Heart rate 2020-08-15 15:47:00 70 /min [facility] [place] [facility] Body temperature 2020-08-15 15:47:00 37.11 Mely [facility] [place] [facility] Respiratory rate 2020-08-15 15:47:00 20 /min [facility] [place] [facility] Body height 2020-08-15 15:47:00 152.4 cm [facility] [place] [facility] Body weight 2020-08-15 15:47:00 105.008 kg [facility] [place] [facility] BMI 2020-08-15 15:47:00 45.21 kg/m2 [facility] [place] [facility] Systolic blood 2020-07-25 18:24:00 164 mm[Hg] [facility]iver [facility] [place] [facility] Diastolic blood 2020-07-25 18:24:00 86 mm[Hg] Unive rs[facility] [place] [facility] Body height 2020-07-25 18:21:00 152.4 cm [facility] [place] [facility] Body weight 2020-07-25 18:21:00 105.688 kg [facility] [place] [facility] BMI 2020-07-25 18:21:00 45.50 kg/m2 [facility] [place] [facility] Heart rate 2020-07-25 18:21:00 76 /min [facility] [place] [facility] Body temperature 2020-07-25 18:21:00 37.06 Mely [facility] [place] [facility] Respiratory rate 2020-07-25 18:21:00 20 /min [facility] [place] [facility] Body temperature 2020-07-05 20:24:00 36.72 Mely [facility] [place] [facility] Systolic blood 2020-07-05 20:21:00 159 mm[Hg] [facility]iver [facility] [place] [facility] Diastolic blood 2020-07-05 20:21:00 100 mm[Hg] Unive rsity [facility] [place] [facility] Heart rate 2020-07-05 20:21:00 76 /min [facility] [place] [facility] Respiratory rate 2020-07-05 20:21:00 18 /min [facility] [place] [facility] Body height 2020-07-05 20:21:00 152.4 cm [facility] [place] [facility] Body weight 2020-07-05 20:21:00 104.327 kg [facility] [place] [facility] BMI 2020-07-05 20:21:00 44.92 kg/m2 [facility] Oxygen saturation in 2020-07-05 20:21:00 100 /min [facility] blood by [facility] Pulse oximetry Branch Procedures Procedure Date / Time Performing Clinician Source Performed URINALYSIS 2021-03-19 19:50:[address] [facility] TROPONIN I 2021-03-19 18:21:[address] [facility] COMP. METABOLIC PANEL 2021-03-19 18:21:00 Arden Greenberg [facility] ([id number]) Medical Branch CBC WITH DIFF 2021-03-19 18:21:[address] [facility] NOTICE OF PRIVACY 2021-03-19 16:59:38 Doctor Jordana, [facility] PRACTICES [facility] [place] CONSENT/REFUSAL FOR 2021-03-19 16:59:21 Doctor Jordana [facility] DIAGNOSIS AND TREATMENT [facility] [place] NOTICE OF PRIVACY 2021-02-11 23:27:37 Doctor Jordana, [facility] [place] CONSENT/REFUSAL FOR 2021-02-11 23:26:02 Doctor Silveira [facility] DIAGNOSIS AND TREATMENT [facility] BASIC METABOLIC PANEL 2020-09-13 09:48:00 [facility] (NA, K, CL, CO2, GLUCOSE, Medica l Branch BUN, CREATININE, CA) CBC WITH DIFF 2020-09-13 09:48:00 [facility] HB ABO GROUPING 2020-09-12 13:09:00 [facility] POCT TEST 2020-09-12 12:35:00 Olvin Tello [facility] DAY SURGERY - ADC 2020-09-12 06:01:00 Doctor Jordana [facility] Name Medical [place] INSURANCE CORRESPONDENCE 2020-09-10 06:01:00 Doctor Silveira [facility] Name Medical [place] CONSENT/REFUSAL FOR 2020-09-08 19:49:10 Doctor Silveira [facility] DIAGNOSIS AND TREATMENT [facility] ASSIGNMENT OF BENEFITS 2020-09-08 19:48:57 Doctor Unassigned, Un [facility] CONSENT/REFUSAL FOR 2020-09-08 19:48:11 Doctor Jordana, [facility] DIAGNOSIS AND TREATMENT [facility] ASSIGNMENT OF BENEFITS 2020-09-08 19:47:57 Doctor Unasskellie, Un [facility] DISCLOSURE AND CONSENT 2020-09-02 06:01:00 Doctor Unasskellie, Anders [facility] MEDICAL & SURGICAL [facility] - HYSTEY BI ULTRASOUND BREAST 2020-08-29 21:09:13 Bert Wright [facility] LIMITED RIGHT Medical Branch BI DIAGNOSTIC 2020-08-29 20:32:18 Bert Wright [place] TOMOSYNTHESIS RIGHT Medical Bran ch DISCLOSURE AND CONSENT, 2020-08-15 06:01:00 [facility]reston[facility] Bra nch PROCEDURES POCT TEST 2020-08-15 00:00:00 Bert Wright [facility] Medical [place] ASSIGNMENT OF BENEFITS 2020-08-11 20:05:02 Doctor Unapreston, [facility] US PELVIS COMPLETE WITH 2020-08-08 16:22:02 Bert Wright [facility] TRANSVAGINAL Medical [place] EXTERNAL PROVIDER RECORDS 2020-08-06 05:01:00 Doctor Silveira [facility] POCT TEST 2020-07-25 00:00:00 Bert Wright [facility] [place] REFERRAL- 2020-07-22 05:01:00 Doctor Silveira, [facility] REQUEST/RESPONSE [facility] NOTICE OF PRIVACY 2020-07-05 20:13:18 Doctor Silveira [facility] PRACTICES [facility] Encounters Start End Encounter Admission Attending Care Care Encounter Source Date/Time Date/Time Type Type Clinicians Facility Department ID 2021-08-10 Emergency [facility] [id number] Univers 00:25:39 [facility] [place] [facility] 2021-08-09 Emergency [facility] [id number] [facility] 2021-08-08 Outpatient R BERT WRIGHT [facility] LEONEL [id number] Univers 08:34:29 ity of [facility] 2021-09-21 2021-09-21 Outpatient ARRON ZHANGN [facility] [id number] Univers 09:00:00 09:00:00 ity [facility] 2021-09-15 2021-09-15 Pre Visit CARLOS EDUARDO Saldana [id number] Univers 00:00:00 00:00:00 Outreach Teresa CALLAWAY [id number] [id number] [phone] [address] 2021-03-19 2021-03-19 Emergency Melody, K [facility] [id number] Univers 12:16:00 16:23:00 Tonya [place] [id number] i [id number] [id number] [address] 2021-02-11 2021-02-11 Emergency Singer [facility] [id number] Univers 18:40:00 19:58:00 Chetan Lakhani [id number] i [id number] [phone] [address] 2020-12-25 2020-12-25 Patient Norbert [facility] 1.2.840.114 [id number] Univers 00:00:00 00:00:00 Outreach Sander PRIMARY [id number] i ty of Located within [facility] [id number] [phone] Ms dic[address] 2020-12-16 2020-12-16 Outpatient Warner WRIGHTARRONN [facility] [id number] Univers 00:00:00 00:00:00 ity of [facility] 2020-10-29 2020-10-29 Outpatient Warner WRIGHTARRONN [facility] [id number] Univers 15:30:00 15:30:00 [facility] 2020-10-13 2020-10-13 Outpatient Warner WRIGHT BERT [facility] [id number] Univers 15:30:00 15:30:00 ity [facility] 2020-09-29 2020-09-29 Outpatient R BERT WRIGHT [facility] [id number] Univers 15:00:00 15:00:00 it[facility] 2020-09-18 2020-09-18 Nurse Megan Pacheco 1.2.840.114 [id number] Univers 00:00:00 00:00:00 Triage HARSHA [id number] it y of HOSPITAL [id number] [place] [phone] [facility] 019 [place] 2020-09-12 2020-09-13 Hospital Bert Wright [facility] 1.2.840.114 [id number] Univers 06:45:00 13:10:00 Encounter [place] [id number] ity of [place] [id number] [facility] [phone] [facility] 083 [place] 2020-09-12 2020-09-12 Orders Doctor VANESA 1.2.840.114 [id number] Univers 00:00:00 00:00:00 Only Unassigned, HARSHA [id number] ity of [facility] [id number] [place] [phone] [address] 2020-09-10 2020-09-10 Payroll Secretary Erik, Katt Lab Main [facility] 1.2.8 40.114 [id number] Univers 10:03:06 10:18:06 Visit Bert Wright [id number] ity of [place] [id number] [facility] [phone] Ms dic[address] 2020-09-10 2020-09-10 Outpatient R BERT WRIGHT [facility] [id number] Univers 10:00:00 10:00:00 ity [facility] 2020-09-10 2020-09-10 Orders Doctor VANESA 1.2.840.114 [id number] Univers 00:00:00 00:00:00 Only Unassigned, HARSHA [id number] ity of [facility] [id number] [place] [id number] [address] 2020-09-08 2020-09-08 Laboratory Lab, Adc Fam Pob I [facility] 1.2. 840.114 [id number] Univers 13:17:01 13:42:36 Only Nikki Cristobal [id number] ity of [place] [id number] [place] as Professio [phone] Ms dical nal 0[address] [place] [address] 2020-09-08 2020-09-08 Outpatient R FERNANDA [facility] [id number] Univers 13:20:00 13:20:00 NIKKI ity [facility] 2020-09-08 2020-09-08 Letter Doctor VANESA 1.2.840.114 [id number] Univers 00:00:00 00:00:00 (Out) Unassigned, HARSHA [id number] ity of [facility] [id number] [place] [phone] [facility] 044 [place] 2020-09-02 2020-09-02 Outpatient R BERT WRIGHT [facility] [id number] Univers 10:00:00 10:00:00 ity [facility] 2020-09-02 2020-09-02 Orders Doctor VANESA 1.2.840.114 [id number] Univers 00:00:00 00:00:00 Only Unassigned, HARSHA [id number] ity of [facility] [id number] [place] [phone] [facility] 009 [place] 2020-08-31 2020-08-31 Case Bert Wright [facility] 1.2.840.114 [id number] Univers 00:00:00 00:00:00 Management Kar [id number] [id number] [phone] Ms dical nal [address] [facility] 2020-08-29 2020-08-29 [facility] Bert Wright [facility] 1.2.840.114 [id number] Univers 14:02:56 23:59:00 Encounter SPECIALTY [id number] ity of C[id number] C[place] AT [phone] Ms dical VICTORY [address] [facility] 2020-08-29 2020-08-29 [facility] Bert Wright [facility] 1.2.840.114 [id number] Univers 14:01:51 14:01:51 Encounter SPECIALTY [id number] ity of [id number] C[place] [phone] Ms trevor EVANS [address] [place] [address] 2020-08-29 2020-08-29 Outpatient R BERT WRIGHT [facility] [id number] Univers 00:00:00 00:00:00 ity [facility] 2020-08-22 2020-08-22 Telephone Bert Wright [facility] 1.2.840.114 [id number] Univers 00:00:00 00:00:00 [place] 350.1.13.10 i [place] [id number] Profess[place] [phone] Ms dic[address] 2020-08-20 2020-08-20 Telephone Bert Wright [facility] 1.2.840.114 [id number] Univers 00:00:00 00:00:00 [place] 350.1.13.10 i [id number] Profess[place] [phone] Ms dictx hugo [address] [place] [address] 2020-08-15 2020-08-15 Office Bert Wright [facility] 1.2.840.114 [id number] Univers 09:25:49 10:17:03 Visit [place] 350.1.13.10 i [place] 4[place]2.[place].2.[place] Profess[place] [phone] [address] 2020-08-15 2020-08-15 Outpatient R BERT WRIGHT [facility] [id number] Univers 09:30:00 09:30:00 ity of [facility] 2020-08-15 2020-08-15 Telephone Janetgreg [facility] 1.2.840.114 [id number] Univers 00:00:00 00:00:00 Stefania Lakhani [id number] ity [place] [id number] Profess[place] [phone] [address] 2020-08-15 2020-08-15 Telephone Bert Wright [facility] 1.2.840.114 [id number] Univers 00:00:00 00:00:00 [place] 350.1.13.10 i [place] 4[place].2.[place] Profess[place] [phone] [facility] [address] [facility] 2020-08-15 2020-08-15 Orders Doctor VANESA 1.2.840.114 [id number] Univers 00:00:00 00:00:00 Only Unassigned, HARSHA 350.1.13.10 ity of [facility] 4.2.7.2.686 [place] [phone] [address] 2020-08-11 2020-08-11 Payroll Secretary Erik, Katt Lab Main [facility] 1.2.8 40.114 [id number] Univers 14:09:38 14:24:38 Visit Bert Wright 350.1.13.10 ity [place].2.[place] [phone] [facility] [address] [facility] 2020-08-11 2020-08-11 Outpatient R BERT WRIGHT [facility] [id number] Univers 13:45:00 13:45:00 ity of [facility] 2020-08-11 2020-08-11 Telephone Bert Wright [facility] 1.2.840.114 [id number] Univers 00:00:00 00:00:00 [place] 350.1.13.10 i [place] 4[place].2.[place] [phone] [address] 2020-08-11 2020-08-11 Orders Doctor VANESA 1.2.840.114 [id number] Univers 00:00:00 00:00:00 Only Unassigned, HARSHA 350.1.13.10 ity of [facility] [facility] 4.2.7.2.686 [place] as [phone] [address] 2020-08-08 2020-08-08 Hospital Bert Wright [facility] 1.2.840.114 [id number] Univers 10:00:00 23:59:00 Encounter [place] 350.1.13.10 ity [place].2.[place] [phone] [facility] 806 [place] 2020-08-08 2020-08-08 Outpatient R BERT WRIGHT [facility] [id number] Univers 00:00:00 00:00:00 ity of [facility] 2020-08-08 2020-08-08 Case Bert Wright [facility] 1.2.840.114 [id number] Univers 00:00:00 00:00:00 Management [place] 350.1.13.10 ity [facility] 4.2.7.2.686 [facility] [phone] [facility] 083 Branch 2020-08-07 2020-08-07 Hospital Bert Wright [facility] 1.2.840.114 [id number] Univers 12:25:11 23:59:00 Encounter Kar 350.1.13.10 ity [facility] 4.2.7.2.686 [facility] [id number] [facility] 800 [place] 2020-08-07 2020-08-07 Outpatient R BERT WRIGHT [facility] [id number] Univers 12:40:00 12:40:00 ity of [facility] 2020-08-06 2020-08-06 Orders Doctor VANESA 1.2.840.114 [id number] Univers 00:00:00 00:00:00 Only Unassigned, HARSHA 350.1.13.10 ity of [place] [facility] 4.2.7.2.[address] [facility] [phone] [facility] 009 Branch 2020-08-01 2020-08-01 Outpatient R BERT WRIGHT [facility] [id number] Univers 10:30:00 10:30:00 ity of [facility] 2020-07-25 2020-07-25 Office Bert Wright [facility] 1.2.840.114 [id number] Univers 13:06:08 13:52:32 Visit [place] 350.1.13.10 i ty of [place] 4.2.7.2.686 [facility] Professio [phone] Ms dical nal [address] [facility] 2020-07-25 2020-07-25 Outpatient R BERT WRIGHT [facility] [id number] Univers 13:00:00 13:00:00 ity of [facility] 2020-07-25 2020-07-25 Telephone Bert Wright [facility] 1.2.840.114 [id number] Univers 00:00:00 00:00:00 [place] 350.1.13.10 i [place] [phone] [facility] [address] [facility] 2020-07-23 2020-07-23 Outpatient R BERT WRIGHT [facility] [id number] Univers 13:30:00 13:30:00 ity of [facility] 2020-07-22 2020-07-22 Orders Doctor VANESA 1.2.840.114 [id number] Univers 00:00:00 00:00:00 Only UnassignedHARSHA 350.1.13.10 ity of [facility] 4.2.7.2.686 Ole as [phone] [facility] 009 [place] 2020-07-14 2020-07-14 Outpatient R FERNANDA [facility] [id number] Univers 09:00:00 09:00:00 NIKKI laurayoli [facility] 2020-07-14 2020-07-14 Laboratory Lab, Adc Fam Pob I [facility] 1.2. 840.114 [id number] Univers 08:38:49 08:58:49 Only Nikki Cristobal [facility] 350.1.13.10 ity of [place] 4.2.7.2.686 [place] Professio [phone] [facility] 0[address] [place] Office [address] One 2020-07-14 2020-07-14 Letter Doctor VANESA 1.2.840.114 [id number] Univers 00:00:00 00:00:00 (Out) UnassignedHARSHA 350.1.13.10 ity of [facility] 4.2.7.2.686 Ole as [phone] [facility] 044 [place] 2020-07-05 2020-07-05 Emergency Mae [facility] 1.2.840.114 [id number] Univers 15:24:00 17:07:00 Mahad Lakhani 350.1.13.10 i [place] [phone] [facility] 084 [place] 2020-07-05 2020-07-05 Emergency X MAE [facility] ERT [id number] Univers 15:24:00 15:24:00 MAHAD henderson [facility] Results Test Description Test Time Test Comments Results Result Comments Source URINALYSIS 2021-03-19 20:29:51 Test Item Value Reference Range Interpretation Comme nts APPEARANCE (test code = Hazy Clear A 9737448015) COLOR (test code = 3739428598) Yellow Yellow PH (test code = 5557122859) 4.8-8.0 SP GRAVITY (test code = 1.003-1.030 9817287716) GLU U QUAL (test code = Normal Normal 9038641984) BLOOD (test code = 8097594878) Negative Negative KETONES (test code = 4376781686) Negative Negative PROTEIN (test code = 2887-8) Negative Negative UROBILIN (test code = Normal Normal 7637652132) BILIRUBIN (test code = Negative Negative 0544125114) NITRITE (test code = 9836865049) Negative Negative LEUK LON (test code = Negative Negative 0616070924) RBC/HPF (test code = 2556886246) See_Comment [Automated message] The system which ge nerated this result transmit adolfo reference range: 0 - 3 HP F. The reference range was not used to interpret th is result as normal/abnormal . WBC/HPF (test code = 8941716538) <1 See_Comment [Automated message] The system which ge nerated this result transmit adolfo reference range: 0 - 5 HP F. The reference range was not used to interpret th is result as normal/abnormal . BACTERIA (test code = Negative Negative 5189492564) MUCOUS (test code = 3863333147) Slight Negative LPF A SQ EPITH (test code = HPF 5455414226) Lab Interpretation (test code = Abnormal 99370-4) [id number] 19:15:54 Test Item Value Reference Range Interpretation Comments TROPONIN I (test 0.000 ng/mL See_Comment [Automated code = 0090000401) message] The system which generated this result [...] ? Lab Interpretation Normal (test code = 74354-8) [facility]. METABOLIC PANEL (73612)2021-03-19 19:04:49 Test Item Value Reference Range Interpretation Comments NA (test code = 138 mmol/L 135-145 2166374883) K (test code = 3.8 mmol/L 3.5-5.0 9706798419) CL (test code = 103 mmol/L 98-108 8599196960) CO2 TOTAL (test code = 27 mmol/L 23-31 6733265684) AGAP (test code = 2-16 9547341188) BUN (test code = 15 mg/dL 7-23 1238303102) GLUCOSE (test code = 139 mg/dL 70-110 H 7132387734) CREATININE (test code = 0.45 mg/dL 0.50-1.04 L 1329792685) TOTAL BILI (test code = 0.4 mg/dL 0.1-1.9 7096944829) CALCIUM (test code = 9.3 mg/dL 8.6-10.6 1245162732) T PROTEIN (test code = 8.3 g/dL 6.3-8.2 H 6068828738) ALBUMIN (test code = 4.4 g/dL 3.5-5.0 3311338373) ALK PHOS (test code = 129 U/L 34-122 H 2292789066) ALTv (test code = 75 U/L 5-35 H 1742-6) AST(SGOT) (test code = 71 U/L 13-40 H 1934803214) eGFR (test code = mL/min/1.73m2 6392581744) GELN (test code = GLEN) Association of Glomerular [...] tests). Lab Interpretation Abnormal (test code = 68210-6) [facility] WITH [id number] 18:56:45 Test Item Value Reference Range Interpretation Comments WBC (test code = See_Comment [Automated 3666-2) message] The sy stem which generated this result transmitted reference range : 4.30 - 11.10 10*3/?L. The reference range was not used to interpret this result as normal/abnormal . RBC (test code = See_Comment [Automated 330-1) message] The sy stem which generated this [...] RDW-SD (test code = 44.1 fL 39.0-49.9 57878-7) RDW-CV (test code = 17.6 % 12.0-15.5 H 788-0) PLT (test code = See_Comment H [Automated 777-3) message] The sy stem which generated this result transmitted reference range : 166 - 358 10*3/ ?L. The reference r adela was not used to interpret this result as normal/abnormal . MPV (test code = 10.1 fL 9.5-12.9 63991-6) NRBC/100 WBC (test See_Comment [Automat ed code = 1856065202) message] The system which generated this result transmitted reference range : 0.0 - 10.0 /100 WBCs. The refer ence range was not u sed to interpret th is result as normal/abnormal . NRBC x10^3 (test code <0.01 See_Comment [Auto mated = 3038845744) message] The s ystem which generated this result transmitted reference range : 10*3/?L. The reference range was not used to interpret this result as normal/abnormal . GRAN MAT (NEUT) % 73.8 % (test code = 770-8) IMM GRAN % (test code 0.50 % = 7247770612) LYMPH % (test code = 18.9 % 736-9) MONO % (test code = 4.6 % 5905-5) EOS % (test code = 1.6 % 713-8) BASO % (test code = 0.6 % 706-2) GRAN MAT x10^3(ANC) 6.56 10*3/uL 1.88-7.09 (test code = 2770416835) IMM GRAN x10^3 (test 0.04 10*3/uL 0.00-0.06 code = 9968562568) LYMPH x10^3 (test code 1.68 10*3/uL 1.32-3.29 = 731-0) MONO x10^3 (test code 0.41 10*3/uL 0.33-0.92 = 742-7) EOS x10^3 (test code = 0.14 10*3/uL 0.03-0.39 711-2) BASO x10^3 (test code 0.05 10*3/uL 0.01-0.07 = 704-7) Lab Interpretation Abnormal (test code = 78040-2) [facility] Metabolic Panel (NA, K, CL, CO2, Glucose, BUN, Creatinine, CA)2020-09-13 10:46:00 Test Item Value Reference Range Interpretation Comments NA (test code = 137 mmol/L 135-145 5698207441) K (test code = 3.6 mmol/L 3.5-5 3807652393) CL (test code = 106 mmol/L 98-108 6847247877) CO2 TOTAL (test code = 25 mmol/L 23-31 8677678214) AGAP (test code = 2-16 5496539754) BUN (test code = 18 mg/dL 7-23 9579191308) GLUCOSE (test code = 130 mg/dL 70-110 H 9302363858) CREATININE (test code = 0.84 mg/dL 0.5-1.04 5230511574) CALCIUM (test code = 8.5 mg/dL 8.6-10.6 L 1295885553) eGFR Calculation mL/min/1.73m2 (Non-) (test code = 8689241526) eGFR Calculation mL/min/1.73m2 () (test code = 9150258705) GLEN (test code = GLEN) Association of [...] tests). Lab Interpretation Abnormal (test code = 77932-2) [facility] with [id number] 10:24:00 Test Item Value Reference Range Interpretation Comments WBC (test code = See_Comment [Automated 6590-2) message] The sy stem which generated this result transmitted reference range : 4.30 - 11.10 10*3/?L. The reference range was not used to interpret this result as normal/abnormal . RBC (test code = See_Comment L [Automated 989-8) message] The sy stem which generated this [...] (test code = 55.9 fL 39-49.9 H 66882-1) RDW-CV (test code = 20.4 % 12-15.5 H 788-0) PLT (test code = See_Comment [Automated 777-3) message] The sy stem which generated this result transmitted reference range : 166 - 358 10*3/ ?L. The reference r adela was not used to interpret this result as normal/abnormal . MPV (test code = 9.8 fL 9.5-12.9 81546-4) NRBC/100 WBC (test See_Comment [Automat ed code = 3752407885) message] The system which generated this result transmitted reference range : 0.0 - 10.0 /100 WBCs. The refer ence range was not u sed to interpret th is result as normal/abnormal . NRBC x10^3 (test code <0.01 See_Comment [Auto mated = 8945207418) message] The s ystem which generated this result transmitted reference range : 10*3/?L. The reference range was not used to interpret this result as normal/abnormal . GRAN MAT (NEUT) % 70.4 % (test code = 770-8) IMM GRAN % (test code 0.20 % = 8715730656) LYMPH % (test code = 20.9 % 736-9) MONO % (test code = 7.8 % 5905-5) EOS % (test code = 0.4 % 713-8) BASO % (test code = 0.3 % 706-2) GRAN MAT x10^3(ANC) 6.35 10*3/uL 1.88-7.09 (test code = 6598174862) IMM GRAN x10^3 (test <0.03 0-0.06 code = 1717226772) LYMPH x10^3 (test code 1.89 10*3/uL 1.32-3.29 = 731-0) MONO x10^3 (test code 0.70 10*3/uL 0.33-0.92 = 742-7) EOS x10^3 (test code = 0.04 10*3/uL 0.03-0.39 711-2) BASO x10^3 (test code 0.03 10*3/uL 0.01-0.07 = 704-7) Lab Interpretation Abnormal (test code = 33187-9) [facility] Center[facility] - The Type and Screen expires at midnight on the 3rd day after it was drawn. A current Type and Screen is required when RBCs are requested. For all other blood products, a Type and Scree n performed during the current hospitalizati...2020-09-12 13:57:33 Test Item Value Reference Range Interpretation Comments ABO & RH (test code O Positive Performe d at [facility] = 20) Laboratory Serv [facility] [address] [place] [address] Free: [phone] A No. [id number] IAT (test code = Negative Performed a t [facility] 1185) Laboratory Serv [facility] [address] [place] [address] Free: [phone] A No. [id number] [facility] CenterPO[facility] [id number] 12:35:00 Test Item Value Reference Range Interpretation Comments POCT PREG (test code = 1605) Negative On board controls acceptable with Yes C Line (test code = 3574) POCT PREG LOT # (test code = 3575) [id number] POCT PREG TEST DATE (test 2021-08-09 code = 3576) Lab Interpretation (test code = Normal 34736-5) [facility] CenterBI ULTRASOUND BREAST LIMITED [id number] 23:49:55Examination:BI DIAGNOSTIC TOMOSYNTHESIS RIGHTBI ULTRASOUND BREAST LIMITED [...] mm mass seen in the right breast at 9 o'clock in the middle depth, 7 cm from the nipple. This is favored to correlate with the mammographic findings. Normal-appearing axillary lymph nodes are identified. Impression: Right: There is a 7 mmmass in the right breast at 9:00, middle [...] months - RightShort interval follow-up 3D mammogram 6months - Right ? BI-RADS Category: Right 3 - Probably [facility]Un[facility] BI DIAGNOSTIC TOMOSYNTHESIS [id number] 23:49:54Examination:BI DIAGNOSTIC TOMOSYNTHESIS RIGHTBI ULTRASOUND BREAST LIMITED [...] of 81. BI ULTRASOUND BREAST LIMITED RIGHTTargeted [facility]. There is a 7 mm x 3 mm x 7 mm mass seen in the right breast at 9 o'clock in the middle depth, 7 cm from the nipple. This is favored to correlate with the mammographic findings. Normal-appearing axillary lymph nodes are identified. Impression: Right: There is a 7 mmmass in the right breast at 9:00, middle [...] ? BI-RADS Category: Right 3 - [facility] [id number] 15:51:00 Test Item Value Reference Range Interpretation Comments POCT PREG (test code = 1605) Negative On board controls acceptable with C Yes Line (test code = 3574) POCT PREG LOT # (test code = 3575) POCT PREG TEST DATE (test code = 3576) [facility] [id number] 15:51:00 Test Item Value Reference Range Interpretation Comments POCT PREG (test code = 1605) Negative On board controls acceptable with C Yes Line (test code = 3574) POCT PREG LOT # (test code = 3575) POCT PREG TEST DATE (test code = 3576) [facility] [id number] 15:51:00 Test Item Value Reference Range Interpretation Comments POCT PREG (test code = 1605) Negative On board controls acceptable with C Yes Line (test code = 3574) POCT PREG LOT # (test code = 3575) POCT PREG TEST DATE (test code = 3576) [facility] [id number] 15:51:00 Test Item Value Reference Range Interpretation Comments POCT PREG (test code = 1605) Negative On board controls acceptable with C Yes Line (test code = 3574) POCT PREG LOT # (test code = 3575) POCT PREG TEST DATE (test code = 3576) [facility] CenterUS PELVIS COMPLETE WITH [id number] 18:39:20 No discernible abnormality to explain patient's [...] measure due to shadowing. Small amount of hyp erattenuatingmaterial within the lower uterine segment endometrial cavity [...] There is no evidence of intraperitoneal fluid. [facility], Radiant Results Inft User - 08/08/2020 1:40 PM CDTPELVIC ULTRASOUND (TRANSVAGINAL AND LIMITED TRANSABDOMINAL)TECHNIQUE: Transvaginal and limited transabdominal sonography of the pelviswas performed with 3-D reconstructions of the uterus in the coronal plane.INDICATION: evaluate for uterine anomaly COMPARISON: Not availableFINDINGS:Anteflexeduterus measures 9.8 x 4.8 x 5.5 cm [...] left ovary measures 2.0 x1.2 x 1.5 cm.Subjectively, there is normal vascular flow to both ovaries on colorDoppler.There is no evidence of intraperitoneal fluid.IMPRESSIONNo discernible abnormality to explain patient's symptoms. Limited evaluation of endometrium due to shadowing. Measured endometrialthickness is within normal limits for patient's age. Mullerian duct anomalycannot be completely excluded. Consider MRI pelvis to further characterizeif clinically warranted.Hypoattenuating appearance of the uterine body endometrial cavity mayrepresent blood products. Right ovarian cyst. [facility] CenterPOME [id number] 18:24:00 Test Item Value Reference Range Interpretation Comments POCT PREG (test code = 1605) Negative On board controls acceptable with C Yes Line (test code = 3574) POCT PREG LOT # (test code = 3575) POCT PREG TEST DATE (test code = 3576) [facility] CenterPO[facility] [id number] 18:24:00 Test Item Value Reference Range Interpretation Comments POCT PREG (test code = 1605) Negative On board controls acceptable with C Yes Line (test code = 3574) POCT PREG LOT # (test code = 3575) POCT PREG TEST DATE (test code = 3576) [facility]"
[2022-08-03] MEDS ORDERED: DIPHENHYDRAMINE 50 MG/ML VIAL ONE (12:06)
[2022-08-03] MEDS ORDERED: NA CHLORIDE 0.9% 1,000 ML ONE (12:06)
[2022-08-03] MEDS ORDERED: KETOROLAC 30 MG/ML INJ ONE (12:06)
[2022-08-03] MEDS ORDERED: METOCLOPRAMIDE 10 MG/2mL INJ ONE (12:06)
--- NOTE | 2022-08-03 13:55 | ER ---
Nurse's Notes [facility] Name: Bonny Overton Age: 42 yrs Sex: Female : 1980 Arrival Date: 08/03/2022 Time: 11:32 Bed 26 Private MD: Mahnaz Velasquez Diagnosis: Headache Presentation: 08/03 11:49 Chief complaint: Patient states: TOVAR worsening everyday since Tuesday. Coronavirus ll1 screen: Vaccine status: Patient reports receiving the 2nd dose of the covid vaccine. Client denies travel out of the [place] in the last 14 days. At this time, the client does not indicate any symptoms associated with coronavirus-19. Ebola Screen: Patient denies travel to an Ebola-affected area in the 21 days before illness onset. Initial Sepsis Screen: Does the patient meet any 2 criteria? No. Patient's initial sepsis screen is negative. Does the patient have a suspected source of infection? Yes: S/S of meningitis or endocarditis. Risk Assessment: Do you want to hurt yourself or someone else? Patient reports no desire to harm self or others. Onset of symptoms was August 01, 2022. 11:49 Method Of Arrival: Ambulatory ll1 11:49 Acuity: ARISTIDES 2 ll1 Triage Assessment: 11:50 Headache History: The patient has had previous headaches and this one is similar to em6 previous episodes. 11:51 General: Appears uncomfortable, Behavior is cooperative, appropriate for age. Pain: ll1 Complains of pain in head Pain currently is 9 out of 10 on a pain scale. Pain began 2-3 days ago. Also complains of nausea. Neuro: Reports headache. MANAGER QUALITY IMPROVEMENT: 14:10 LMP N/A - Irregular menses em6 Historical: - Allergies: 11:51 [place]; ll1 - PMHx: 11:51 diabetes mellitus; Hypertensive disorder; Migraine; ll1 - PSHx: 11:51 section; Cholecystectomy; hysterectomy; ll1 - Immunization history:: Client reports receiving the 2nd dose of the Covid vaccine. - Social history:: Smoking status: Patient reports the use of cigarette tobacco products, denies chronic smoking, but will smoke occasionally. Screenin:50 Fall Risk IV access (20 points). Mental Status- Oriented to own ability (0 pts). Total em6 Moralez Fall Scale indicates No Risk (0-24 pts). 12:00 Abuse screen: Denies threats or abuse. Nutritional screening: No deficits noted. em6 Tuberculosis screening: No symptoms or risk factors identified. Assessment: 11:50 General: Appears in no apparent distress. uncomfortable, Behavior is calm, cooperative. tp1 Pain: Complains of pain in head Pain does not radiate. Pain currently is 9 out of 10 on a pain scale. Quality of pain is described as sharp, Pain began 2-3 days ago. Is continuous, Aggravated by laying down. Neuro: [place] Agitation-Sedation Scale (RASS): 0 - Alert and Calm Level of Consciousness is awake, alert, obeys commands, Oriented to person, place, time, situation, Reports blurred vision headache photophobia. Neuro: Reports it is hard to focus . Cardiovascular: Patient's skin is warm and dry. Respiratory: Airway is patent Respiratory effort is even, unlabored, Respiratory pattern is regular. GI: Abdomen is round non-distended, Patient currently denies diarrhea, nausea, vomiting. : No signs and/or symptoms were reported regarding the genitourinary system. EENT: No signs and/or symptoms were reported regarding the EENT system. Derm: Skin is pink, warm \T\ dry. Musculoskeletal: Circulation, motion, and sensation intact. 12:55 Reassessment: Patient appears in no apparent distress at this time. Patient and/or tp1 family updated on plan of care and expected duration. Pain level reassessed. Patient is alert, oriented x 3, equal unlabored respirations, skin warm/dry/pink. PT resting with eyes closed. states headache is better. rates pain 3/10. denies need for further intervention. 13:59 Reassessment: Patient and/or family updated on plan of care and expected duration. Pain em6 level reassessed. Patient is alert, oriented x 3, equal unlabored respirations, skin warm/dry/pink. Patient states symptoms have improved. Vital Signs: 11:49 BP 188 / 111; Pulse 60; Resp 17; Temp 97.6; Pulse Ox 98% ; Weight 94 kg; Height 5 ft. ll1 (152.40 cm); Pain 9/10; 11:55 BP 165 / 99; Pulse 59; Resp 16; Pulse Ox 97% on R/A; tp1 12:55 BP 123 / 67; Pulse 54; Resp 16; Pulse Ox 100% on R/A; tp1 14:00 BP 138 / 67; Pulse 60; Resp 18; Pulse Ox 100% on R/A; em6 11:49 Body Mass Index 40.47 (94.00 kg, 152.40 cm) ll1 ED Course: 11:32 Patient arrived in ED. mr 11:33 Zana Velasquezi is Private Physician. mr 11:47 [facility] Sandhu [facility]. pm1 11:47 Rodriguez Ny MD is Attending Physician. pm1 11:49 Arm band placed on Patient placed in an exam room, on a stretcher. ll1 11:50 Door closed. Noise minimized. Lights dimmed. tp1 11:51 Triage completed. ll1 11:55 Isa Wilson, FLORI is Primary Nurse. tp1 12:00 Bed in low position. Call light in reach. Side rails up X2. Pulse ox on. NIBP on. Warm em6 blanket given. 12:24 Inserted saline lock: 20 gauge in right antecubital area, using aseptic technique. em6 14:09 No provider procedures requiring assistance completed. IV discontinued, intact, em6 bleeding controlled, No redness/swelling at site. Pressure dressing applied. Administered Medications: 12:23 Drug: Reglan (metoCLOPramide) 10 mg Route: IVP; Site: right antecubital; em6 13:30 Follow up: Response: No adverse reaction em6 12:23 Drug: Benadryl (diphenhydrAMINE) 25 mg Route: IVP; Site: right antecubital; em6 13:20 Follow up: Response: No adverse reaction em6 12:23 Drug: NS 0.9% 1000 ml Route: IV; Rate: 1000 ml; Site: right antecubital; em6 13:46 Follow up: Response: No adverse reaction; IV Status: Completed infusion; IV Intake: em6 1000ml 12:24 Drug: Ketorolac 30 mg Route: IVP; Site: right antecubital; em6 13:20 Follow up: Response: No adverse reaction em6 Medication: 14:00 VIS not applicable for this client. em6 Intake: 13:46 IV: 1000ml; Total: 1000ml. em6 Outcome: 13:55 Discharge ordered by . pm1 14:10 Discharged to home ambulatory. em6 14:10 Condition: stable 14:10 Discharge instructions given to patient, Instructed on discharge instructions, follow up and referral plans. medication usage, Demonstrated understanding of instructions, follow-up care, medications, Prescriptions given X 1. 14:10 Patient left the ED. em6 Signatures: Gricelda Bell Patrick, INSTITUTIONAL CUSTODIAN INSTITUTIONAL CUSTODIAN pm1 Kathy Fried RN RN ll1 Isa Wilson RN RN tp1 Shania Lynn RN RN em6 Corrections: (The following items were deleted from the chart) 12:56 12:55 Reassessment: Patient appears in no apparent distress at this time. Patient tp1 and/or family updated on plan of care and expected duration. Pain level reassessed. Patient is alert, oriented x 3, equal unlabored respirations, skin warm/dry/pink. states headache is better. rates pain 3/10. denies need for further intervention tp1
--- NOTE | 2022-08-03 13:55 | EDPHYS ---
Physician Documentation [facility] Name: Bonny Overton Age: 42 yrs Sex: Female : 1980 Arrival Date: 08/03/2022 Time: 11:32 Bed 26 Private MD: Mahnaz Velasquez ED Physician Rodriguez Ny HPI: 08/03 12:00 This 42 yrs old Female presents to ER via Ambulatory with complaints of High pm1 Blood Pressure, Headache. 12:00 The patient complains of pain to the top of head. The patient describes the headache as pm1 aching. Onset: The symptoms/episode began/occurred 3 day(s) ago. Associated signs and symptoms: Pertinent negatives: nausea, vomiting, weakness. Severity of symptoms: in the emergency department the pain is unchanged, a " 9" out of "10". Headache History: The patient has had previous headaches and this one is similar to previous episodes. The symptoms are alleviated by nothing. the symptoms are aggravated by nothing. The patient has experienced similar episodes in the past, several times. The patient has not recently seen a physician. Patient is also complaining of elevated blood pressure which she attributes to the headache.. 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 - Social history:: Smoking status: Patient reports the use of cigarette tobacco products, denies chronic smoking, but will smoke occasionally. ROS: 12:00 Constitutional: Negative for fever, chills, and weight loss, Neck: Negative for injury, pm1 pain, and swelling, Cardiovascular: Negative for chest pain, palpitations, and edema, Respiratory: Negative for shortness of breath, cough, wheezing, and pleuritic chest pain, Abdomen/GI: Negative for abdominal pain, nausea, vomiting, diarrhea, and constipation, MS/Extremity: Negative for injury and deformity, Skin: Negative for injury, rash, and discoloration. 12:00 Neuro: Positive for headache. 12:00 All other systems are negative. Exam: 12:00 Constitutional: This is a well developed, well nourished patient who is awake, alert, pm1 and in no acute distress. Head/Face: Normocephalic, atraumatic. 12:00 Skin: Warm, dry with normal turgor. Normal color with no rashes, no lesions, and no evidence of cellulitis. MS/ Extremity: Pulses equal, no cyanosis. Neurovascular intact. Full, normal range of motion. 12:00 Eyes: Exam is negative for acute changes. 12:00 ENT: Exam is negative for acute changes, Mouth: no acute changes, Lips: normal, moist, Oral mucosa: normal, pink and intact, moist. 12:00 Neck: Exam negative for acute changes, ROM/movement: no acute changes. 12:00 Cardiovascular: Exam negative for acute changes, Rate: normal, Rhythm: regular, Pulses: no pulse deficits are appreciated. 12:00 Respiratory: Exam negative for acute changes, respiratory distress, shortness of breath. 12:00 Neuro: Exam negative for acute changes, Orientation: is normal, Mentation: is normal, Motor: is normal, moves all fours. Vital Signs: 11:49 BP 188 / 111; Pulse 60; Resp 17; Temp 97.6; Pulse Ox 98% ; Weight 94 kg; Height 5 ft. ll1 (152.40 cm); Pain 9/10; 11:55 BP 165 / 99; Pulse 59; Resp 16; Pulse Ox 97% on R/A; tp1 12:55 BP 123 / 67; Pulse 54; Resp 16; Pulse Ox 100% on R/A; tp1 14:00 BP 138 / 67; Pulse 60; Resp 18; Pulse Ox 100% on R/A; em6 11:49 Body Mass Index 40.47 (94.00 kg, 152.40 cm) ll1 MDM: 11:49 Patient medically screened. pm1 12:00 Data reviewed: vital signs. Data interpreted: Pulse oximetry: on room air is 97 %. pm1 Interpretation: normal. 12:00 ED course: Patient presenting with migraine headache to the top of her head. Patient pm1 reports history of migraines and same presentation as prior migraines. Patient reports that her blood pressure is elevated and believes its related to her current pain. Patient's pain is 9 out of 10. Discussed with patient plan of care. Since similar to prior migraines no need for CT due to lack of benefit versus risk ratio. Patient understands that pain may not be completely alleviated. She would be happy if pain is reduced to 4 out of 5 out of 10. We will recheck blood pressure and expect blood pressure to improve with reduced amount of pain. Discussed with patient she needs to follow-up with PCP for further management of her blood pressure. Patient does not take blood pressure medicines on regular basis due to lack of insurance coverage. 13:53 Counseling: I had a detailed discussion with the patient and/or guardian regarding: the pm1 historical points, exam findings, and any diagnostic results supporting the discharge/admit diagnosis, the need for outpatient follow up, a family practitioner, to return to the emergency department if symptoms worsen or persist or if there are any questions or concerns that arise at home. 13:53 ED course: Pain 3/10. Patient is happy with the pain relief. Will discharge to home pm1 with medications for headache relief. Administered Medications: 12:23 Drug: Reglan (metoCLOPramide) 10 mg Route: IVP; Site: right antecubital; em6 13:30 Follow up: Response: No adverse reaction em6 12:23 Drug: Benadryl (diphenhydrAMINE) 25 mg Route: IVP; Site: right antecubital; em6 13:20 Follow up: Response: No adverse reaction em6 12:23 Drug: NS 0.9% 1000 ml Route: IV; Rate: 1000 ml; Site: right antecubital; em6 13:46 Follow up: Response: No adverse reaction; IV Status: Completed infusion; IV Intake: em6 1000ml 12:24 Drug: Ketorolac 30 mg Route: IVP; Site: right antecubital; em6 13:20 Follow up: Response: No adverse reaction em6 Disposition Summary: 08/03/22 13:55 Discharge Ordered Location: Home pm1 Problem: new pm1 Symptoms: have improved pm1 Condition: Stable pm1 Diagnosis - Headache pm1 Followup: pm1 - With: Emergency Department - When: As needed - Reason: Worsening of condition Followup: pm1 - With: Private Physician - When: 2 - 3 days - Reason: Recheck today's complaints, Continuance of care, Re-evaluation by your physician Discharge Instructions: - Discharge Summary Sheet pm1 - General Headache Without Cause pm1 - Migraine Headache pm1 Forms: - Medication Reconciliation Form pm1 - Thank You Letter pm1 - Antibiotic Education pm1 - Prescription Opioid Use pm1 Prescriptions: - [id number] - take 1 tablet by ORAL route every 4 hours As needed; 20 tablet; Refills: 0, pm1 Product Selection Permitted Signatures: Amaury Sandhu NP BILINGUAL SPEECH THERAPIST pm1 Kathy Fried RN RN ll1 Shania Lynn RN RN em6
[2022-08-03 14:36] VITALS: TEMP 97.6
[2022-08-03 14:38] VITALS: O2SAT 100
[2022-08-03 14:40] VITALS: BP 138/67
== END 2022-08-03 14:10 | disposition home or self-care (01) ==
LOC: ER 11:29
DX: R51.9 Headache, unspecified (principal); I10 Essential (primary) hypertension; F17.210 Nicotine dependence, cigarettes, uncomplicated
CPT/HCPCS: 96361; 96375; 96374; 99284; J2765; J1200; J7030

== ENCOUNTER 2023-04-12 15:19 | Emergency (ER) | payer OTHER ==
--- OUTSIDE RECORDS SUMMARY | 2023-04-12 15:26 | XMS REPORT | Continuity of Care Document ---
:1980 Author Organization [facility] t Address [address] [place] [address] Care Team Providers Name Role Phone ESTEFANIAJOSE MANUELLUKAS C Primary Care Physician Unavailable BERT WRIGHT Attending Clinician Unavailable Teresa Saldana MA Attending Clinician Unavailable Arden Barajas Attending Clinician Chetan Ruiz DO Attending Clinician Sander Toussaint DO Attending Clinician Megan Pacheco RN Attending Clinician Unavailable Bert Wright MD Attending Clinician Doctor Unassigned, [place] Attending Clinician Unavailable Pob, Adc Lab Main Attending Clinician Unavailable Lab, Adc Fam Pob I Attending Clinician Unavailable Nikki Cartwright Attending Clinician NIKKI CRISTOBAL Attending Clinician Unavailable Stefania Cruz MD Attending Clinician Mahad Singh Attending Clinician MHAAD WALL Attending Clinician Unavailable BERT WRGIHT Admitting Clinician Unavailable Bert Wright MD Admitting Clinician Payers Payer Name Policy Type Policy Number Effective Date Expiration Date [facility] [id number] 2019 CHOICE MEDICAID 00:00:00 [employer] O [id number] 2020 00:00:00 Problems Condition Condition Condition Status [...] Added automatic ally from request for surgery [id number] Hyperchole Hyperchole Disease Active 2019-10 U nivers steremia steremia 0-15 ity of 00:00: [place] 00 Medical Branch Essential Essential Disease Active 2019-10 Uni vers hypertensi hypertensi 0-15 [place], [place] Abnormal Abnormal Disease Active 2019-10 [...] active active ity of problems problems [facility] Allergies, Adverse Reactions, Alerts Allergy Allergy Status Severity Reaction(s) Onset Inactive Treating Comm ents Source Name Type Date Date Clinician [place] Propensi Active Swelling Univer s ty to 5-05 ity of adverse 00:00: [place] reaction 00 Medical s Branch JOSEPH DRUG Active Swelling Univers INGREDI 5-05 ity of 00:00: [place] 00 Medical Branch NO KNOWN Drug Active Univers ALLERGIE Class ity of S [facility] Social History Social Habit Start Date Stop Date Quantity Comments Source Exposure to Not sure [facility] SARS-CoV-2 [facility] (event) Branch History of Cigarette Smoker Universi ty of tobacco use [facility] Alcohol intake 2020-10-29 2020-10-29 Ex-drinker [facility] 00:00:00 00:00:00 (finding) [facility] Tobacco use and 2020-07-23 2020-07-23 Never used Universit y of exposure 00:00:00 00:00:00 [facility] Sex [birth year] At [birth year] Universit y of 00:00:00 00:00:00 [facility] Smoking Status Start Date Stop Date Source Former smoker 2020-07-23 00:00:00 2020-07-23 00:00:[address] [facility] Never smoker [facility] Medications Ordered Filled Start Stop Current [...] Branch infusion 2 1415, g Routine ketorolac No 30mg 30 mg, Unive rs (TORADOL) [...] :00 ONCE, 1 Medical 25 mg dose, [facility] Branch 03/19/21 at 1415, STAT hydrOXYzine 2020-0 Yes [id number] 10mg Take 1 Univers 10 mg 5-05 tablet by ity of tablet 00:00: mouth [place] 00 every 6 Medical (six) Branch hours. methylPREDN 2020-0 Yes [id number] Take by Univers ISolone 5-05 mouth ity of (MEDROL, 00:00: SEE-INSTRU [place] KAVITHA,) 4 mg 00 CTIONS. Medica l tablets follow Branch package directions hydrOXYzine 2020-0 Yes [id number] 10mg Take 1 Univers 10 mg 5-05 tablet by ity of tablet 00:00: mouth [place] 00 every 6 Medical (six) Branch hours. methylPREDN 2020-0 Yes [id number] Take by Univers ISolone 5-05 mouth ity of (MEDROL, 00:00: SEE-INSTRU [place] KAVITHA,) 4 mg 00 CTIONS. Medica l tablets follow Branch package directions hydrOXYzine 2020-0 Yes [id number] 10mg Take 1 Univers 10 mg 5-05 tablet by ity of tablet 00:00: mouth [place] 00 every 6 Medical (six) Branch hours. methylPREDN 2020-0 Yes [id number] Take by Univers ISolone 5-05 mouth ity of (MEDROL, 00:00: SEE-INSTRU [place] KAVITHA,) 4 mg 00 CTIONS. Medica l tablets follow Branch package directions fluconazole 2019- Yes TAKE ONE Un yudi 150 mg 2-07 (1) TABLET ity of tablet 00:00: BY MOUTH [place] 00 ONCE NOW Medical A Branch SINGLE DOSE. fluconazole 2019- Yes TAKE ONE Un yudi 150 mg 2-07 (1) TABLET ity of tablet 00:00: BY MOUTH [place] 00 ONCE NOW Medical A Branch SINGLE DOSE. fluconazole 2019- Yes TAKE ONE Un yudi 150 mg 2-07 (1) TABLET ity of tablet 00:00: BY MOUTH [place] 00 ONCE NOW Medical A Branch SINGLE [...] s mg 00 First dose Medical on [facility] Branch 09/13/20 at 0900, Until Discontinu ed, Routine docusate 2019-10 Yes 240mg 240 mg, Unive rs calcium 2-05 Oral, ity of (SURFAK) 15:00: DAILY, [place] capsule 240 00 First dose Me dical mg on Sat Branch 09/13/20 at 0900, Until Discontinu ed, Routine ibuprofen 2019-10 Yes [id number] 600mg Take 1 Univers 600 mg 2-05 100 tablet by ity of tablet 00:00: mouth [place] 00 every 6 Medical (six) Branch hours as needed for Pain (scale 1-3). simethicone 2019-10 Yes [id number] 80mg Take 1 Univers 80 mg 2-05 100 tablet by ity of chewable 00:00: mouth [place] tablet 00 every 6 Medical (six) Branch hours as needed for Gas. docusate 2019-10 Yes [id number] 100mg Take 1 Univers 100 mg 2-05 100 capsule by ity of capsule 00:00: mouth 2 [place] 00 (two) Medical times Branch daily. ibuprofen 2019-10 Yes [id number] 600mg Take 1 Univers 600 mg 2-05 100 tablet by ity of tablet 00:00: mouth [place] 00 every 6 Medical (six) Branch hours as needed for Pain (scale 1-3). simethicone 2019-10 Yes [id number] 80mg Take 1 Univers 80 mg 2-05 100 tablet by ity of chewable 00:00: mouth [place] tablet 00 every 6 Medical (six) Branch hours as needed for Gas. docusate 2020-1 Yes [id number] 100mg Take 1 Univers 100 mg 2-05 100 capsule by ity of capsule 00:00: mouth 2 [place] 00 (two) Medical times Branch daily. ibuprofen 2019- Yes [id number] 600mg Take 1 Univers 600 mg 2-05 100 tablet by ity of tablet 00:00: mouth [place] 00 every 6 Medical (six) Branch hours as needed for Pain (scale 1-3). simethicone 2020- Yes [id number] 80mg Take 1 Univers 80 mg 2-05 100 tablet by ity of chewable 00:00: mouth [place] tablet 00 every 6 Medical (six) Branch hours as needed for Gas. docusate 2019-10 Yes [id number] 100mg Take 1 Univers 100 mg 2-05 100 capsule by ity of capsule 00:00: mouth 2 [place] 00 (two) Medical times Branch daily. ibuprofen 2019-10 Yes [id number] 600mg Take 1 Univers 600 mg 2-05 100 tablet by ity of tablet 00:00: mouth [place] 00 every 6 Medical (six) Branch hours as needed for Pain (scale 1-3). simethicone 2019-1 Yes [id number] 80mg Take 1 Univers 80 mg 2-05 100 tablet by ity of chewable 00:00: mouth [place] tablet 00 every 6 Medical (six) Branch hours as needed for Gas. docusate 2019- Yes [id number] 100mg Take 1 Univers 100 mg 2-05 100 capsule by ity of capsule 00:00: mouth 2 [place] 00 (two) Medical times Branch daily. ferrous 2019-10 Yes 324mg Take 324 Unive rs gluconate 2-05 mg by ity of 324 mg (38 00:00: mouth [place] mg iron) 00 (two) Medical tablet times Branch daily. ibuprofen 2019- Yes [id number] 600mg Take 1 Univers 600 mg 2-05 100 tablet by ity of tablet 00:00: mouth [place] 00 every 6 Medical (six) Branch hours as needed for Pain (scale 1-3). simethicone 2020-1 Yes [id number] 80mg Take 1 Univers 80 mg 2-05 100 tablet by ity of chewable 00:00: mouth [place] tablet 00 every 6 Medical (six) Branch hours as needed for Gas. docusate 2020-1 Yes [id number] 100mg Take 1 Univers 100 mg 2-05 100 capsule by ity of capsule 00:00: mouth 2 [place] 00 (two) Medical times Branch daily. ferrous 2020-1 Yes 324mg Take 324 Unive rs gluconate 2-05 mg by ity of 324 mg (38 00:00: mouth 2 [place] mg iron) 00 (two) Medical tablet times Branch daily. ibuprofen 2019- Yes [id number] 600mg Take 1 Univers 600 mg 2-05 100 tablet by ity of tablet 00:00: mouth [place] 00 every 6 Medical (six) Branch hours as needed for Pain (scale 1-3). simethicone 2020-1 Yes [id number] 80mg Take 1 Univers 80 mg 2-05 100 tablet by ity of chewable 00:00: mouth [place] tablet 00 every 6 Medical (six) Branch hours as needed for Gas. docusate 2019-1 Yes [id number] 100mg Take 1 Univers 100 mg 2-05 100 capsule by ity of capsule 00:00: mouth 2 [place] 00 (two) Medical times Branch daily. ferrous 2019-1 Yes 324mg Take 324 Unive rs gluconate 2-05 mg by ity of 324 mg (38 00:00: mouth [place] mg iron) 00 (two) Medical tablet times Branch daily. ibuprofen 2019- Yes [id number] 600mg Take 1 Univers 600 mg 2-05 100 tablet by ity of tablet 00:00: mouth [place] 00 every 6 Medical (six) Branch hours as needed for Pain (scale 1-3). simethicone 2020-1 Yes [id number] 80mg Take 1 Univers 80 mg 2-05 100 tablet by ity of chewable 00:00: mouth [place] tablet 00 every 6 Medical (six) Branch hours as needed for Gas. docusate 2020-1 Yes [id number] 100mg Take 1 Univers 100 mg 2-05 [...] Last dose on 09/13/20 at 1200, Routine
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 ity of estradiol 22:23: [place] (ESTARYLLA 00 Medical ORAL) Branch norgestimat 2019-10 Yes Take by Uni vers e-ethinyl 2-01 mouth. ity of estradiol 22:23: [place] (ESTARYLLA 00 Medical ORAL) Branch norgestimat 2019-10 Yes Take by Uni vers e-ethinyl 1-24 mouth. ity of estradiol 16:21: [place] (ESTARYLLA 22 Medical ORAL) Branch norgestimat 2019-10 Yes Take by Uni vers e-ethinyl 1-24 mouth. ity of estradiol 16:21: [place] (ESTARYLLA 22 Medical ORAL) Branch norgestimat 2019-10 Yes Take by Uni vers e-ethinyl 1-24 mouth. ity of estradiol 16:21: [place] (ESTARYLLA 22 Medical ORAL) Branch norgestimat 2019-10 Yes Take by Uni vers e-ethinyl 1-24 mouth. ity of estradiol 16:21: [place] (ESTARYLLA 22 Medical ORAL) Branch medroxyPROG 2019-10 Yes 10mg Take 10 mg Univers ESTERone 10 1-24 by mouth 3 it y of mg tablet 00:00: (three) [place] 00 times Medical daily. Branch oxyCODONE 5 2019-10 Yes TAKE ONE Un yudi mg 1-24 (1) ity of immediate 00:00: TABLET(S) [place] 00 BY MOUTH Medical tablet EVERY FOUR Branch HOURS NEEDED FOR PAIN FOR UP TO 5 DOSES. medroxyPROG 2019-10 Yes 10mg Take 10 mg Univers ESTERone 10 1-24 by mouth 3 it y of mg tablet 00:00: (three) [place] 00 times Medical daily. Branch oxyCODONE 5 [...] PAIN FOR UP TO 5 DOSES. medroxyPROG 2019-1 Yes 10mg Take 10 mg Univers ESTERone [...] HOURS FOR 10 DAYS. ferrous 2019-10 Yes [id number] 324mg Take 1 Un yudi gluconate 1-13 tablet by ity o f 324 mg (38 00:00: [place] 2 [place] mg iron) 00 (two) Medical tablet times Branch daily. ascorbic 2019-10 Yes [id number] 500mg Take 1 U nivers acid, 1-13 tablet by ity of vitamin C, 00:00: mouth 2 [place] 500 mg 00 (two) Medical tablet times Branch daily. Take with iron to help with absorption of iron. ferrous 2019- Yes [id number] 324mg Take 1 Un yudi gluconate 1-13 tablet by ity o f 324 mg (38 00:00: mouth 2 [place] mg iron) 00 (two) Medical tablet times Branch daily. ascorbic 2019-10 Yes [id number] 500mg Take 1 U nivers acid, 1-13 tablet by ity of vitamin C, 00:00: mouth 2 [place] 500 mg 00 (two) Medical tablet times Branch daily. Take with iron to help with absorption of iron. ferrous 2019-10 Yes [id number] 324mg Take 1 Un yudi gluconate 1-13 tablet by ity o f 324 mg (38 00:00: mouth 2 [place] mg iron) 00 (two) Medical tablet times Branch daily. ascorbic 2019-10 Yes [id number] 500mg Take 1 U nivers acid, 1-13 tablet by ity of vitamin C, 00:00: mouth 2 [place] 500 mg 00 (two) Medical tablet times Branch daily. Take with iron to help with absorption of iron. ferrous 2019-10 Yes [id number] 324mg Take 1 Un yudi gluconate 1-13 tablet by ity o f 324 mg (38 00:00: mouth 2 [place] mg iron) 00 (two) Medical tablet times Branch daily. ascorbic 2019-10 Yes [id number] 500mg Take 1 U nivers acid, 1-13 tablet by ity of vitamin C, 00:00: mouth 2 [place] 500 mg 00 (two) Medical tablet times Branch daily. Take with iron to help with absorption of iron. ferrous 2019-10 Yes [id number] 324mg Take 1 Un yudi gluconate 1-13 tablet by ity o f 324 mg (38 00:00: mouth 2 [place] mg iron) 00 (two) Medical tablet times Branch daily. ascorbic 2020- Yes [id number] 500mg Take 1 U nivers acid, 1-13 tablet by ity of vitamin C, 00:00: mouth 2 [place] 500 mg 00 (two) Medical tablet times Branch daily. Take with iron to help with absorption of iron. ferrous 2019- Yes [id number] 324mg Take 1 Un yudi gluconate 1-13 tablet by ity o f 324 mg (38 00:00: mouth 2 [place] mg iron) 00 (two) Medical tablet times Branch daily. ascorbic 2019- Yes [id number] 500mg Take 1 U nivers acid, 1-13 tablet by ity of vitamin C, 00:00: mouth 2 [place] 500 mg 00 (two) Medical tablet times Branch daily. Take with iron to help with absorption of iron. ferrous 2019-10 Yes [id number] 324mg Take 1 Un yudi gluconate 1-13 tablet by ity o f 324 mg (38 00:00: mouth 2 [place] mg iron) 00 (two) Medical tablet times Branch daily. ascorbic 2019-10 Yes [id number] 500mg Take 1 U nivers acid, 1-13 tablet by ity of vitamin C, 00:00: mouth 2 [place] 500 mg 00 (two) Medical tablet times Branch daily. Take with iron to help with absorption of iron. ferrous 2019-10 Yes [id number] 324mg Take 1 Un yudi gluconate 1-13 tablet by ity o f 324 mg (38 00:00: mouth 2 [place] mg iron) 00 (two) Medical tablet times Branch daily. ascorbic 2019-10 Yes [id number] 500mg Take 1 U nivers acid, 1-13 tablet by ity of vitamin C, 00:00: mouth 2 [place] 500 mg 00 (two) Medical tablet times Branch daily. Take with iron to help with absorption of iron. ferrous 2019-10 Yes [id number] 324mg Take 1 Un yudi gluconate 1-13 tablet by ity o f 324 mg (38 00:00: mouth 2 [place] mg iron) 00 (two) Medical tablet times Branch daily. ascorbic 2019- Yes [id number] 500mg Take 1 U nivers acid, 1-13 tablet by ity of vitamin C, 00:00: mouth 2 [place] 500 mg 00 (two) Medical tablet times Branch daily. Take with iron to help with absorption of iron. ferrous 2019- Yes [id number] 324mg Take 1 Un yudi gluconate 1-13 tablet by ity o f 324 mg (38 00:00: mouth 2 [place] mg iron) 00 (two) Medical tablet times Branch daily. ascorbic 2019- Yes [id number] 500mg Take 1 U nivers acid, 1-13 tablet by ity of vitamin C, 00:00: mouth 2 [place] 500 mg 00 (two) Medical tablet times Branch daily. Take with iron to help with absorption of iron. ferrous 2019-10- No [id number] 324mg Take 1 U nivers gluconate 10-22 tablet by ity of 324 mg (38 00:00: 00:00 mouth 2 [place] mg iron) 00 :00 (two) Medical tablet times Branch daily. ascorbic 2019-10- No [id number] 500mg Take 1 Univers acid, 10-22 tablet by ity of vitamin C, 00:00: 00:00 mouth 2 [place] 500 mg 00 :00 (two) Medical tablet times Branch daily. Take with iron to help with absorption of iron. medroxyPROG 2019-10 Yes [id number] 10mg Take 1 Univers ESTERone 1-06 100 tablet by ity of (PROVERA) 00:00: mouth 3 [place] 10 mg 00 (three) Medical tablet times Branch daily. medroxyPROG 2019-10 Yes [id number] 10mg Take 1 Univers ESTERone 1-06 100 tablet by ity of (PROVERA) 00:00: mouth 3 [place] 10 mg 00 (three) Medical tablet times Branch daily. medroxyPROG 2019-10 Yes [id number] 10mg Take 1 Univers ESTERone 1-06 100 tablet by ity of (PROVERA) 00:00: mouth 3 [place] 10 mg 00 (three) Medical tablet times Branch daily. medroxyPROG 2019-10 Yes [id number] 10mg Take 1 Univers ESTERone 1-06 100 tablet by ity of (PROVERA) 00:00: mouth 3 [place] 10 mg 00 (three) Medical tablet times Branch daily. medroxyPROG 2019-10 Yes [id number] 10mg Take 1 Univers ESTERone 1-06 100 [...] Indication s: acute pain ibuprofen 2019-10 Yes [id number] 600mg Take 1 Univers 600 mg 1-06 100 tablet by ity of tablet 00:00: mouth [place] 00 every 6 Medical (six) Branch hours as needed for Pain (scale 4-6). medroxyPROG 2020-1 Yes [id number] 10mg Take 1 Univers ESTERone 1-06 100 tablet by ity of (PROVERA) 00:00: mouth 3 [place] 10 mg 00 (three) Medical tablet times Branch daily. medroxyPROG 2020-1 Yes [id number] 10mg Take 1 Univers ESTERone 1-06 100 tablet by ity of (PROVERA) 00:00: mouth 3 [place] 10 mg 00 (three) Medical tablet times Branch daily. ibuprofen 2019- Yes [id number] 600mg Take 1 Univers 600 mg 1-06 [...] Indication s: acute pain medroxyPROG 2020- Yes [id number] 10mg Take 1 Univers ESTERone 1-06 100 tablet by ity of (PROVERA) 00:00: mouth 3 [place] 10 mg 00 (three) Medical tablet times Branch daily. ibuprofen 2019- Yes [id number] 600mg Take 1 Univers 600 mg 1-06 [...] Indication s: acute pain medroxyPROG 2020-1 Yes [id number] 10mg Take 1 Univers ESTERone 1-06 100 tablet by ity of (PROVERA) 00:00: mouth 3 [place] 10 mg 00 (three) Medical tablet times Branch daily. ibuprofen 2019- Yes [id number] 600mg Take 1 Univers 600 mg 1-06 [...] Indication s: acute pain medroxyPROG 2019- Yes [id number] 10mg Take 1 Univers ESTERone 1-06 100 tablet by ity of (PROVERA) 00:00: mouth 3 [place] 10 mg 00 (three) Medical tablet times Branch daily. ibuprofen 2019-10 Yes [id number] 600mg Take 1 Univers 600 mg 1-06 [...] Indication s: acute pain medroxyPROG 2019-10 Yes [id number] 10mg Take 1 Univers ESTERone 1-06 100 tablet by ity of (PROVERA) 00:00: mouth 3 [place] 10 mg 00 (three) Medical tablet times Branch daily. ibuprofen 2019-10 Yes [id number] 600mg Take 1 Univers 600 mg 1-06 [...] Indication s: acute pain medroxyPROG 2019- Yes [id number] 10mg Take 1 Univers ESTERone 1-06 100 tablet by ity of (PROVERA) 00:00: mouth 3 [place] 10 mg 00 (three) Medical tablet times Branch daily. ibuprofen 2019- Yes [id number] 600mg Take 1 Univers 600 mg 1-06 [...] Indication s: acute pain medroxyPROG 2019- Yes [id number] 10mg Take 1 Univers ESTERone 1-06 100 tablet by ity of (PROVERA) 00:00: mouth 3 [place] 10 mg 00 (three) Medical tablet times Branch daily. ibuprofen 2019-10 Yes [id number] 600mg Take 1 Univers 600 mg 1-06 [...] Indication s: acute pain medroxyPROG 2019-10 Yes [id number] 10mg Take 1 Univers ESTERone 1-06 100 tablet by ity of (PROVERA) 00:00: mouth 3 [place] 10 mg 00 (three) Medical tablet times Branch daily. ibuprofen 2019-10 Yes [id number] 600mg Take 1 Univers 600 mg 1-06 [...] Indication s: acute pain ibuprofen 2019-10 Yes [id number] 600mg Take 1 Univers 600 mg 1-06 100 tablet by ity of tablet 00:00: mouth [place] 00 every 6 Medical (six) Branch hours as needed for Pain (scale 4-6). ibuprofen 2019-10 Yes [id number] 600mg Take 1 Univers 600 mg 1-06 100 tablet by ity of tablet 00:00: mouth [place] 00 every 6 Medical (six) Branch hours as needed for Pain (scale 4-6). ibuprofen 2019-10 Yes [id number] 600mg Take 1 Univers 600 mg 1-06 100 tablet by ity of tablet 00:00: mouth [place] 00 every 6 Medical (six) Branch hours as needed for Pain (scale 4-6). ibuprofen 2019-10 Yes [id number] 600mg Take 1 Univers 600 mg 1-06 100 tablet by ity of tablet 00:00: mouth [place] 00 every 6 Medical (six) Branch hours as needed for Pain (scale 4-6). ibuprofen 2019-10 Yes [id number] 600mg Take 1 Univers 600 mg 1-06 100 tablet by ity of tablet 00:00: mouth [place] 00 every 6 Medical (six) Branch hours as needed for Pain (scale 4-6). ibuprofen 2019-10 Yes [id number] 600mg Take 1 Univers 600 mg 1-06 100 tablet by ity of tablet 00:00: mouth [place] 00 every 6 Medical (six) Branch hours as needed for Pain (scale 4-6). ibuprofen 2019-10- No [id number] 600mg Take 1 Univers 600 mg 1-06 12-05 100 tablet by ity of tablet 00:00: 00:00 mouth [place] 00 :00 every 6 Medical (six) Branch hours as needed for Pain (scale 4-6). medroxyPROG 2019-10 2020- No [id number] 10mg Take 1 Univers ESTERone 10-15- 100 tablet by ity o f (PROVERA) 00:00: 00:00 mouth 3 [place] 10 mg 00 :00 (three) Medical tablet times Branch daily. Take twice daily until you completely stop bleeding, then once per day medroxyPROG 2019-10 2020- No [id number] 10mg Take 1 Univers ESTERone - 11- 100 tablet by ity o f (PROVERA) 00:00: 00:00 mouth 3 [place] 10 mg 00 :00 (three) Medical tablet times Branch daily. Take twice daily until you completely stop bleeding, then once per day medroxyPROG 2019-10- No [id number] 10mg Take 1 Univers ESTERone -03 20-06 100 tablet by ity o f (PROVERA) 00:00: 00:00 mouth 3 [place] 10 mg 00 :00 (three) Medical tablet times Branch daily. Take twice daily until you completely stop bleeding, then once per day medroxyPROG 2019-10- No [id number] 10mg Take 1 Univers ESTERone 10-15 100 [...] Indication s: acute pain medroxyPROG 2019-10- No [id number] 10mg Take 1 Univers ESTERone 10-11 100 tablet by ity o f (PROVERA) 00:00: 05:59 mouth 2 [place] 10 mg 00 :00 (two) Medical tablet times Branch daily for 60 doses. Take twice daily until you completely stop bleeding, then once per day docusate 2019-10- No [id number] 100mg Take 1 Univers (COLACE) 10-11 100 capsule by ity of 100 mg 00:00: 05:59 mouth 2 [place] capsule 00 :00 (two) Medical times Branch daily for 30 days. This medication is used for constipati on Polyethylen 2019-10- No [id number] 1{packe Take 1 Univers e Glycol 10-11 100 t} Packet by ity o f 3350 00:00: 05:59 mouth [place] (MIRALAX) 00 :00 every 24 Medica l 17 gram (twenty-fo Branch powder ur) hours as needed for Constipati on for up to 30 days. medroxyPROG 2019-10- No [id number] 10mg Take 1 Univers ESTERone 10-11 100 tablet by ity o f (PROVERA) 00:00: 05:59 mouth 2 [place] 10 mg 00 :00 (two) Medical tablet times Branch daily for 60 doses. Take twice daily until you completely stop bleeding, then once per day docusate 2019-10- No [id number] 100mg Take 1 Univers (COLACE) 10-11 100 capsule by ity of 100 mg 00:00: 05:59 mouth 2 [place] capsule 00 :00 (two) Medical times Branch daily for 30 days. This medication is used for constipati on Polyethylen 2019-10 No [id number] 1{packe Take 1 Univers e Glycol 10-11 100 t} Packet by ity o f 3350 00:00: 05:59 mouth [place] (MIRALAX) 00 :00 every 24 Medica l 17 gram (twenty-fo Branch powder ur) hours as needed for Constipati on for up to 30 days. medroxyPROG 2019-10- No [id number] 10mg Take 1 Univers ESTERone 10-11 100 tablet by ity o f (PROVERA) 00:00: 05:59 mouth 2 [place] 10 mg 00 :00 (two) Medical tablet times Branch daily for 60 doses. Take twice daily until you completely stop bleeding, then once per day docusate 2019-10- No [id number] 100mg Take 1 Univers (COLACE) 10-11 100 capsule by ity of 100 mg 00:00: 05:59 mouth 2 [place] capsule 00 :00 (two) Medical times Branch daily for 30 days. This medication is used for constipati on Polyethylen 2019-10 No [id number] 1{packe Take 1 Univers e Glycol 10-11 100 t} Packet by ity o f 3350 00:00: 05:59 mouth [place] (MIRALAX) 00 :00 every 24 Medica l 17 gram (twenty-fo Branch powder ur) hours as needed for Constipati on for up to 30 days. docusate 2019-10- No [id number] 100mg Take 1 Univers (COLACE) 10-11 100 capsule by ity of 100 mg 00:00: 05:59 mouth 2 [place] capsule 00 :00 (two) Medical times Branch daily for 30 days. This medication is used for constipati on Polyethylen 2019-10 No [id number] 1{packe Take 1 Univers e Glycol 10-11 100 t} Packet by ity o f 3350 00:00: 05:59 mouth [place] (MIRALAX) 00 :00 every 24 Medica l 17 gram (twenty-fo Branch powder ur) hours as needed for Constipati on for up to 30 days. docusate 2019-10- No [id number] 100mg Take 1 Univers (COLACE) 10-11 100 capsule by ity of 100 mg 00:00: 05:59 mouth 2 [place] capsule 00 :00 (two) Medical times Branch daily for 30 days. This medication is used for constipati on Polyethylen 2019-10 No [id number] 1{packe Take 1 Univers e Glycol 10-11 100 t} Packet by ity o f 3350 00:00: 05:59 mouth [place] (MIRALAX) 00 :00 every 24 Medica l 17 gram (twenty-fo Branch powder ur) hours as needed for Constipati on for up to 30 days. docusate 2019-10- No [id number] 100mg Take 1 Univers (COLACE) 10-11 100 capsule by ity of 100 mg 00:00: 05:59 mouth 2 [place] capsule 00 :00 (two) Medical times Branch daily for 30 days. This medication is used for constipati on Polyethylen 2019-10 No [id number] 1{packe Take 1 Univers e Glycol 10-11 100 t} Packet by ity o f 3350 00:00: 05:59 mouth [place] (MIRALAX) 00 :00 every 24 Medica l 17 gram (twenty-fo Branch powder ur) hours as needed for Constipati on for up to 30 days. docusate 2019-10- No [id number] 100mg Take 1 Univers (COLACE) 10-11 100 capsule by ity of 100 mg 00:00: 05:59 mouth 2 [place] capsule 00 :00 (two) Medical times Branch daily for 30 days. This medication is used for constipati on Polyethylen 2019-10 No [id number] 1{packe Take 1 [facility] e Glycol 10-11 100 t} Packet by ity o f 3350 00:00: 05:59 mouth [place] (MIRALAX) 00 :00 every 24 Medica l 17 gram (twenty-fo Branch powder ur) hours as needed for Constipati on for up to 30 days. docusate 2019-10- No [id number] 100mg Take 1 [facility] (COLACE) 10-11 100 capsule by ity of 100 mg 00:00: 05:59 mouth 2 [place] capsule 00 :00 (two) Medical times Branch daily for 30 days. This medication is used for constipati on Polyethylen 2019-10- No [id number] 1{packe Take 1 [facility] e Glycol 10-11 100 t} Packet by ity o f 3350 00:00: 05:59 mouth [place] (MIRALAX) 00 :00 every 24 Medica l 17 gram (twenty-fo Branch powder ur) hours as needed for Constipati on for up to 30 days. docusate 2019-10- No [id number] 100mg Take 1 [facility] (COLACE) 10-11 100 capsule by ity of 100 mg 00:00: 05:59 mouth 2 [place] capsule 00 :00 (two) Medical times Branch daily for 30 days. This medication is used for constipati on Polyethylen 2019-10- No [id number] 1{packe Take 1 [facility] e Glycol 10-11 100 t} Packet by ity o f 3350 00:00: 05:59 mouth [place] (MIRALAX) 00 :00 every 24 Medica l 17 gram (twenty-fo Branch powder ur) hours as needed for Constipati on for up to 30 days. docusate 2019-10- No [id number] 100mg Take 1 [facility] (COLACE) 10-11 100 capsule by ity of 100 mg 00:00: 05:59 mouth 2 [place] capsule 00 :00 (two) Medical times Branch daily for 30 days. This medication is used for constipati on Polyethylen 2019-10- No [id number] 1{packe Take 1 [facility] e Glycol 10-11 100 t} Packet by ity o f 3350 00:00: 05:59 mouth [place] (MIRALAX) 00 :00 every 24 Medica l 17 gram (twenty-fo Branch powder ur) hours as needed for Constipati on for up to 30 days. docusate 2019-10- No [id number] 100mg Take 1 [facility] (COLACE) 10-11 100 capsule by ity of 100 mg 00:00: 05:59 mouth 2 [place] capsule 00 :00 (two) Medical times Branch daily for 30 days. This medication is used for constipati on Polyethylen 2019-10- No [id number] 1{packe Take 1 [facility] e Glycol 10-11 100 t} Packet by ity o f 3350 00:00: 05:59 mouth [place] (MIRALAX) 00 :00 every 24 Medica l 17 gram (twenty-fo Branch powder ur) hours as needed for Constipati on for up to 30 days. docusate 2019-10- No [id number] 100mg Take 1 [facility] (COLACE) 10-11 100 capsule by ity of 100 mg 00:00: 05:59 mouth 2 [place] capsule 00 :00 (two) Medical times Branch daily for 30 days. This medication is used for constipati on Polyethylen 2019-10 No [id number] 1{packe Take 1 [facility] e Glycol 10-11 100 t} Packet by ity o f 3350 00:00: 05:59 mouth [place] (MIRALAX) 00 :00 every 24 Medica l 17 gram (twenty-fo Branch powder ur) hours as needed for Constipati on for up to 30 days. docusate 2019-10- No [id number] 100mg Take 1 [facility] (COLACE) 10-11 100 capsule by ity of 100 mg 00:00: 05:59 mouth 2 [place] capsule 00 :00 (two) Medical times Branch daily for 30 days. This medication is used for constipati on Polyethylen 2019-10- No [id number] 1{packe Take 1 [facility] e Glycol 10-11 100 t} Packet by ity o f 3350 00:00: 05:59 mouth [place] (MIRALAX) 00 :00 every 24 Medica l 17 gram (twenty-fo Branch powder ur) hours as needed for Constipati on for up to 30 days. docusate 2019-10- No [id number] 100mg Take 1 [facility] (COLACE) 10-11 100 capsule by ity of 100 mg 00:00: 05:59 mouth 2 [place] capsule 00 :00 (two) Medical times Branch daily for 30 days. This medication is used for constipati on Polyethylen 2019-10 No [id number] 1{packe Take 1 [facility] e Glycol 10-11 100 t} Packet by ity o f 3350 00:00: 05:59 mouth [place] (MIRALAX) 00 :00 every 24 Medica l 17 gram (twenty-fo Branch powder ur) hours as needed for Constipati on for up to 30 days. docusate 2019-10- No [id number] 100mg Take 1 [facility] (COLACE) 10-11 100 capsule by ity of 100 mg 00:00: 05:59 mouth 2 [place] capsule 00 :00 (two) Medical times Branch daily for 30 days. This medication is used for constipati on Polyethylen 2019-10- No [id number] 1{packe Take 1 [facility] e Glycol 10-11 100 t} Packet by ity o f 3350 00:00: 05:59 mouth [place] (MIRALAX) 00 :00 every 24 Medica l 17 gram (twenty-fo Branch powder ur) hours as needed for Constipati on for up to 30 days. docusate 2019-10- No [id number] 100mg Take 1 [facility] (COLACE) 10-11 100 capsule by ity of 100 mg 00:00: 05:59 mouth 2 [place] capsule 00 :00 (two) Medical times Branch daily for 30 days. This medication is used for constipati on Polyethylen 2019-10- No [id number] 1{packe Take 1 [facility] e Glycol 10-11 100 t} Packet by ity o f 3350 00:00: 05:59 mouth [place] (MIRALAX) 00 :00 every 24 Medica l 17 gram (twenty-fo Branch powder ur) hours as needed for Constipati on for up to 30 days. docusate 2019-10- No [id number] 100mg Take 1 [facility] (COLACE) 10-11 100 capsule by ity of 100 mg 00:00: 05:59 mouth 2 [place] capsule 00 :00 (two) Medical times Branch daily for 30 days. This medication is used for constipati on Polyethylen 2019-10- No [id number] 1{packe Take 1 [facility] e Glycol 10-11 100 t} Packet by ity o f 3350 00:00: 05:59 mouth [place] (MIRALAX) 00 :00 every 24 Medica l 17 gram (twenty-fo Branch powder ur) hours as needed for Constipati on for up to 30 days. docusate 2019-10- No [id number] 100mg Take 1 [facility] (COLACE) 10-11 100 capsule by ity of 100 mg 00:00: 05:59 mouth 2 [place] capsule 00 :00 (two) Medical times Branch daily for 30 days. This medication is used for constipati on Polyethylen 2019-10- No [id number] 1{packe Take 1 [facility] e Glycol 10-11 100 t} Packet by ity o f 3350 00:00: 05:59 mouth [place] (MIRALAX) 00 :00 every 24 Medica l 17 gram (twenty-fo Branch powder ur) hours as needed for Constipati on for up to 30 days. docusate 2019-10- No [id number] 100mg Take 1 [facility] (COLACE) 10-11 100 capsule by ity of 100 mg 00:00: 05:59 mouth 2 [place] capsule 00 :00 (two) Medical times Branch daily for 30 days. This medication is used for constipati on Polyethylen 2019-10 No [id number] 1{packe Take 1 [facility] e Glycol 10-11 100 t} Packet by ity o f 3350 00:00: 05:59 mouth [place] (MIRALAX) 00 :00 every 24 Medica l 17 gram (twenty-fo Branch powder ur) hours as needed for Constipati on for up to 30 days. docusate 2019-10- No [id number] 100mg Take 1 [facility] (COLACE) 10-11 100 capsule by ity of 100 mg 00:00: 05:59 mouth 2 [place] capsule 00 :00 (two) Medical times Branch daily for 30 days. This medication is used for constipati on Polyethylen 2019-10- No [id number] 1{packe Take 1 [facility] e Glycol 10-11 100 t} Packet by ity o f 3350 00:00: 05:59 mouth [place] (MIRALAX) 00 :00 every 24 Medica l 17 gram (twenty-fo Branch powder ur) hours as needed for Constipati on for up to 30 days. docusate 2019-10- No [id number] 100mg Take 1 [facility] (COLACE) 10-11 100 capsule by ity of 100 mg 00:00: 05:59 mouth 2 [place] capsule 00 :00 (two) Medical times Branch daily for 30 days. This medication is used for constipati on Polyethylen 2019-10 No [id number] 1{packe Take 1 [facility] e Glycol 10-11 100 t} Packet by ity o f 3350 00:00: 05:59 mouth [place] (MIRALAX) 00 :00 every 24 Medica l 17 gram (twenty-fo Branch powder ur) hours as needed for Constipati on for up to 30 days. docusate 2019-10- No [id number] 100mg Take 1 [facility] (COLACE) 10-11 100 capsule by ity of 100 mg 00:00: 05:59 mouth 2 [place] capsule 00 :00 (two) Medical times Branch daily for 30 days. This medication is used for constipati on Polyethylen 2019-10 No [id number] 1{packe Take 1 [facility] e Glycol 10-11 100 t} Packet by ity o f 3350 00:00: 05:59 mouth [place] (MIRALAX) 00 :00 every 24 Medica l 17 gram (twenty-fo Branch powder ur) hours as needed for Constipati on for up to 30 days. docusate 2019-10- No [id number] 100mg Take 1 [facility] (COLACE) 10-11 100 capsule by ity of 100 mg 00:00: 05:59 mouth 2 [place] capsule 00 :00 (two) Medical times Branch daily for 30 days. This medication is used for constipati on Polyethylen 2019-10- No [id number] 1{packe Take 1 [facility] e Glycol 10-11 100 t} Packet by ity o f 3350 00:00: 05:59 mouth [place] (MIRALAX) 00 :00 every 24 Medica l 17 gram (twenty-fo Branch powder ur) hours as needed for Constipati on for up to 30 days. docusate 2019-10- No [id number] 100mg Take 1 [facility] (COLACE) 10-11 100 capsule by ity of 100 mg 00:00: 05:59 mouth 2 [place] capsule 00 :00 (two) Medical times Branch daily for 30 days. This medication is used for constipati on Polyethylen 2019-10- No [id number] 1{packe Take 1 [facility] e Glycol 10-11 100 t} Packet by [employer] o f 3350 00:00: 05:59 mouth [place] (MIRALAX) 00 :00 every 24 Medica l 17 gram (twenty-fo Branch powder ur) hours as needed for Constipati on for up to 30 days. medroxyPROG 2019-10- No [id number] 10mg Take 1 [facility] ESTERone 10-11 100 tablet by ity o f (PROVERA) 00:00: 00:00 mouth 2 [place] 10 mg 00 :00 (two) Medical tablet times Branch daily for 60 doses. Take twice daily until you completely stop bleeding, then once per day medroxyPROG 2019-10- No [id number] 10mg Take 1 [facility] ESTERone 10-11 100 tablet by ity o f (PROVERA) 00:00: 00:00 mouth 2 [place] 10 mg 00 :00 (two) Medical tablet times Branch daily for 60 doses. Take twice daily until you completely stop bleeding, then once per day medroxyPROG 2019-10- No [id number] 10mg Take 1 [facility] ESTERone 10-11 100 tablet by ity o f (PROVERA) 00:00: 00:00 mouth 2 [place] 10 mg 00 :00 (two) Medical tablet times Branch daily for 60 doses. Take twice daily until you completely stop bleeding, then once per day medroxyPROG 2019-10- No [id number] 10mg Take 1 [facility] ESTERone 10-11 100 tablet by ity o f (PROVERA) 00:00: 00:00 mouth 2 [place] 10 mg 00 :00 (two) Medical tablet times Branch daily for 60 doses. Take twice daily until you completely stop bleeding, then once per day miSOPROStoL 2019-10- No [id number] 200ug Take 1 [facility] 200 mcg 0-16 10-18 tablet by ity of tablet 00:00: 04:59 mouth 2 [place] 00 :00 (two) Medical times Branch daily for 1 day. miSOPROStoL 2019-10- No [id number] 200ug Take 1 [facility] 200 mcg 0-16 [...] iron) 00 daily. Medical tablet Branch ferrous 2019- Yes 324mg Take 324 Unive rs gluconate 0-15 mg by ity of 324 mg (38 00:00: mouth [place] mg iron) 00 daily. Medical tablet Branch ferrous 2019-10 2020- No 324mg Take 324 Univ ers gluconate 0-15 11-13 mg by ity of 324 mg (38 00:00: 00:00 mouth [place] mg iron) 00 :00 daily. Medical tablet Branch carvediloL 2019- Yes 6.25mg Take 6.25 Univers [...] by mouth ity of tablet 00:00: daily. [address] fluticasone 2019- Yes INSTILL Uni vers [...] by ity of tablet 00:00: mouth 2 [place] (two) Medical times Branch daily. loratadine 2019- Yes 10mg Take 10 mg U nivers 10 mg 0-08 by mouth ity of tablet 00:00: daily. [address] fluticasone 2019- Yes INSTILL Uni vers [...] by mouth ity of tablet 00:00: daily. [address] fluticasone 2020- Yes INSTILL Uni vers [...] by ity of tablet 00:00: mouth 2 [place] (two) Medical times [place] daily. loratadine 2020- Yes 10mg Take 10 mg U nivers 10 mg 0-08 by mouth ity of tablet 00:00: daily. [address] fluticasone 2020- Yes INSTILL Uni vers [...] by mouth ity of tablet 00:00: daily. [address] fluticasone 2020- Yes INSTILL Uni vers [...] by ity of tablet 00:00: mouth 2 [place] (two) Medical times Branch daily. loratadine 2020- Yes 10mg Take 10 mg U nivers 10 mg 0-08 by mouth ity of tablet 00:00: daily. [address] Branch fluticasone 2020- Yes INSTILL Uni [...] by ity of tablet 00:00: mouth 2 [place] (two) Medical times [place] daily. loratadine 2020- Yes 10mg Take 10 mg U nivers 10 mg 0-08 by mouth ity of tablet 00:00: daily. [address] fluticasone 2020- Yes INSTILL Uni vers [...] by ity of tablet 00:00: mouth 2 [place] (two) Medical times Branch daily. loratadine 2020- Yes 10mg Take 10 mg U nivers 10 mg 0-08 by mouth ity of tablet 00:00: daily. [address] fluticasone 2019- Yes INSTILL Uni vers [...] by mouth ity of tablet 00:00: daily. [address] fluticasone 2019-10 Yes INSTILL Uni vers [...] by mouth ity of tablet 00:00: daily. [address] fluticasone 2019-10 Yes INSTILL Uni vers [...] by mouth ity of tablet 00:00: daily. [address] fluticasone 2020- Yes INSTILL Uni vers [...] tablet 00:00: mouth 2 (two) Medical times [place] daily. loratadine 2020- Yes 10mg Take 10 mg U nivers 10 mg 0-08 by mouth ity of tablet 00:00: daily. [address] fluticasone 2020- Yes INSTILL Uni vers [...] by mouth ity of tablet 00:00: daily. [place] [facility] fluticasone 2019- Yes INSTILL Uni vers propionate [...] by ity of tablet 00:00: mouth 2 [place] (two) Medical times [place] daily. loratadine 2019-10 Yes 10mg Take 10 mg U nivers 10 mg 0-08 by mouth ity of tablet 00:00: daily. [address] fluticasone 2019-10 Yes INSTILL Uni vers [...] by ity of tablet 00:00: mouth 2 [place] (two) Medical times [place] daily. loratadine 2019- Yes 10mg Take 10 mg U nivers 10 mg 0-08 by mouth ity of tablet 00:00: daily. [address] fluticasone 2019-10 Yes INSTILL Uni vers [...] by mouth ity of tablet 00:00: daily. [address] fluticasone 2019- Yes INSTILL Uni vers [...] by ity of tablet 00:00: mouth 2 [place] (two) Medical times Branch daily. loratadine 2020- Yes 10mg Take 10 mg U nivers 10 mg 0-08 by mouth ity of tablet 00:00: daily. [address] fluticasone 2019- Yes INSTILL Uni vers [...] by ity of tablet 00:00: mouth 2 [place] 00 (two) Medical times Branch daily. loratadine 2020- Yes 10mg Take 10 mg U nivers 10 mg 0-08 by mouth ity of tablet 00:00: daily. [place] [facility] Branch fluticasone 2020- Yes INSTILL Uni vers [...] by ity of tablet 00:00: mouth 2 [place] (two) Medical times [place] daily. loratadine 2020- Yes 10mg Take 10 mg U nivers 10 mg 0-08 by mouth ity of tablet 00:00: daily. [address] fluticasone 2020- Yes INSTILL Uni vers [...] by ity of tablet 00:00: mouth 2 [place] (two) Medical times [place] daily. loratadine 2020- Yes 10mg Take 10 mg U nivers 10 mg 0-08 by mouth ity of tablet 00:00: daily. [address] fluticasone 2020- Yes INSTILL Uni vers [...] by mouth ity of tablet 00:00: daily. [address] fluticasone 2019- Yes INSTILL Uni vers [...] by mouth ity of tablet 00:00: daily. [address] fluticasone 2019- Yes INSTILL Uni vers [...] by ity of tablet 00:00: mouth 2 [place] (two) Medical times [place] daily. loratadine 2020- Yes 10mg Take 10 mg U nivers 10 mg 0-08 by mouth ity of tablet 00:00: daily. [address] fluticasone 2019- Yes INSTILL Uni vers [...] by ity of tablet 00:00: mouth 2 [place] (two) Medical times [place] daily. loratadine 2019- Yes 10mg Take 10 mg U nivers 10 mg 0-08 by mouth ity of tablet 00:00: daily. [address] fluticasone 2019-10 Yes INSTILL Uni vers [...] by ity of tablet 00:00: mouth 2 [place] (two) Medical times [place] daily. loratadine 2019- Yes 10mg Take 10 mg U nivers 10 mg 0-08 by mouth ity of tablet 00:00: daily. [address] fluticasone 2019- Yes INSTILL Uni vers [...] by mouth ity of tablet 00:00: daily. [address] fluticasone 2020- Yes INSTILL Uni vers [...] by mouth ity of tablet 00:00: daily. [address] fluticasone 2020- Yes INSTILL Uni vers [...] by ity of tablet 00:00: mouth 2 [place] (two) Medical times Branch daily. loratadine 2020- [...] by ity of tablet 00:00: mouth 2 [place] (two) Medical times Branch daily. loratadine 2020- [...] by ity of tablet 00:00: mouth 2 [place] (two) Medical times Branch daily. loratadine 2020- [...] by ity of tablet 00:00: mouth 2 [place] (two) Medical times Branch daily. loratadine 2020- Yes 10mg Take 10 mg U nivers 10 mg 0-08 by mouth ity of tablet 00:00: daily. [place] [facility] fluticasone 2020-1 Yes INSTILL Uni vers propionate 0-08 ONE (1) ity of 50 00:00: SPRAY(S) [place] mcg/actuati 00 INTO EACH Med ical on nasal NOSTRIL Branch spray TWICE A DAY. carvediloL 2020-1 Yes 6.25mg Take 6.25 Univers 6.25 mg 0-08 mg by ity of tablet 00:00: mouth 2 (two) Medical times Branch daily. loratadine 2020- Yes 10mg Take 10 mg U nivers 10 mg 0-08 by mouth ity of tablet 00:00: daily. [place] [facility] fluticasone 2020- Yes INSTILL Uni vers propionate 0-08 ONE (1) ity of 50 00:00: SPRAY(S) [place] mcg/actuati 00 INTO EACH Med ical on nasal NOSTRIL Branch spray TWICE A DAY. carvediloL 2020- Yes 6.25mg Take 6.25 Univers 6.25 mg 0-08 mg by ity of tablet 00:00: mouth 2 [place] (two) Medical times Branch daily. loratadine 2020- Yes 10mg Take 10 mg U nivers 10 mg 0-08 by mouth ity of tablet 00:00: daily. [place] [facility] fluticasone 2020- Yes INSTILL Uni vers propionate 0-08 ONE (1) ity of 50 00:00: SPRAY(S) [place] mcg/actuati 00 INTO EACH Med ical on nasal NOSTRIL Branch spray TWICE A DAY. carvediloL 2020- Yes 6.25mg Take 6.25 Univers 6.25 mg 0-08 mg by ity of tablet 00:00: mouth 2 [place] (two) Medical times Branch daily. loratadine 2020- Yes 10mg Take 10 mg U nivers 10 mg 0-08 by mouth ity of tablet 00:00: daily. [place] [facility] fluticasone 2020-1 Yes INSTILL Uni vers propionate 0-08 ONE (1) ity of 50 00:00: SPRAY(S) [place] mcg/actuati 00 INTO EACH Med ical on nasal NOSTRIL Branch spray TWICE A DAY. carvediloL 2020- Yes 6.25mg Take 6.25 Univers 6.25 mg 0-08 mg by ity of tablet 00:00: mouth 2 [place] (two) Medical times Branch daily. loratadine 2020-1 Yes 10mg Take 10 mg U nivers 10 mg 0-08 by mouth ity of tablet 00:00: daily. [place] [facility] fluticasone 2019-10 Yes INSTILL Uni [...] 30 mg 00 :00 1 dose, Medical [facility] Branch 07/05/20 at 1645, Routine
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 Restricted medication : KARLA NOGUERA diphenhydrA 2019- No 25mg 25 mg, Uni vers MINE 07-05 Oral, ity of (BENADRYL) 21:45: 21:19 ONCE, 1 [place] tablet 25 00 :00 dose, Sat Medic al mg 07/05/20 at Branch 1645, ZULEYMA butalbital- 2020- No 2{tbl} 2 tablet, Univers acetaminoph 07-05 Oral, ity of en-caff 20:45: 21:19 ONCE, 1 [place] (ESGIC) 00 :00 dose, [facility] Medical 50-325-40 07/05/20 at Bran ch mg tablet 2 1545, tablet Routine butalbital- Yes [id number] 1{tbl} Take 1 [facility] acetaminoph 9-26 tablet by ity of en-caff 00:00: mouth [place] 50-325-40 00 every 4 Medical mg tablet (four) Branch hours as needed for Pain (scale 7-10). butalbital- 2020-0 Yes [id number] 1{tbl} Take 1 [facility] acetaminoph 9-26 tablet by ity of en-caff 00:00: mouth [place] 50-325-40 00 every 4 Medical mg tablet (four) Branch hours as needed for Pain (scale 7-10). butalbital- 2020-0 Yes [id number] 1{tbl} Take 1 [facility] acetaminoph 9-26 tablet by ity of en-caff 00:00: mouth [place] 50-325-40 00 every 4 Medical mg tablet (four) Branch hours as needed for Pain (scale 7-10). butalbital- 2020-0 Yes [id number] 1{tbl} Take 1 [facility] acetaminoph 9-26 tablet by ity of en-caff 00:00: mouth [place] 50-325-40 00 every 4 Medical mg tablet (four) Branch hours as needed for Pain (scale 7-10). butalbital- 2020-0 Yes [id number] 1{tbl} Take 1 [facility] acetaminoph 9-26 tablet by ity of en-caff 00:00: mouth [place] 50-325-40 00 every 4 Medical mg tablet (four) Branch hours as needed for Pain (scale 7-10). butalbital- 2020-0 Yes [id number] 1{tbl} Take 1 [facility] acetaminoph 9-26 tablet by ity of en-caff 00:00: mouth [place] 50-325-40 00 every 4 Medical mg tablet (four) Branch hours as needed for Pain (scale 7-10). butalbital- 2020-0 Yes [id number] 1{tbl} Take 1 [facility] acetaminoph 9-26 tablet by ity of en-caff 00:00: mouth [place] 50-325-40 00 every 4 Medical mg tablet (four) Branch hours as needed for Pain (scale 7-10). butalbital- 2020-0 Yes [id number] 1{tbl} Take 1 [facility] acetaminoph 9-26 tablet by ity of en-caff 00:00: mouth [place] 50-325-40 00 every 4 Medical mg tablet (four) Branch hours as needed for Pain (scale 7-10). butalbital- 2020-0 Yes [id number] 1{tbl} Take 1 [facility] acetaminoph 9-26 tablet by ity of en-caff 00:00: mouth [place] 50-325-40 00 every 4 Medical mg tablet (four) Branch hours as needed for Pain (scale 7-10). butalbital- 2020-0 Yes [id number] 1{tbl} Take 1 [facility] acetaminoph 9-26 tablet by ity of en-caff 00:00: mouth [place] 50-325-40 00 every 4 Medical mg tablet (four) Branch hours as needed for Pain (scale 7-10). butalbital- 2020-0 Yes [id number] 1{tbl} Take 1 [facility] acetaminoph 9-26 tablet by ity of en-caff 00:00: mouth [place] 50-325-40 00 every 4 Medical mg tablet (four) Branch hours as needed for Pain (scale 7-10). butalbital- 2020-0 Yes [id number] 1{tbl} Take 1 [facility] acetaminoph 9-26 tablet by ity of en-caff 00:00: mouth [place] 50-325-40 00 every 4 Medical mg tablet (four) Branch hours as needed for Pain (scale 7-10). butalbital- 2020-0 Yes [id number] 1{tbl} Take 1 [facility] acetaminoph 9-26 tablet by ity of en-caff 00:00: mouth [place] 50-325-40 00 every 4 Medical mg tablet (four) Branch hours as needed for Pain (scale 7-10). butalbital- 2020-0 Yes [id number] 1{tbl} Take 1 [facility] acetaminoph 9-26 tablet by ity of en-caff 00:00: mouth [place] 50-325-40 00 every 4 Medical mg tablet (four) Branch hours as needed for Pain (scale 7-10). butalbital- 2020-0 Yes [id number] 1{tbl} Take 1 [facility] acetaminoph 9-26 tablet by ity of en-caff 00:00: mouth [place] 50-325-40 00 every 4 Medical mg tablet (four) Branch hours as needed for Pain (scale 7-10). butalbital- 2020-0 Yes [id number] 1{tbl} Take 1 [facility] acetaminoph 9-26 tablet by ity of en-caff 00:00: mouth [place] 50-325-40 00 every 4 Medical mg tablet (four) Branch hours as needed for Pain (scale 7-10). butalbital- 2020-0 Yes [id number] 1{tbl} Take 1 [facility] acetaminoph 9-26 tablet by ity of en-caff 00:00: mouth [place] 50-325-40 00 every 4 Medical mg tablet (four) Branch hours as needed for Pain (scale 7-10). butalbital- 2020-0 Yes [id number] 1{tbl} Take 1 [facility] acetaminoph 9-26 tablet by ity of en-caff 00:00: mouth [place] 50-325-40 00 every 4 Medical mg tablet (four) Branch hours as needed for Pain (scale 7-10). butalbital- 2020-0 Yes [id number] 1{tbl} Take 1 [facility] acetaminoph 9-26 tablet by ity of en-caff 00:00: mouth [place] 50-325-40 00 every 4 Medical mg tablet (four) Branch hours as needed for Pain (scale 7-10). butalbital- 2020-0 Yes [id number] 1{tbl} Take 1 [facility] acetaminoph 9-26 tablet by ity of en-caff 00:00: mouth [place] 50-325-40 00 every 4 Medical mg tablet (four) Branch hours as needed for Pain (scale 7-10). butalbital- 2020-0 Yes [id number] 1{tbl} Take 1 [facility] acetaminoph 9-26 tablet by ity of en-caff 00:00: mouth [place] 50-325-40 00 every 4 Medical mg tablet (four) Branch hours as needed for Pain (scale 7-10). butalbital- 2020-0 Yes [id number] 1{tbl} Take 1 [facility] acetaminoph 9-26 tablet by ity of en-caff 00:00: mouth [place] 50-325-40 00 every 4 Medical mg tablet (four) Branch hours as needed for Pain (scale 7-10). butalbital- 2020-0 Yes [id number] 1{tbl} Take 1 [facility] acetaminoph 9-26 tablet by ity of en-caff 00:00: mouth [place] 50-325-40 00 every 4 Medical mg tablet (four) Branch hours as needed for Pain (scale 7-10). butalbital- 2020- Yes [id number] 1{tbl} Take 1 [facility] acetaminoph 9-26 tablet by ity of en-caff 00:00: mouth [place] 50-325-40 00 every 4 Medical mg tablet (four) Branch hours as needed for Pain (scale 7-10). butalbital- 2019- Yes [id number] 1{tbl} Take 1 [facility] acetaminoph 9-26 tablet by ity of en-caff 00:00: mouth [place] 50-325-40 00 every 4 Medical mg tablet (four) Branch hours as needed for Pain (scale 7-10). butalbital- 2019- Yes [id number] 1{tbl} Take 1 [facility] acetaminoph 9-26 tablet by ity of en-caff 00:00: mouth [place] 50-325-40 00 every 4 Medical mg tablet (four) Branch hours as needed for Pain (scale 7-10). butalbital- 2019- Yes [id number] 1{tbl} Take 1 [facility] acetaminoph 9-26 tablet by ity of en-caff 00:00: mouth [place] 50-325-40 00 every 4 Medical mg tablet (four) Branch hours as needed for Pain (scale 7-10). butalbital- 2019- Yes [id number] 1{tbl} Take 1 [facility] acetaminoph 9-26 tablet by ity of en-caff 00:00: mouth [place] 50-325-40 00 every 4 Medical mg tablet (four) Branch hours as needed for Pain (scale 7-10). butalbital- 2020- Yes [id number] 1{tbl} Take 1 [facility] acetaminoph 9-26 tablet by ity of en-caff 00:00: mouth [place] 50-325-40 00 every 4 Medical mg tablet (four) Branch hours as needed for Pain (scale 7-10). butalbital- 2019- Yes [id number] 1{tbl} Take 1 [facility] acetaminoph 9-26 tablet by ity of en-caff 00:00: mouth [place] 50-325-40 00 every 4 Medical mg tablet (four) Branch hours as needed for Pain (scale 7-10). butalbital- 2020-0 Yes [id number] 1{tbl} Take 1 Univers acetaminoph 9-26 tablet by ity of en-caff 00:00: mouth [place] 50-325-40 00 every 4 Medical mg tablet (four) Branch hours as needed for Pain (scale 7-10). butalbital- 2020-0 Yes [id number] 1{tbl} Take 1 [facility] acetaminoph 9-26 tablet by ity of en-caff 00:00: mouth [place] 50-325-40 00 every 4 Medical mg tablet (four) Branch hours as needed for Pain (scale 7-10). butalbital- 2020-0 Yes [id number] 1{tbl} Take 1 [facility] acetaminoph 9-26 tablet by ity of en-caff 00:00: mouth [place] 50-325-40 00 every 4 Medical mg tablet (four) Branch hours as needed for Pain (scale 7-10). butalbital- 2020-0 Yes [id number] 1{tbl} Take 1 [facility] acetaminoph 9-26 tablet by ity of en-caff 00:00: mouth [place] 50-325-40 00 every 4 Medical mg tablet (four) Branch hours as needed for Pain (scale 7-10). butalbital- 2020-0 Yes [id number] 1{tbl} Take 1 [facility] acetaminoph 9-26 tablet by ity of en-caff 00:00: mouth [place] 50-325-40 00 every 4 Medical mg tablet (four) Branch hours as needed for Pain (scale 7-10). butalbital- 2020-0 Yes [id number] 1{tbl} Take 1 [facility] acetaminoph 9-26 tablet by ity of en-caff 00:00: mouth [place] 50-325-40 00 every 4 Medical mg tablet (four) Branch hours as needed for Pain (scale 7-10). butalbital- 2020-0 Yes [id number] 1{tbl} Take 1 [facility] acetaminoph 9-26 tablet by ity of en-caff 00:00: mouth [place] 50-325-40 00 every 4 Medical mg tablet (four) Branch hours as needed for Pain (scale 7-10). butalbital- 2020-0 Yes [id number] 1{tbl} Take 1 [facility] acetaminoph 9-26 tablet by ity of en-caff 00:00: mouth [place] 50-325-40 00 every 4 Medical mg tablet (four) Branch hours as needed for Pain (scale 7-10). butalbital- 2019-0 Yes [id number] 1{tbl} Take 1 [facility] acetaminoph 9-26 tablet by ity of en-caff 00:00: mouth [place] 50-325-40 00 every 4 Medical mg tablet (four) Branch hours as needed for Pain (scale 7-10). butalbital- 2020-0 Yes [id number] 1{tbl} Take 1 [facility] acetaminoph 9-26 tablet by ity of en-caff 00:00: mouth [place] 50-325-40 00 every 4 Medical mg tablet (four) Branch hours as needed for Pain (scale 7-10). butalbital- 2019-0 Yes [id number] 1{tbl} Take 1 [facility] acetaminoph 9-26 tablet by ity of en-caff 00:00: mouth [place] 50-325-40 00 every 4 Medical mg tablet (four) Branch hours as needed for Pain (scale 7-10). Vital Signs Vital Name Observation Time Observation Value Comments Source Systolic blood 2021-03-19 20:00:00 138 [facility]Hg[facility] 2021-03-19 20:00:00 80 mm[Hg] [facility] Heart rate 2021-03-19 20:00:00 72 /min [facility] Respiratory rate 2021-03-19 20:00:00 19 /min [facility] Oxygen saturation in 2021-03-19 20:00:00 98 /min [facility] Arterial blood by [facility] Pulse oximetry Branch Body temperature 2021-03-19 17:15:[address] [facility] Body weight 2021-03-19 17:15:00 104.327 kg [facility] BMI 2021-03-19 17:15:00 44.92 kg/m2 [facility] [place] [facility] Systolic blood 2021-02-12 00:55:00 173 mm[Hg] [facility] [place] [facility] Diastolic blood 2021-02-12 00:55:00 82 mm[Hg] Un[facility]ity [facility] [place] [facility] Heart rate 2021-02-12 00:55:00 75 /min [facility] [place] [facility] Respiratory rate 2021-02-12 00:55:00 18 /min Univ ersity of [facility] Oxygen saturation in 2021-02-12 00:55:00 100 /min University of Arterial blood by [facility] Pulse oximetry Branch Body temperature 2021-02-12 00:30:45 37.06 Mely [facility] [place] [facility] Body height 2021-02-11 23:35:00 152.4 cm [facility] [place] [facility] Body weight 2021-02-11 23:35:00 106.595 kg [facility] [place] [facility] BMI 2021-02-11 23:35:00 45.90 kg/m2 [facility] [place] [facility] Systolic blood 2020-09-13 17:36:00 108 mm[Hg] [facility] [place] [facility] Diastolic blood 2020-09-13 17:36:00 62 mm[Hg] Unive [facility]ity of [facility] [place] [facility] Body temperature 2020-09-13 17:36:00 36.94 Mely [facility] [place] [facility] Respiratory rate 2020-09-13 17:36:00 18 /min Univ ersity of [facility] Heart rate 2020-09-13 15:02:00 74 /min [facility] [place] [facility] Oxygen saturation in 2020-09-13 10:00:00 98 /min University of Arterial blood by [facility] Pulse oximetry Branch Body height 2020-09-10 19:37:00 152.4 cm [facility] [place] [facility] Body weight 2020-09-10 19:37:00 106.6 kg [facility] [place] [facility] BMI 2020-09-10 19:37:00 45.90 kg/m2 [facility] [place] [facility] Systolic blood 2020-08-15 15:53:00 144 mm[Hg] [facility] [place] [facility] Diastolic blood 2020-08-15 15:53:00 84 mm[Hg] Unive [facility]ity [facility] [place] [facility] Heart rate 2020-08-15 15:47:00 70 /min [facility] [place] [facility] Body temperature 2020-08-15 15:47:00 37.11 Mely [facility] [place] [facility] Respiratory rate 2020-08-15 15:47:00 20 /min [facility] [place] [facility] Body height 2020-08-15 15:47:00 152.4 cm [facility] [place] [facility] Body weight 2020-08-15 15:47:00 105.008 kg [facility] [place] [facility] BMI 2020-08-15 15:47:00 45.21 kg/m2 [facility] [place] [facility] Systolic blood 2020-07-25 18:24:00 164 mm[Hg] [facility] [place] [facility] Diastolic blood 2020-07-25 18:24:00 86 mm[Hg] Unive rsity of pressure [facility] Body height 2020-07-25 18:21:00 152.4 cm [facility] [place] [facility] Body weight 2020-07-25 18:21:00 105.688 kg [facility] [place] [facility] BMI 2020-07-25 18:21:00 45.50 kg/m2 [facility] [place] [facility] Heart rate 2020-07-25 18:21:00 76 /min [facility] [place] [facility] Body temperature 2020-07-25 18:21:00 37.06 Mely [facility] [place] [facility] Respiratory rate 2020-07-25 18:21:00 20 /min Univ ersity of [facility] Body temperature 2020-07-05 20:24:00 36.72 Mely Univ ersity of [facility] Systolic blood 2020-07-05 20:21:00 159 mm[Hg] [facility] [place] [facility] Diastolic blood 2020-07-05 20:21:00 100 mm[Hg] Unive rsity [facility] [place] [facility] Heart rate 2020-07-05 20:21:00 76 /min [facility] [place] [facility] Respiratory rate 2020-07-05 20:21:00 18 /min [facility] [place] [facility] Body height 2020-07-05 20:21:00 152.4 cm [facility] [place] [facility] Body weight 2020-07-05 20:21:00 104.327 kg [facility] [place] [facility] BMI 2020-07-05 20:21:00 44.92 kg/m2 [facility] Oxygen saturation in 2020-07-05 20:21:00 100 /min [facility] blood by [facility] Pulse oximetry Branch Procedures Procedure Date / Time Performing Clinician Source Performed URINALYSIS 2021-03-19 19:50:00 Arden Greenberg [facility] TROPONIN I 2021-03-19 18:21:00 Arden Greenberg [facility] COMP. METABOLIC PANEL 2021-03-19 18:21:00 Arden Greenberg [facility] ([id number]) Medical Branch CBC WITH DIFF 2021-03-19 18:21:00 Arden Greenberg [facility] NOTICE OF PRIVACY 2021-03-19 16:59:38 Doctor Jordana, [facility] PRACTICES [facility] CONSENT/REFUSAL FOR 2021-03-19 16:59:21 Doctor Jordana [facility] DIAGNOSIS AND TREATMENT [facility] NOTICE OF PRIVACY 2021-02-11 23:27:37 Doctor Jordana, [facility] PRACTICES [facility] CONSENT/REFUSAL FOR 2021-02-11 23:26:02 Doctor Silveira [facility] DIAGNOSIS [facility]REAT[facility] BASIC METABOLIC PANEL 2020-09-13 09:48:00 [facility] Bert [facility] (NA, K, CL, CO2, GLUCOSE, Medica l Branch BUN, CREATININE, CA) CBC WITH DIFF 2020-09-13 09:48:00 [facility] HB ABO GROUPING 2020-09-12 13:09:00 [facility] POCT TEST 2020-09-12 12:35:00 Olvin Tello [facility] DAY SURGERY - ADC 2020-09-12 06:01:00 Doctor Jordana [facility] Name [facility] INSURANCE CORRESPONDENCE 2020-09-10 06:01:00 Doctor Silveira [facility] Name [facility] [place] CONSENT/REFUSAL FOR 2020-09-08 19:49:10 Doctor Jordana [facility] DIAGNOSIS AND TREATMENT [facility] ASSIGNMENT OF BENEFITS 2020-09-08 19:48:57 Doctor Unassigned, Un [facility] CONSENT/REFUSAL FOR 2020-09-08 19:48:11 Doctor Jordana, [facility] DIAGNOSIS AND TREATMENT [facility] ASSIGNMENT OF BENEFITS 2020-09-08 19:47:57 Doctor Unassigned, Un [facility] DISCLOSURE AND CONSENT 2020-09-02 06:01:00 Doctor Unassigned, Un [facility] MEDICAL & SURGICAL [facility] - HYSTEY BI ULTRASOUND BREAST 2020-08-29 21:09:13 Bert Wright [facility] LIMITED RIGHT Medical Branch BI DIAGNOSTIC 2020-08-29 20:32:18 [place] TOMOSYNTHESIS RIGHT Medical Bran ch DISCLOSURE AND CONSENT, 2020-08-15 06:01:00 [facility] PROCEDURES POCT TEST 2020-08-15 00:00:00 Bert Wright [facility] [place] ASSIGNMENT OF BENEFITS 2020-08-11 20:05:02 Doctor Unapreston, Un [facility] US PELVIS COMPLETE WITH 2020-08-08 16:22:02 Bert Wright [facility] TRANSVAGINAL [facility] [place] EXTERNAL PROVIDER RECORDS 2020-08-06 05:01:00 Doctor Silveira [facility] POCT TEST 2020-07-25 00:00:00 Bert Wright [facility] [place] REFERRAL- 2020-07-22 05:01:00 Doctor Jordana, [facility] REQUEST/RESPONSE [facility] NOTICE OF PRIVACY 2020-07-05 20:13:18 Doctor Silveira [facility] PRACTICES [facility] Encounters Start End Encounter Admission Attending Care Care Encounter Source Date/Time Date/Time Type Type Clinicians Facility Department ID 2021-08-10 Emergency [facility] [id number] [facility] 00:25:39 [facility] [place] [facility] 2021-08-09 Emergency [facility] [id number] [facility] [place] 2021-08-08 Outpatient R BERT WRIGHT [facility] LEONEL [id number] Univers 08:34:29 ity [facility] 2021-09-21 2021-09-21 Outpatient ARRON ZHANGN [facility] [id number] Univers 09:00:00 09:00:00 ity [facility] 2021-09-15 2021-09-15 Pre Visit CARLOS EDUARDO [place] [id number] Univers 00:00:00 00:00:00 Outreach Teresa CALLAWAY [id number] [phone] [address] 2021-03-19 2021-03-19 Emergency Melody Arden [facility] 1.2.840.114 [id number] Univers 12:16:00 16:23:00 Tonya Lakhani [id number] i [place] [id number] [address] 2021-02-11 2021-02-11 Emergency [facility] [id number] Univers 18:40:00 19:58:00 Chetan Lakhani [id number] i [place] [phone] [address] 2020-12-25 2020-12-25 Patient Norbert [facility] 1.2.840.114 [id number] Univers 00:00:00 00:00:00 Outreach Sander SIMPSON [id number] i ty of [place] [facility] 4[place]2.7.2.[place] [phone] Tn dical [address] [place] [address] 2020-12-16 2020-12-16 Outpatient Warner WRIGHTARRONN [facility] [id number] Univers 00:00:00 00:00:00 ity [facility] 2020-10-29 2020-10-29 Outpatient Warner WRIGHTARRONN [facility] [id number] Univers 15:30:00 15:30:00 ity [facility] 2020-10-13 2020-10-13 Outpatient Warner WRIGHTARRONN [facility] [id number] Univers 15:30:00 15:30:[address] [facility] 2020-09-29 2020-09-29 Outpatient R BERT WRIGHT [facility] [id number] Univers 15:00:00 15:00:[address] [facility] 2020-09-18 2020-09-18 Nurse Megan Pacheco 1.2.840.114 [id number] Univers 00:00:00 00:00:00 Triage HARSHA [id number] it y of HOSPITAL 4.2.7.2.686 [place] [id number] [facility] 019 [place] 2020-09-12 2020-09-13 Hospital Bert Wright [facility] 1.2.840.114 [id number] Univers 06:45:00 13:10:00 Encounter Kar [id number] it[place] [id number] [facility] 083 [place] 2020-09-12 2020-09-12 Orders Doctor VANESA 1.2.840.114 [id number] Univers 00:00:00 00:00:00 Only Unassigned, HARSHA [id number] ity of [facility] 4.2.7.2.686 [place] [phone] [facility] 009 [place] 2020-09-10 2020-09-10 Chopper Feeder Erik, Katt Lab Main [facility] 1.2.8 40.114 [id number] Univers 10:03:06 10:18:06 Visit Bert Wright [id number] it[place]2.[place] [facility] [phone] [address] 2020-09-10 2020-09-10 Outpatient R BERT WRIGHT [facility] [id number] Univers 10:00:00 10:00:[address] [facility] 2020-09-10 2020-09-10 Orders Doctor VANESA 1.2.840.114 [id number] Univers 00:00:00 00:00:00 Only Unassigned, HARSHA [id number] ity of [facility] 4.2.7.2.686 [place] [phone] [address] 2020-09-08 2020-09-08 Laboratory Lab, Adc Fam Pob I [facility] 1.2. 840.114 [id number] Univers 13:17:01 13:42:36 Only Nikki Cristobal [id number] ity of [place] 4.2.7.2.686 [place] as Professio [phone] Tn dical nal [address] [place] [address] 2020-09-08 2020-09-08 Outpatient R FERNANDA [facility] [id number] Univers 13:20:00 13:20:[address] [facility] 2020-09-08 2020-09-08 Letter Doctor VANESA 1.2.840.114 [id number] Univers 00:00:00 00:00:00 (Out) Unassigned, HARSHA 350.1.13.10 ity of [facility] 4.2.7.2.686 [place] [phone] [facility] [address] [place] 2020-09-02 2020-09-02 Outpatient R BERT WRIGHT [facility] [id number] Univers 10:00:00 10:00:[address] [facility] 2020-09-02 2020-09-02 Orders Doctor VANESA 1.2.840.114 [id number] Univers 00:00:00 00:00:00 Only Unassigned, HARSHA [id number] ity of [facility] 4.2.7.2.686 [place] as [phone] [facility] [address] [place] 2020-08-31 2020-08-31 Case Bert Wright [facility] 1.2.840.114 [id number] Univers 00:00:00 00:00:00 Management Kar [id number] [place] Profess[place] [phone] Tn dical nal 134 [facility] 2020-08-29 2020-08-29 [facility] Bert Wright [facility] 1.2.840.114 [id number] Univers 14:02:56 23:59:00 Encounter SPECIALTY [id number] ity of C[place].2.[place] C[place] AT [id number] Tn dical VICTORY 800 [facility] 2020-08-29 2020-08-29 Hospital Bert Wright [facility] 1.2.840.114 [id number] Univers 14:01:51 14:01:51 Encounter SPECIALTY [id number] ity of [facility] 4.2.7.2.[place] CENTER AT [phone] Tn trevor EVANS [address] [place] [address] 2020-08-29 2020-08-29 Outpatient R BERT WRIGHT [facility] [id number] Univers 00:00:00 00:00:[address] [facility] 2020-08-22 2020-08-22 Telephone Bert Wright [facility] 1.2.840.114 [id number] Univers 00:00:00 00:00:00 [place] 350.1.13.10 [place] Profess[place] [phone] Tn dichi nal [address] [place] [address] 2020-08-20 2020-08-20 Telephone Bert Wright [facility] 1.2.840.114 [id number] Univers 00:00:00 00:00:00 [place] 350.1.13.10 i ty [place].2.[place] Profess[place] [phone] Tn dichi hugo [address] [place] [address] 2020-08-15 2020-08-15 Office Bert Wright [facility] 1.2.840.114 [id number] Univers 09:25:49 10:17:03 Visit [place] 350.1.13.10 i ty [place]2.[place] Profess[place] [phone] Tn dic[address] 2020-08-15 2020-08-15 Outpatient R BERT WRIGHT [facility] [id number] Univers 09:30:00 09:30:[address] [facility] 2020-08-15 2020-08-15 Telephone Nancy [facility] 1.2.840.114 [id number] Univers 00:00:00 00:00:00 Stefania Lakhani 350.1.13.10 ity [place] Profess[place] [phone] [address] 2020-08-15 2020-08-15 Telephone Bert Wright [facility] 1.2.840.114 [id number] Univers 00:00:00 00:00:00 [place] 350.1.13.10 i ty [place] 4[place]2.[place] Profess[place] [phone] [facility] 134 [facility] 2020-08-15 2020-08-15 Orders Doctor VANESA 1.2.840.114 [id number] Univers 00:00:00 00:00:00 Only Unassigned, HARSHA 350.1.13.10 ity of [facility] 4.2.7.2.686 [place] as [phone] [address] 2020-08-11 2020-08-11 Chopper Feeder Erik, Katt Lab Main [facility] 1.2.8 40.114 [id number] Univers 14:09:38 14:24:38 Visit Bert Wright 350.1.13.10 [place] Profess[place] [phone] [facility] 353 [facility] 2020-08-11 2020-08-11 Outpatient R BERT WRIGHT [facility] [id number] Univers 13:45:00 13:45:[address] [facility] 2020-08-11 2020-08-11 Telephone Bert Wright [facility] 1.2.840.114 [id number] Univers 00:00:00 00:00:00 [place] 350.1.13.10 i [place] Profess[place] [id number] [address] 2020-08-11 2020-08-11 Orders Doctor VANESA 1.2.840.114 [id number] Univers 00:00:00 00:00:00 Only Unassigned, HARSHA 350.1.13.10 ity of [facility] 4.2.7.2.686 [place] as [id number] [address] 2020-08-08 2020-08-08 Hospital Bert Wright [facility] 1.2.840.114 [id number] Univers 10:00:00 23:59:00 Encounter [place] 350.1.13.10 ity [place] [id number] [facility] 806 Branch 2020-08-08 2020-08-08 Outpatient R BERT WRIGHT [facility] [id number] Univers 00:00:00 00:00:[address] [facility] 2020-08-08 2020-08-08 Case Bert Wright [facility] 1.2.840.114 [id number] Univers 00:00:00 00:00:00 Management Kar 350.1.13.10 ity of [place] 4.2.7.2.[address] [facility] [id number] [facility] 083 Branch 2020-08-07 2020-08-07 Hospital Bert Wright [facility] 1.2.840.114 [id number] Univers 12:25:11 23:59:00 Encounter Kar 350.1.13.10 ity of [place] 4.2.7.2.[address] [facility] [id number] [facility] 800 Branch 2020-08-07 2020-08-07 Outpatient R BERT WRIGHT [facility] [id number] Univers 12:40:00 12:40:[address] [facility] 2020-08-06 2020-08-06 Orders Doctor VANESA 1.2.840.114 [id number] Univers 00:00:00 00:00:00 Only Unassigned, HARSHA 350.1.13.10 ity of [facility] 4.2.7.2.686 Ole [id number] [facility] 009 Branch 2020-08-01 2020-08-01 Outpatient R BERT WRIGHT [facility] [id number] Univers 10:30:00 10:30:[address] [facility] 2020-07-25 2020-07-25 Office Bert Wright [facility] 1.2.840.114 [id number] Univers 13:06:08 13:52:32 Visit Kar 350.1.13.10 i ty of [place] 4.2.7.2.686 [facility] Professio [phone] Tn dical nal 134 [facility] 2020-07-25 2020-07-25 Outpatient R BERT WRIGHT [facility] [id number] Univers 13:00:00 13:00:[address] [facility] 2020-07-25 2020-07-25 Telephone Bert Wright [facility] 1.2.840.114 [id number] Univers 00:00:00 00:00:00 [place] 350.1.13.10 [place] [phone] [facility] 134 [facility] 2020-07-23 2020-07-23 Outpatient R BERT WRIGHT [facility] [id number] Univers 13:30:00 13:30:[address] [facility] 2020-07-22 2020-07-22 Orders Doctor VANESA 1.2.840.114 [id number] Univers 00:00:00 00:00:00 Only Unassigned, HARSHA 350.1.13.10 ity of [facility] 4.2.7.2.686 Ole as [id number] [facility] [address] [place] 2020-07-14 2020-07-14 Outpatient R FERNANDA [facility] [id number] Univers 09:00:00 09:00:[address] [facility] 2020-07-14 2020-07-14 Laboratory Lab, Adc Fam Pob I [facility] 1.2. 840.114 [id number] Univers 08:38:49 08:58:49 Only PauNikki barnhart [facility] 350.1.13.10 ity of [place] 4.2.7.2.686 [place] as Professio [phone] [facility] [address] [place] [address] 2020-07-14 2020-07-14 Letter Doctor VANESA 1.2.840.114 [id number] Univers 00:00:00 00:00:00 (Out) Unassigned, HARSHA 350.1.13.10 ity of [facility] 4.2.7.2.686 Ole as [phone] [facility] [address] [place] 2020-07-05 2020-07-05 [facility] 1.2.840.114 [id number] Univers 15:24:00 17:07:00 Mahad Lakhani 350.1.13.10 i ty [place] [phone] [facility] [address] [place] 2020-07-05 2020-07-05 Emergency X MAE [facility] ERT [id number] Univers 15:24:00 15:24:[address] [facility] Results Test Description Test Time Test Comments Results Result Comments Source URINALYSIS 2021-03-19 20:29:51 Test Item Value Reference Range Interpretation Comme nts APPEARANCE (test code = Hazy Clear A 0971692625) COLOR (test code = 6225237478) Yellow Yellow PH (test code = 7021891787) 4.8-8.0 SP GRAVITY (test code = 1.003-1.030 5141222390) GLU U QUAL (test code = Normal Normal 3960735794) BLOOD (test code = 8127558861) Negative Negative KETONES (test code = 5141674791) Negative Negative PROTEIN (test code = 2887-8) Negative Negative UROBILIN (test code = Normal Normal 8508849559) BILIRUBIN (test code = Negative Negative 9680464634) NITRITE (test code = 0035789100) Negative Negative LEUK LON (test code = Negative Negative 1174782364) RBC/HPF (test code = 7860041217) See_Comment [Automated message] The system which ge nerated this result transmit adolfo reference range: 0 - 3 HP F. The reference range was not used to interpret th is result as normal/abnormal . WBC/HPF (test code = 2101408782) <1 See_Comment [Automated message] The system which ge nerated this result transmit adolfo reference range: 0 - 5 HP F. The reference range was not used to interpret th is result as normal/abnormal . BACTERIA (test code = Negative Negative 8471640050) MUCOUS (test code = 8199347310) Slight Negative LPF A SQ EPITH (test code = HPF 7277135963) Lab Interpretation (test code = Abnormal 00303-3) [id number]15:54 Test Item Value Reference Range Interpretation Comments TROPONIN I (test 0.000 ng/mL See_Comment [Automated code = 4340390747) message] The system which generated this result [...] ? Lab Interpretation Normal (test code = 31874-5) [facility]. METABOLIC PANEL (36375)2021-03-19 19:04:49 Test Item Value Reference Range Interpretation Comments NA (test code = 138 mmol/L 135-145 2613401870) K (test code = 3.8 mmol/L 3.5-5.0 7090111415) CL (test code = 103 mmol/L 98-108 8150449936) CO2 TOTAL (test code = 27 mmol/L 23-31 5359068689) AGAP (test code = 2-16 2568241433) BUN (test code = 15 mg/dL 7-23 7755201167) GLUCOSE (test code = 139 mg/dL 70-110 H 7581777484) CREATININE (test code = 0.45 mg/dL 0.50-1.04 L 5613150316) TOTAL BILI (test code = 0.4 mg/dL 0.1-1.6 3209050853) CALCIUM (test code = 9.3 mg/dL 8.6-10.6 2476646910) T PROTEIN (test code = 8.3 g/dL 6.3-8.2 H 6217810628) ALBUMIN (test code = 4.4 g/dL 3.5-5.0 8777798966) ALK PHOS (test code = 129 U/L 34-122 H 8517492093) ALTv (test code = 75 U/L 5-35 H 1742-6) AST(SGOT) (test code = 71 U/L 13-40 H 1878719553) eGFR (test code = mL/min/1.73m2 0482357630) GLEN (test code = GLEN) Association of [...] tests). Lab Interpretation Abnormal (test code = 27154-3) [facility] WITH [id number] 18:56:45 Test Item Value Reference Range Interpretation Comments WBC (test code = See_Comment [Automated 2413-2) message] The sy stem which generated this [...] RDW-SD (test code = 44.1 fL 39.0-49.9 23234-6) RDW-CV (test code = 17.6 % 12.0-15.5 H 788-0) PLT (test code = See_Comment H [Automated 777-3) message] The sy stem which generated this result transmitted reference range : 166 - 358 10*3/ ?L. The reference r adela was not used to interpret this result as normal/abnormal . MPV (test code = 10.1 fL 9.5-12.9 32349-9) NRBC/100 WBC (test See_Comment [Automat ed code = 9354884055) message] The system which generated this result transmitted reference range : 0.0 - 10.0 /100 WBCs. The refer ence range was not u sed to interpret th is result as normal/abnormal . NRBC x10^3 (test code <0.01 See_Comment [Auto mated = 8037554599) message] The s ystem which generated this result transmitted reference range : 10*3/?L. The reference range was not used to interpret this result as normal/abnormal . GRAN MAT (NEUT) % 73.8 % (test code = 770-8) IMM GRAN % (test code 0.50 % = 3865022670) LYMPH % (test code = 18.9 % 736-9) MONO % (test code = 4.6 % 5905-5) EOS % (test code = 1.6 % 713-8) BASO % (test code = 0.6 % 706-2) GRAN MAT x10^3(ANC) 6.56 10*3/uL 1.88-7.09 (test code = 9644670521) IMM GRAN x10^3 (test 0.04 10*3/uL 0.00-0.06 code = 0865936449) LYMPH x10^3 (test code 1.68 10*3/uL 1.32-3.29 = 731-0) MONO x10^3 (test code 0.41 10*3/uL 0.33-0.92 = 742-7) EOS x10^3 (test code = 0.14 10*3/uL 0.03-0.39 711-2) BASO x10^3 (test code 0.05 10*3/uL 0.01-0.07 = 704-7) Lab Interpretation Abnormal (test code = 03359-0) [facility] Metabolic Panel (NA, K, CL, CO2, Glucose, BUN, Creatinine, CA)2020-09-13 10:46:00 Test Item Value Reference Range Interpretation Comments NA (test code = 137 mmol/L 135-145 2886146353) K (test code = 3.6 mmol/L 3.5-5 0303862292) CL (test code = 106 mmol/L 98-108 9002057603) CO2 TOTAL (test code = 25 mmol/L 23-31 6975796855) AGAP (test code = 2-16 6759274939) BUN (test code = 18 mg/dL 7-23 5486075874) GLUCOSE (test code = 130 mg/dL 70-110 H 7236393662) CREATININE (test code = 0.84 mg/dL 0.5-1.04 5339736411) CALCIUM (test code = 8.5 mg/dL 8.6-10.6 L 4180650416) eGFR Calculation mL/min/1.73m2 (Non-) (test code = 4420104886) eGFR Calculation mL/min/1.73m2 () (test code = 6589100651) GLEN (test code = GLEN) Association of [...] tests). Lab Interpretation Abnormal (test code = 89927-4) [facility] with [id number] 10:24:00 Test Item Value Reference Range Interpretation Comments WBC (test code = See_Comment [Automated 5590-2) message] The sy stem which generated this result transmitted reference range : 4.30 - 11.10 10*3/?L. The reference range was not used to interpret this result as normal/abnormal . RBC (test code = See_Comment L [Automated 249-8) message] The sy stem which generated this [...] (test code = 55.9 fL 39-49.9 H 42951-9) RDW-CV (test code = 20.4 % 12-15.5 H 788-0) PLT (test code = See_Comment [Automated 777-3) message] The sy stem which generated this result transmitted reference range : 166 - 358 10*3/ ?L. The reference r adela was not used to interpret this result as normal/abnormal . MPV (test code = 9.8 fL 9.5-12.9 06722-7) NRBC/100 WBC (test See_Comment [Automat ed code = 7205154021) message] The system which generated this result transmitted reference range : 0.0 - 10.0 /100 WBCs. The refer ence range was not u sed to interpret th is result as normal/abnormal . NRBC x10^3 (test code <0.01 See_Comment [Auto mated = 2040449196) message] The s ystem which generated this result transmitted reference range : 10*3/?L. The reference range was not used to interpret this result as normal/abnormal . GRAN MAT (NEUT) % 70.4 % (test code = 770-8) IMM GRAN % (test code 0.20 % = 1294380603) LYMPH % (test code = 20.9 % 736-9) MONO % (test code = 7.8 % 5905-5) EOS % (test code = 0.4 % 713-8) BASO % (test code = 0.3 % 706-2) GRAN MAT x10^3(ANC) 6.35 10*3/uL 1.88-7.09 (test code = 1078476782) IMM GRAN x10^3 (test <0.03 0-0.06 code = 6267834679) LYMPH x10^3 (test code 1.89 10*3/uL 1.32-3.29 = 731-0) MONO x10^3 (test code 0.70 10*3/uL 0.33-0.92 = 742-7) EOS x10^3 (test code = 0.04 10*3/uL 0.03-0.39 711-2) BASO x10^3 (test code 0.03 10*3/uL 0.01-0.07 = 704-7) Lab Interpretation Abnormal (test code = 48022-9) [facility] The Type and Screen expires at midnight on the 3rd day after it was drawn. A current Type and Screen is required when RBCs are requested. For all other blood products, a Type and Scree n performed during the current hospitalizati...2020-09-12 13:57:33 Test Item Value Reference Range Interpretation Comments ABO & RH (test code O Positive Performe d at [facility] = 20) Laboratory Serv [facility] [place] [address] Free: [phone] A No. [id number] IAT (test code = Negative Performed a t [facility] 1185) Laboratory Serv [facility] [place] [address] Free: [phone] A No. [id number] [facility] [id number] 12:35:00 Test Item Value Reference Range Interpretation Comments POCT PREG (test code = 1605) Negative On board controls acceptable with Yes C Line (test code = 3574) POCT PREG LOT # (test code = 3575) [id number] POCT PREG TEST DATE (test 2021-08-09 code = 3576) Lab Interpretation (test code = Normal 38318-8) [facility] [id number] 23:49:55Examination:BI DIAGNOSTIC TOMOSYNTHESIS RIGHTBI ULTRASOUND BREAST LIMITED [...] ? BI-RADS Category: Right 3 - [facility] DIAGNOSTIC TOMOSYNTHESIS [id number] 23:49:54Examination:BI DIAGNOSTIC TOMOSYNTHESIS RIGHTBI ULTRASOUND BREAST LIMITED [...] of 82. BI ULTRASOUND BREAST LIMITED RIGHTTargeted merged with [facility] was performed. There is a [...] ? BI-RADS Category: Right 3 - [facility] [id number] 15:51:00 Test Item Value Reference Range Interpretation Comments POCT PREG (test code = 1605) Negative On board controls acceptable with C Yes Line (test code = 3574) POCT PREG LOT # (test code = 3575) POCT PREG TEST DATE (test code = 3576) [facility] [id number] 15:51:00 Test Item Value Reference Range Interpretation Comments POCT PREG (test code = 1605) Negative On board controls acceptable with C Yes Line (test code = 3574) POCT PREG LOT # (test code = 3575) POCT PREG TEST DATE (test code = 3576) [facility] [id number] 15:51:00 Test Item Value Reference Range Interpretation Comments POCT PREG (test code = 1605) Negative On board controls acceptable with C Yes Line (test code = 3574) POCT PREG LOT # (test code = 3575) POCT PREG TEST DATE (test code = 3576) [facility] [id number] 15:51:00 Test Item Value Reference Range Interpretation Comments POCT PREG (test code = 1605) Negative On board controls acceptable with C Yes Line (test code = 3574) POCT PREG LOT # (test code = 3575) POCT PREG TEST DATE (test code = 3576) [facility] COMPLETE WITH [id number] 18:39:20 No discernible abnormality to explain patient's [...] cavity mayrepresent blood products. Right ovarian cyst. [facility] [id number] 18:24:00 Test Item Value Reference Range Interpretation Comments POCT PREG (test code = 1605) Negative On board controls acceptable with C Yes Line (test code = 3574) POCT PREG LOT # (test code = 3575) POCT PREG TEST DATE (test code = 3576) [facility] [id number] 18:24:00 Test Item Value Reference Range Interpretation Comments POCT PREG (test code = 1605) Negative On board controls acceptable with C Yes Line (test code = 3574) POCT PREG LOT # (test code = 3575) POCT PREG TEST DATE (test code = 3576) [facility]"
[2023-04-12] MEDS ORDERED: DIPHENHYDRAMINE 50 MG/ML VIAL ONE (15:53)
[2023-04-12] MEDS ORDERED: dexAMETHasone 10 MG/ML VIAL ONE (15:53)
[2023-04-12] MEDS ORDERED: METOCLOPRAMIDE 10 MG/2mL INJ ONE (15:53)
[2023-04-12] MEDS ORDERED: KETOROLAC 30 MG/ML INJ ONE (15:53)
[2023-04-12] MEDS ORDERED: NA CHLORIDE 0.9% 1,000 ML ONE (15:54)
[2023-04-12] MEDS ORDERED: LABETALOL 20 MG/4ML SYRINGE IV ONE (15:54)
[2023-04-12 16:01] LABS: Absolute Lymphocytes (CBC) 2.6 K/uL (0.7-4.9); Hematocrit 42.4 % (36.0-45.0); Lymphocytes % 24.7 % (15.3-44.8); MCV 87.4 fL (80-100); RBC Red Blood Cell Count 4.85 M/uL (3.86-4.86)
[2023-04-12 16:05] LABS: Potassium 3.3 mEq/L (3.5-5.1)
--- NOTE | 2023-04-12 16:27 | RAD REPORT ---
EXAM DESCRIPTION: CT - Head Brain Wo Cont - 04/12/2023 4:02 pm CLINICAL HISTORY: HEADACHE COMPARISON: No comparisons TECHNIQUE: Noncontrast head CT images were obtained without IV contrast. Multiplanar reformats were generated and reviewed. All CT scans are performed using dose optimization technique as appropriate and may include automated exposure control or mA/KV adjustment according to patient size. FINDINGS: No intracranial hemorrhage, mass, or edema. Midline structures are unremarkable. Normal ventricular caliber for age. Hester-white matter differentiation is preserved, without evidence of acute infarct. No abnormal extra- axial fluid collections. Mastoid air cells and visualized portions of the paranasal sinuses are clear. No acute bony findings. IMPRESSION: No evidence of an acute intracranial process.
--- NOTE | 2023-04-12 16:40 | ER ---
Nurse's Notes [facility] Name: Bonny Overton Age: 43 yrs Sex: Female : 1980 Arrival Date: 04/12/2023 Time: 15:19 Bed 12 Private MD: Diagnosis: Headache;Nausea Presentation: 04/12 15:23 Chief complaint: Patient states: Migraine since this morning. Has tried OTC headache wy1 medicine but has not helped. Nauseous. Coronavirus screen: Vaccine status: Patient reports receiving the 2nd dose of the covid vaccine. Ebola Screen: Patient denies travel to an Ebola-affected area in the 21 days before illness onset. Initial Sepsis Screen: Does the patient meet any 2 criteria? No. Patient's initial sepsis screen is negative. Does the patient have a suspected source of infection? No. Patient's initial sepsis screen is negative. Risk Assessment: Do you want to hurt yourself or someone else? Patient reports no desire to harm self or others. Onset of symptoms was April 12, 2023. 15:23 Method Of Arrival: Ambulatory [facility] 15:23 Acuity: ARISTIDES 3 [facility] Triage Assessment: 15:30 Headache History: The patient has had previous headaches and this one is similar to iw previous episodes. Headache History:. General: Appears in no apparent distress. Pain: Pain currently is 9 out of 10 on a pain scale. Pain began 1 day ago. Also complains of nausea. 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 - Social history:: Smoking status: Patient denies any tobacco usage or history of. Screenin:30 [facility] ED Fall Risk Assessment (Adult) Score/Fall Risk Level 0 - 2 = Low Risk. Abuse iw screen: Denies threats or abuse. Denies injuries from another. Nutritional screening: No deficits noted. Tuberculosis screening: No symptoms or risk factors identified. Assessment: 15:29 General: Appears in no apparent distress. Behavior is calm, cooperative. Pain: iw Complains of pain in head. 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 Neuro: Reports. Cardiovascular: Patient's skin is warm and dry. Respiratory: Respiratory effort is even, unlabored, Respiratory pattern is regular, symmetrical. Derm: Skin is intact, is healthy with good turgor. Musculoskeletal: Range of motion: intact in all extremities. 16:19 Reassessment: Patient appears in no apparent distress at this time. Patient and/or iw family updated on plan of care and expected duration. Pain level reassessed. Patient is alert, oriented x 3, equal unlabored respirations, skin warm/dry/pink. Patient states symptoms have improved. Vital Signs: 15:23 Pulse 65; Resp 18; Temp 97.6(O); Pulse Ox 98% ; Weight 87.09 kg; Height 5 ft. 0 in. ; nj1 Pain 9/10; 15:26 BP 203 / 102; nj1 16:18 BP 148 / 79; Pulse 59; Resp 16; Pulse Ox 98% on R/A; Pain 6/10; iw 15:23 Body Mass Index 37.50 (87.09 kg, 152.4 cm) nj1 15:23 Pain Scale: Adult nj1 16:18 Pain Scale: Adult iw ED Course: 15:21 Patient arrived in ED. ts1 15:25 Triage completed. nj1 15:26 Timmy Casas DO is Attending Physician. ms3 15:26 Arm band placed on left wrist. nj1 15:29 Cassia Sanchez, RN is Primary Nurse. iw 15:42 Initial lab(s) drawn, by wy, sent to lab. Inserted saline lock: 20 gauge in right iw antecubital area, using aseptic technique. Blood collected. 16:04 CT Head Brain wo Cont In Process Unspecified. EDMS 16:19 Patient has correct armband on for positive identification. iw 16:39 Samuel Cuba MD is Referral Physician. ms3 17:10 No provider procedures requiring assistance completed. IV discontinued, intact, iw bleeding controlled, No redness/swelling at site. Pressure dressing applied. Administered Medications: 15:55 Drug: Decadron - Dexamethasone IVP 10 mg Route: IVP; Site: right antecubital; iw 16:40 Follow up: Response: No adverse reaction; Pain is decreased iw 15:55 Drug: Ketorolac IVP 10 mg 10 mg Route: IVP; Site: right antecubital; iw 16:40 Follow up: Response: No adverse reaction; Pain is decreased iw 15:56 Drug: diphenhydrAMINE IVP 25 mg Route: IVP; Site: right antecubital; iw 16:40 Follow up: Response: No adverse reaction; Pain is decreased iw 15:56 Drug: Labetalol IV 10 mg Route: IV; Rate: calculated rate; Site: right antecubital; iw 16:01 Follow up: IV Status: Completed infusion iw 16:14 Drug: NS 0.9% IV 1000 ml Route: IV; Rate: 1000 ml; Site: right antecubital; nj1 17:10 Follow up: IV Status: Completed infusion iw 16:19 Drug: metoCLOPramide IVP 10 mg Route: IVP; Site: right antecubital; iw 17:00 Follow up: Response: No adverse reaction iw Medication: 15:30 VIS not applicable for this client. iw Outcome: 16:39 Discharge ordered by . ms3 17:12 Discharged to home ambulatory. iw 17:12 Condition: good 17:12 Discharge instructions given to patient, Instructed on discharge instructions, follow up and referral plans. Demonstrated understanding of instructions, follow-up care. 17:13 Patient left the ED. iw Signatures: Dispatcher [employer] EDCassia Busby RN RN iw Timmy Casas DO DO ms3 Christi Hollins RN RN nj1 Karen Cleary PAS PAS ts1
--- NOTE | 2023-04-12 16:40 | EDPHYS ---
Physician Documentation [facility] Name: Bonny Overton Age: 43 yrs Sex: Female : 1980 Arrival Date: 04/12/2023 Time: 15:19 Bed 12 Private MD: ED Physician Timmy Casas HPI: 04/12 15:36 This 43 yrs old Female presents to ER via Ambulatory with complaints of ms3 Headache. 15:36 43-year-old female with past medical history of hypertension, migraines, diabetes ms3 presents for headache that began at 6 AM on waking up this morning. Patient states the pain is a 9/10. Patient denies alleviating factors. Patient states pain is worse with light. Patient endorses nausea. Patient denies fevers, chills, vomiting. 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 - Social history:: Smoking status: Patient denies any tobacco usage or history of. ROS: 15:36 Constitutional: Negative for fever, and chills. Neck: Negative for injury, pain, and ms3 swelling, Cardiovascular: Negative for chest pain, and palpitations. Respiratory: Negative for shortness of breath, cough, wheezing, and pleuritic chest pain, Abdomen/GI: Negative for abdominal pain, nausea, vomiting, diarrhea, and constipation, MS/Extremity: Negative for injury and deformity, Skin: Negative for injury, rash, and discoloration. 15:36 Neuro: Positive for headache. 15:36 All other systems are negative. Exam: 15:36 Constitutional: This is a well developed, well nourished patient who is awake, alert, ms3 and in no acute distress. Head/Face: Normocephalic, atraumatic. Chest/axilla: Normal chest wall appearance and motion. Nontender with no deformity. Cardiovascular: Regular rate and rhythm with a normal S1 and S2. No gallops, murmurs, or rubs. Normal PMI, no JVD. No pulse deficits. Respiratory: Lungs have equal breath sounds bilaterally, clear to auscultation and percussion. No rales, rhonchi or wheezes noted. No increased work of breathing, no retractions or nasal flaring. Abdomen/GI: Soft, non-tender, with normal bowel sounds. No distension or tympany. No guarding or rebound. No evidence of tenderness throughout. Skin: Warm, dry with normal turgor. Normal color with no rashes, no lesions, and no evidence of cellulitis. MS/ Extremity: Pulses equal, no cyanosis. Neurovascular intact. Full, normal range of motion. 15:36 Neuro: Orientation: is normal, to person, place, time \T\ situation. Mentation: is normal, Memory: is normal, Cranial nerves: CN I not tested, CN II- XII are normal as tested, Cerebellar function: normal finger to nose testing, Motor: is normal, Sensation: is normal, no obvious gross deficits, Gait: is steady, at a normal pace. Vital Signs: 15:23 Pulse 65; Resp 18; Temp 97.6(O); Pulse Ox 98% ; Weight 87.09 kg; Height 5 ft. 0 in. ; nj1 Pain 9/10; 15:26 BP 203 / 102; nj1 16:18 BP 148 / 79; Pulse 59; Resp 16; Pulse Ox 98% on R/A; Pain 6/10; iw 15:23 Body Mass Index 37.50 (87.09 kg, 152.4 cm) nj1 15:23 Pain Scale: Adult nj1 16:18 Pain Scale: Adult iw MDM: 15:33 Patient medically screened. ms3 15:36 Differential diagnosis: hypertensive headache, intracerebral hemorrhage, tension ms3 headache. 16:41 Data reviewed: vital signs, nurses notes, lab test result(s), radiologic studies, and ms3 as a result, I will discharge patient. I considered the following discharge prescriptions or medication management in the emergency department Medications were administered in the Emergency Department. See MAR. Care significantly affected by the following chronic conditions: Diabetes, Hypertension. Care significantly affected by the following Social Determinants of Health: Poor access to healthcare and/or lack of insurance. Counseling: I had a detailed discussion with the patient and/or guardian regarding: the historical points, exam findings, and any diagnostic results supporting the discharge/admit diagnosis, lab results, radiology results, the need for outpatient follow up, to return to the emergency department if symptoms worsen or persist or if there are any questions or concerns that arise at home. Response to treatment: the patient's symptoms have resolved after treatment, and as a result, I will discharge patient. Special discussion: I discussed with the patient/guardian in detail that at this point there is no indication for admission to the hospital. It is understood, however, that if the symptoms persist or worsen the patient needs to return immediately for re-evaluation. 04/12 15:35 Order name: CBC with Diff; Complete Time: 16:13 ms3 04/12 15:35 Order name: BMP; Complete Time: 16:13 ms3 04/12 15:36 Order name: CT Head Brain wo Cont; Complete Time: 16:37 ms3 Administered Medications: 15:55 Drug: Decadron - Dexamethasone IVP 10 mg Route: IVP; Site: right antecubital; iw 16:40 Follow up: Response: No adverse reaction; Pain is decreased iw 15:55 Drug: Ketorolac IVP 10 mg 10 mg Route: IVP; Site: right antecubital; iw 16:40 Follow up: Response: No adverse reaction; Pain is decreased iw 15:56 Drug: diphenhydrAMINE IVP 25 mg Route: IVP; Site: right antecubital; iw 16:40 Follow up: Response: No adverse reaction; Pain is decreased iw 15:56 Drug: Labetalol IV 10 mg Route: IV; Rate: calculated rate; Site: right antecubital; iw 16:01 Follow up: IV Status: Completed infusion iw 16:14 Drug: NS 0.9% IV 1000 ml Route: IV; Rate: 1000 ml; Site: right antecubital; nj1 17:10 Follow up: IV Status: Completed infusion iw 16:19 Drug: metoCLOPramide IVP 10 mg Route: IVP; Site: right antecubital; iw 17:00 Follow up: Response: No adverse reaction iw Disposition Summary: 04/12/23 16:39 Discharge Ordered Location: Home ms3 Condition: Stable ms3 Diagnosis - Headache ms3 - Nausea ms3 Followup: ms3 - With: Samuel Cuba MD - When: 2 - 3 days - Reason: Recheck today's complaints Discharge Instructions: - Discharge Summary Sheet ms3 - General Headache Without Cause ms3 Forms: - Medication Reconciliation Form ms3 - Thank You Letter ms3 - Antibiotic Education ms3 - Prescription Opioid Use ms3 - [email or web address] ms3 Signatures: Dispatcher [employer] Cassia Alvarez RN RN iw Timmy Casas DO DO ms3 Christi Hollins RN RN nj1
[2023-04-12 17:18] VITALS: TEMP 97.6; O2SAT 98
[2023-04-12 17:21] VITALS: BP 148/79
== END 2023-04-12 17:13 | disposition home or self-care (01) ==
LOC: ER 15:19
DX: R51.9 Headache, unspecified (principal); R11.0 Nausea; I10 Essential (primary) hypertension; Z88.5 Allergy status to narcotic agent; Z91.018 Allergy to other foods; Z91.048 Other nonmedicinal substance allergy status
CPT/HCPCS: 96361; 85025; 80048; 36415; 70450; 96375; 96374; 99284; J2765; J1200; J1100; J7030

== ENCOUNTER 2024-02-13 12:34 | Emergency (ER) | payer SELFPAY ==
[2024-02-13] MEDS ORDERED: KETOROLAC 30 MG/ML INJ ONE (13:53)
[2024-02-13] MEDS ORDERED: NA CHLORIDE 0.9% 1,000 ML ONE (13:53)
[2024-02-13] MEDS ORDERED: METHYLPREDNISOLONE 40 MG INJ ONE (13:53)
[2024-02-13] MEDS ORDERED: DIPHENHYDRAMINE 25 MG TAB/CAP ONE (13:53)
[2024-02-13] MEDS ORDERED: ONDANSETRON 4 MG/2 ML VIAL ONE (14:06)
--- NOTE | 2024-02-13 14:44 | ER ---
Nurse's Notes [facility] Name: Bonny Overton Age: 43 yrs Sex: Female : 1980 Arrival Date: 02/13/2024 Time: 12:34 Bed 17 Private MD: Diagnosis: Migraine, unspecified, not intractable, without status migrainosus;Essential (primary) hypertension Presentation: 02/12 12:39 Chief complaint: Patient states: headache that started today. Coronavirus screen: At as6 this time, the client does not indicate any symptoms associated with coronavirus-19. Ebola Screen: No symptoms or risks identified at this time. Initial Sepsis Screen: Does the patient meet any 2 criteria? No. Patient's initial sepsis screen is negative. Does the patient have a suspected source of infection? No. Patient's initial sepsis screen is negative. Risk Assessment: Do you want to hurt yourself or someone else? Patient reports no desire to harm self or others. Onset of symptoms was February 13, 2024. 12:39 Method Of Arrival: Ambulatory as6 12:39 Acuity: ARISTIDES 3 as6 Triage Assessment: 12:40 General: Appears uncomfortable, Behavior is calm, cooperative. Pain: Complains of pain as6 in head Quality of pain is described as aching. 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 - Infectious Disease History:: Denies. - Social history:: Smoking status: Patient denies any tobacco usage or history of. Screenin:16 [facility] ED Fall Risk Assessment (Adult) History of falling in the last 3 months, nj1 including since admission No falls in past 3 months (0 pts) Confusion or Disorientation No (0 pts) Intoxicated or Sedated No (0 pts) Impaired Gait No (0 pts) Mobility Assist Device Used No (0 pt) Altered Elimination No (0 pt) Score/Fall Risk Level 0 - 2 = Low Risk Oriented to surroundings, Maintained a safe environment, Hourly rounding (assess needs \T\ fall precautionary measures) done. Abuse screen: Denies threats or abuse. Denies injuries from another. Nutritional screening: No deficits noted. Tuberculosis screening: No symptoms or risk factors identified. Assessment: 13:15 General: Appears in no apparent distress. uncomfortable, Behavior is calm, cooperative, nj1 appropriate for age. Pain: Complains of pain in head Pain currently is 10 out of 10 on a pain scale. Quality of pain is described as aching. Neuro: Level of Consciousness is awake, alert, obeys commands, Oriented to person, place, time, situation, Reports headache. Cardiovascular: Patient's skin is warm and dry. Respiratory: Airway is patent Respiratory effort is even, unlabored. EENT: Reports photophobia. 13:44 Reassessment: Dr Ham in room w patient. Awaiting orders. nj1 15:20 Reassessment: Patient is alert, oriented x 3, equal unlabored respirations, skin aa5 warm/dry/pink. Patient states feeling better. Patient states symptoms have improved. Pain: Pain currently is 5 out of 10 on a pain scale. Vital Signs: 12:39 BP 203 / 115; Pulse 67; Resp 18 S; Temp 98.1(O); Pulse Ox 100% on R/A; Weight 89.36 kg as6 (R); Height 5 ft. 1 in. (R); Pain 10/10; 13:30 BP 181 / 100; Pulse 73; Resp 16; Pulse Ox 99% ; Pain 10/10; nj1 15:20 BP 164 / 91; Pulse 75; Resp 16 S; Pulse Ox 98% on R/A; aa5 12:39 Body Mass Index 37.22 (89.36 kg, 154.94 cm) as6 12:39 Pain Scale: Adult as6 13:30 Pain Scale: Adult nj1 ED Course: 12:36 Patient arrived in ED. im 12:40 Triage completed. as6 12:40 Arm band placed on. as6 12:43 Kristen Ham MD is Attending Physician. gb1 13:10 Christi Hollins, FLORI is Primary Nurse. nj1 13:17 Patient has correct armband on for positive identification. Bed in low position. Call nj1 light in reach. Adult w/ patient. Provided Education on: call light, fall precautions. 14:08 Inserted saline lock: 22 gauge in right antecubital area, using aseptic technique. me1 15:25 No provider procedures requiring assistance completed. IV discontinued, intact, aa5 bleeding controlled, No redness/swelling at site. Pressure dressing applied. Administered Medications: 14:09 Drug: Ketorolac IVP 30 mg IVP once Route: IVP; Site: right antecubital; me1 14:10 Follow up: Response: Nausea is increased; Vomiting increased me1 14:09 Drug: MethylPrednisoLONE IVP 60 mg IVP once Route: IVP; Site: right antecubital; me1 14:10 Follow up: Response: No adverse reaction me1 14:09 Drug: Sodium Chloride 0.9% IVPB 1000 ml IVPB once Route: IVPB; Site: right antecubital; me1 15:20 Follow up: IV Status: Completed infusion; IV Intake: 1000ml aa5 14:10 Not Given (patient vomiting after toradol. Dr Ham gave verbal order not to give. ): me1 [id number] mg PO once 14:10 Drug: Ondansetron IVP 4 mg IVP once; over 2 minutes Route: IVP; Site: right antecubital;me1 14:10 Follow up: Response: No adverse reaction; Nausea is decreased; Vomiting decreased me1 Medication: 15:22 VIS not applicable for this client. aa5 Intake: 15:20 IV: 1000ml; Total: 1000ml. aa5 Outcome: 14:44 Discharge ordered by . gb1 15:25 Discharged to home ambulatory, with family, aa5 15:25 Condition: improved 15:25 Discharge instructions given to patient, Instructed on discharge instructions, follow up and referral plans. Demonstrated understanding of instructions, follow-up care, 15:26 Patient left the ED. aa5 Signatures: Joselyn Castro RN RN aa5 Scott Woodward RN RN as6 Christi Hollins RN RN nj1 Brenda Moon Michelle RN RN me1 Kristen Ham MD MD gb1
--- NOTE | 2024-02-13 14:45 | EDPHYS ---
Physician Documentation [facility] Name: Bonny Overton Age: 43 yrs Sex: Female : 1980 Arrival Date: 02/13/2024 Time: 12:34 Bed 17 Private MD: ED Physician Krisetn Ham HPI: 02/12 14:54 This 43 yrs old Female presents to ER via Ambulatory with complaints of gb1 Migraine. 15:02 43-year-old female with headache behind her eyes that she considers a migraine although gb1 she has no normal diagnosis of migraine. She took some Excedrin [id number] which did not help her symptoms as throbbing. She has had a headache like this in the past. Patient called her 16-year-old daughter home from school to take her to the emergency department for evaluation. She denies any change in vision, blurred vision or fever or neck pain.. 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 - Infectious Disease History:: Denies. - Social history:: Smoking status: Patient denies any tobacco usage or history of. Exam: 15:02 Constitutional: This is a well developed, well nourished patient who is awake, alert, gb1 and in no acute distress. Head/Face: Normocephalic, atraumatic. Eyes: Pupils equal round and reactive to light, extra-ocular motions intact. Lids and lashes normal. Conjunctiva and sclera are non-icteric and not injected. Cornea within normal limits. Periorbital areas with no swelling, redness, or edema. ENT: Nares patent. No nasal discharge, no septal abnormalities noted. Tympanic membranes are normal and external auditory canals are clear. Oropharynx with no redness, swelling, or masses, exudates, or evidence of obstruction, uvula midline. Mucous membranes moist. Neck: Trachea midline, no thyromegaly or masses palpated, and no cervical lymphadenopathy. Supple, full range of motion without nuchal rigidity, or vertebral point tenderness. No Meningismus. Chest/axilla: Normal chest wall appearance and motion. Nontender with no deformity. No lesions are appreciated. Cardiovascular: Regular rate and rhythm with a normal S1 and S2. No gallops, murmurs, or rubs. Normal PMI, no JVD. No pulse deficits. Respiratory: Lungs have equal breath sounds bilaterally, clear to auscultation and percussion. No rales, rhonchi or wheezes noted. No increased work of breathing, no retractions or nasal flaring. Abdomen/GI: Soft, non-tender, with normal bowel sounds. No distension or tympany. No guarding or rebound. No evidence of tenderness throughout. Skin: Warm, dry with normal turgor. Normal color with no rashes, no lesions, and no evidence of cellulitis. MS/ Extremity: Pulses equal, no cyanosis. Neurovascular intact. Full, normal range of motion. Neuro: Awake and alert, GCS 15, oriented to person, place, time, and situation. Cranial nerves II-XII grossly intact. Motor strength 5/5 in all extremities. Sensory grossly intact. Cerebellar exam normal. Normal gait. Vital Signs: 12:39 BP 203 / 115; Pulse 67; Resp 18 S; Temp 98.1(O); Pulse Ox 100% on R/A; Weight 89.36 kg as6 (R); Height 5 ft. 1 in. (R); Pain 10/10; 13:30 BP 181 / 100; Pulse 73; Resp 16; Pulse Ox 99% ; Pain 10/10; nj1 15:20 BP 164 / 91; Pulse 75; Resp 16 S; Pulse Ox 98% on R/A; aa5 12:39 Body Mass Index 37.22 (89.36 kg, 154.94 cm) as6 12:39 Pain Scale: Adult as6 13:30 Pain Scale: Adult nj1 MDM: 12:43 Patient medically screened. gb1 15:02 Differential diagnosis: hypertensive headache, intracerebral hemorrhage, meningitis, gb1 migraine, neoplasm, sinusitis, tension headache, trigeminal neuralgia. 15:05 Data reviewed: vital signs, nurses notes. ED course: 43-year-old female with history of gb1 uncontrolled hypertension, diabetes and migraine. Patient is noncompliant with her antihypertensive medications which may be a etiology of this headache. I doubt subarachnoid hemorrhage as the headache is not first, worst, sudden or maximal in onset. It feels like her other headaches that she has had in the past. She does not have any signs of meningismus or concern at this point for meningitis. She is afebrile and otherwise nontoxic-appearing. She is escorted home by her 16-year-old daughter as she is not driving today. She denies any falls or trauma I doubt subdural hematoma or skull fracture. Patient has been instructed to follow-up with neurologist for formal diagnosis and evaluation and workup for chronic migraine headaches. She is discharged home today without any questions upon discharge and explicit instructions to return as well as neurology follow-up as stated above.. Administered Medications: 14:09 Drug: Ketorolac IVP 30 mg IVP once Route: IVP; Site: right antecubital; me1 14:10 Follow up: Response: Nausea is increased; Vomiting increased me1 14:09 Drug: MethylPrednisoLONE IVP 60 mg IVP once Route: IVP; Site: right antecubital; me1 14:10 Follow up: Response: No adverse reaction me1 14:09 Drug: Sodium Chloride 0.9% IVPB 1000 ml IVPB once Route: IVPB; Site: right antecubital; me1 15:20 Follow up: IV Status: Completed infusion; IV Intake: 1000ml aa5 14:10 Not Given (patient vomiting after toradol. Dr Ham gave verbal order not to give. ): me1 [id number] mg PO once 14:10 Drug: Ondansetron IVP 4 mg IVP once; over 2 minutes Route: IVP; Site: right antecubital;me1 14:10 Follow up: Response: No adverse reaction; Nausea is decreased; Vomiting decreased me1 Disposition Summary: 02/13/24 14:44 Discharge Ordered Notes: Location: Home gb1 Condition: Stable gb1 Diagnosis - Migraine, unspecified, not intractable, without status migrainosus gb1 - Essential (primary) hypertension gb1 Followup: gb1 - With: Private Physician - When: - Reason: Re-evaluation by your physician Discharge Instructions: - Discharge Summary Sheet gb1 - Migraine Headache gb1 - Hypertension, Adult, [id number] gb1 Forms: - Work release form aa5 - Medication Reconciliation Form gb1 - Antibiotic Education gb1 - Prescription Opioid Use gb1 - Patient Portal Instructions gb1 - Leadership Thank You Letter gb1 Signatures: Scott Woodward RN RN as6 Stefania Barron RN RN me1 Kristen Ham MD MD gb1 Joselyn Castro RN aa5
[2024-02-13 15:59] VITALS: BP 181/100; TEMP 98.1; O2SAT 99
== END 2024-02-13 15:26 | disposition home or self-care (01) ==
LOC: ER 12:34
DX: G43.909 Migraine, unspecified, not intractable, without status migrainosus (principal); I10 Essential (primary) hypertension
CPT/HCPCS: 96365; 96375; 99284; J2405; J2920; J7030